=== PATIENT | male | born 1965 | race Caucasian/White ===

== ENCOUNTER 2016-11-20 19:23 | Inpatient (IN) | payer BC ==
[~2016-11-20] VITALS: Ht 180.3 cm; Wt 89.4 kg
[2016-11-20 19:26] VITALS: BP 135/56; PULSE 85; RESP 18; TEMP 98.5; O2SAT 100
[2016-11-20 20:54] VITALS: BP 126/60; PULSE 67; RESP 18; O2SAT 97
[2016-11-20] MEDS ORDERED: LISI-515 PO (21:05)
[2016-11-20] MEDS ORDERED: LANTUS2P ×2 (21:05)
[2016-11-20] MEDS ORDERED: ATOR40TA16 PO (21:05)
[2016-11-20] MEDS ORDERED: MULT-182 (21:05)
[2016-11-20] MEDS ORDERED: CALC0.25 PO (21:05)
[2016-11-20] MEDS ORDERED: BRIL90TA PO (21:05)
[2016-11-20] MEDS ORDERED: ALLO100T PO (21:05)
[2016-11-20] MEDS ORDERED: ISOS60TA PO (21:05)
[2016-11-20] MEDS ORDERED: HYDR-3533 PO (21:05)
[2016-11-20] MEDS ORDERED: FURO40TA PO (21:05)
[2016-11-20] MEDS ORDERED: ASPI81TA81 (21:05)
[2016-11-20] MEDS ORDERED: SODI650T PO (21:05)
[2016-11-20] MEDS ORDERED: COLC1CAP3 PO (21:05)
[2016-11-20] MEDS ORDERED: GLIP10TA6 PO (21:05)
[2016-11-20] MEDS ORDERED: CARV12.52 PO (21:05)
[2016-11-20] MEDS ORDERED: LYRI150C PO (21:05)
[2016-11-20] MEDS ORDERED: SODIUM CHLORIDE 0.9% FLUSH 10 ML FLUSH IVF PRN (21:15)
[2016-11-20] MEDS ORDERED: diphenhydrAMINE HCL 50 MG/ML VIAL IVP ONE (21:15)
[2016-11-20] MEDS ORDERED: DEXAMETHASONE SOD PHOS 20 MG/5 ML VIAL IV PUSH ONE (21:15)
[2016-11-20] MEDS ORDERED: METOCLOPRAMIDE HCL 10 MG/2 ML VIAL IVP ONE (21:15)
--- NOTE | 2016-11-20 21:51 | PD ---
HPI Chief Complaint: Headache Time Seen by Provider: 20:50 Travel History International Travel<30 days: No Contact w/Intl Traveler<30days: No Traveled to known affect area: No History of Present Illness HPI Patient is a 51 year old male who presents to ER with multiple complaints. Reports that he was admitted to [facility] hospital last week as he was severely dehydrated and hypotensive. Reports that he was admitted to the hospital for a few days and was discharged to home. Reports that during the course of his admission, he complained of a migraine headache. Reports that he has had a migraine for the 3 weeks and [facility] did not address his headache or perform any imaging of his head. Reports that he also had swelling to his legs and pains to his feet - reports that he was told that he had gout and was given a script for allopurinol and was discharged to home. Patient reports that he is not feeling any better and request that his headache and leg pain be evaluated. Reports that headache is posterior in nature, reports that he feels a pounding sensation to his head. Patient with no fever/chills. No vision changes, no nausea or vomiting. Reports that pain has been constant and unrelenting for the past 3 weeks. Reports that headache is worse today Also reports swelling and pain to his feet since last week's admission to [facility]. Denies chest pain/sob. Denies history of PE/DVT. PFSH Past Medical History Cardiac Catheterization: Yes (3X, TRIPLE BYPASS) High Cholesterol: Yes Chest Pain: Yes Diabetes: Yes Patient Takes Glucophage: No Diminished Hearing: No Headaches: Yes Hypertension: Yes Tetanus Vaccination: Unknown Influenza Vaccination: Yes Social History Alcohol Use: No Tobacco Use: No Substance Use: No Allergies-Medications (Allergen,Severity, Reaction): Coded Allergies: Percocet (Verified Allergy, Intermediate, 11/20/16) Reported Meds & Prescriptions Reported Meds & Active Scripts Active Reported Brilinta (Ticagrelor) 90 Mg Tab 90 Mg PO BID Sodium Bicarbonate 650 Mg Tab 1,300 Mg PO TIDPC Lyrica (Pregabalin) 150 Mg Cap 150 Mg PO TID Pete Multivitamin with Mineral (Multivitamin with Minerals) 1 Each Tablet Lisinopril 20 Mg Tab 20 Mg PO BID Lantus Inj (Insulin Glargine) 100 Unit/Ml Inj 25 HS Isosorbide Mononitrate ER (Isosorbide Mononitrate) 60 Mg Tab 60 Mg PO DAILY Glipizide 10 Mg Tab 10 Mg PO BIDAC Take 30 minutes before a meal Furosemide 40 Mg Tab 40 Mg PO DAILY Colchicine 0.6 Mg Cap 0.6 Mg PO BID Carvedilol 12.5 Mg Tab 12.5 Mg PO BID Calcitriol 0.25 Mcg Cap 0.25 Mcg PO EVERY OTHER DAY Atorvastatin (Atorvastatin Calcium) 40 Mg Tab 40 Mg PO HS Aspir-81 (Aspirin) 81 Mg Tabdr Allopurinol 100 Mg Tab 100 Mg PO DAILY Lortab (Hydrocodone-Acetaminophen) 5-325 Mg Tab 1 Tab PO Q6H PRN Review of Systems General / Constitutional: No: Fever Eyes: No: Visual changes HENT: No: Headaches Cardiovascular: No: Chest Pain or Discomfort Respiratory: No: Shortness of Breath Gastrointestinal: No: Abdominal Pain Genitourinary: No: Dysuria Musculoskeletal: Positive: Cramping, Edema, No: Pain Skin: No Rash Neurologic: Positive: Headache, No: Weakness Psychiatric: No: Depression Endocrine: No: Polydipsia Hematologic/Lymphatic: No: Easy Bruising Physical Exam Narrative GENERAL: mild distress SKIN: Focused skin assessment warm/dry. HEAD: Atraumatic. Normocephalic. EYES: Pupils equal and round. No scleral icterus. No injection or drainage. ENT: No nasal bleeding or discharge. Mucous membranes pink and moist. NECK: Trachea midline. No JVD. CARDIOVASCULAR: Regular rate and rhythm. No murmur appreciated. RESPIRATORY: No accessory muscle use. Clear to auscultation. Breath sounds equal bilaterally. GASTROINTESTINAL: Abdomen soft, non-tender, nondistended. Hepatic and splenic margins not palpable. MUSCULOSKELETAL: No obvious deformities. No clubbing. No cyanosis. +1 edema to b/l le's NEUROLOGICAL: Awake and alert. No obvious cranial nerve deficits. Motor grossly within normal limits. Normal speech. CN 2-12 grossly intact with no neurovascular defictits PSYCHIATRIC: Appropriate mood and affect; insight and judgment normal. Data Data Last Documented VS Vital Signs Date Time Temp Pulse Resp B/P Pulse Ox O2 Delivery O2 Flow Rate FiO2 11/20/16 20:54 67 18 126/60 97 Room Air 11/20/16 19:26 98.5 Orders Complete Blood Count With Diff (11/20/16 21:10) Basic Metabolic Panel (Bmp) (11/20/16 21:10) Prothrombin Time / Inr (Pt) (11/20/16 21:10) Act Partial Throm Time (Ptt) (11/20/16 21:10) Ct Brain W/O Iv Contrast(Rout) (11/20/16 21:10) Ecg Monitoring (11/20/16 21:10) Iv Access Insert/Monitor (11/20/16 21:10) Sodium Chloride 0.9% Flush (Ns Flush) (11/20/16 21:15) Diphenhydramine Inj (Benadryl Inj) (11/20/16 21:15) Metoclopramide Inj (Reglan Inj) (11/20/16 21:15) Dexamethasone Inj (Decadron Inj) (11/20/16 21:15) Us Leg Venous Doppler Bilat (11/20/16 ) Consult Neurosurgery (11/20/16 ) Admit Order (Ed Use Only) (11/20/16 23:17) Labs Laboratory Tests Test 11/20/16 21:25 White Blood Count 6.3 TH/MM3 Red Blood Count 4.44 MIL/MM3 Hemoglobin 12.0 GM/DL Hematocrit 37.2 % Mean Corpuscular Volume 83.7 FL Mean Corpuscular Hemoglobin 27.0 PG Mean Corpuscular Hemoglobin 32.3 % Concent Red Cell Distribution Width 14.4 % Platelet Count 81 TH/MM3 Mean Platelet Volume 13.0 FL Neutrophils (%) (Auto) 68.2 % Lymphocytes (%) (Auto) 12.9 % Monocytes (%) (Auto) 16.7 % Eosinophils (%) (Auto) 1.8 % Basophils (%) (Auto) 0.4 % Neutrophils # (Auto) 4.3 TH/MM3 Lymphocytes # (Auto) 0.8 TH/MM3 Monocytes # (Auto) 1.1 TH/MM3 Eosinophils # (Auto) 0.1 TH/MM3 Basophils # (Auto) 0.0 TH/MM3 CBC Comment AUTO DIFF Prothrombin Time 11.1 SEC Prothromb Time International 1.0 RATIO Ratio Activated Partial 26.9 SEC Thromboplast Time Sodium Level 134 MEQ/L Potassium Level 5.1 MEQ/L Chloride Level 101 MEQ/L Carbon Dioxide Level 22.8 MEQ/L Anion Gap 10 MEQ/L Blood Urea Nitrogen 72 MG/DL Creatinine 1.82 MG/DL Estimat Glomerular Filtration 40 ML/MIN Rate Random Glucose 271 MG/DL Calcium Level 9.6 MG/DL MDM Medical Decision Making Medical Screen Exam Complete: Yes Emergency Medical Condition: Yes Interpretation(s) Vital Signs Date Time Temp Pulse Resp B/P Pulse Ox O2 Delivery O2 Flow Rate FiO2 11/20/16 20:54 67 18 126/60 97 Room Air 11/20/16 19:26 98.5 85 18 135/56 100 Differential Diagnosis differential includes: ich, migraine, tension headache, electrolyte abnormality , dvt, chf Narrative Course 51-year-old male who presents to emergency room complaints of headache for the past 3 weeks. Patient reports that he was recently admitted to [facility] [address] head ordered, us of legs ordered to rule out dvt. Vital Signs Date Time Temp Pulse Resp B/P Pulse Ox O2 Delivery O2 Flow Rate FiO2 11/20/16 20:54 67 18 126/60 97 Room Air 11/20/16 19:26 98.5 85 18 135/56 100 CBC & BMP Diagram 11/20/16 21:[address] 11/20/16 2110 Signed Impressions: Service Date/Time: Sunday, November 20, 2016 21:41 - CONCLUSION: High density extra-axial collection along the left parietal lobe as described. This is most air to risk of a subdural hematoma versus possible epidural hematoma. David Gonzáles MD Lower Extremity Ultrasound 11/20/16 0000 Signed Impressions: Service Date/Time: Sunday, November 20, 2016 22:10 - CONCLUSION: Negative venous ultrasound with no evidence of deep venous thrombosis. David Gonzáles MD patient with ich - call made to dr. fair who will see patient in consult case reviewed with dr. michel who accepts pt service Diagnosis Primary Impression: Intracranial hemorrhage Additional Impression: Thrombocytopenia Admitting Information Admitting Physician Requests: Admit Clare Lerner DO Nov 20, 2016 21:51
--- NOTE | 2016-11-20 21:51 | RADRPT ---
EXAM DATE/TIME: 11/20/2016 21:41 [facility] COMPARISON: No previous studies available for comparison. INDICATIONS : Cephalgia x 1 month. RADIATION DOSE: 40.27 CTDIvol (mGy) MEDICAL HISTORY : Cardiovascular disease. Diabetes mellitus type 2. SURGICAL HISTORY : CABG ENCOUNTER: Initial ACUITY: 1 month PAIN SCALE: 10/10 LOCATION: cranial TECHNIQUE: Multiple contiguous axial images were obtained of the head. Using automated exposure control and adj ustment of the mA and/or kV according to patient size, radiation dose was kept as low as reasonably a chievable to obtain optimal diagnostic quality images. DICOM format image data is available electro nically for review and comparison. FINDINGS: CEREBRUM: The ventricles are normal for age. No evidence of midline shift, mass lesion, or acute infarction. T here is a high density collection along the left parietal lobe measuring up to approximately 4 x 1 cm in greatest AP and transverse diameter. There is mild mass effect on the adjacent brain with no julieta a. Adjacent skull is unremarkable POSTERIOR FOSSA: The cerebellum and brainstem are intact. The 4th ventricle is midline. The cerebellopontine angle i s unremarkable. EXTRACRANIAL: The visualized portion of the orbits is intact. SKULL: The calvaria is intact. No evidence of skull fracture. CONCLUSION: High density extra-axial collection along the left parietal lobe as described. This is most air to ri sk of a subdural hematoma versus possible epidural hematoma. David Gonzáles MD on November 20, 2016 at 21:43 Board Certified Radiologist. This report was verified electronically.
[2016-11-20 22:13] LABS: BICARBONATE 22.8 MEQ/L (21.0-32.0)
[2016-11-20 22:14] LABS: AUTOMATED NEUTROPHIL # 4.3 TH/MM3 (1.8-7.7); BASOPHIL % 0.4 % (0.0-2.0); EOSINOPHIL # 0.1 TH/MM3 (0-0.4); EOSINOPHIL % 1.8 % (0.0-4.0); HEMATOCRIT 37.2 % (39.0-51.0); LYMPH % 12.9 % (9.0-44.0); LYMPHOCYTE # 0.8 TH/MM3 (1.0-4.8); MEAN CELL VOLUME 83.7 FL (80.0-100.0); MEAN CORPUSCULAR HGB CONC 32.3 % (32.0-36.0); MONO % 16.7 % (0.0-8.0); NEUT % 68.2 % (16.0-70.0); PLATELET COUNT 81 TH/MM3 (150-450); POTASSIUM 5.1 MEQ/L (3.5-5.1); RED BLOOD COUNT 4.44 MIL/MM3 (4.50-5.90); RED CELL DISTRIBUTION WIDTH 14.4 % (11.6-17.2); WHITE BLOOD COUNT 6.3 TH/MM3 (4.0-11.0)
[2016-11-20 22:16] LABS: APTT (PATIENT) 26.9 SEC (24.3-30.1); PROTHROMBIN TIME - PATIENT 11.1 SEC (9.8-11.6)
[2016-11-20 22:19] LABS: HEMO FLAGS AUTO DIFF
--- NOTE | 2016-11-20 22:40 | RADRPT ---
EXAM DATE/TIME: 11/20/2016 22:10 [facility] COMPARISON: No previous studies available for comparison. INDICATIONS : Bilateral leg swelling. MEDICAL HISTORY : Hypercholesterolemia. Hypertension. Diabetes. SURGICAL HISTORY : CABG Cardiac catheterization. ENCOUNTER: Initial ACUITY: 3 days PAIN SCORE: 4/10 LOCATION: Bilateral legs. TECHNIQUE: Venous ultrasound of the left and right leg was performed from the inguinal ligament to the proximal calf. Real-time, color Doppler and spectral tracing, compression and augmentation techniques were us ed. FINDINGS: RIGHT LEG: There is normal compressibility of the deep venous system from the inguinal region to the proximal ca lf. No echogenic clot is seen in the lumen of the common femoral, femoral, popliteal, and posterior tibial veins. There is a normal response of the venous system to proximal and distal augmentation an d respiration. LEFT LEG: There is normal compressibility of the deep venous system from the inguinal region to the proximal ca lf. No echogenic clot is seen in the lumen of the common femoral, femoral, popliteal, and posterior tibial veins. There is a normal response of the venous system to proximal and distal augmentation an d respiration. CONCLUSION: Negative venous ultrasound with no evidence of deep venous thrombosis. David Gonzáles MD on November 20, 2016 at 22:37 Board Certified Radiologist. This report was verified electronically.
[2016-11-20 23:30] LABS: PLATELET ESTIMATE SMEAR LOW (NORMAL); PLATELET MORPHOLOGY NORMAL (NORMAL); SCAN/DIFF AUTO DIFF CONFIRMED
[2016-11-20 23:37] VITALS: BP 147/75; PULSE 73; RESP 18; O2SAT 98
[2016-11-20] MEDS ORDERED: MAGNESIUM HYDROXIDE SUSP 30 ML CUP PO PRN (23:45)
[2016-11-20] MEDS ORDERED: SODIUM CHLORIDE 0.9% FLUSH 10 ML FLUSH PRN (23:45)
[2016-11-20] MEDS ORDERED: SENNOSIDES 8.6 MG TAB PO PRN (23:45)
[2016-11-20] MEDS ORDERED: RESP: ALBUTEROL 2.5 MG/IPRATROPIUM 0.5 MG NEB (PRN) INH (23:45)
[2016-11-20] MEDS ORDERED: MISCELLANEOUS NURSING INFORMATION XX SCH (23:45)
[2016-11-20] MEDS ORDERED: LACTULOSE SYRUP 20 GM/30 ML CUP PO PRN (23:45)
[2016-11-20] MEDS ORDERED: BISACODYL 10 MG SUPP RECTAL PRN (23:45)
[2016-11-20] MEDS ORDERED: ONDANSETRON HCL 4 MG/2 ML VIAL IV PRN (23:45)
[2016-11-20] MEDS ORDERED: CHLORHEXIDINE GLUCONATE 2 % 1 PACK (2 CLOTHS) TOP PRN (23:45)
--- NOTE | 2016-11-20 23:51 | HHI.HP ---
HPI Service Critical Care Medicine Primary Care Physician Non-Staff Admission Diagnosis Intracranial hemorrhage Diagnosis: Travel History International Travel<30 Days: No Contact w/Intl Traveler <30 Da: No Traveled to Known Affected Are: No History of Present Illness 51 year old male with multiple medical problems including coronary artery disease status post CABG and recent 2 stents placed in August of this year was admitted to [facility] hospital last week as he was severely dehydrated and hypotensive. Reports that he was admitted to the hospital for a few days and was discharged to home. During that hospital course of his admission, he complained of a migraine headache. Reports that he has had a migraine for the 3 weeks and [facility] did not address his headache or perform any imaging of his head. Reports that he also had swelling to his legs and pains to his feet - reports that he was told that he had gout and was given a script for allopurinol and was discharged to home. The CT of the head performed in the emergency department today showed small subdural bleed and the patient is admitted to ICU. Review of Systems Constitutional: DENIES: Diaphoretic episodes, Fatigue, Fever, Weight gain, Weight loss, Chills, Dizziness, Change in appetite, Night Sweats Endocrine: DENIES: Heat/cold intolerance, Polydipsia, Polyuria, Polyphagia Eyes: DENIES: Blurred vision, Diplopia, Eye inflammation, Eye pain, Vision loss , Photosensitivity, Double Vision Ears, nose, mouth, throat: DENIES: Tinnitus, Hearing loss, Vertigo, Nasal discharge, Oral lesions, Throat pain, Hoarseness, Ear Pain, Running Nose, Epistaxis, Sinus Pain, Toothache, Odynophagia Respiratory: DENIES: Apneas, Cough, Snoring, Wheezing, Hemoptysis, Sputum production, Shortness of breath Cardiovascular: DENIES: Chest pain, Palpitations, Syncope, Dyspnea on Exertion , PND, Lower Extremity Edema, Orthopnea, Claudication Gastrointestinal: DENIES: Abdominal pain, Black stools, Bloody stools, Constipation, Diarrhea, Nausea, Vomiting, Difficulty Swallowing, Anorexia Genitourinary: DENIES: Sexual dysfunction, Urinary frequency, Urinary incontinence, Urgency, Hematuria, Dysuria, Nocturia, Penile Discharge, Testicular Pain, Testicular Swelling Musculoskeletal: DENIES: Joint pain, Muscle aches, Stiffness, Joint Swelling, Back pain, Neck pain Integumentary: DENIES: Abnormal pigmentation, Nail changes, Pruritus, Rash Hematologic/lymphatic: DENIES: Bruising, Lymphadenopathy Immunologic/allergic: DENIES: Eczema, Urticaria Neurologic: COMPLAINS OF: Headache, DENIES: Abnormal gait, Localized weakness , Paresthesias, Seizures, Speech Problems, Tremor, Poor Balance Psychiatric: DENIES: Anxiety, Confusion, Mood changes, Depression, Hallucinations, Agitation, Suicidal Ideation, Homicidal Ideation, Delusions Past Family Social History Allergies: Coded Allergies: Percocet (Verified Allergy, Intermediate, 11/20/16) Past Medical History Cardiac Catheterization: Yes (3X, TRIPLE BYPASS) High Cholesterol: Yes Chest Pain: Yes Diabetes: Yes Patient Takes Glucophage: No Diminished Hearing: No Headaches: Yes Hypertension: Yes Tetanus Vaccination: Unknown Influenza Vaccination: Yes Past Surgical History CABG Reported Medications Reported Meds & Active Scripts Active Reported Brilinta (Ticagrelor) 90 Mg Tab 90 Mg PO BID Sodium Bicarbonate 650 Mg Tab 1,300 Mg PO TIDPC Lyrica (Pregabalin) 150 Mg Cap 150 Mg PO TID Epte Multivitamin with Mineral (Multivitamin with Minerals) 1 Each Tablet Lisinopril 20 Mg Tab 20 Mg PO BID Lantus Inj (Insulin Glargine) 100 Unit/Ml Inj 25 HS Isosorbide Mononitrate ER (Isosorbide Mononitrate) 60 Mg Tab 60 Mg PO DAILY Glipizide 10 Mg Tab 10 Mg PO BIDAC Take 30 minutes before a meal Furosemide 40 Mg Tab 40 Mg PO DAILY Colchicine 0.6 Mg Cap 0.6 Mg PO BID Carvedilol 12.5 Mg Tab 12.5 Mg PO BID Calcitriol 0.25 Mcg Cap 0.25 Mcg PO EVERY OTHER DAY Atorvastatin (Atorvastatin Calcium) 40 Mg Tab 40 Mg PO HS Aspir-81 (Aspirin) 81 Mg Tabdr Allopurinol 100 Mg Tab 100 Mg PO DAILY Lortab (Hydrocodone-Acetaminophen) 5-325 Mg Tab 1 Tab PO Q6H PRN Active Ordered Medications Current Medications Medications (Trade) Dose Ordered Sig/Alona Route PRN Reason Start Time Stop Time Status Last Admin Dose Admin Sodium Chloride (NS Flush) 2 ml UNSCH PRN IVF FLUSH AFTER USING IV ACCESS 11/20/16 21:15 Atorvastatin Calcium (Lipitor) 40 mg HS PO 11/21/16 21:00 Carvedilol (Coreg) 12.5 mg BID PO 11/21/16 09:00 Pregabalin (Lyrica) 150 mg TID PO 11/21/16 09:00 Sodium Bicarbonate 1300 mg 1,300 mg TIDPC PO 11/21/16 09:30 Sodium Chloride (NS 1000 ml Inj) 1,000 ml @ 84 mls/hr [id number] IV 11/20/16 23:42 11/20/16 23:58 Sodium Chloride (NS Flush) 2 ml UNSCH PRN .XX FLUSH AFTER USING IV ACCESS 11/20/16 23:45 Sodium Chloride (NS Flush) 2 ml BID .XX 11/21/16 09:00 Acetaminophen (Tylenol) 650 mg Q6H PRN PO PAIN 1-10 AND/OR FEVER >101F 11/20/16 23:45 Oxycodone/ Acetaminophen (Percocet 5-325 Mg) 1 tab Q4H PRN PO PAIN SCALE 1 TO 5 11/20/16 23:45 Morphine Sulfate (Morphine Inj) 2 mg Q2H PRN IV PAIN SCALE 6 TO 10 11/20/16 23:45 11/21/16 00:37 Famotidine (Pepcid Inj) 20 mg Q12HR IV PUSH 11/21/16 09:00 Lorazepam (Ativan Inj) 2 mg Q4H PRN IV Agitation/Sedation 11/20/16 23:45 Ondansetron HCl (Zofran Inj) 4 mg Q6H PRN IV NAUSEA OR VOMITING 11/20/16 23:45 11/21/16 00:37 Miscellaneous Information 1 [id number] XX 11/20/16 23:45 Chlorhexidine Gluconate (Chlorhexidine 2% Cloth) 3 pack Taper DAILY@04 TOP 11/21/16 04:00 11/17/17 03:59 Chlorhexidine Gluconate (Chlorhexidine 2% Cloth) 3 pack UNSCH PRN TOP HYGIENIC CARE 11/20/16 23:45 Senna/Docusate Sodium (Mary Ellen-Colace) 1 tab BID PO 11/21/16 09:00 Magnesium Hydroxide (Milk Of Magnesia Liq) 30 ml Q12H PRN PO MILD - MODERATE CONSTIPATION 11/20/16 23:45 Sennosides (Senokot) 17.2 mg Q12H PRN PO MODERATE - SEVERE CONSTIPATION 11/20/16 23:45 Bisacodyl (Dulcolax Supp) 10 mg DAILY PRN RECTAL SEVERE CONSITIPATION 11/20/16 23:45 Lactulose (Lactulose Liq) 30 ml DAILY PRN PO SEVERE CONSITIPATION 11/20/16 23:45 Dextrose (D50w (Vial) Inj) 50 ml UNSCH PRN IV HYPOGLYCEMIA-SEE COMMENTS 11/21/16 00:00 Glucagon (Glucagon Inj) 1 mg UNSCH PRN OTHER HYPOGLYCEMIA-SEE COMMENTS 11/21/16 00:00 Isosorbide Mononitrate (Imdur) 60 mg DAILY@07 PO 11/21/16 07:00 Family History No history of cancer or premature coronary disease Social History Negative for smoking alcohol or illicit drug abuse Physical Exam Vital Signs Vital Signs Date Time Temp Pulse Resp B/P Pulse Ox O2 Delivery O2 Flow Rate FiO2 11/20/16 23:37 73 18 147/75 98 Room Air 11/20/16 20:54 67 18 126/60 97 Room Air 11/20/16 19:26 98.5 85 18 135/56 100 Physical Exam GENERAL: Well-nourished, well-developed patient. SKIN: Warm and dry. HEAD: Normocephalic. EYES: No scleral icterus. No injection or drainage. NECK: Supple, trachea midline. No JVD or lymphadenopathy. CARDIOVASCULAR: Regular rate and rhythm without murmurs, gallops, or rubs. RESPIRATORY: Breath sounds equal bilaterally. No accessory muscle use. GASTROINTESTINAL: Abdomen soft, non-tender, nondistended. MUSCULOSKELETAL: No cyanosis, or edema. BACK: Nontender without obvious deformity. No CVA tenderness. EXTREMITIES: No clubbing cyanosis or edema Laboratory Laboratory Tests Test 11/20/16 21:25 White Blood Count 6.3 Red Blood Count 4.44 Hemoglobin 12.0 Hematocrit 37.2 Mean Corpuscular Volume 83.7 Mean Corpuscular Hemoglobin 27.0 Mean Corpuscular Hemoglobin 32.3 Concent Red Cell Distribution Width 14.4 Platelet Count 81 Mean Platelet Volume 13.0 Neutrophils (%) (Auto) 68.2 Lymphocytes (%) (Auto) 12.9 Monocytes (%) (Auto) 16.7 Eosinophils (%) (Auto) 1.8 Basophils (%) (Auto) 0.4 Neutrophils # (Auto) 4.3 Lymphocytes # (Auto) 0.8 Monocytes # (Auto) 1.1 Eosinophils # (Auto) 0.1 Basophils # (Auto) 0.0 CBC Comment AUTO DIFF Differential Comment AUTO DIFF CONFIRMED Platelet Estimate LOW Platelet Morphology Comment NORMAL Prothrombin Time 11.1 Prothromb Time International 1.0 Ratio Activated Partial 26.9 Thromboplast Time Sodium Level 134 Potassium Level 5.1 Chloride Level 101 Carbon Dioxide Level 22.8 Anion Gap 10 Blood Urea Nitrogen 72 Creatinine 1.82 Estimat Glomerular Filtration 40 Rate Random Glucose 271 Calcium Level 9.6 Result Diagram: 11/20/16212411/20/162124 Imaging Last [address] 11/20/162109 Signed Impressions: Service Date/Time: Sunday, November 20, 2016 21:41 - CONCLUSION: High density extra-axial collection along the left parietal lobe as described. This is most air to risk of a subdural hematoma versus possible epidural hematoma. David Gonzáles MD Assessment and Plan Assessment and Plan Subdural hematoma - Patient on Brilinta - Transfuse platelets - Also to keep platelet count close to 100 - Repeat CT head tomorrow 24 hours apart - Further management per neurosurgeon Hypertension - Hold lisinopril due to elevated creatinine and potassium - Continue Coreg - Isosorbide Mononitrate - Hold Lasix due to elevated creatinine Acute kidney injury - Most likely due to dehydration - Gentle IV fluid resuscitation - Monitor I's and O's and creatinine levels - Avoid nephrotoxins Neuropathy - Lyrica Diabetes mellitus - Hold Lantus while patient nothing by mouth - Insulin sliding scale DVT GI prophylaxis - Teds SCDs - No pharmacological DVT prophylaxis due to acute ICH - Pepcid Critical Care: The total critical care time was 35 minutes. Time to perform other separately billable procedures was not included in the critical care time. Malik Rosales MD Nov 20, 2016 23:50
[2016-11-20] MEDS: SODIUM CHLOR 0.9% 1000 ML INJ 1,000 ML IV SCH (23:58)
[2016-11-21] VITALS (12 sets, daily range): BP systolic 117–187; BP diastolic 58–87; PULSE 70–100; RESP 13–22; TEMP 97.8–99.1; O2SAT 94–98
[2016-11-21] MEDS ORDERED: DEXTROSE 50% IN WATER 50 ML VIAL(D50) IV PRN
[2016-11-21] MEDS ORDERED: GLUCAGON 1 MG/ML VIAL OTHER PRN
[2016-11-21] MEDS: MORPHINE SULFATE 4 MG/ML INJ IV PRN ×4 (00:37→21:04)
[2016-11-21] MEDS: LORazepam 2 MG/ML VIAL IV PRN (01:05)
[2016-11-21] MEDS: LABETALOL HCL 100 MG/20 ML VIAL IV PUSH PRN (01:11)
[2016-11-21] MEDS: hydrALAZINE HCL 20 MG/ML VIAL IV PRN ×4 (02:01→23:45)
[2016-11-21] MEDS ORDERED: LORazepam 2 MG/ML VIAL IV PUSH ONE (02:45)
[2016-11-21] MEDS ORDERED: LABETALOL HCL 100 MG/20 ML VIAL IV PUSH ONE (02:45)
[2016-11-21] MEDS ORDERED: NITROGLYCERIN 0.2 MG/HR PATCH T-DERMAL ONE (02:45)
[2016-11-21] MEDS: LABETALOL INJ 500 MG in SODIUM CHLORIDE 0.9% INJ 150 ML IV SCH ×4 (02:54→09:36)
[2016-11-21] MEDS ORDERED: HYDROmorphone HCL PF 1 MG/ML VIAL IV PUSH ONE (03:00)
[2016-11-21] MEDS: CHLORHEXIDINE GLUCONATE 2 % 1 PACK (2 CLOTHS) TOP SCH (04:00)
[2016-11-21 04:16] LABS: AUTOMATED NEUTROPHIL # 5.4 TH/MM3 (1.8-7.7); BASOPHIL % 0.5 % (0.0-2.0); EOSINOPHIL % 0.1 % (0.0-4.0); HEMATOCRIT 34.4 % (39.0-51.0); HEMO FLAGS DIFF FINAL; LYMPH % 8.1 % (9.0-44.0); LYMPHOCYTE # 0.5 TH/MM3 (1.0-4.8); MEAN CELL VOLUME 83.2 FL (80.0-100.0); MEAN CORPUSCULAR HGB CONC 32.5 % (32.0-36.0); NEUT % 88.3 % (16.0-70.0); PLATELET COUNT 115 TH/MM3 (150-450); RED BLOOD COUNT 4.13 MIL/MM3 (4.50-5.90); RED CELL DISTRIBUTION WIDTH 14.4 % (11.6-17.2); WHITE BLOOD COUNT 6.1 TH/MM3 (4.0-11.0)
[2016-11-21 04:37] LABS: ANION GAP 12 MEQ/L (5-15); AST (GOT) 29 U/L (15-37); BLOOD UREA NITROGEN 66 MG/DL (7-18); CHLORIDE 106 MEQ/L (98-107); GLOMERULAR FILTRATION RATE 46 ML/MIN (>89); MAGNESIUM 2.5 MG/DL (1.5-2.5); POTASSIUM 4.8 MEQ/L (3.5-5.1); SODIUM (NA) 139 MEQ/L (136-145)
[2016-11-21 04:42] LABS: ALKALINE PHOSPHATASE 128 U/L (45-117); ALT (GPT) 61 U/L (12-78); TOTAL BILIRUBIN ADULT 1.1 MG/DL (0.2-1.0)
[2016-11-21] MEDS: ISOSORBIDE MONONITRATE 60 MG TAB PO SCH (05:59)
[2016-11-21] MEDS: INSULIN ASPART SUPPLEMENTAL SCALE SQ SCH ×4 (06:10→20:44)
[2016-11-21 06:36] LABS: AMPHETAMINE, URINE NEG (NEG); BARBITURATES, URINE NEG (NEG); COCAINE, URINE NEG (NEG)
[2016-11-21] MEDS ORDERED: LABETALOL INJ 1,000 MG in SODIUM CHLORID 0.9% 500 ML INJ 300 ML IV SCH ×3 (08:00)
[2016-11-21] MEDS: DOCUSATE SODIUM 50 MG/SENNA 8.6 MG TAB PO SCH ×2 (08:07→20:43)
[2016-11-21] MEDS: CARVEDILOL 12.5 MG TAB PO SCH ×2 (08:07→20:43)
[2016-11-21] MEDS: FAMOTIDINE 20 MG/2 ML VIAL IV PUSH SCH ×2 (08:07→20:43)
[2016-11-21] MEDS: SODIUM CHLORIDE 0.9% FLUSH 10 ML FLUSH SCH ×2 (08:08→20:44)
[2016-11-21] MEDS ORDERED: ISOSORBIDE MONONITRATE 60 MG TAB PO SCH (09:00)
[2016-11-21] MEDS: SODIUM BICARBONATE 650 MG TAB PO SCH ×3 (09:36→18:43)
[2016-11-21] MEDS: PREGABALIN 75 MG CAP PO SCH ×3 (09:37→18:43)
--- NOTE | 2016-11-21 09:45 | HHI.CCPN ---
Subjective Remarks/Hospital Course 11/20: 51 year old male with multiple medical problems including coronary artery disease status post CABG and recent 2 stents placed in August of this year was admitted to [facility] hospital last week as he was severely dehydrated and hypotensive. Reports that he was admitted to the hospital for a few days and was discharged to home. During that hospital course of his admission, he complained of a migraine headache. Reports that he has had a migraine for the 3 weeks and [facility] did not address his headache or perform any imaging of his head. Reports that he also had swelling to his legs and pains to his feet - reports that he was told that he had gout and was given a script for allopurinol and was discharged to home. The CT of the head performed in the emergency department today showed small subdural bleed and the patient is admitted to ICU. 11/21: Patient had retrosternal chest pain last night which resolved with nitroglycerin. Initial troponin negative. This morning he is resting in bed, denies any chest pain or shortness of breath. He is off Brilinta due to his ICH. Awaiting cardiology and neurosurgery eval. Objective Vital Signs Date Time Temp Pulse Resp B/P Pulse Ox O2 Delivery O2 Flow Rate FiO2 11/21/16 08:00 98 Nasal Cannula 2.00 11/21/16 08:00 97.8 78 16 117/59 Result Diagram: 11/21/16 0300 11/21/16 0300 Imaging Last [address] 11/20/162109 Signed Impressions: Service Date/Time: Sunday, November 20, 2016 21:41 - CONCLUSION: High density extra-axial collection along the left parietal lobe as described. This is most air to risk of a subdural hematoma versus possible epidural hematoma. David Gonzáles MD Objective Remarks GENERAL: Well-nourished, well-developed patient. SKIN: Warm and dry. HEAD: Normocephalic. EYES: No scleral icterus. No injection or drainage. NECK: Supple, trachea midline. No JVD or lymphadenopathy. CARDIOVASCULAR: Regular rate and rhythm without murmurs, gallops, or rubs. RESPIRATORY: Breath sounds equal bilaterally. No accessory muscle use. GASTROINTESTINAL: Abdomen soft, non-tender, nondistended. MUSCULOSKELETAL: No cyanosis, or edema. BACK: Nontender without obvious deformity. No CVA tenderness. EXTREMITIES: No clubbing cyanosis or edema Neuro: Awake and alert, following commands. Pupils 3 mm bilaterally reactive. Moving all 4 extremities. Grossly nonfocal A/P Assessment and Plan Subdural hematoma - Patient on Brilinta - Transfused platelets - Also to keep platelet count close to 100 - Repeat CT head in 24 hours - Further management per neurosurgeon Chest pain History of CAD status post recent stenting - Hold Brilinta. Patient reportedly had a 2-D echo at [facility] within the last week or so which revealed an EF of 50% according to his . Awaiting 2-D echo and cardiology evaluation for chest pain with EKG changes overnight. 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
--- NOTE | 2016-11-21 11:08 | HHI.PR ---
Addendum to Inpatient Note Addendum Reason: Additional Documentation Additional Information Discussed with Dr. Arevalo from cardiology-recommends starting Aspirin 81mg daily if ok with Neurosurgery. Discussed with Dr. Palacios from neurosurgery. Dr. Palacios is okay with starting aspirin 81 mg daily which I have ordered. Daniel Hutchison MD Nov 21, 2016 11:08
--- NOTE | 2016-11-21 11:28 | ECHRPT ---
Indication: Chest pain, unspecified CONCLUSIONS Normal left ventricular size. There was limited left ventricular wall motion assessment due to poor endocardial visualization. The left ventricular systolic function is normal with an estimated ejection fraction in the range of 55-60%. Mild concentric left ventricular hypertrophy. The right ventricle was not well visualized. The right atrium is not well visualized. Trace mitral valve regurgitation. The aortic valve is not well visualized. No aortic valve stenosis. No aortic valve regurgitation. There is trace tricuspid valve regurgitation. The pulmonary valve is not well visualized. The inferior vena cava (IVC) is normal in size. BP: / HR: Rhythm: MEASUREMENTS (Male / Female) Normal Values Technical Quality:Fair, Technically difficult stud y 2D ECHO LV Diastolic Diameter PLAX 4.8 cm 4.2 - 5.9 / 3.9 - 5.3 cm LV Systolic Diameter PLAX 3.7 cm IVS Diastolic Thickness 1.7 cm 0.6 - 1.0 / 0.6 - 0.9 cm LVPW Diastolic Thickness 1.3 cm 0.6 - 1.0 / 0.6 - 0.9 cm LV Relative Wall Thickness 0.6 RV Internal Dim ED PLAX 2.9 cm M-MODE Aortic Root Diameter MM 3.6 cm LA Systolic Diameter MM 4.3 cm LA Ao Ratio MM 1.2 AV Cusp Separation MM 2.3 cm DOPPLER Mitral E Point Velocity 94.8 cm/s Mitral A Point Velocity 59.7 cm/s Mitral E to A Ratio 1.6 LV E' Lateral Velocity 6.9 cm/s Mitral E to LV E' Lateral Ratio 13.7 LV E' Septal Velocity 6.2 cm/s Mitral E to LV E' Septal Ratio 15.2 FINDINGS LEFT VENTRICLE Normal left ventricular size. There was limited left ventricular wall motion assessment due to poor endocardial visualization. The left ventricular systolic function is normal with an estimated ejection fraction in the range of 55-60%. Mild concentric left ventricular hypertrophy. RIGHT VENTRICLE The right ventricle was not well visualized. Normal right ventricular size and systolic function. LEFT ATRIUM The left atrial size is normal. RIGHT ATRIUM The right atrium is not well visualized. The right atrial size is normal. ATRIAL SEPTUM Normal atrial septal thickness without atrial level shunting by limited color doppler interrogation. AORTA The aortic root and proximal ascending aorta are normal in size on limited imaging. MITRAL VALVE Structurally normal mitral valve. Trace mitral valve regurgitation. AORTIC VALVE The aortic valve is not well visualized. No aortic valve stenosis. No aortic valve regurgitation. TRICUSPID VALVE Structurally normal tricuspid valve. There is trace tricuspid valve regurgitation. PULMONARY VALVE The pulmonary valve is not well visualized. VESSELS The inferior vena cava (IVC) is normal in size. PERICARDIUM No pericardial effusion. Colin Arevalo MD (Electronically Signed) Final Date:21 November 2016 11:27
--- NOTE | 2016-11-21 11:29 | PD.CONS ---
HPI Service Neurosurgery Consult Requested By Dr Lerner Reason for Consult head injury Primary Care Physician Non-Staff History of Present Illness this is a 51 year old male with multiple medical problems including coronary artery disease, status post CABG and recent 2 stents placed in [facility] was admitted to [facility] hospital last week as he was severely dehydrated and hypotension. He was to the hospital for a few days and was then discharged to home. During that hospital course, he reported migraine headaches. Reports that he has had a migraine for the 3 weeks. He reportedly fell down. no LOC. No seizure activity. No tongue bitting. No incontinence of stool or urine. CT of the head performed in the emergency department today showed small subdural bleed. neurosurgical consultation was requested. Upon admission he developed hypertensive urgency with crushing chest pain. The EKG showed ST changes in the inferolateral ST elevation in aVR. Per patient his basin operator approved to hold anticoagulation for next 6 weeks. He received Nitropatch and initiated labetalol drip for blood pressure control. His chest pain has improved. Troponins and cardiology evaluation in progress Review of Systems Constitutional: DENIES: Diaphoretic episodes, Fatigue, Fever, Weight gain, Weight loss, Chills, Dizziness, Change in appetite, Night Sweats Endocrine: DENIES: Heat/cold intolerance, Polydipsia, Polyuria, Polyphagia Eyes: DENIES: Blurred vision, Diplopia, Eye inflammation, Eye pain, Vision loss , Photosensitivity, Double Vision Ears, nose, mouth, throat: DENIES: Tinnitus, Hearing loss, Vertigo, Nasal discharge, Oral lesions, Throat pain, Hoarseness, Ear Pain, Running Nose, Epistaxis, Sinus Pain, Toothache, Odynophagia Respiratory: DENIES: Apneas, Cough, Snoring, Wheezing, Hemoptysis, Sputum production, Shortness of breath Cardiovascular: DENIES: Chest pain, Palpitations, Syncope, Dyspnea on Exertion , PND, Lower Extremity Edema, Orthopnea, Claudication Gastrointestinal: DENIES: Abdominal pain, Black stools, Bloody stools, Constipation, Diarrhea, Nausea, Vomiting, Difficulty Swallowing, Anorexia Genitourinary: DENIES: Sexual dysfunction, Urinary frequency, Urinary incontinence, Urgency, Hematuria, Dysuria, Nocturia, Penile Discharge, Testicular Pain, Testicular Swelling Musculoskeletal: DENIES: Joint pain, Muscle aches, Stiffness, Joint Swelling, Back pain, Neck pain Integumentary: DENIES: Abnormal pigmentation, Nail changes, Pruritus, Rash Hematologic/lymphatic: DENIES: Bruising, Lymphadenopathy Immunologic/allergic: DENIES: Eczema, Urticaria Neurologic: COMPLAINS OF: Headache, DENIES: Abnormal gait, Localized weakness , Paresthesias, Seizures, Speech Problems, Tremor, Poor Balance Psychiatric: DENIES: Anxiety, Confusion, Mood changes, Depression, Hallucinations, Agitation, Suicidal Ideation, Homicidal Ideation, Delusions Past Family Social History Allergies: Coded Allergies: Percocet (Verified Allergy, Intermediate, 11/20/16) Past Medical History Cardiac Catheterization: Yes (3X, TRIPLE BYPASS) High Cholesterol: Yes Chest Pain: Yes Diabetes: Yes Headaches: Yes Hypertension: Yes Influenza Vaccination: Yes Past Surgical History CABG Reported Medications Brilinta (Ticagrelor) 90 Mg Tab 90 Mg PO BID Sodium Bicarbonate 650 Mg Tab 1,300 Mg PO TIDPC Lyrica (Pregabalin) 150 Mg Cap 150 Mg PO TID Pete Multivitamin with Mineral (Multivitamin with Minerals) 1 Each Tablet Lisinopril 20 Mg Tab 20 Mg PO BID Lantus Inj (Insulin Glargine) 100 Unit/Ml Inj 25 HS Isosorbide Mononitrate ER (Isosorbide Mononitrate) 60 Mg Tab 60 Mg PO DAILY Glipizide 10 Mg Tab 10 Mg PO BIDAC Take 30 minutes before a meal Furosemide 40 Mg Tab 40 Mg PO DAILY Colchicine 0.6 Mg Cap 0.6 Mg PO BID Carvedilol 12.5 Mg Tab 12.5 Mg PO BID Calcitriol 0.25 Mcg Cap 0.25 Mcg PO EVERY OTHER DAY Atorvastatin (Atorvastatin Calcium) 40 Mg Tab 40 Mg PO HS Aspir-81 (Aspirin) 81 Mg Tabdr Allopurinol 100 Mg Tab 100 Mg PO DAILY Lortab (Hydrocodone-Acetaminophen) 5-325 Mg Tab 1 Tab PO Q6H PRN Active Ordered Medications Current Medications Sodium Chloride (NS Flush) 2 ml UNSCH PRN IVF FLUSH AFTER USING IV ACCESS; Start 11/20/16 at 21:15; Stop 11/21/16 at 00:58; Status DC Diphenhydramine HCl (Benadryl Inj) 25 mg ONCE ONCE IVP Last administered on 21:28; Start 11/20/16 at 21:15; Stop 11/20/16 at 21:16; Status DC Metoclopramide HCl (Reglan Inj) 10 mg ONCE ONCE IVP Last administered on 21:28; Start 11/20/16 at 21:15; Stop 11/20/16 at 21:16; Status DC Dexamethasone Sodium Phosphate (Decadron Inj) 10 mg ONCE ONCE IV PUSH Last administered on 11/20/16 21:27; Start 11/20/16 at 21:15; Stop 11/20/16 at 21:16 ; Status DC Atorvastatin Calcium (Lipitor) 40 mg HS PO ; Start 11/21/16 at 21:00 Carvedilol (Coreg) 12.5 mg BID PO Last administered on 11/21/16 08:07; Start at 09:00 Isosorbide Mononitrate (Imdur) 60 mg DAILY PO ; Start 11/21/16 at 09:00; Stop 11/21/16 at 09:00; Status DC Pregabalin (Lyrica) 150 mg TID PO Last administered on 11/21/16 09:37; Start at 09:00 Sodium Bicarbonate 1300 mg 1,300 mg TIDPC PO Last administered on 11/21/16 09: 36; Start 11/21/16 at 09:30 Sodium Chloride (NS 1000 ml Inj) 1,000 ml @ 84 mls/hr [id number] IV Last administered on 11/20/16 23:58; Start 11/20/16 at 23:42 Sodium Chloride (NS Flush) 2 ml UNSCH PRN .XX FLUSH AFTER USING IV ACCESS; Start 11/20/16 at 23:45 Sodium Chloride (NS Flush) 2 ml BID .XX ; Start 11/21/16 at 09:00 Acetaminophen (Tylenol) 650 mg Q6H PRN PO PAIN 1-10 AND/OR FEVER >101F; Start 11/20/16 at 23:45 Oxycodone/ Acetaminophen (Percocet 5-325 Mg) 1 tab Q4H PRN PO PAIN SCALE 1 TO 5; Start 11/20/16 at 23:45 Morphine Sulfate (Morphine Inj) 2 mg Q2H PRN IV PAIN SCALE 6 TO 10 Last administered on 11/21/16 10:55; Start 11/20/16 at 23:45 Famotidine (Pepcid Inj) 20 mg Q12HR IV PUSH Last administered on 11/21/16 08:07 ; Start 11/21/16 at 09:00 Lorazepam (Ativan Inj) 2 mg Q4H PRN IV Agitation/Sedation Last administered on 11/21/16 01:05; Start 11/20/16 at 23:45 Ondansetron HCl (Zofran Inj) 4 mg Q6H PRN IV NAUSEA OR VOMITING Last administered on 11/21/16 00:37; Start 11/20/16 at 23:45 Albuterol/ Ipratropium (Duoneb Neb) 1 ampule Q2HR NEB PRN INH WHEEZING; Start 11/20/16 at 23:45 Miscellaneous Information 1 Q361D XX ; Start 11/20/16 at 23:45 Chlorhexidine Gluconate (Chlorhexidine 2% Cloth) 3 pack Taper DAILY@04 TOP Last administered on 11/21/16 04:00; Start 11/21/16 at 04:00; Stop 11/17/17 at 03 :59 Chlorhexidine Gluconate (Chlorhexidine 2% Cloth) 3 pack UNSCH PRN TOP HYGIENIC CARE; Start 11/20/16 at 23:45 Senna/Docusate Sodium (Mary Ellen-Colace) 1 tab BID PO Last administered on 11/21/16 08:07; Start 11/21/16 at 09:00 Magnesium Hydroxide (Milk Of Magnesia Liq) 30 ml Q12H PRN PO MILD - MODERATE CONSTIPATION; Start 11/20/16 at 23:45 Sennosides (Senokot) 17.2 mg Q12H PRN PO MODERATE - SEVERE CONSTIPATION; Start 11/20/16 at 23:45 Bisacodyl (Dulcolax Supp) 10 mg DAILY PRN RECTAL SEVERE CONSITIPATION; Start at 23:45 Lactulose (Lactulose Liq) 30 ml DAILY PRN PO SEVERE CONSITIPATION; Start at 23:45 Dextrose (D50w (Vial) Inj) 50 ml UNSCH PRN IV HYPOGLYCEMIA-SEE COMMENTS; Start 11/21/16 at 00:00 Glucagon (Glucagon Inj) 1 mg UNSCH PRN OTHER HYPOGLYCEMIA-SEE COMMENTS; Start 11/21/16 at 00:00 Insulin Aspart (NovoLOG SUPPLEMENTAL SCALE) 1 ACHS SLIDING SCALE SQ Last administered on 11/21/16 06:10; Start 11/21/16 at 07:00 Isosorbide Mononitrate (Imdur) 60 mg DAILY@07 PO Last administered on 11/21/16 05:59; Start 11/21/16 at 07:00 Labetalol HCl (Trandate Inj) 10 mg Q4H PRN IV PUSH SBP>160, DBP>90 Last administered on 11/21/16 01:11; Start 11/21/16 at 01:00 Hydralazine HCl (Apresoline Inj) 10 mg Q3H PRN IV SYS BP GREATER THAN 160 MMHG Last administered on 11/21/16 04:37; Start 11/21/16 at 02:00 Labetalol HCl 10 mg 10 mg BOLUS ONCE IV PUSH Last administered on 11/21/16 02: 45; Start 11/21/16 at 02:45; Stop 11/21/16 at 02:46; Status DC Labetalol HCl/ Sodium Chloride (Trandate Inj/NS Inj) 250 ml @ 0 mls/hr TITRATE IV Last administered on 11/21/16 09:36; Start 11/21/16 at 02:45; Stop 11/21/16 at 07:51; Status DC Nitroglycerin (Nitro-Dur 0.2 Mg Patch.24 Hr) 1 patch ONCE ONCE T-DERMAL Last administered on 11/21/16 02:54; Start 11/21/16 at 02:45; Stop 11/21/16 at 02:46; Status DC Lorazepam (Ativan Inj) 1 mg ONCE ONCE IV PUSH Last administered on 11/21/16 02 :48; Start 11/21/16 at 02:45; Stop 11/21/16 at 02:46; Status DC Hydromorphone HCl 0.5 mg 0.5 mg ONCE ONCE IV PUSH Last administered on 03:04; Start 11/21/16 at 03:00; Stop 11/21/16 at 03:01; Status DC Labetalol HCl/ Sodium Chloride (Trandate Inj/NS 500 ml Inj) 500 ml @ 0 mls/hr TITRATE IV ; Start 11/21/16 at 08:00 Aspirin (Ecotrin Ec) 81 mg DAILY PO ; Start 11/21/16 at 11:15 Family History No history of cancer or premature coronary disease Social History Negative for smoking alcohol or illicit drug abuse Physical Exam Vital Signs Vital Signs Date Time Temp Pulse Resp B/P Pulse Ox O2 Delivery O2 Flow Rate FiO2 11/21/16 10:37 15 11/21/16 08:00 98 Nasal Cannula 2.00 11/21/16 08:00 97.8 78 16 117/59 98 11/21/16 08:00 78 11/21/16 07:42 98 Nasal Cannula 2.00 11/21/16 06:00 84 11/21/16 04:00 100 11/21/16 04:00 98.7 90 22 165/82 98 11/21/16 02:00 100 11/21/16 01:30 98.7 83 21 167/72 94 11/21/16 00:00 99.1 70 19 187/87 96 11/20/16 23:37 73 18 147/75 98 Room Air 11/20/16 20:54 67 18 126/60 97 Room Air 11/20/16 19:26 98.5 85 18 135/56 100 Physical Exam The patient is alert, awake and oriented to time, place and person. Speech is fluent.GCS 15 Cranial nerve examination demonstrates the pupils to be equal, round, and reactive to light. Extra-ocular movements are intact. Facial motor and sensory function are normal and symmetrical. Gross hearing is intact, bilaterally. The uvula is midline and elevates symmetrically with the soft palate. Sternocleidomastoid and trapezius muscles have normal and symmetrical strength. Other cranial nerves are intact. Neck is soft and supple. Cervical spine has a full range of motion in anterior flexion, extension, lateral bending, and rotation without pain. There is no tenderness to palpation to the spinous processes or paraspinal muscles. Muscle testing reveals normal bulk and tone overall without rigidity, spasticity , fasciculations, or atrophy. Muscle strength is 5/5 in all muscle groups of both upper extremities including deltoid, biceps, triceps, brachioradialis, wrist extension and mileage clerk. In the lower extremities, strength is 5/5 in both iliopsoas, quadriceps, hamstrings, plantar flexion, dorsiflexion, and extensor hallicus longus. Sensory examination is intact to light touch and sharp/dull discrimination in both the upper and lower extremities, symmetrically. Deep tendon reflexes are 2+ and symmetrical in the biceps, triceps, and brachioradialis, bilaterally, in the upper extremities. In the lower extremities , the patellar and Achilles are 2+, bilaterally. There is a bilateral plantar flexion response. Hoffmanns sign is negative. There is no clonus or other abnormal reflexes noted. Cerebellar examination is intact to [id number] test, rapid rhythmic alternating motion. There is no dysmetria, dysdiadochokinesia, truncal ataxia, or tremor. Laboratory Laboratory Tests Test 11/20/16 11/20/16 11/21/16 11/21/16 21:25 23:34 00:13 00:20 White Blood Count 6.3 Red Blood Count 4.44 Hemoglobin 12.0 Hematocrit 37.2 Mean Corpuscular Volume 83.7 Mean Corpuscular Hemoglobin 27.0 Mean Corpuscular Hemoglobin 32.3 Concent Red Cell Distribution Width 14.4 Platelet Count 81 Mean Platelet Volume 13.0 Neutrophils (%) (Auto) 68.2 Lymphocytes (%) (Auto) 12.9 Monocytes (%) (Auto) 16.7 Eosinophils (%) (Auto) 1.8 Basophils (%) (Auto) 0.4 Neutrophils # (Auto) 4.3 Lymphocytes # (Auto) 0.8 Monocytes # (Auto) 1.1 Eosinophils # (Auto) 0.1 Basophils # (Auto) 0.0 CBC Comment AUTO DIFF Differential Comment AUTO DIFF CONFIRMED Platelet Estimate LOW Platelet Morphology Comment NORMAL Prothrombin Time 11.1 Prothromb Time International 1.0 Ratio Activated Partial 26.9 Thromboplast Time Sodium Level 134 Potassium Level 5.1 Chloride Level 101 Carbon Dioxide Level 22.8 Anion Gap 10 Blood Urea Nitrogen 72 Creatinine 1.82 Estimat Glomerular Filtration 40 Rate Random Glucose 271 Calcium Level 9.6 Blood Type O POSITIVE O POSITIVE Blood Bank Comment Nasal Screen MRSA (PCR) MRSA NOT DETECTED Test 11/21/16 11/21/16 03:00 06:00 White Blood Count 6.1 Red Blood Count 4.13 Hemoglobin 11.2 Hematocrit 34.4 Mean Corpuscular Volume 83.2 Mean Corpuscular Hemoglobin 27.0 Mean Corpuscular Hemoglobin 32.5 Concent Red Cell Distribution Width 14.4 Platelet Count 115 Mean Platelet Volume 11.7 Neutrophils (%) (Auto) 88.3 Lymphocytes (%) (Auto) 8.1 Monocytes (%) (Auto) 3.0 Eosinophils (%) (Auto) 0.1 Basophils (%) (Auto) 0.5 Neutrophils # (Auto) 5.4 Lymphocytes # (Auto) 0.5 Monocytes # (Auto) 0.2 Eosinophils # (Auto) 0.0 Basophils # (Auto) 0.0 CBC Comment DIFF FINAL Differential Comment Sodium Level 139 Potassium Level 4.8 Chloride Level 106 Carbon Dioxide Level 21.0 Anion Gap 12 Blood Urea Nitrogen 66 Creatinine 1.60 Estimat Glomerular Filtration 46 Rate Random Glucose 297 Calcium Level 9.6 Phosphorus Level 4.8 Magnesium Level 2.5 Total Bilirubin 1.1 Aspartate Amino Transf 29 (AST/SGOT) Alanine Aminotransferase 61 (ALT/SGPT) Alkaline Phosphatase 128 Troponin I 0.05 Total Protein 8.1 Albumin 3.1 Urine Opiates Screen POS Urine Barbiturates Screen NEG Urine Amphetamines Screen NEG Urine Benzodiazepines Screen NEG Urine Cocaine Screen NEG Urine Cannabinoids Screen NEG Result Diagram: 11/21/16 0300 11/21/16 0300 Imaging Last Impressions Head CT 11/20/162109 Signed Impressions: Service Date/Time: Sunday, November 20, 2016 21:41 - CONCLUSION: High density extra-axial collection along the left parietal lobe as described. This is most air to risk of a subdural hematoma versus possible epidural hematoma. David Gonzáles MD Lower Extremity Ultrasound 11/20/16 0000 Signed Impressions: Service Date/Time: Sunday, November 20, 2016 22:10 - CONCLUSION: Negative venous ultrasound with no evidence of deep venous thrombosis. David Gonzáles MD Attending Statement Subdural bleed, neuro checks in a serial fashion. A follow-up CT of the head will be obtained in 24 hours. Patient on Brilinta. Transfuse platelets. Keep platelet count close to 100 HTN. Treat with antihypertensives as needed. Continue Coreg Pulmonary. aggressive pulmonary toilette, nasotracheal suction, and breathing treatments with nebulizers. PT and OT evaluation Nutrition. Oral diet Chest pain. EKG. Troponin. Consult cardiology Renal. Acute kidney injury Most likely due to dehydration. Gentle IV fluid resuscitation Avoid nephrotoxins, monitor closely urine output, BUN and creatinine Diabetes mellitus. Monitor serial Acu checks and SSI as needed in detail ID monitor for signs of infection Hyperlipidemia Continue Atorvastatin Hypothyroidism Check TSH level Protonix for stress ulcer prophylaxis Poli child and SCD's for DVT prophylaxis Karson Palacios MD Nov 21, 2016 11:29
[2016-11-21] MEDS: ASPIRIN EC 81 MG TABEC PO SCH (11:43)
--- NOTE | 2016-11-21 11:48 | MB ---
cc: RASHAUN MARTIN MD, ALAN S. M.D. DATE OF CONSULTATION: 11/21/2016. REASON FOR CONSULTATION: Coronary disease. HISTORY OF PRESENT ILLNESS: I have reviewed the records and have spoken with the patient and his family. The patient is a 51-year-old gentleman I am seeing for coronary disease. [place] [facility] but does follow with a business continuity strategy director in [place]. 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 Apparently the patient has had triple-vessel bypass in 2013, and then in August of this year had three stents down in [place]. He was in [facility] approximately a week ago for with what appeared to be dehydration and low blood pressure. He was complaining of a headache then, which continued but according to his never had any scanning done. He sought attention because of worsening headache. He had no cardiopulmonary symptoms except for vague substernal pressure last night lasting twenty minutes. He is pain-free now. EKGs here have shown sinus rhythm with nonspecific ST-T wave changes but we have no baseline. CBC normal with mild anemia and mild thrombocytopenia. PT/PTT normal. Potassium 4.8, creatinine 1.60. Liver functions normal. Troponin 0.05. Tox screen positive for opiates. Head CT shows a high density collection in the parietal lobe most likely representing a subdural hematoma versus epidural hematoma. Lower extremity ultrasound negative for DVT. PAST MEDICAL HISTORY: 1. Hypertension. 2. Diabetes. 3. Hyperlipidemia. 4. Acute on chronic kidney disease. 5. Cardiac as above. ALLERGIES: PERCOCET. SOCIAL HISTORY: He is and does not smoke or drink. FAMILY HISTORY: Noncontributory. MEDICATIONS: List reviewed. He has been on Aspirin and Brilinta up till now. REVIEW OF SYSTEMS: Review of systems only remarkable for occasional leg pain. PHYSICAL EXAMINATION: GENERAL: On exam, he is alert and oriented times three. VITAL SIGNS: He was hypertensive but vital signs are stable now. SKIN: There are no xanthelasma and oropharyngeal mucosa normal. CHEST: Clear. CARDIOVASCULAR: JVD normal. S1, S2. No murmurs or gallops. ABDOMEN: Benign. EXTREMITIES: No cyanosis, clubbing or edema. PULSES: 2/2 throughout without bruits with 1+ pedal pulses. NEUROLOGIC: He was not ambulated. PROBLEMS: 1. Intracranial hemorrhage. 2. Coronary artery disease with recent coronary stents. 3. Hypertension. 4. Hyperlipidemia. RECOMMENDATIONS: 1. DVT prophylaxis. 2. I have asked the nurse to page the paralegal specialist or neurosurgeon. Unfortunately, we cannot continue the Brilinta which certainly increases his risk of stent thrombosis but at a minimum we would like to keep him on a baby aspirin per day. 3. Continue statins and isosorbide. 4. Will follow. 5. Unfortunately, even if there is a cardiac event, we cannot take the patient to the catheterization lab because of inability to give more potent antiplatelet agents or full anticoagulation. He and his understand this. MD SHAKIRA Carlton/TASNEEM /10:51 AM /11:42 AM
[2016-11-21] MEDS: SODIUM CHLOR 0.9% 1000 ML INJ 1,000 ML IV SCH ×2 (13:47→23:45)
[2016-11-21] MEDS: ATORVASTATIN 40 MG TAB PO SCH (20:43)
--- NOTE | 2016-11-21 22:23 | RADRPT ---
EXAM DATE/TIME: 11/21/2016 21:59 [facility] COMPARISON: CT BRAIN W/O CONTRAST, November 20, 2016, 21:41. INDICATIONS : Follow up subdural hematoma. RADIATION DOSE: 56.77 CTDIvol (mGy) MEDICAL HISTORY : Congestive hearrt failure. Hypertension. Gastroesophageal reflux disease.Diabetes. SURGICAL HISTORY : CABG ENCOUNTER: Subsequent ACUITY: 1 day PAIN SCALE: 0/10 LOCATION: cranial TECHNIQUE: Multiple contiguous axial images were obtained of the head. Using automated exposure control and adj ustment of the mA and/or kV according to patient size, radiation dose was kept as low as reasonably a chievable to obtain optimal diagnostic quality images. DICOM format image data is available electro nically for review and comparison. FINDINGS: CEREBRUM: There is a persistent extra-axial hemorrhage seen at the left temporoparietal region. This extends ov er at least a 4.7 cm length and measures up to 1 cm in thickness. This is unchanged from the prior ex am. There is 2 mm of left to right midline shift. The ventricles are normal for age. No evidence of mass lesion or acute infarction. POSTERIOR FOSSA: The cerebellum and brainstem are intact. The 4th ventricle is midline. The cerebellopontine angle i s unremarkable. EXTRACRANIAL: The visualized portion of the orbits is intact. SKULL: The calvaria is intact. No evidence of skull fracture. CONCLUSION: Persistent extra-axial hemorrhage seen at the left temporoparietal region representing either a focal subdural or epidural hemorrhage. This is unchanged from the prior exam. There is minimal 2 mm of lef t-to-right midline shift. Fahad Salvador MD on November 21, 2016 at 22:17 Board Certified Radiologist. This report was verified electronically.
[2016-11-22] VITALS (13 sets, daily range): BP systolic 133–156; BP diastolic 60–74; PULSE 73–92; RESP 16–20; TEMP 97.9–98.9; O2SAT 94–99
[2016-11-22] MEDS: MORPHINE SULFATE 4 MG/ML INJ IV PRN ×2 (00:12→23:31)
[2016-11-22] MEDS: LORazepam 2 MG/ML VIAL IV PRN (01:02)
[2016-11-22] MEDS: CHLORHEXIDINE GLUCONATE 2 % 1 PACK (2 CLOTHS) TOP SCH (04:00)
[2016-11-22] MEDS: ISOSORBIDE MONONITRATE 60 MG TAB PO SCH (06:46)
[2016-11-22] MEDS: INSULIN ASPART SUPPLEMENTAL SCALE SQ SCH ×4 (06:46→21:24)
[2016-11-22] MEDS: DOCUSATE SODIUM 50 MG/SENNA 8.6 MG TAB PO SCH ×2 (09:00→20:44)
[2016-11-22] MEDS: SODIUM CHLORIDE 0.9% FLUSH 10 ML FLUSH SCH ×2 (09:00→21:00)
[2016-11-22] MEDS: ASPIRIN EC 81 MG TABEC PO SCH (09:35)
[2016-11-22] MEDS: FAMOTIDINE 20 MG/2 ML VIAL IV PUSH SCH ×2 (09:35→21:07)
[2016-11-22] MEDS: SODIUM CHLOR 0.9% 1000 ML INJ 1,000 ML IV SCH ×2 (09:35→22:45)
[2016-11-22] MEDS: SODIUM BICARBONATE 650 MG TAB PO SCH ×3 (09:35→17:45)
[2016-11-22] MEDS: CARVEDILOL 12.5 MG TAB PO SCH ×2 (09:35→21:07)
[2016-11-22] MEDS: PREGABALIN 75 MG CAP PO SCH ×3 (09:35→17:45)
--- NOTE | 2016-11-22 10:54 | HHI.CCPN ---
Subjective Remarks/Hospital Course 11/20: 51 year old male with multiple medical problems including coronary artery disease status post CABG and recent 2 stents placed in August of this year was admitted to [facility] hospital last week as he was severely dehydrated and hypotensive. Reports that he was admitted to the hospital for a few days and was discharged to home. During that hospital course of his admission, he complained of a migraine headache. Reports that he has had a migraine for the 3 weeks and [facility] did not address his headache or perform any imaging of his head. Reports that he also had swelling to his legs and pains to his feet - reports that he was told that he had gout and was given a script for allopurinol and was discharged to home. The CT of the head performed in the emergency department today showed small subdural bleed and the patient is admitted to ICU. 11/21: Patient had retrosternal chest pain last night which resolved with nitroglycerin. Initial troponin negative. This morning he is resting in bed, denies any chest pain or shortness of breath. He is off Brilinta due to his ICH. Awaiting cardiology and neurosurgery eval. 11/22: Slept well overnight. Complains of headache off and on. Denies any chest pain or shortness of breath. Started on aspirin yesterday after clearing with neurosurgery. Objective Vital Signs Date Time Temp Pulse Resp B/P Pulse Ox O2 Delivery O2 Flow Rate FiO2 11/22/16 10:00 78 11/22/16 08:00 98.6 20 135/62 99 11/22/16 07:30 21 11/22/16 07:00 Room Air 11/21/16 08:00 2.00 Intake and Output 11/21/16 11/21/16 11/22/16 08:00 16:00 00:00 Intake Total 1540 ml 1621 ml 1143 ml Output Total 50 ml 1600 ml 275 ml Balance 1490 ml 21 ml 868 ml Result Diagram: 11/21/16 0300 11/21/16 0300 Imaging Last [address] 11/20/162109 Signed Impressions: Service Date/Time: Sunday, November 20, 2016 21:41 - CONCLUSION: High density extra-axial collection along the left parietal lobe as described. This is most air to risk of a subdural hematoma versus possible epidural hematoma. David Gonzáles MD Objective Remarks GENERAL: Well-nourished, well-developed patient. SKIN: Warm and dry. HEAD: Normocephalic. EYES: No scleral icterus. No injection or drainage. NECK: Supple, trachea midline. No JVD or lymphadenopathy. CARDIOVASCULAR: Regular rate and rhythm without murmurs, gallops, or rubs. RESPIRATORY: Breath sounds equal bilaterally. No accessory muscle use. GASTROINTESTINAL: Abdomen soft, non-tender, nondistended. MUSCULOSKELETAL: No cyanosis, or edema. BACK: Nontender without obvious deformity. No CVA tenderness. EXTREMITIES: No clubbing cyanosis or edema Neuro: Awake and alert, following commands. Pupils 3 mm bilaterally reactive. Moving all 4 extremities. Grossly nonfocal A/P Assessment and Plan Subdural hematoma - Patient on Brilinta (held on admission) - Transfused platelets - Also to keep platelet count close to 100 - Repeat CT head done on 11/21 - unchanged. - Further management per neurosurgeon Chest pain History of CAD status post recent stenting - Hold Brilinta. Patient reportedly had a 2-D echo at [facility] within the last week or so which revealed an EF of 50% according to his . Awaiting 2-D echo and cardiology evaluation for chest pain with EKG changes overnight. Will obtain medical records from his operating room nurse in [place] regarding previous intervention Hypertension - Hold lisinopril due to elevated creatinine and potassium - Continue Coreg - Isosorbide Mononitrate - Hold Lasix due to elevated creatinine Acute kidney injury - Most likely due to dehydration - Gentle IV fluid resuscitation - Monitor I's and O's and creatinine levels - Avoid nephrotoxins Neuropathy - Lyrica Diabetes mellitus - Resumed lantus 25 units daily - Insulin sliding scale DVT GI prophylaxis - Teds SCDs - No pharmacological DVT prophylaxis due to acute ICH - Pepcid Further recommendations per neurosurgery and cardiology. Patient will be transferred to hospitalist service for further medical management. Critical care will be signing off at this time. Patient to be transferred out of ICU if okay with neurosurgery. Daniel Hutchison MD Nov 22, 2016 10:54
--- NOTE | 2016-11-22 11:13 | PD.CARD.PN ---
Subjective Subjective Remarks The patient denies chest pain, shortness of breath, palpitations, GI symptoms or bleeding. He has a mild headache which was improved. Cardiac catheterization report from [place] 09/07 was reviewed. The left anterior descending was occluded, circumflex was narrowed 80% in the midportion and 90% in the marginal branch and the right coronary artery was occluded. Both bypasses to the diagonal and RCA were occluded. The NEUMANN to the LAD was patent. The patient had complex coronary intervention with a 2.2526 mm drug- eluting stent to the mid to distal circumflex along with a 2.532 mm drug- eluting stent proximally. Objective Medications Reviewed Vital Signs / I&O Vital Signs Date Time Temp Pulse Resp B/P Pulse Ox O2 Delivery O2 Flow Rate FiO2 11/22/16 10:00 78 11/22/16 08:00 98.6 80 20 135/62 99 11/22/16 08:00 80 11/22/16 07:30 94 21 11/22/16 07:00 98 Room Air 21 11/22/16 06:00 75 11/22/16 04:00 73 11/22/16 04:00 98.9 77 16 133/60 94 11/22/16 02:00 84 11/22/16 00:00 92 11/22/16 00:00 98.7 87 18 141/63 94 11/21/16 22:00 80 11/21/16 20:00 76 11/21/16 20:00 97.9 76 17 132/63 97 11/21/16 19:05 95 21 11/21/16 19:00 98 Room Air 11/21/16 16:00 75 11/21/16 16:00 97.8 75 13 124/58 95 11/21/16 14:46 15 11/21/16 12:00 98.4 79 15 125/59 98 11/21/16 12:00 79 I/O 11/21/16 11/21/16 11/21/16 11/22/16 11/22/16 11/22/16 07:00 15:00 23:00 07:00 15:00 23:00 Intake Total 1540 ml 1621 ml 1143 ml 826 ml Output Total 50 ml 1600 ml 275 ml 0 ml Balance 1490 ml 21 ml 868 ml 826 ml Intake Oral 480 ml 480 ml 120 ml IV Total 963 ml 1141 ml 663 ml 706 ml Platelets 577 ml Output Urine Total 50 ml 1600 ml 275 ml 0 ml # Voids 3 # Bowel Movements 0 Physical Exam GENERAL: Well-nourished, well-developed patient in no apparent distress. SKIN: Warm and dry. NECK: JVD normal - less than or equal to 5 cm H20. CARDIOVASCULAR: Regular rate and rhythm without murmurs, gallops, or rubs. RESPIRATORY: Normal breath sounds - equal bilaterally. No accessory muscle use. No wheezes, rales or rubs. PERIPHERY: No cyanosis, or edema. Laboratory Reviewed Imaging Last [address] 11/21/162101 Signed Impressions: Service Date/Time: Monday, November 21, 2016 21:59 - CONCLUSION: Persistent extra-axial hemorrhage seen at the left temporoparietal region representing either a focal subdural or epidural hemorrhage. This is unchanged from the prior exam. There is minimal 2 mm of [id number] midline shift. Fahad Salvador MD Head CT 11/20/162109 Signed Impressions: Service Date/Time: Sunday, November 20, 2016 21:41 - CONCLUSION: High density extra-axial collection along the left parietal lobe as described. This is most air to risk of a subdural hematoma versus possible epidural hematoma. David Gonzáles MD Assessment and Plan Assessment and Plan Problems: Non-ST elevation CO with recent complex stenting. Intracranial hemorrhage Hypertension Diabetes Hyperlipidemia Recommendations: Continue aspirin without interruption. He ideally should be back on Brilinta as soon as possible. Risk factor modification and continuation of nitrates. He will need to follow-up with his cellophaner in [place]. I will sign off and be available if needed. All questions were answered. Colin Arevalo MD Nov 22, 2016 11:13
[2016-11-22] MEDS: hydrALAZINE HCL 20 MG/ML VIAL IV PRN (13:19)
[2016-11-22] MEDS: ACETAMINOPHEN 325 MG TAB PO PRN (16:27)
[2016-11-22] MEDS: ATORVASTATIN 40 MG TAB PO SCH (21:07)
[2016-11-22] MEDS: INSULIN DETEMIR 100 UNITS/ML VIAL SQ SCH (21:18)
[2016-11-22] MEDS: oxyCODONE/ACETAMINOPHEN 5 MG/325 MG TAB PO PRN (22:47)
[2016-11-23] VITALS (13 sets, daily range): BP systolic 135–160; BP diastolic 65–76; PULSE 66–82; RESP 18–23; TEMP 98.3–98.7; O2SAT 93–98
[2016-11-23] MEDS: CHLORHEXIDINE GLUCONATE 2 % 1 PACK (2 CLOTHS) TOP SCH (04:00)
[2016-11-23] MEDS: MORPHINE SULFATE 4 MG/ML INJ IV PRN ×4 (04:39→20:50)
[2016-11-23 04:54] LABS: AUTOMATED NEUTROPHIL # 3.3 TH/MM3 (1.8-7.7); BASOPHIL % 0.6 % (0.0-2.0); EOSINOPHIL # 0.1 TH/MM3 (0-0.4); EOSINOPHIL % 2.5 % (0.0-4.0); LYMPH % 22.8 % (9.0-44.0); LYMPHOCYTE # 1.3 TH/MM3 (1.0-4.8); MEAN CELL VOLUME 83.6 FL (80.0-100.0); MEAN CORPUSCULAR HGB CONC 32.4 % (32.0-36.0); MONO % 17.2 % (0.0-8.0); NEUT % 56.9 % (16.0-70.0); PLATELET COUNT 94 TH/MM3 (150-450); RED BLOOD COUNT 3.59 MIL/MM3 (4.50-5.90); RED CELL DISTRIBUTION WIDTH 14.2 % (11.6-17.2); WHITE BLOOD COUNT 5.8 TH/MM3 (4.0-11.0)
[2016-11-23 04:59] LABS: HEMO FLAGS AUTO DIFF
[2016-11-23 06:49] LABS: PLATELET ESTIMATE SMEAR LOW (NORMAL); PLATELET MORPHOLOGY ENLARGED (NORMAL); SCAN/DIFF AUTO DIFF CONFIRMED
[2016-11-23] MEDS: ISOSORBIDE MONONITRATE 60 MG TAB PO SCH (07:00)
[2016-11-23] MEDS: INSULIN ASPART SUPPLEMENTAL SCALE SQ SCH ×4 (07:00→20:55)
--- NOTE | 2016-11-23 07:18 | MG ---
cc: BARRON CRAWFORD M.D. Lab No: Date: 11/22/2016 Age: 51 Sex: M Race: REQUESTING PHYSICIAN BEE Anderson INDICATIONS FOR PROCEDURE An EEG was obtained on this 51-year-old patient with history of headaches. FINDINGS The patient is awake and asleep. The EEG shows asleep features initially. There are theta along with some alpha rhythms. There is widespread beta activity. The background is reactive. There is sleep Stage II later on. The patient awakens for a brief period of time and there is a lot of artifact along with alpha rhythms. Photic stimulation disclosed no change. Hyperventilation was not performed. INTERPRETATION Normal awake and asleep EEG. Barron Crawford MD OFC/SSB /7:58 PM /7:20 AM
[2016-11-23 07:19] LABS: ALKALINE PHOSPHATASE 105 U/L (45-117); ALT (GPT) 67 U/L (12-78); ANION GAP 5 MEQ/L (5-15); AST (GOT) 43 U/L (15-37); BICARBONATE 26.3 MEQ/L (21.0-32.0); BLOOD UREA NITROGEN 41 MG/DL (7-18); CHLORIDE 112 MEQ/L (98-107); GLOMERULAR FILTRATION RATE 69 ML/MIN (>89); POTASSIUM 5.1 MEQ/L (3.5-5.1); SODIUM (NA) 143 MEQ/L (136-145); TOTAL BILIRUBIN ADULT 0.5 MG/DL (0.2-1.0)
[2016-11-23] MEDS: CARVEDILOL 12.5 MG TAB PO SCH ×2 (08:27→20:20)
[2016-11-23] MEDS: ACETAMINOPHEN 325 MG TAB PO PRN ×2 (08:27→15:58)
[2016-11-23] MEDS: ASPIRIN EC 81 MG TABEC PO SCH (08:27)
[2016-11-23] MEDS: LORazepam 2 MG/ML VIAL IV PRN ×3 (08:28→20:50)
[2016-11-23] MEDS: FAMOTIDINE 20 MG/2 ML VIAL IV PUSH SCH ×2 (08:28→20:20)
[2016-11-23] MEDS: INSULIN DETEMIR 100 UNITS/ML VIAL SQ SCH (08:36)
[2016-11-23] MEDS: PREGABALIN 75 MG CAP PO SCH ×3 (08:37→17:59)
[2016-11-23] MEDS: DOCUSATE SODIUM 50 MG/SENNA 8.6 MG TAB PO SCH ×2 (08:37→20:02)
[2016-11-23] MEDS: SODIUM CHLORIDE 0.9% FLUSH 10 ML FLUSH SCH ×2 (09:43→20:20)
[2016-11-23] MEDS: SODIUM BICARBONATE 650 MG TAB PO SCH ×3 (09:47→18:00)
--- NOTE | 2016-11-23 11:54 | HHI.PR ---
Subjective Remarks resting comfortably with no distress. has some headache. no chest pain. d/w the RN. Objective Vitals Vital Signs Date Time Temp Pulse Resp B/P Pulse Ox O2 Delivery O2 Flow Rate FiO2 11/23/16 10:00 71 11/23/16 08:00 98.7 70 18 158/76 97 11/23/16 08:00 71 11/23/16 07:00 98 Room Air 11/23/16 06:00 70 11/23/16 04:44 18 11/23/16 04:00 66 11/23/16 04:00 98.3 66 19 144/68 97 11/23/16 02:00 82 11/23/16 00:00 82 11/23/16 00:00 98.7 82 23 160/76 98 11/22/16 23:45 26 11/22/16 22:00 81 11/22/16 20:00 82 11/22/16 20:00 98.6 82 18 138/65 98 11/22/16 19:00 98 Room Air 11/22/16 18:00 83 11/22/16 17:27 17 11/22/16 16:00 98.6 86 18 156/74 99 11/22/16 16:00 86 11/22/16 14:00 89 11/22/16 12:00 97.9 75 20 146/67 97 11/22/16 12:00 75 I/O 11/22/16 11/22/16 11/22/16 11/23/16 11/23/16 11/23/16 07:00 15:00 23:00 07:00 15:00 23:00 Intake Total 826 ml 748 ml 754 ml 699 ml Output Total 0 ml 900 ml 1000 ml Balance 826 ml 748 ml -146 ml -301 ml Intake Oral 120 ml 300 ml 240 ml 600 ml IV Total 706 ml 448 ml 514 ml 99 ml Output Urine Total 0 ml 900 ml 1000 ml # Voids 2 # Bowel Movements 1 2 0 Result Diagram: 11/23/16 0409 11/23/16 0409 Imaging Last Impressions Head CT 11/21/162101 Signed Impressions: Service Date/Time: Monday, November 21, 2016 21:59 - CONCLUSION: Persistent extra-axial hemorrhage seen at the left temporoparietal region representing either a focal subdural or epidural hemorrhage. This is unchanged from the prior exam. There is minimal 2 mm of [id number] midline shift. Fahad Salvador MD Lower Extremity Ultrasound 11/20/16 0000 Signed Impressions: Service Date/Time: Sunday, November 20, 2016 22:10 - CONCLUSION: Negative venous ultrasound with no evidence of deep venous thrombosis. David Gonzáles MD Objective Remarks GENERAL: This is a well-nourished, well-developed patient, in no apparent distress. CARDIOVASCULAR: Regular rate and regular rhythm without murmurs, gallops, or rubs. RESPIRATORY: Clear to auscultation. Breath sounds equal bilaterally. No wheezes , rales, or rhonchi. GASTROINTESTINAL: Abdomen soft, non-tender, nondistended. Normal, active bowel sounds MUSCULOSKELETAL: Extremities without clubbing, cyanosis, or edema. NEURO: Alert & Oriented x4 to person, place, time, situation. Moves all ext x4 Procedures none Medications and IVs Current Medications Sodium Chloride (NS Flush) 2 ml UNSCH PRN IVF FLUSH AFTER USING IV ACCESS; Start 11/20/16 at 21:15; Stop 11/21/16 at 00:58; Status DC Diphenhydramine HCl (Benadryl Inj) 25 mg ONCE ONCE IVP Last administered on 21:28; Start 11/20/16 at 21:15; Stop 11/20/16 at 21:16; Status DC Metoclopramide HCl (Reglan Inj) 10 mg ONCE ONCE IVP Last administered on 21:28; Start 11/20/16 at 21:15; Stop 11/20/16 at 21:16; Status DC Dexamethasone Sodium Phosphate (Decadron Inj) 10 mg ONCE ONCE IV PUSH Last administered on 11/20/16 21:27; Start 11/20/16 at 21:15; Stop 11/20/16 at 21:16 ; Status DC Atorvastatin Calcium (Lipitor) 40 mg HS PO Last administered on 11/22/16 21:07 ; Start 11/21/16 at 21:00 Carvedilol (Coreg) 12.5 mg BID PO Last administered on 11/23/16 08:27; Start at 09:00 Isosorbide Mononitrate (Imdur) 60 mg DAILY PO ; Start 11/21/16 at 09:00; Stop 11/21/16 at 09:00; Status DC Pregabalin (Lyrica) 150 mg TID PO Last administered on 11/23/16 08:37; Start at 09:00 Sodium Bicarbonate 1300 mg 1,300 mg TIDPC PO Last administered on 11/23/16 09: 47; Start 11/21/16 at 09:30 Sodium Chloride (NS 1000 ml Inj) 1,000 ml @ 84 mls/hr [id number] IV Last administered on 11/22/16 22:45; Start 11/20/16 at 23:42 Sodium Chloride (NS Flush) 2 ml UNSCH PRN .XX FLUSH AFTER USING IV ACCESS; Start 11/20/16 at 23:45 Sodium Chloride (NS Flush) 2 ml BID .XX Last administered on 11/23/16 09:43; Start 11/21/16 at 09:00 Acetaminophen (Tylenol) 650 mg Q6H PRN PO FEVER >101F Last administered on 08:27; Start 11/20/16 at 23:45 Oxycodone/ Acetaminophen (Percocet 5-325 Mg) 1 tab Q4H PRN PO PAIN SCALE 1 TO 5 Last administered on 11/22/16 22:47; Start 11/20/16 at 23:45 Morphine Sulfate (Morphine Inj) 2 mg Q2H PRN IV PAIN SCALE 6 TO 10 Last administered on 11/23/16 07:06; Start 11/20/16 at 23:45 Famotidine (Pepcid Inj) 20 mg Q12HR IV PUSH Last administered on 11/23/16 08:28 ; Start 11/21/16 at 09:00 Lorazepam (Ativan Inj) 2 mg Q4H PRN IV Agitation/Sedation Last administered on 11/23/16 08:28; Start 11/20/16 at 23:45 Ondansetron HCl (Zofran Inj) 4 mg Q6H PRN IV NAUSEA OR VOMITING Last administered on 11/21/16 00:37; Start 11/20/16 at 23:45 Albuterol/ Ipratropium (Duoneb Neb) 1 ampule Q2HR NEB PRN INH WHEEZING; Start 11/20/16 at 23:45 Miscellaneous Information 1 Q361D XX ; Start 11/20/16 at 23:45 Chlorhexidine Gluconate (Chlorhexidine 2% Cloth) 3 pack Taper DAILY@04 TOP Last administered on 11/23/16 04:00; Start 11/21/16 at 04:00; Stop 11/17/17 at 03 :59 Chlorhexidine Gluconate (Chlorhexidine 2% Cloth) 3 pack UNSCH PRN TOP HYGIENIC CARE; Start 11/20/16 at 23:45 Senna/Docusate Sodium (Mary Ellen-Colace) 1 tab BID PO Last administered on 11/23/16 08:37; Start 11/21/16 at 09:00 Magnesium Hydroxide (Milk Of Magnesia Liq) 30 ml Q12H PRN PO MILD - MODERATE CONSTIPATION; Start 11/20/16 at 23:45 Sennosides (Senokot) 17.2 mg Q12H PRN PO MODERATE - SEVERE CONSTIPATION; Start 11/20/16 at 23:45 Bisacodyl (Dulcolax Supp) 10 mg DAILY PRN RECTAL SEVERE CONSITIPATION; Start at 23:45 Lactulose (Lactulose Liq) 30 ml DAILY PRN PO SEVERE CONSITIPATION; Start at 23:45 Dextrose (D50w (Vial) Inj) 50 ml UNSCH PRN IV HYPOGLYCEMIA-SEE COMMENTS; Start 11/21/16 at 00:00 Glucagon (Glucagon Inj) 1 mg UNSCH PRN OTHER HYPOGLYCEMIA-SEE COMMENTS; Start 11/21/16 at 00:00 Insulin Aspart (NovoLOG SUPPLEMENTAL SCALE) 1 ACHS SLIDING SCALE SQ Last administered on 11/22/16 21:24; Start 11/21/16 at 07:00 Isosorbide Mononitrate (Imdur) 60 mg DAILY@07 PO Last administered on 11/23/16 07:00; Start 11/21/16 at 07:00 Labetalol HCl (Trandate Inj) 10 mg Q4H PRN IV PUSH SBP>160, DBP>90 Last administered on 11/21/16 01:11; Start 11/21/16 at 01:00 Hydralazine HCl (Apresoline Inj) 10 mg Q3H PRN IV SYS BP GREATER THAN 160 MMHG Last administered on 11/22/16 13:19; Start 11/21/16 at 02:00 Labetalol HCl 10 mg 10 mg BOLUS ONCE IV PUSH Last administered on 11/21/16 02: 45; Start 11/21/16 at 02:45; Stop 11/21/16 at 02:46; Status DC Labetalol HCl/ Sodium Chloride (Trandate Inj/NS Inj) 250 ml @ 0 mls/hr TITRATE IV Last administered on 11/21/16 09:36; Start 11/21/16 at 02:45; Stop 11/21/16 at 07:51; Status DC Nitroglycerin (Nitro-Dur 0.2 Mg Patch.24 Hr) 1 patch ONCE ONCE T-DERMAL Last administered on 11/21/16 02:54; Start 11/21/16 at 02:45; Stop 11/21/16 at 02:46; Status DC Lorazepam (Ativan Inj) 1 mg ONCE ONCE IV PUSH Last administered on 11/21/16 02 :48; Start 11/21/16 at 02:45; Stop 11/21/16 at 02:46; Status DC Hydromorphone HCl 0.5 mg 0.5 mg ONCE ONCE IV PUSH Last administered on 03:04; Start 11/21/16 at 03:00; Stop 11/21/16 at 03:01; Status DC Labetalol HCl/ Sodium Chloride (Trandate Inj/NS 500 ml Inj) 500 ml @ 0 mls/hr TITRATE IV ; Start 11/21/16 at 08:00 Aspirin (Ecotrin Ec) 81 mg DAILY PO Last administered on 11/23/16 08:27; Start 11/21/16 at 11:15 Insulin Detemir (Levemir Inj) 25 units DAILY SQ Last administered on 11/23/16 08:36; Start 11/22/16 at 20:00 A/P Assessment and Plan A/P Subdural hematoma - Patient on Brilinta (held on admission) - Transfused platelets - Also to keep platelet count close to 100 - Repeat CT head done on 11/21 - unchanged. - Further management per neurosurgery Chest pain with elevated troponin History of CAD status post recent stenting - Hold Brilinta. -echo with EF55% -cardiology follow-up appreciated;recommended that aspirin to be continued without interruption and ideally should be back on Brilinta as soon as possible. 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 Hypertension - Hold lisinopril due to elevated creatinine and potassium - Continue Coreg - Isosorbide Mononitrate - Hold Lasix due to elevated creatinine Acute kidney injury-resolved. - Most likely due to dehydration - Monitor I's and O's and creatinine levels - Avoid nephrotoxins Neuropathy - Lyrica Diabetes mellitus - Resumed lantus 25 units daily - Insulin sliding scale DVT GI prophylaxis - Teds SCDs - No pharmacological DVT prophylaxis due to acute ICH - Pepcid transfer to telemetry when ok with neurosurgery. Kamlesh Floyd MD Nov 23, 2016 11:54
--- NOTE | 2016-11-23 14:19 | HHI.NSPN ---
(Daniel Terry) History Chief Complaint: Headache (Daniel Terry) Interval History 11/21: his is a 51 year old male with multiple medical problems including coronary artery disease, status post CABG and recent 2 stents placed in August whsandoval was admitted to [facility] hospital last week as he was severely dehydrated and hypotension. He was to the hospital for a few days and was then discharged to home. During that hospital course, he reported migraine headaches. Reports that he has had a migraine for the 3 weeks. He reportedly fell down. no LOC. No seizure activity. No tongue bitting. No incontinence of stool or urine. CT of the head performed in the emergency department today showed small subdural bleed. neurosurgical consultation was requested. Upon admission he developed hypertensive urgency with crushing chest pain. The EKG showed ST changes in the inferolateral ST elevation in aVR. 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 He received Nitropatch and initiated labetalol drip for blood pressure control. His chest pain has improved. Troponins and cardiology evaluation in progress 11/23: Patient complains of headache to the top of the head and pressure to the back of the head and neck. (Daniel Terry) System Review Comments Constitutional: Denies any fever or chills. HEENT: Denies any visual or hearing problems. Respiratory: Denies any shortness of breath or productive cough. Cardiovascular: Denies any chest pain, palpitations or irregular heartbeat. Gastrointestinal: Denies any abdominal pain, nausea, vomiting or incontinence of stool. Genitourinary: Denies any incontinence of urine. Musculoskeletal: Pain to the neck at the base of the skull. Denies any back or extremity pain. Neurologic: Headache to the top of the head. Denies any dizziness, numbness or tingling. (Daniel Terry) Exam Results Vital Signs Date Time Temp Pulse Resp B/P Pulse Ox O2 Delivery O2 Flow Rate FiO2 11/23/16 12:00 77 11/23/16 12:00 98.3 20 135/65 98 11/23/16 07:00 Room Air 11/22/16 07:30 21 11/21/16 08:00 2.00 Intake and Output 11/22/16 11/22/16 11/23/16 08:00 16:00 00:00 Intake Total 826 ml 748 ml 754 ml Output Total 0 ml 900 ml Balance 826 ml 748 ml -146 ml (Daniel Terry) Physical Examination General: Awake & alert, NAD, normal affect. HEENT: Normocephalic, atraumatic. Neck: Midline cervical spine NTTP, some pain with active ROM to paraspinals, no JVD, trachea midline. Respiratory: CTAB w/o W/R/R, equal excursion, non-laboured, on RA. Cardiovascular: S1S2 w/RRR w/o M/G/R. Monitor is sinus rhythm w/o any ectopy noted. Gastrointestinal: Abdomen soft, nontender, positive bowel sounds. Musculoskeletal: PATHAK w/o difficulty, no evident deformity, discolouration or clubbing. Neurological: AAOx3 Speech clear & appropriate CN II-XII grossly intact Sensation intact to light touch to all extremities Motor strength 5/5 to all major flexion & extension muscle groups (Daniel Terry) Lab, Micro, Other Results Allergies Coded Allergies Type Severity Reaction Last Updated Verified Percocet Adverse Reaction Mild Hallucinations 11/22/16 Yes Recent Impressions Head CT 11/21/162101 Signed Impressions: Service Date/Time: Monday, November 21, 2016 21:59 - CONCLUSION: Persistent extra-axial hemorrhage seen at the left temporoparietal region representing either a focal subdural or epidural hemorrhage. This is unchanged from the prior exam. There is minimal 2 mm of [id number] midline shift. Fahad Salvador MD Head CT 11/20/162109 Signed Impressions: Service Date/Time: Sunday, November 20, 2016 21:41 - CONCLUSION: High density extra-axial collection along the left parietal lobe as described. This is most air to risk of a subdural hematoma versus possible epidural hematoma. David Gonzáles MD //// 06:00 18:00 06:00 18:00 06:00 18:00 Intake Total 1540 ml 1621 ml 1969 ml 748 ml 1453 ml Output Total 50 ml 1600 ml 275 ml 1900 ml Balance 1490 ml 21 ml 1694 ml 748 ml -447 ml Intake Oral 480 ml 600 ml 300 ml 840 ml IV Total 963 ml 1141 ml 1369 ml 448 ml 613 ml Platelets 577 ml Output Urine Total 50 ml 1600 ml 275 ml 1900 ml # Voids 3 2 # Bowel Movements 0 1 2 Laboratory Tests Test 11/20/16 11/20/16 11/21/16 11/21/16 21:25 23:34 00:13 00:20 White Blood Count 6.3 TH/MM3 Red Blood Count 4.44 MIL/MM3 Hemoglobin 12.0 GM/DL Hematocrit 37.2 % Mean Corpuscular Volume 83.7 FL Mean Corpuscular Hemoglobin 27.0 PG Mean Corpuscular Hemoglobin 32.3 % Concent Red Cell Distribution Width 14.4 % Platelet Count 81 TH/MM3 Mean Platelet Volume 13.0 FL Neutrophils (%) (Auto) 68.2 % Lymphocytes (%) (Auto) 12.9 % Monocytes (%) (Auto) 16.7 % Eosinophils (%) (Auto) 1.8 % Basophils (%) (Auto) 0.4 % Neutrophils # (Auto) 4.3 TH/MM3 Lymphocytes # (Auto) 0.8 TH/MM3 Monocytes # (Auto) 1.1 TH/MM3 Eosinophils # (Auto) 0.1 TH/MM3 Basophils # (Auto) 0.0 TH/MM3 CBC Comment AUTO DIFF Differential Comment AUTO DIFF CONFIRMED Platelet Estimate LOW Platelet Morphology Comment NORMAL Prothrombin Time 11.1 SEC Prothromb Time International 1.0 RATIO Ratio Activated Partial 26.9 SEC Thromboplast Time Sodium Level 134 MEQ/L Potassium Level 5.1 MEQ/L Chloride Level 101 MEQ/L Carbon Dioxide Level 22.8 MEQ/L Anion Gap 10 MEQ/L Blood Urea Nitrogen 72 MG/DL Creatinine 1.82 MG/DL Estimat Glomerular Filtration 40 ML/MIN Rate Random Glucose 271 MG/DL Calcium Level 9.6 MG/DL Blood Type O POSITIVE O POSITIVE Blood Bank Comment Nasal Screen MRSA (PCR) MRSA NOT DETECTED Test 11/21/16 11/21/16 11/21/16 11/23/16 03:00 06:00 10:37 04:09 White Blood Count 6.1 TH/MM3 5.8 TH/MM3 Red Blood Count 4.13 MIL/MM3 3.59 MIL/MM3 Hemoglobin 11.2 GM/DL 9.7 GM/DL Hematocrit 34.4 % 30.0 % Mean Corpuscular Volume 83.2 FL 83.6 FL Mean Corpuscular Hemoglobin 27.0 PG 27.0 PG Mean Corpuscular Hemoglobin 32.5 % 32.4 % Concent Red Cell Distribution Width 14.4 % 14.2 % Platelet Count 115 TH/MM3 94 TH/MM3 Mean Platelet Volume 11.7 FL 12.4 FL Neutrophils (%) (Auto) 88.3 % 56.9 % Lymphocytes (%) (Auto) 8.1 % 22.8 % Monocytes (%) (Auto) 3.0 % 17.2 % Eosinophils (%) (Auto) 0.1 % 2.5 % Basophils (%) (Auto) 0.5 % 0.6 % Neutrophils # (Auto) 5.4 TH/MM3 3.3 TH/MM3 Lymphocytes # (Auto) 0.5 TH/MM3 1.3 TH/MM3 Monocytes # (Auto) 0.2 TH/MM3 1.0 TH/MM3 Eosinophils # (Auto) 0.0 TH/MM3 0.1 TH/MM3 Basophils # (Auto) 0.0 TH/MM3 0.0 TH/MM3 CBC Comment DIFF FINAL AUTO DIFF Differential Comment AUTO DIFF CONFIRMED Sodium Level 139 MEQ/L 143 MEQ/L Potassium Level 4.8 MEQ/L 5.1 MEQ/L Chloride Level 106 MEQ/L 112 MEQ/L Carbon Dioxide Level 21.0 MEQ/L 26.3 MEQ/L Anion Gap 12 MEQ/L 5 MEQ/L Blood Urea Nitrogen 66 MG/DL 41 MG/DL Creatinine 1.60 MG/DL 1.13 MG/DL Estimat Glomerular Filtration 46 ML/MIN 69 ML/MIN Rate Random Glucose 297 MG/DL 117 MG/DL Calcium Level 9.6 MG/DL 9.2 MG/DL Phosphorus Level 4.8 MG/DL Magnesium Level 2.5 MG/DL Total Bilirubin 1.1 MG/DL 0.5 MG/DL Aspartate Amino Transf 29 U/L 43 U/L (AST/SGOT) Alanine Aminotransferase 61 U/L 67 U/L (ALT/SGPT) Alkaline Phosphatase 128 U/L 105 U/L Troponin I 0.05 NG/ML 6.35 NG/ML 4.27 NG/ML Total Protein 8.1 GM/DL 6.6 GM/DL Albumin 3.1 GM/DL 2.6 GM/DL Urine Opiates Screen POS Urine Barbiturates Screen NEG Urine Amphetamines Screen NEG Urine Benzodiazepines Screen NEG Urine Cocaine Screen NEG Urine Cannabinoids Screen NEG Platelet Estimate LOW Platelet Morphology Comment ENLARGED Vital Signs Date Time Temp Pulse Resp B/P Pulse Ox O2 Delivery O2 Flow Rate FiO2 11/23/16 12:00 77 11/23/16 12:00 98.3 77 20 135/65 98 11/23/16 10:00 71 11/23/16 08:00 98.7 70 18 158/76 97 11/23/16 08:00 71 11/23/16 07:00 98 Room Air 11/23/16 06:00 70 11/23/16 04:44 18 11/23/16 04:00 66 11/23/16 04:00 98.3 66 19 144/68 97 11/23/16 02:00 82 11/23/16 00:00 82 11/23/16 00:00 98.7 82 23 160/76 98 11/22/16 23:45 26 11/22/16 22:00 81 11/22/16 20:00 82 11/22/16 20:00 98.6 82 18 138/65 98 11/22/16 19:00 98 Room Air 11/22/16 18:00 83 11/22/16 17:27 17 11/22/16 16:00 98.6 86 18 156/74 99 11/22/16 16:00 86 11/22/16 14:00 89 11/22/16 12:00 97.9 75 20 146/67 97 11/22/16 12:00 75 11/22/16 10:00 78 11/22/16 08:00 98.6 80 20 135/62 99 11/22/16 08:00 80 11/22/16 07:30 94 21 11/22/16 07:00 98 Room Air 21 11/22/16 06:00 75 11/22/16 04:00 73 11/22/16 04:00 98.9 77 16 133/60 94 11/22/16 02:00 84 11/22/16 00:00 92 11/22/16 00:00 98.7 87 18 141/63 94 11/21/16 22:00 80 11/21/16 20:00 76 11/21/16 20:00 97.9 76 17 132/63 97 11/21/16 19:05 95 21 11/21/16 19:00 98 Room Air 11/21/16 16:00 75 11/21/16 16:00 97.8 75 13 124/58 95 11/21/16 14:46 15 11/21/16 12:00 98.4 79 15 125/59 98 11/21/16 12:00 79 11/21/16 08:00 98 Nasal Cannula 2.00 11/21/16 08:00 97.8 78 16 117/59 98 11/21/16 08:00 78 11/21/16 07:42 98 Nasal Cannula 2.00 11/21/16 06:00 84 11/21/16 04:00 100 11/21/16 04:00 98.7 90 22 165/82 98 11/21/16 02:00 100 11/21/16 01:30 98.7 83 21 167/72 94 11/21/16 00:00 99.1 70 19 187/87 96 11/20/16 23:37 73 18 147/75 98 Room Air 11/20/16 20:54 67 18 126/60 97 Room Air 11/20/16 19:26 98.5 85 18 135/56 100 (Daniel Terry) Medical Decision Making Impression and Plan Impression: Subdural bleed Chest pain Acute kidney injury, most likely due to dehydration Diabetes Repeat CT brain stable left temporoparietal region extra-axial haemorrhage, minimal 2 mm [id number] midline shift Stable neurologically Plan: Serial neuro checks Keep platelet count close to 100 Treat HTN with antihypertensives as needed, continue Coreg Aggressive pulmonary toilette, nasotracheal suction, and breathing treatments with nebulizers PT & OT eval & tx Cardiology consult Gentle IV fluid resuscitation Avoid nephrotoxins, monitor urine output, BUN and creatinine Protonix for stress ulcer prophylaxis Poli hose and SCD's for DVT prophylaxis (Daniel Terry) Attending Statement I have personally seen and examined the patient on the date of this note. Pertinent documentation and study results have been reviewed by the undersigned. I have personally developed the treatment plan and performed medical decision making. Agree with findings, exam, and treatment plan as noted above. Patient is awake and alert today, oriented conversant and appropriate without focal cranial nerve or extremity deficit. He complains of persistent moderate headache, not well controlled with pain medications. Advised him that the headaches and the situation are difficult to control with medications. He will increase activity as tolerated. Continuing monitoring of hypertension, continue to keep systolic blood pressure less than 160 (Zoran García MD) Daniel Terry Nov 23, 2016 14:18 Zoran García MD Nov 23, 2016 21:23
[2016-11-23] MEDS: ATORVASTATIN 40 MG TAB PO SCH (20:20)
[2016-11-24] VITALS (14 sets, daily range): BP systolic 125–170; BP diastolic 60–81; PULSE 64–87; RESP 15–22; TEMP 97.9–99.5; O2SAT 96–99
[2016-11-24] MEDS: ACETAMINOPHEN 325 MG TAB PO PRN (00:21)
[2016-11-24] MEDS: hydrALAZINE HCL 20 MG/ML VIAL IV PRN ×3 (01:25→22:06)
[2016-11-24] MEDS: CHLORHEXIDINE GLUCONATE 2 % 1 PACK (2 CLOTHS) TOP SCH (04:00)
[2016-11-24] MEDS: ISOSORBIDE MONONITRATE 60 MG TAB PO SCH (07:00)
[2016-11-24] MEDS: MORPHINE SULFATE 4 MG/ML INJ IV PRN ×2 (08:18→18:51)
--- NOTE | 2016-11-24 08:52 | HHI.NSPN ---
(Bruno Jasso) History Chief Complaint: Headache (Bruno Jasso) Interval History 11/21: his is a 51 year old male with multiple medical problems including coronary artery disease, status post CABG and recent 2 stents placed in August yaneth was admitted to [facility] hospital last week as he was severely dehydrated and hypotension. He was to the hospital for a few days and was then discharged to home. During that hospital course, he reported migraine headaches. Reports that he has had a migraine for the 3 weeks. He reportedly fell down. no LOC. No seizure activity. No tongue bitting. No incontinence of stool or urine. CT of the head performed in the emergency department today showed small subdural bleed. neurosurgical consultation was requested. Upon admission he developed hypertensive urgency with crushing chest pain. The EKG showed ST changes in the inferolateral ST elevation in aVR. 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 He received Nitropatch and initiated labetalol drip for blood pressure control. His chest pain has improved. Troponins and cardiology evaluation in progress 11/23: Patient complains of headache to the top of the head and pressure to the back of the head and neck. 11/24: Pt awake. complains of headache. States he was doing well but yesterday had bad headache. Today not as bad as yesterday. No n/v. No numbness or tingling. No neuro deficits. (Bruno Jasso) Review of Systems General: Negative for: fever, chills, insomnia Respiratory: Negative for: shortness of breath, cough, sputum Cardiovascular: Negative for: chest pain Gastrointestinal: Negative for: nausea, vomitting, diarrhea, constipation ( Bruno Jasso) System Review Comments Complains of headache all over. (Bruno Jasso) Exam Results Vital Signs Date Time Temp Pulse Resp B/P Pulse Ox O2 Delivery O2 Flow Rate FiO2 11/24/16 06:00 79 11/24/16 04:00 99.5 22 125/60 96 11/23/16 19:00 Room Air 11/22/16 07:30 21 11/21/16 08:00 2.00 Intake and Output 11/23/16 11/23/16 11/24/16 08:00 16:00 00:00 Intake Total 699 ml 750 ml 220 ml Output Total 1000 ml 800 ml 0 ml Balance -301 ml -50 ml 220 ml (Bruno Jasso) Physical Examination Resp: CTA bilaterally Heart: NSR no murmurs Abd: Soft positive bs Skin: No cyanosis or erythema Muscle: Moves all 4 extremities Neuro: Pt awake and alert. Follows commands well. Speech clear and appropriate. Face symmetric. Pupils 3mm bilaterally reactive bilaterally. ( Bruno Jasso) Lab, Micro, Other Results Last Impressions Head CT 11/21/162101 Signed Impressions: Service Date/Time: Monday, November 21, 2016 21:59 - CONCLUSION: Persistent extra-axial hemorrhage seen at the left temporoparietal region representing either a focal subdural or epidural hemorrhage. This is unchanged from the prior exam. There is minimal 2 mm of [id number] midline shift. Fahad Salvador MD Lower Extremity Ultrasound 11/20/16 0000 Signed Impressions: Service Date/Time: Sunday, November 20, 2016 22:10 - CONCLUSION: Negative venous ultrasound with no evidence of deep venous thrombosis. David Gonzáles MD 11/23/16 11/23/16 11/24/16 15:00 23:00 07:00 Intake Total 750 ml 220 ml 0 ml Output Total 800 ml 0 ml 850 ml Balance -50 ml 220 ml -850 ml Intake Oral 650 ml 220 ml 0 ml IV Total 100 ml 0 ml Output Urine Total 800 ml 0 ml 850 ml # Bowel Movements 0 0 (Bruno Jasso) Medical Decision Making Impression and Plan A: 51 y/o M with left SDH P: Follow up CT head tomorrow am Encouraged pt to ambulate with assistance. Discussed with family at bedside that agree with plan. (Bruno Jasso) Attending Statement The exam, history, and the medical decision-making described in the above note were completed with the assistance of the mid-level provider. I reviewed and agree with the findings presented. I attest that I had a uhiy-xo-jpol encounter with the patient on the same day, and personally performed and documented my assessment and findings in the medical record. Complains of a headache but appears to be comfortable sitting up in a chair and eating lunch with family at bedside. No focal neurologic deficit noted. Continue observation and supportive care. Transfuse platelets if counts less than 80, 000. Discussed with family at bedside. (Ovidio Sparrow MD) Bruno Jasso Nov 24, 2016 08:52 Ovidio Sparrow MD Nov 24, 2016 13:08
[2016-11-24] MEDS: CARVEDILOL 12.5 MG TAB PO SCH ×2 (09:00→20:41)
[2016-11-24] MEDS: INSULIN DETEMIR 100 UNITS/ML VIAL SQ SCH (09:00)
[2016-11-24] MEDS: SODIUM CHLORIDE 0.9% FLUSH 10 ML FLUSH SCH ×2 (09:00→20:41)
[2016-11-24] MEDS: ASPIRIN EC 81 MG TABEC PO SCH (09:00)
[2016-11-24] MEDS: FAMOTIDINE 20 MG/2 ML VIAL IV PUSH SCH ×2 (09:00→20:41)
[2016-11-24] MEDS: DOCUSATE SODIUM 50 MG/SENNA 8.6 MG TAB PO SCH ×2 (09:00→21:00)
[2016-11-24] MEDS: PREGABALIN 75 MG CAP PO SCH ×3 (09:00→17:15)
[2016-11-24] MEDS: SODIUM BICARBONATE 650 MG TAB PO SCH ×3 (09:30→17:15)
[2016-11-24 10:54] LABS: AUTOMATED NEUTROPHIL # 3.8 TH/MM3 (1.8-7.7); BASOPHIL % 0.9 % (0.0-2.0); EOSINOPHIL # 0.2 TH/MM3 (0-0.4); HEMO FLAGS DIFF FINAL; LYMPH % 17.9 % (9.0-44.0); MEAN CELL VOLUME 82.3 FL (80.0-100.0); MEAN CORPUSCULAR HEMOGLOBIN 28.1 PG (27.0-34.0); MEAN CORPUSCULAR HGB CONC 34.1 % (32.0-36.0); MONO % 12.5 % (0.0-8.0); NEUT % 64.7 % (16.0-70.0); PLATELET COUNT 123 TH/MM3 (150-450); RED BLOOD COUNT 3.65 MIL/MM3 (4.50-5.90); RED CELL DISTRIBUTION WIDTH 14.1 % (11.6-17.2); WHITE BLOOD COUNT 5.8 TH/MM3 (4.0-11.0)
[2016-11-24] MEDS: INSULIN ASPART SUPPLEMENTAL SCALE SQ SCH ×3 (11:00→21:03)
[2016-11-24] MEDS: oxyCODONE/ACETAMINOPHEN 5 MG/325 MG TAB PO PRN (11:18)
[2016-11-24 11:20] LABS: ALKALINE PHOSPHATASE 111 U/L (45-117); ALT (GPT) 65 U/L (12-78); ANION GAP 5 MEQ/L (5-15); AST (GOT) 29 U/L (15-37); BICARBONATE 26.8 MEQ/L (21.0-32.0); BLOOD UREA NITROGEN 33 MG/DL (7-18); CHLORIDE 109 MEQ/L (98-107); GLOMERULAR FILTRATION RATE 67 ML/MIN (>89); MAGNESIUM 1.6 MG/DL (1.5-2.5); SODIUM (NA) 141 MEQ/L (136-145); TOTAL BILIRUBIN ADULT 0.7 MG/DL (0.2-1.0)
--- NOTE | 2016-11-24 12:07 | HHI.PR ---
Subjective Remarks Patient c/o headachwe which does not come down completely with percocet and Morphine denies fevers/chills denies nausea or vomiting Objective Vitals Vital Signs Date Time Temp Pulse Resp B/P Pulse Ox O2 Delivery O2 Flow Rate FiO2 11/24/16 10:00 73 11/24/16 08:00 98.5 78 15 161/72 99 11/24/16 08:00 78 11/24/16 07:00 97 Nasal Cannula 2.00 11/24/16 06:00 79 11/24/16 04:00 99.5 83 22 125/60 96 11/24/16 04:00 83 11/24/16 02:00 87 11/24/16 01:26 22 11/24/16 00:00 69 11/24/16 00:00 98.8 69 17 151/74 98 11/23/16 22:00 68 11/23/16 20:00 70 11/23/16 20:00 98.5 70 18 150/67 93 11/23/16 19:00 95 Room Air 11/23/16 19:00 74 11/23/16 18:00 80 11/23/16 16:00 76 11/23/16 16:00 98.6 78 20 157/72 11/23/16 14:00 73 11/23/16 12:00 77 11/23/16 12:00 98.3 77 20 135/65 98 I/O 11/23/16 11/23/16 11/23/16 11/24/16 11/24/16 11/24/16 07:00 15:00 23:00 07:00 15:00 23:00 Intake Total 699 ml 750 ml 220 ml 0 ml Output Total 1000 ml 800 ml 0 ml 850 ml Balance -301 ml -50 ml 220 ml -850 ml Intake Oral 600 ml 650 ml 220 ml 0 ml IV Total 99 ml 100 ml 0 ml Output Urine Total 1000 ml 800 ml 0 ml 850 ml # Bowel Movements 0 0 0 Result Diagram: 11/24/16 1045 11/24/16 1045 Imaging Last Impressions Head CT 11/21/162101 Signed Impressions: Service Date/Time: Monday, November 21, 2016 21:59 - CONCLUSION: Persistent extra-axial hemorrhage seen at the left temporoparietal region representing either a focal subdural or epidural hemorrhage. This is unchanged from the prior exam. There is minimal 2 mm of rkwd-wu-jimzw midline shift. Fahad Salvador MD Lower Extremity Ultrasound 11/20/16 0000 Signed Impressions: Service Date/Time: Sunday, November 20, 2016 22:10 - CONCLUSION: Negative venous ultrasound with no evidence of deep venous thrombosis. David Gonzáles MD Objective Remarks GENERAL: Well nourished, alert in moderate pain distress SKIN: Warm and dry. HEAD: Normocephalic. EYES: No scleral icterus. No injection or drainage. NECK: Supple, trachea midline. No JVD or lymphadenopathy. CARDIOVASCULAR: Regular rate and rhythm without murmurs, gallops, or rubs. RESPIRATORY: Breath sounds equal bilaterally. No accessory muscle use. GASTROINTESTINAL: Abdomen soft, non-tender, nondistended. MUSCULOSKELETAL: No cyanosis, or edema. BACK: Nontender without obvious deformity. No CVA tenderness. Procedures none Medications and IVs Current Medications Medications (Trade) Dose Ordered Sig/Alona Route Start Time Stop Time Status Last Admin (Lipitor) 40 mg HS PO 11/21/16 21:00 11/23/16 20:20 (Coreg) 12.5 mg BID PO 11/21/16 09:00 11/24/16 09:00 (Lyrica) 150 mg TID PO 11/21/16 09:00 11/24/16 09:00 Sodium Bicarbonate 1300 mg 1,300 mg TIDPC PO 11/21/16 09:30 11/24/16 09:30 (NS 1000 ml Inj) 1,000 ml @ 84 mls/hr [id number] IV 11/20/16 23:42 Hold 11/22/16 22:45 (NS Flush) 2 ml UNSCH PRN .XX 11/20/16 23:45 (NS Flush) 2 ml BID .XX 11/21/16 09:00 11/24/16 09:00 (Tylenol) 650 mg Q6H PRN PO 11/20/16 23:45 11/24/16 00:21 (Percocet 5-325 Mg) 1 tab Q4H PRN PO 11/20/16 23:45 11/24/16 11:18 (Morphine Inj) 2 mg Q2H PRN IV 11/20/16 23:45 11/24/16 08:18 (Pepcid Inj) 20 mg Q12HR IV PUSH 11/21/16 09:00 11/24/16 09:00 (Ativan Inj) 2 mg Q4H PRN IV 11/20/16 23:45 11/23/16 20:50 (Zofran Inj) 4 mg Q6H PRN IV 11/20/16 23:45 11/21/16 00:37 Miscellaneous Information 1 Q361D XX 11/20/16 23:45 (Chlorhexidine 2% Cloth) 3 pack Taper DAILY@04 TOP 11/21/16 04:00 11/17/17 03:59 11/24/16 04:00 (Chlorhexidine 2% Cloth) 3 pack UNSCH PRN TOP 11/20/16 23:45 (Mary Ellen-Colace) 1 tab BID PO 11/21/16 09:00 11/24/16 09:00 (Milk Of Magnesia Liq) 30 ml Q12H PRN PO 11/20/16 23:45 (Senokot) 17.2 mg Q12H PRN PO 11/20/16 23:45 (Dulcolax Supp) 10 mg DAILY PRN RECTAL 11/20/16 23:45 (Lactulose Liq) 30 ml DAILY PRN PO 11/20/16 23:45 (D50w (Vial) Inj) 50 ml UNSCH PRN IV 11/21/16 00:00 (Glucagon Inj) 1 mg UNSCH PRN OTHER 11/21/16 00:00 (Imdur) 60 mg DAILY@07 PO 11/21/16 07:00 11/24/16 07:00 (Trandate Inj) 10 mg Q4H PRN IV PUSH 11/21/16 01:00 11/21/16 01:11 Hydralazine HCl 10 mg 10 mg Q3H PRN IV 11/21/16 02:00 11/24/16 01:25 (Trandate Inj/NS 500 ml Inj) 500 ml @ 0 mls/hr TITRATE IV 11/21/16 08:00 (Ecotrin Ec) 81 mg DAILY PO 11/21/16 11:15 11/24/16 09:00 (Levemir Inj) 25 units DAILY SQ 11/22/16 20:00 11/24/16 09:00 Urinary Catheter: No Vascular Central Line Catheter: No A/P Problem List: (1) Subdural hematoma ICD Code: I62.00 Status: Acute Plan: CT of the head showed extra-axial collection along the left parietal lobe as described. ICU Care Patient previously on Brilinta - held on admission repeat CT head done on 11/21 - unchanged further management as per neurosurgery Patient with headache - Continue Percocet, IV Morphine, Will add IV Dilaudid for breakthrough pain. (2) Chest pain ICD Code: R07.9 Status: Acute Plan: H/o CAD sp recent status sp recent stenting - Brilinta held. - ECHO with EF of 55% - Cardiology consulted - recommended aspirin to be continued without interruption and ideally should be back on Brilinta as soon as possible. - Cardiology has signed off. - Brilinta to be resumed when patient cleared to have it by neurosurgery. (3) Elevated troponin ICD Code: R74.8 Status: Acute Plan: As Above. Trending down - No chest pain (4) HTN (hypertension) ICD Code: I10 Status: Acute Plan: Episodes of elevated BP. Suspect due to uncontrolled pain. Continue pain control and continue to monitor blood pressure Lisinopril held due to elevated creatinine and elevated potassium - will resume Lisinopril since creatinine now down to normal levels Continue Coreg Continue Isosorbide mononitrate Continue hydralazine and labetalol as needed for uncontrolled hypertension. Resume Furosemide (5) JAGDISH (acute kidney injury) ICD Code: N17.9 Status: Acute Plan: Most likely due to prerenal azotemia secondary to dehydration. Patient with creatinine of 1.82 on admission, trending down and 1.13 on 11/23 Creatinine trending down, continue to monitor BMP, monitor strict I's and O's Avoid nephrotoxins (6) Neuropathy ICD Code: G62.9 Status: Acute Plan: Is to be stable. Continue Lyrica (7) Diabetes mellitus with hyperglycemia ICD Code: E11.65 Status: Acute Plan: 2 with labile blood sugars. Continue Lantus 25 units daily. Continue SSI with insulin sliding scale. (8) Thrombocytopenia ICD Code: D69.6 Status: Acute Plan: Patient admitted with Thrombocytopenia with a potassium of 81K. Platelets now trending up to 123 K continue to monitor platelets. The patient status post 1 unit of platelets on 11/21. Will consult hematology for advice on when he would be optimal to resume anti- coagulation with Brilinta. Assessment and Plan GI Prophylaxis: Continue PPI DVT Prophylaxis: SCD's, no chemoprophylaxis with heparin or Lovenox SQ Discharge Planning Continue to monitor in the ICU. Hematology, consulted. Patient still has labile BP. Problem Qualifiers (1) Chest pain: Qualified Code: I20.8 - Stable angina pectoris (2) HTN (hypertension): Qualified Code: I10 - Essential hypertension (3) Diabetes mellitus with hyperglycemia: Margarito Dash MD Nov 24, 2016 12:07
[2016-11-24] MEDS: HYDROmorphone HCL PF 1 MG/ML VIAL IV PUSH PRN ×2 (12:59→20:42)
[2016-11-24] MEDS: FUROSEMIDE 40 MG TAB PO SCH (19:35)
[2016-11-24] MEDS: ATORVASTATIN 40 MG TAB PO SCH (20:41)
[2016-11-24] MEDS: LISINOPRIL 20 MG TAB PO SCH (20:41)
[2016-11-24] MEDS: LABETALOL HCL 100 MG/20 ML VIAL IV PUSH PRN (23:11)
[2016-11-25] VITALS (13 sets, daily range): BP systolic 135–169; BP diastolic 63–78; PULSE 76–92; RESP 16–20; TEMP 98.3–98.8; O2SAT 94–98
[2016-11-25] MEDS: HYDROmorphone HCL PF 1 MG/ML VIAL IV PUSH PRN ×3 (03:09→17:27)
[2016-11-25] MEDS: LORazepam 2 MG/ML VIAL IV PRN (03:43)
[2016-11-25] MEDS: CHLORHEXIDINE GLUCONATE 2 % 1 PACK (2 CLOTHS) TOP SCH (04:21)
[2016-11-25 05:04] LABS: AUTOMATED NEUTROPHIL # 4.8 TH/MM3 (1.8-7.7); BASOPHIL % 0.5 % (0.0-2.0); EOSINOPHIL # 0.2 TH/MM3 (0-0.4); EOSINOPHIL % 3.2 % (0.0-4.0); HEMATOCRIT 30.8 % (39.0-51.0); HEMO FLAGS DIFF FINAL; LYMPH % 14.2 % (9.0-44.0); MEAN CELL VOLUME 82.4 FL (80.0-100.0); MEAN CORPUSCULAR HEMOGLOBIN 26.8 PG (27.0-34.0); MEAN CORPUSCULAR HGB CONC 32.5 % (32.0-36.0); NEUT % 67.1 % (16.0-70.0); PLATELET COUNT 109 TH/MM3 (150-450); RED BLOOD COUNT 3.74 MIL/MM3 (4.50-5.90); RED CELL DISTRIBUTION WIDTH 13.8 % (11.6-17.2); WHITE BLOOD COUNT 7.2 TH/MM3 (4.0-11.0)
[2016-11-25 05:24] LABS: ALT (GPT) 56 U/L (12-78); ANION GAP 6 MEQ/L (5-15); AST (GOT) 22 U/L (15-37); BICARBONATE 28.3 MEQ/L (21.0-32.0); BLOOD UREA NITROGEN 30 MG/DL (7-18); CHLORIDE 105 MEQ/L (98-107); GLOMERULAR FILTRATION RATE 79 ML/MIN (>89); POTASSIUM 4.8 MEQ/L (3.5-5.1); SODIUM (NA) 139 MEQ/L (136-145)
[2016-11-25 05:26] LABS: ALKALINE PHOSPHATASE 112 U/L (45-117); TOTAL BILIRUBIN ADULT 0.8 MG/DL (0.2-1.0)
--- NOTE | 2016-11-25 06:06 | RADRPT ---
EXAM DATE/TIME: 11/25/2016 05:16 [place] COMPARISON: CT BRAIN W/O CONTRAST, November 21, 2016, 21:59. INDICATIONS : Follow up subdural hematoma. RADIATION DOSE: 66.02 CTDIvol (mGy) MEDICAL HISTORY : Cardiovascular disease. Hypertension. Gastroesophageal reflux disease.Diabetes SURGICAL HISTORY : CABG ENCOUNTER: Subsequent ACUITY: 3 days PAIN SCALE: 0/10 LOCATION: cranial TECHNIQUE: Multiple contiguous axial images were obtained of the head. Using automated exposure control and adj ustment of the mA and/or kV according to patient size, radiation dose was kept as low as reasonably a chievable to obtain optimal diagnostic quality images. DICOM format image data is available electro nically for review and comparison. FINDINGS: CEREBRUM: Extra-axial hemorrhage in the left parietal lobe essentially unchanged. Minimal left to right midline shift. The ventricles are normal for age. No evidence of mass lesion, or acute infarction. POSTERIOR FOSSA: The cerebellum and brainstem are intact. The 4th ventricle is midline. The cerebellopontine angle i s unremarkable. EXTRACRANIAL: The visualized portion of the orbits is intact. SKULL: The calvaria is intact. No evidence of skull fracture. CONCLUSION: 1. Persistent small left-sided extra-axial hemorrhage, unchanged. 2. Minimal left to right midline shift, no change. Bruno Cabrera MD on November 25, 2016 at 6:02 Board Certified Radiologist. This report was verified electronically.
[2016-11-25] MEDS: LABETALOL HCL 100 MG/20 ML VIAL IV PUSH PRN (06:11)
[2016-11-25] MEDS: MORPHINE SULFATE 4 MG/ML INJ IV PRN ×2 (06:24→13:03)
[2016-11-25] MEDS: INSULIN ASPART SUPPLEMENTAL SCALE SQ SCH ×4 (06:25→20:12)
[2016-11-25] MEDS: ISOSORBIDE MONONITRATE 60 MG TAB PO SCH (06:25)
[2016-11-25] MEDS: PREGABALIN 75 MG CAP PO SCH ×3 (07:59→17:27)
[2016-11-25] MEDS: SODIUM BICARBONATE 650 MG TAB PO SCH ×3 (08:00→17:27)
[2016-11-25] MEDS: FAMOTIDINE 20 MG/2 ML VIAL IV PUSH SCH ×2 (08:00→20:06)
[2016-11-25] MEDS: ASPIRIN EC 81 MG TABEC PO SCH (08:00)
[2016-11-25] MEDS: CARVEDILOL 12.5 MG TAB PO SCH ×2 (08:00→19:52)
[2016-11-25] MEDS: LISINOPRIL 20 MG TAB PO SCH ×2 (08:00→19:52)
[2016-11-25] MEDS: FUROSEMIDE 40 MG TAB PO SCH (08:00)
[2016-11-25] MEDS: INSULIN DETEMIR 100 UNITS/ML VIAL SQ SCH (08:01)
[2016-11-25] MEDS: SODIUM CHLORIDE 0.9% FLUSH 10 ML FLUSH SCH ×2 (08:01→19:53)
[2016-11-25] MEDS: DOCUSATE SODIUM 50 MG/SENNA 8.6 MG TAB PO SCH ×2 (09:45→19:52)
[2016-11-25] MEDS: GABAPENTIN 300 MG CAP PO SCH ×2 (13:03→17:27)
--- NOTE | 2016-11-25 15:20 | HHI.PR ---
Subjective Remarks This is a pleasant 51 y/o Male seen in his bedroom in the presence of his , complaint of feet pain. was seen in the presence of nurse as per Neurosurgery recommended to transfer to general floor and continue management, he complaint of headache, no nausea, vomit or diarrhea. Objective Vital Signs Date Time Temp Pulse Resp B/P Pulse Ox O2 Delivery O2 Flow Rate FiO2 11/25/16 14:00 76 11/25/16 12:00 80 11/25/16 12:00 98.3 80 19 135/63 95 11/25/16 10:00 79 11/25/16 08:00 98.8 82 20 166/70 96 11/25/16 08:00 80 11/25/16 07:47 95 Nasal Cannula 2.00 11/25/16 07:00 96 Nasal Cannula 2.00 11/25/16 06:29 19 11/25/16 06:00 76 11/25/16 04:00 80 11/25/16 04:00 98.3 80 20 152/72 95 11/25/16 03:39 15 11/25/16 02:00 76 11/25/16 00:00 98.5 76 16 169/77 95 11/25/16 00:00 76 11/24/16 22:00 77 11/24/16 20:23 99 Nasal Cannula 2.00 11/24/16 20:00 78 11/24/16 20:00 97.9 78 17 170/81 99 11/24/16 19:00 100 Nasal Cannula 2.00 11/24/16 18:00 84 11/24/16 18:00 98.0 70 22 166/71 97 11/24/16 16:00 70 I/O 11/24/16 11/24/16 11/24/16 11/25/16 11/25/16 11/25/16 07:00 15:00 23:00 07:00 15:00 23:00 Intake Total 0 ml 525 ml 360 ml 120 ml 600 ml Output Total 850 ml Balance -850 ml 525 ml 360 ml 120 ml 600 ml Intake Oral 0 ml 525 ml 360 ml 120 ml 600 ml Output Urine Total 850 ml # Voids 2 2 2 2 # Bowel Movements 0 0 0 0 Result Diagram: 11/25/16 0436 11/25/16435 Imaging Last Impressions Head CT 11/25/16 0600 Signed Impressions: Service Date/Time: Friday, November 25, 2016 05:16 - CONCLUSION: 1. Persistent small left-sided extra-axial hemorrhage, unchanged. 2. Minimal left to right midline shift, no change. Bruno Cabrera MD Lower Extremity Ultrasound 11/20/16 0000 Signed Impressions: Service Date/Time: Sunday, November 20, 2016 22:10 - CONCLUSION: Negative venous ultrasound with no evidence of deep venous thrombosis. David Gonzáles MD Procedures None Other Results Laboratory Tests Test 11/20/16 11/21/16 11/21/16 11/21/16 23:34 00:13 00:20 06:00 Blood Bank Comment Blood Type O POSITIVE Nasal Screen MRSA (PCR) MRSA NOT DETECTED Urine Opiates Screen POS Urine Barbiturates Screen NEG Urine Amphetamines Screen NEG Urine Benzodiazepines Screen NEG Urine Cocaine Screen NEG Urine Cannabinoids Screen NEG Test 11/23/16 11/24/16 11/25/16 04:09 10:45 04:36 Platelet Estimate LOW Platelet Morphology Comment ENLARGED Phosphorus Level 4.2 MG/DL Magnesium Level 1.6 MG/DL Troponin I 1.67 NG/ML White Blood Count 7.2 TH/MM3 Red Blood Count 3.74 MIL/MM3 Hemoglobin 10.0 GM/DL Hematocrit 30.8 % Mean Corpuscular Volume 82.4 FL Mean Corpuscular Hemoglobin 26.8 PG Mean Corpuscular Hemoglobin 32.5 % Concent Red Cell Distribution Width 13.8 % Platelet Count 109 TH/MM3 Mean Platelet Volume 11.7 FL Neutrophils (%) (Auto) 67.1 % Lymphocytes (%) (Auto) 14.2 % Monocytes (%) (Auto) 15.0 % Eosinophils (%) (Auto) 3.2 % Basophils (%) (Auto) 0.5 % Neutrophils # (Auto) 4.8 TH/MM3 Lymphocytes # (Auto) 1.0 TH/MM3 Monocytes # (Auto) 1.1 TH/MM3 Eosinophils # (Auto) 0.2 TH/MM3 Basophils # (Auto) 0.0 TH/MM3 CBC Comment DIFF FINAL Differential Comment Sodium Level 139 MEQ/L Potassium Level 4.8 MEQ/L Chloride Level 105 MEQ/L Carbon Dioxide Level 28.3 MEQ/L Anion Gap 6 MEQ/L Blood Urea Nitrogen 30 MG/DL Creatinine 1.00 MG/DL Estimat Glomerular Filtration 79 ML/MIN Rate Random Glucose 142 MG/DL Calcium Level 9.2 MG/DL Total Bilirubin 0.8 MG/DL Aspartate Amino Transf 22 U/L (AST/SGOT) Alanine Aminotransferase 56 U/L (ALT/SGPT) Alkaline Phosphatase 112 U/L Total Protein 6.9 GM/DL Albumin 2.7 GM/DL Objective Remarks GENERAL: Well nourished, alert in moderate pain distress SKIN: Warm and dry. HEAD: Normocephalic. EYES: No scleral icterus. No injection or drainage. NECK: Supple, trachea midline. No JVD or lymphadenopathy. CARDIOVASCULAR: Regular rate and rhythm without murmurs, gallops, or rubs. RESPIRATORY: Breath sounds equal bilaterally. No accessory muscle use. GASTROINTESTINAL: Abdomen soft, non-tender, nondistended. MUSCULOSKELETAL: No cyanosis, or edema. plantar fasciitis. BACK: Nontender without obvious deformity. No CVA tenderness. Medications and IVs Current Medications Medications (Trade) Dose Ordered Sig/Alona Route Start Time Stop Time Status Last Admin (Lipitor) 40 mg HS PO 11/21/16 21:00 11/24/16 20:41 (Coreg) 12.5 mg BID PO 11/21/16 09:00 11/25/16 08:00 (Lyrica) 150 mg TID PO 11/21/16 09:00 11/25/16 13:03 Sodium Bicarbonate 1300 mg 1,300 mg TIDPC PO 11/21/16 09:30 11/25/16 13:03 (NS 1000 ml Inj) 1,000 ml @ 84 mls/hr [id number] IV 11/20/16 23:42 Hold 11/22/16 22:45 (NS Flush) 2 ml UNSCH PRN .XX 11/20/16 23:45 (NS Flush) 2 ml BID .XX 11/21/16 09:00 11/25/16 08:01 (Tylenol) 650 mg Q6H PRN PO 11/20/16 23:45 11/24/16 00:21 (Percocet 5-325 Mg) 1 tab Q4H PRN PO 11/20/16 23:45 11/24/16 11:18 (Morphine Inj) 2 mg Q2H PRN IV 11/20/16 23:45 11/25/16 13:03 (Pepcid Inj) 20 mg Q12HR IV PUSH 11/21/16 09:00 11/25/16 08:00 (Ativan Inj) 2 mg Q4H PRN IV 11/20/16 23:45 11/25/16 03:43 (Zofran Inj) 4 mg Q6H PRN IV 11/20/16 23:45 11/21/16 00:37 Miscellaneous Information 1 Q361D XX 11/20/16 23:45 (Chlorhexidine 2% Cloth) 3 pack Taper DAILY@04 TOP 11/21/16 04:00 11/17/17 03:59 11/25/16 04:21 (Chlorhexidine 2% Cloth) 3 pack UNSCH PRN TOP 11/20/16 23:45 (Mary Ellen-Colace) 1 tab BID PO 11/21/16 09:00 11/25/16 09:45 (Milk Of Magnesia Liq) 30 ml Q12H PRN PO 11/20/16 23:45 (Senokot) 17.2 mg Q12H PRN PO 11/20/16 23:45 (Dulcolax Supp) 10 mg DAILY PRN RECTAL 11/20/16 23:45 (Lactulose Liq) 30 ml DAILY PRN PO 11/20/16 23:45 (D50w (Vial) Inj) 50 ml UNSCH PRN IV 11/21/16 00:00 (Glucagon Inj) 1 mg UNSCH PRN OTHER 11/21/16 00:00 (Imdur) 60 mg DAILY@07 PO 11/21/16 07:00 11/25/16 06:25 (Trandate Inj) 10 mg Q4H PRN IV PUSH 11/21/16 01:00 11/25/16 06:11 Hydralazine HCl 10 mg 10 mg Q3H PRN IV 11/21/16 02:00 11/24/16 22:06 (Trandate Inj/NS 500 ml Inj) 500 ml @ 0 mls/hr TITRATE IV 11/21/16 08:00 (Ecotrin Ec) 81 mg DAILY PO 11/21/16 11:15 11/25/16 08:00 (Levemir Inj) 25 units DAILY SQ 11/22/16 20:00 11/25/16 08:01 (Prinivil) 20 mg BID PO 11/24/16 21:00 11/25/16 08:00 (Lasix) 40 mg DAILY PO 11/24/16 12:00 11/25/16 08:00 (Dilaudid Pf Inj) 0.5 mg Q4H PRN IV PUSH 11/24/16 12:00 11/25/16 08:01 (Neurontin) 300 mg TID PO 11/25/16 13:00 11/25/16 13:03 A/P Assessment and Plan 1. Subdural Hematoma, CT of the Head showed extra axial collection along the left parietal lobe as described Brilinta Held on admission, Repeat CT brain today and recommended by Neurosurgery to continue observation continue pain medicine. 2. Atypical Chest pain, he has history of CAD, Echocardiogram EF 55%. public transit specialist recommended Aspirin ideally should be back on Brilinta. Cardiology signed off the case. 3. Hypertension Uncontrolled added Amlodipine low dose and following, continue Coreg, Isosorbide mononitrate, Hydralazine and Labetalol for uncontrolled HTN. 4. JAGDISH Improved. 5. Neuropathy to continue Lyrica 6. DM II continue Insulin sliding scale and Long lasting insulin 7. Thrombocytopenia no clear reason. GI Prophylaxis: Continue PPI DVT Prophylaxis: SCD's, no chemoprophylaxis with heparin or Lovenox SQ Discharge Planning Transfer to General Floor. Patient still has labile BP. Yogi Salinas MD Nov 25, 2016 15:20 coagulation with Brilinta. Assessment and Plan GI Prophylaxis: Continue PPI DVT Prophylaxis: SCD's, no chemoprophylaxis with heparin or Lovenox SQ Discharge Planning Continue to monitor in the ICU. Hematology, consulted. Patient still has labile BP. Yogi Salinas MD Nov 25, 2016 15:20 Lisinopril held due to elevated creatinine and elevated potassium - will resume Lisinopril since creatinine now down to normal levels Continue Coreg Continue Isosorbide mononitrate Continue hydralazine and labetalol as needed for uncontrolled hypertension. Resume Furosemide (5) JAGDISH (acute kidney injury) ICD Code: N17.9 Status: Acute Plan: Most likely due to prerenal azotemia secondary to dehydration. Patient with creatinine of 1.82 on admission, trending down and 1.13 on 11/23 Creatinine trending down, continue to monitor BMP, monitor strict I's and O's Avoid nephrotoxins (6) Neuropathy ICD Code: G62.9 Status: Acute Plan: Is to be stable. Continue Lyrica (7) Diabetes mellitus with hyperglycemia ICD Code: E11.65 Status: Acute Plan: 2 with labile blood sugars. Continue Lantus 25 units daily. Continue SSI with insulin sliding scale. (8) Thrombocytopenia ICD Code: D69.6 Status: Acute Plan: Patient admitted with Thrombocytopenia with a potassium of 81K. Platelets now trending up to 123 K continue to monitor platelets. The patient status post 1 unit of platelets on 11/21. Will consult hematology for advice on when he would be optimal to resume anti- coagulation with Brilinta. Assessment and Plan GI Prophylaxis: Continue PPI DVT Prophylaxis: SCD's, no chemoprophylaxis with heparin or Lovenox SQ Discharge Planning Continue to monitor in the ICU. Hematology, consulted. Patient still has labile BP. Yogi Salinas MD Nov 25, 2016 15:20
--- NOTE | 2016-11-25 16:47 | HHI.NSPN ---
Note Status Status: Progress Note Interval History Interval History 11/21: his is a 51 year old male with multiple medical problems including coronary artery disease, status post CABG and recent 2 stents placed in August yaneth was admitted to [facility] hospital last week as he was severely dehydrated and hypotension. He was to the hospital for a few days and was then discharged to home. During that hospital course, he reported migraine headaches. Reports that he has had a migraine for the 3 weeks. He reportedly fell down. no LOC. No seizure activity. No tongue bitting. No incontinence of stool or urine. CT of the head performed in the emergency department today showed small subdural bleed. neurosurgical consultation was requested. Upon admission he developed hypertensive urgency with crushing chest pain. The EKG showed ST changes in the inferolateral ST elevation in aVR. Per patient his measurement psychologist approved to hold anticoagulation for next 6 weeks. He received Nitropatch and initiated labetalol drip for blood pressure control. His chest pain has improved. Troponins and cardiology evaluation in progress 11/23: Patient complains of headache to the top of the head and pressure to the back of the head and neck. 11/24: Pt awake. complains of headache. States he was doing well but yesterday had bad headache. Today not as bad as yesterday. No n/v. No numbness or tingling. No neuro deficits. 11/25: stable persistent MOJICA's, f/u CT Head this morning with stable left extra- axial hemorrhage without mass effect or midline shift. Labs, Micro, & Vital Signs Results Date Time Temp Pulse Resp B/P Pulse Ox O2 Delivery O2 Flow Rate FiO2 11/25/16 14:00 76 11/25/16 12:00 80 11/25/16 12:00 98.3 80 19 135/63 95 11/25/16 10:00 79 11/25/16 08:00 98.8 82 20 166/70 96 11/25/16 08:00 80 11/25/16 07:47 95 Nasal Cannula 2.00 11/25/16 07:00 96 Nasal Cannula 2.00 7/5/17 06:29 19 11/25/16 06:00 76 11/25/16 04:00 80 11/25/16 04:00 98.3 80 20 152/72 95 11/25/16 03:39 15 11/25/16 02:00 76 11/25/16 00:00 98.5 76 16 169/77 95 11/25/16 00:00 76 11/24/16 22:00 77 11/24/16 20:23 99 Nasal Cannula 2.00 11/24/16 20:00 78 11/24/16 20:00 97.9 78 17 170/81 99 11/24/16 19:00 100 Nasal Cannula 2.00 11/24/16 18:00 84 11/24/16 18:00 98.0 70 22 166/71 97 11/25/16 07:00 Intake Total 1005 ml Balance 1005 ml Constitutional Vital Signs Date Time Temp Pulse Resp B/P Pulse Ox O2 Delivery O2 Flow Rate FiO2 11/25/16 14:00 76 11/25/16 12:00 80 11/25/16 12:00 98.3 80 19 135/63 95 11/25/16 10:00 79 11/25/16 08:00 98.8 82 20 166/70 96 11/25/16 08:00 80 11/25/16 07:47 95 Nasal Cannula 2.00 11/25/16 07:00 96 Nasal Cannula 2.00 11/25/16 06:29 19 11/25/16 06:00 76 11/25/16 04:00 80 11/25/16 04:00 98.3 80 20 152/72 95 11/25/16 03:39 15 11/25/16 02:00 76 11/25/16 00:00 98.5 76 16 169/77 95 11/25/16 00:00 76 11/24/16 22:00 77 11/24/16 20:23 99 Nasal Cannula 2.00 11/24/16 20:00 78 11/24/16 20:00 97.9 78 17 170/81 99 11/24/16 19:00 100 Nasal Cannula 2.00 11/24/16 18:00 84 11/24/16 18:00 98.0 70 22 166/71 97 11/25/16 07:00 Intake Total 1005 ml Balance 1005 ml Review of Systems/Exam Exam Awake, alert, oriented x 3. Speech is fluent. Follows commands well. CN: Pupils equal, facial motor symmetric. EOMs intact. Motor: moves all four extremities well 5. Neck: soft, supple Plantars downgoing b/l. Medications Current Medications Current Medications Medications (Trade) Dose Ordered Sig/Alona Route PRN Reason Start Time Stop Time Status Last Admin Dose Admin Atorvastatin Calcium (Lipitor) 40 mg HS PO 11/21/16 21:00 11/24/16 20:41 Carvedilol (Coreg) 12.5 mg BID PO 11/21/16 09:00 11/25/16 08:00 Pregabalin (Lyrica) 150 mg TID PO 11/21/16 09:00 11/25/16 13:03 Sodium Bicarbonate 1300 mg 1,300 mg TIDPC PO 11/21/16 09:30 11/25/16 13:03 Sodium Chloride (NS 1000 ml Inj) 1,000 ml @ 84 mls/hr [id number] IV 11/20/16 23:42 Hold 11/22/16 22:45 Sodium Chloride (NS Flush) 2 ml UNSCH PRN .XX FLUSH AFTER USING IV ACCESS 11/20/16 23:45 Sodium Chloride (NS Flush) 2 ml BID .XX 11/21/16 09:00 11/25/16 08:01 Acetaminophen (Tylenol) 650 mg Q6H PRN PO FEVER >101F 11/20/16 23:45 11/24/16 00:21 Oxycodone/ Acetaminophen (Percocet 5-325 Mg) 1 tab Q4H PRN PO PAIN SCALE 1 TO 5 11/20/16 23:45 11/24/16 11:18 Morphine Sulfate (Morphine Inj) 2 mg Q2H PRN IV PAIN SCALE 6 TO 10 11/20/16 23:45 11/25/16 13:03 Famotidine (Pepcid Inj) 20 mg Q12HR IV PUSH 11/21/16 09:00 11/25/16 08:00 Lorazepam (Ativan Inj) 2 mg Q4H PRN IV Agitation/Sedation 11/20/16 23:45 11/25/16 03:43 Ondansetron HCl (Zofran Inj) 4 mg Q6H PRN IV NAUSEA OR VOMITING 11/20/16 23:45 11/21/16 00:37 Miscellaneous Information 1 Q361D XX 11/20/16 23:45 Chlorhexidine Gluconate (Chlorhexidine 2% Cloth) 3 pack Taper DAILY@04 TOP 11/21/16 04:00 11/17/17 03:59 11/25/16 04:21 Chlorhexidine Gluconate (Chlorhexidine 2% Cloth) 3 pack UNSCH PRN TOP HYGIENIC CARE 11/20/16 23:45 Senna/Docusate Sodium (Mary Ellen-Colace) 1 tab BID PO 11/21/16 09:00 11/25/16 09:45 Magnesium Hydroxide (Milk Of Magnesia Liq) 30 ml Q12H PRN PO MILD - MODERATE CONSTIPATION 11/20/16 23:45 Sennosides (Senokot) 17.2 mg Q12H PRN PO MODERATE - SEVERE CONSTIPATION 11/20/16 23:45 Bisacodyl (Dulcolax Supp) 10 mg DAILY PRN RECTAL SEVERE CONSITIPATION 11/20/16 23:45 Lactulose (Lactulose Liq) 30 ml DAILY PRN PO SEVERE CONSITIPATION 11/20/16 23:45 Dextrose (D50w (Vial) Inj) 50 ml UNSCH PRN IV HYPOGLYCEMIA-SEE COMMENTS 11/21/16 00:00 Glucagon (Glucagon Inj) 1 mg UNSCH PRN OTHER HYPOGLYCEMIA-SEE COMMENTS 11/21/16 00:00 Isosorbide Mononitrate (Imdur) 60 mg DAILY@07 PO 11/21/16 07:00 11/25/16 06:25 Labetalol HCl (Trandate Inj) 10 mg Q4H PRN IV PUSH SBP>160, DBP>90 11/21/16 01:00 11/25/16 06:11 Hydralazine HCl 10 mg 10 mg Q3H PRN IV SYS BP GREATER THAN 160 MMHG 11/21/16 02:00 11/24/16 22:06 Labetalol HCl/ Sodium Chloride (Trandate Inj/NS 500 ml Inj) 500 ml @ 0 mls/hr TITRATE IV 11/21/16 08:00 Aspirin (Ecotrin Ec) 81 mg DAILY PO 11/21/16 11:15 11/25/16 08:00 Insulin Detemir (Levemir Inj) 25 units DAILY SQ 11/22/16 20:00 11/25/16 08:01 Lisinopril (Prinivil) 20 mg BID PO 11/24/16 21:00 11/25/16 08:00 Furosemide (Lasix) 40 mg DAILY PO 11/24/16 12:00 11/25/16 08:00 Hydromorphone HCl (Dilaudid Pf Inj) 0.5 mg Q4H PRN IV PUSH BREAKTHROUGH PAIN 11/24/16 12:00 11/25/16 08:01 Gabapentin (Neurontin) 300 mg TID PO 11/25/16 13:00 11/25/16 13:03 Medical Decision Making MDM Remarks 51 y/o male with small left extra-axial hemorrhage, stable f/u CT Head Headaches, stable f/u CT Head 11/25/16 Plan Plan Remarks cont supportive care, cont nonsurgical mgt start trial of Neurontin 300 mg tid for MOJICA's, ok to transfer out of [facility] from [facility] standpoint, Katie Anderson Nov 25, 2016 16:47
[2016-11-25] MEDS ORDERED: PILL SPLITTER OTHER PRN (17:45)
[2016-11-25] MEDS: amLODIPine BESYLATE 5 MG TAB PO SCH (18:27)
[2016-11-25] MEDS: oxyCODONE/ACETAMINOPHEN 5 MG/325 MG TAB PO PRN (19:52)
[2016-11-25] MEDS: ATORVASTATIN 40 MG TAB PO SCH (19:52)
[2016-11-26] VITALS (7 sets, daily range): BP systolic 122–147; BP diastolic 61–72; PULSE 76–85; RESP 16–20; TEMP 98.5–99.2; O2SAT 92–96
[2016-11-26] MEDS: oxyCODONE/ACETAMINOPHEN 5 MG/325 MG TAB PO PRN ×4 (01:29→22:57)
[2016-11-26] MEDS: CHLORHEXIDINE GLUCONATE 2 % 1 PACK (2 CLOTHS) TOP SCH (03:36)
[2016-11-26] MEDS: ISOSORBIDE MONONITRATE 60 MG TAB PO SCH (06:26)
[2016-11-26] MEDS: INSULIN ASPART SUPPLEMENTAL SCALE SQ SCH ×4 (06:35→20:16)
[2016-11-26 08:33] LABS: ANION GAP 7 MEQ/L (5-15); AST (GOT) 27 U/L (15-37); BICARBONATE 26.8 MEQ/L (21.0-32.0); BLOOD UREA NITROGEN 32 MG/DL (7-18); CHLORIDE 103 MEQ/L (98-107); GLOMERULAR FILTRATION RATE 68 ML/MIN (>89); POTASSIUM 4.6 MEQ/L (3.5-5.1); SODIUM (NA) 137 MEQ/L (136-145)
[2016-11-26 08:34] LABS: ALT (GPT) 55 U/L (12-78)
[2016-11-26 08:36] LABS: ALKALINE PHOSPHATASE 123 U/L (45-117); TOTAL BILIRUBIN ADULT 0.9 MG/DL (0.2-1.0)
[2016-11-26] MEDS: FAMOTIDINE 20 MG/2 ML VIAL IV PUSH SCH ×2 (09:00→20:15)
[2016-11-26] MEDS: ASPIRIN EC 81 MG TABEC PO SCH (09:43)
[2016-11-26] MEDS: FUROSEMIDE 40 MG TAB PO SCH (09:44)
[2016-11-26] MEDS: SODIUM BICARBONATE 650 MG TAB PO SCH ×3 (09:44→17:19)
[2016-11-26] MEDS: DOCUSATE SODIUM 50 MG/SENNA 8.6 MG TAB PO SCH ×2 (09:44→20:14)
[2016-11-26] MEDS: amLODIPine BESYLATE 5 MG TAB PO SCH (09:45)
[2016-11-26] MEDS: GABAPENTIN 300 MG CAP PO SCH ×3 (09:45→17:19)
[2016-11-26] MEDS: CARVEDILOL 12.5 MG TAB PO SCH ×2 (09:45→20:14)
[2016-11-26] MEDS: PREGABALIN 75 MG CAP PO SCH ×3 (09:46→17:19)
[2016-11-26] MEDS: SODIUM CHLORIDE 0.9% FLUSH 10 ML FLUSH SCH ×2 (09:47→20:15)
[2016-11-26] MEDS: INSULIN DETEMIR 100 UNITS/ML VIAL SQ SCH (09:49)
--- NOTE | 2016-11-26 09:55 | HHI.PR ---
Subjective Remarks This is a pleasant 51 y/o Male seen in his bedroom in the presence of his , complaint of feet pain. was seen in the presence of nurse as per Neurosurgery recommended to transfer to general floor and continue management, he complaint of headache, 11/26: Seen in his bedroom, in the presence of his Daughter, Improving headache and Plantar Fasciitis, no new issues,no nausea, vomit or diarrhea, has Constipation started on Lactulose. Objective Vital Signs Date Time Temp Pulse Resp B/P Pulse Ox O2 Delivery O2 Flow Rate FiO2 11/26/16 08:00 99.0 80 17 122/63 96 11/26/16 04:00 99.0 81 20 147/72 94 11/26/16 00:00 98.6 85 20 138/61 92 11/26/16 00:00 94 Room Air 11/25/16 20:34 87 11/25/16 20:00 98.3 84 20 139/78 94 11/25/16 18:00 92 11/25/16 16:00 81 11/25/16 16:00 98.6 81 16 161/71 98 11/25/16 14:00 76 11/25/16 12:00 80 11/25/16 12:00 98.3 80 19 135/63 95 11/25/16 10:00 79 I/O 11/25/16 11/25/16 11/25/16 11/26/16 11/26/16 11/26/16 07:00 15:00 23:00 07:00 15:00 23:00 Intake Total 120 ml 600 ml Output Total 0 ml Balance 120 ml 600 ml 0 ml Intake Oral 120 ml 600 ml Output Urine Total 0 ml # Voids 2 2 2 2 # Bowel Movements 0 0 1 Result Diagram: 11/25/16 0436 11/26/16 0658 Imaging Last Impressions Head CT 11/25/16 0600 Signed Impressions: Service Date/Time: Friday, November 25, 2016 05:16 - CONCLUSION: 1. Persistent small left-sided extra-axial hemorrhage, unchanged. 2. Minimal left to right midline shift, no change. Bruno Cabrera MD Lower Extremity Ultrasound 11/20/16 0000 Signed Impressions: Service Date/Time: Sunday, November 20, 2016 22:10 - CONCLUSION: Negative venous ultrasound with no evidence of deep venous thrombosis. David Gonzáles MD Procedures None Other Results Laboratory Tests Test 11/20/16 11/23/16 11/24/16 11/25/16 23:34 04:09 10:45 04:36 Blood Type O POSITIVE Blood Bank Comment Platelet Estimate LOW Platelet Morphology Comment ENLARGED Phosphorus Level 4.2 MG/DL Magnesium Level 1.6 MG/DL Troponin I 1.67 NG/ML White Blood Count 7.2 TH/MM3 Red Blood Count 3.74 MIL/MM3 Hemoglobin 10.0 GM/DL Hematocrit 30.8 % Mean Corpuscular Volume 82.4 FL Mean Corpuscular Hemoglobin 26.8 PG Mean Corpuscular Hemoglobin 32.5 % Concent Red Cell Distribution Width 13.8 % Platelet Count 109 TH/MM3 Mean Platelet Volume 11.7 FL Neutrophils (%) (Auto) 67.1 % Lymphocytes (%) (Auto) 14.2 % Monocytes (%) (Auto) 15.0 % Eosinophils (%) (Auto) 3.2 % Basophils (%) (Auto) 0.5 % Neutrophils # (Auto) 4.8 TH/MM3 Lymphocytes # (Auto) 1.0 TH/MM3 Monocytes # (Auto) 1.1 TH/MM3 Eosinophils # (Auto) 0.2 TH/MM3 Basophils # (Auto) 0.0 TH/MM3 CBC Comment DIFF FINAL Differential Comment Test 11/26/16 06:58 Sodium Level 137 MEQ/L Potassium Level 4.6 MEQ/L Chloride Level 103 MEQ/L Carbon Dioxide Level 26.8 MEQ/L Anion Gap 7 MEQ/L Blood Urea Nitrogen 32 MG/DL Creatinine 1.14 MG/DL Estimat Glomerular Filtration 68 ML/MIN Rate Random Glucose 163 MG/DL Calcium Level 9.5 MG/DL Total Bilirubin 0.9 MG/DL Aspartate Amino Transf 27 U/L (AST/SGOT) Alanine Aminotransferase 55 U/L (ALT/SGPT) Alkaline Phosphatase 123 U/L Total Protein 6.5 GM/DL Albumin 2.6 GM/DL Objective Remarks GENERAL: Well nourished, alert in moderate pain distress SKIN: Warm and dry. HEAD: Normocephalic. EYES: No scleral icterus. No injection or drainage. NECK: Supple, trachea midline. No JVD or lymphadenopathy. CARDIOVASCULAR: Regular rate and rhythm without murmurs, gallops, or rubs. RESPIRATORY: Breath sounds equal bilaterally. No accessory muscle use. GASTROINTESTINAL: Abdomen soft, non-tender, nondistended. MUSCULOSKELETAL: No cyanosis, or edema. plantar fasciitis. BACK: Nontender without obvious deformity. No CVA tenderness. Medications and IVs Current Medications Medications (Trade) Dose Ordered Sig/Alona Route Start Time Stop Time Status Last Admin (Lipitor) 40 mg HS PO 11/21/16 21:00 11/25/16 19:52 (Coreg) 12.5 mg BID PO 11/21/16 09:00 11/26/16 09:45 (Lyrica) 150 mg TID PO 11/21/16 09:00 11/26/16 09:46 Sodium Bicarbonate 1300 mg 1,300 mg TIDPC PO 11/21/16 09:30 11/26/16 09:44 (NS 1000 ml Inj) 1,000 ml @ 84 mls/hr [id number] IV 11/20/16 23:42 Hold 11/22/16 22:45 (NS Flush) 2 ml UNSCH PRN .XX 11/20/16 23:45 (NS Flush) 2 ml BID .XX 11/21/16 09:00 11/26/16 09:47 (Tylenol) 650 mg Q6H PRN PO 11/20/16 23:45 11/24/16 00:21 (Percocet 5-325 Mg) 1 tab Q4H PRN PO 11/20/16 23:45 11/26/16 06:30 (Morphine Inj) 2 mg Q2H PRN IV 11/20/16 23:45 11/25/16 13:03 (Pepcid Inj) 20 mg Q12HR IV PUSH 11/21/16 09:00 11/25/16 20:06 (Ativan Inj) 2 mg Q4H PRN IV 11/20/16 23:45 11/25/16 03:43 (Zofran Inj) 4 mg Q6H PRN IV 11/20/16 23:45 11/21/16 00:37 Miscellaneous Information 1 Q361D XX 11/20/16 23:45 (Chlorhexidine 2% Cloth) Taper DAILY@04 TOP 11/21/16 04:00 11/17/17 03:59 11/25/16 04:21 (Chlorhexidine 2% Cloth) 3 pack UNSCH PRN TOP 11/20/16 23:45 (Mary Ellen-Colace) 1 tab BID PO 11/21/16 09:00 11/26/16 09:44 (Milk Of Magnesia Liq) 30 ml Q12H PRN PO 11/20/16 23:45 (Senokot) 17.2 mg Q12H PRN PO 11/20/16 23:45 (Dulcolax Supp) 10 mg DAILY PRN RECTAL 11/20/16 23:45 (Lactulose Liq) 30 ml DAILY PRN PO 11/20/16 23:45 (D50w (Vial) Inj) 50 ml UNSCH PRN IV 11/21/16 00:00 (Glucagon Inj) 1 mg UNSCH PRN OTHER 11/21/16 00:00 (Imdur) 60 mg DAILY@07 PO 11/21/16 07:00 11/26/16 06:26 (Trandate Inj) 10 mg Q4H PRN IV PUSH 11/21/16 01:00 11/25/16 06:11 Hydralazine HCl 10 mg 10 mg Q3H PRN IV 11/21/16 02:00 11/24/16 22:06 (Trandate Inj/NS 500 ml Inj) 500 ml @ 0 mls/hr TITRATE IV 11/21/16 08:00 (Ecotrin Ec) 81 mg DAILY PO 11/21/16 11:15 11/26/16 09:43 (Levemir Inj) 25 units DAILY SQ 11/22/16 20:00 11/26/16 09:49 (Prinivil) 20 mg BID PO 11/24/16 21:00 11/25/16 19:52 (Lasix) 40 mg DAILY PO 11/24/16 12:00 11/26/16 09:44 (Dilaudid Pf Inj) 0.5 mg Q4H PRN IV PUSH 11/24/16 12:00 11/25/16 17:27 (Neurontin) 300 mg TID PO 11/25/16 13:00 11/26/16 09:45 (Norvasc) 2.5 mg DAILY PO 11/25/16 18:00 11/26/16 09:45 (Pill Splitter) 1 ea UNSCH PRN OTHER 11/25/16 17:45 A/P Assessment and Plan 1. Subdural Hematoma, CT of the Head showed extra axial collection along the left parietal lobe as described Brilinta Held on admission, Repeat CT brain today and recommended by Neurosurgery to continue observation continue pain medicine. not yet released by Neurosurgery. 2. Atypical Chest pain, he has history of CAD, Echocardiogram EF 55%. learning support specialist recommended Aspirin ideally should be back on Brilinta. Cardiology signed off the case. 3. Hypertension Uncontrolled added Amlodipine low dose and following, continue Coreg, Isosorbide mononitrate, Hydralazine and Labetalol for uncontrolled HTN. 4. JAGDISH Improved. 5. Neuropathy to continue Lyrica 6. DM II continue Insulin sliding scale and Long lasting insulin 7. Thrombocytopenia no clear reason. 8. Plantar fasciitis Improving with exercise. GI Prophylaxis: Continue PPI DVT Prophylaxis: SCD's, no chemoprophylaxis with heparin or Lovenox SQ Discharge Planning Transfer to General Floor. Patient still has labile BP. Yogi Salinas MD Nov 26, 2016 09:55
[2016-11-26] MEDS ORDERED: GLYCERIN ADULT 2 GM SUPP RECTAL ONE (11:00)
[2016-11-26] MEDS ORDERED: LACTULOSE SYRUP 20 GM/30 ML CUP PO ONE (11:00)
[2016-11-26] MEDS: MORPHINE SULFATE 4 MG/ML INJ IV PRN (11:56)
[2016-11-26] MEDS: LISINOPRIL 20 MG TAB PO SCH ×2 (11:58→20:14)
[2016-11-26] MEDS: HYDROmorphone HCL PF 1 MG/ML VIAL IV PUSH PRN ×2 (12:42→18:19)
--- NOTE | 2016-11-26 17:50 | HHI.NSPN ---
Labs, Micro, & Vital Signs Results Date Time Temp Pulse Resp B/P Pulse Ox O2 Delivery O2 Flow Rate FiO2 11/26/16 16:00 98.5 79 16 131/69 96 11/26/16 15:40 18 11/26/16 13:28 16 11/26/16 13:28 16 11/26/16 12:06 18 11/26/16 12:00 98.5 79 16 128/62 92 11/26/16 08:10 82 11/26/16 08:00 99.0 80 17 122/63 96 11/26/16 04:00 99.0 81 20 147/72 94 11/26/16 00:00 98.6 85 20 138/61 92 11/26/16 00:00 94 Room Air 11/25/16 20:34 87 11/25/16 20:00 98.3 84 20 139/78 94 11/25/16 18:00 92 11/26/16 07:00 Intake Total 600 ml Output Total 0 ml Balance 600 ml Constitutional Vital Signs Date Time Temp Pulse Resp B/P Pulse Ox O2 Delivery O2 Flow Rate FiO2 11/26/16 16:00 98.5 79 16 131/69 96 11/26/16 15:40 18 11/26/16 13:28 16 11/26/16 13:28 16 11/26/16 12:06 18 11/26/16 12:00 98.5 79 16 128/62 92 11/26/16 08:10 82 11/26/16 08:00 99.0 80 17 122/63 96 11/26/16 04:00 99.0 81 20 147/72 94 11/26/16 00:00 98.6 85 20 138/61 92 11/26/16 00:00 94 Room Air 11/25/16 20:34 87 11/25/16 20:00 98.3 84 20 139/78 94 11/25/16 18:00 92 11/26/16 07:00 Intake Total 600 ml Output Total 0 ml Balance 600 ml Review of Systems/Exam Exam Awake, alert, oriented x 3. Speech is fluent. Follows commands well. CN: Pupils equal, facial motor symmetric. EOMs intact. Motor: moves all four extremities well 5/5. Neck: soft, supple Plantars downgoing b/l. Karson Palacios MD Nov 26, 2016 17:50
[2016-11-26] MEDS: ATORVASTATIN 40 MG TAB PO SCH (20:14)
[2016-11-27] VITALS: BP 134/63; PULSE 84; RESP 20; TEMP 98.7; O2SAT 95
[2016-11-27] MEDS: HYDROmorphone HCL PF 1 MG/ML VIAL IV PUSH PRN ×2 (03:27→08:08)
[2016-11-27 04:00] VITALS: BP 120/48; PULSE 82; RESP 20; TEMP 98.3; O2SAT 97
[2016-11-27] MEDS: CHLORHEXIDINE GLUCONATE 2 % 1 PACK (2 CLOTHS) TOP SCH (04:00)
[2016-11-27] MEDS: ISOSORBIDE MONONITRATE 60 MG TAB PO SCH (05:47)
[2016-11-27] MEDS: INSULIN ASPART SUPPLEMENTAL SCALE SQ SCH ×2 (05:47→11:00)
[2016-11-27] MEDS: oxyCODONE/ACETAMINOPHEN 5 MG/325 MG TAB PO PRN (05:47)
[2016-11-27 08:00] VITALS: BP 116/55; PULSE 77; RESP 16; TEMP 97.9; O2SAT 95
[2016-11-27] MEDS: ASPIRIN EC 81 MG TABEC PO SCH (08:11)
[2016-11-27] MEDS: FUROSEMIDE 40 MG TAB PO SCH (08:14)
[2016-11-27] MEDS: PREGABALIN 75 MG CAP PO SCH (08:14)
[2016-11-27] MEDS: GABAPENTIN 300 MG CAP PO SCH (08:14)
[2016-11-27] MEDS: SODIUM CHLORIDE 0.9% FLUSH 10 ML FLUSH SCH (08:14)
[2016-11-27] MEDS: DOCUSATE SODIUM 50 MG/SENNA 8.6 MG TAB PO SCH (08:15)
[2016-11-27] MEDS: INSULIN DETEMIR 100 UNITS/ML VIAL SQ SCH (08:23)
[2016-11-27] MEDS: FAMOTIDINE 20 MG/2 ML VIAL IV PUSH SCH (08:26)
[2016-11-27] MEDS: amLODIPine BESYLATE 5 MG TAB PO SCH (09:00)
[2016-11-27] MEDS: LISINOPRIL 20 MG TAB PO SCH (09:00)
--- NOTE | 2016-11-27 09:33 | HHI.NSPN ---
Note Status Status: Progress Note Interval History Interval History 11/21: his is a 51 year old male with multiple medical problems including coronary artery disease, status post CABG and recent 2 stents placed in August yaneth was admitted to [facility] hospital last week as he was severely dehydrated and hypotension. He was to the hospital for a few days and was then discharged to home. During that hospital course, he reported migraine headaches. Reports that he has had a migraine for the 3 weeks. He reportedly fell down. no LOC. No seizure activity. No tongue bitting. No incontinence of stool or urine. CT of the head performed in the emergency department today showed small subdural bleed. neurosurgical consultation was requested. Upon admission he developed hypertensive urgency with crushing chest pain. The EKG showed ST changes in the inferolateral ST elevation in aVR. Per patient his case liner approved to hold anticoagulation for next 6 weeks. He received Nitropatch and initiated labetalol drip for blood pressure control. His chest pain has improved. Troponins and cardiology evaluation in progress 11/23: Patient complains of headache to the top of the head and pressure to the back of the head and neck. 11/24: Pt awake. complains of headache. States he was doing well but yesterday had bad headache. Today not as bad as yesterday. No n/v. No numbness or tingling. No neuro deficits. 11/25: stable persistent MOJICA's, f/u CT Head this morning with stable left extra- axial hemorrhage without mass effect or midline shift. 11/27: headaches better, eager to go home, no new neuro complaints Labs, Micro, & Vital Signs Results Date Time Temp Pulse Resp B/P Pulse Ox O2 Delivery O2 Flow Rate FiO2 11/27/16 04:00 98.3 82 20 120/48 97 11/27/16 00:00 98.7 84 20 134/63 95 11/26/16 20:00 99.2 76 20 134/64 95 11/26/16 18:53 18 11/26/16 18:26 16 11/26/16 16:00 98.5 79 16 131/69 96 11/26/16 15:40 18 11/26/16 12:06 18 11/26/16 12:00 98.5 79 16 128/62 92 11/27/16 07:00 Intake Total 1200 ml Output Total 550 ml Balance 650 ml Constitutional Vital Signs Date Time Temp Pulse Resp B/P Pulse Ox O2 Delivery O2 Flow Rate FiO2 11/27/16 04:00 98.3 82 20 120/48 97 11/27/16 00:00 98.7 84 20 134/63 95 11/26/16 20:00 99.2 76 20 134/64 95 11/26/16 18:53 18 11/26/16 18:26 16 11/26/16 16:00 98.5 79 16 131/69 96 11/26/16 15:40 18 11/26/16 12:06 18 11/26/16 12:00 98.5 79 16 128/62 92 11/27/16 07:00 Intake Total 1200 ml Output Total 550 ml Balance 650 ml Review of Systems/Exam Exam Awake, alert, oriented x 3. Speech is fluent. Follows commands well. Pleasant. Sitting up in chair. CN: Pupils equal, facial motor symmetric. EOMs intact. Motor: moves all four extremities well 5/5. Sensory: intact light touch x 4 Neck: soft, supple Plantars downgoing b/l. Medications Current Medications Current Medications Medications (Trade) Dose Ordered Sig/Alona Route PRN Reason Start Time Stop Time Status Last Admin Dose Admin Atorvastatin Calcium (Lipitor) 40 mg HS PO 11/21/16 21:00 11/26/16 20:14 Carvedilol (Coreg) 12.5 mg BID PO 11/21/16 09:00 11/26/16 20:14 Pregabalin (Lyrica) 150 mg TID PO 11/21/16 09:00 11/27/16 08:14 Sodium Bicarbonate 1300 mg 1,300 mg TIDPC PO 11/21/16 09:30 11/26/16 17:19 Sodium Chloride (NS 1000 ml Inj) 1,000 ml @ 84 mls/hr [id number] IV 11/20/16 23:42 Hold 11/22/16 22:45 Sodium Chloride (NS Flush) 2 ml UNSCH PRN .XX FLUSH AFTER USING IV ACCESS 11/20/16 23:45 Sodium Chloride (NS Flush) 2 ml BID .XX 11/21/16 09:00 11/26/16 20:15 Acetaminophen (Tylenol) 650 mg Q6H PRN PO FEVER >101F 11/20/16 23:45 11/24/16 00:21 Oxycodone/ Acetaminophen (Percocet 5-325 Mg) 1 tab Q4H PRN PO PAIN SCALE 1 TO 5 11/20/16 23:45 11/27/16 05:47 Morphine Sulfate (Morphine Inj) 2 mg Q2H PRN IV PAIN SCALE 6 TO 10 11/20/16 23:45 11/26/16 11:56 Famotidine (Pepcid Inj) 20 mg Q12HR IV PUSH 11/21/16 09:00 11/27/16 08:26 Lorazepam (Ativan Inj) 2 mg Q4H PRN IV Agitation/Sedation 11/20/16 23:45 11/25/16 03:43 Ondansetron HCl (Zofran Inj) 4 mg Q6H PRN IV NAUSEA OR VOMITING 11/20/16 23:45 11/21/16 00:37 Miscellaneous Information 1 Q361D XX 11/20/16 23:45 Chlorhexidine Gluconate (Chlorhexidine 2% Cloth) Taper DAILY@04 TOP 11/21/16 04:00 11/17/17 03:59 11/25/16 04:21 Chlorhexidine Gluconate (Chlorhexidine 2% Cloth) 3 pack UNSCH PRN TOP HYGIENIC CARE 11/20/16 23:45 Senna/Docusate Sodium (Mary Ellen-Colace) 1 tab BID PO 11/21/16 09:00 11/27/16 08:15 Magnesium Hydroxide (Milk Of Magnesia Liq) 30 ml Q12H PRN PO MILD - MODERATE CONSTIPATION 11/20/16 23:45 Sennosides (Senokot) 17.2 mg Q12H PRN PO MODERATE - SEVERE CONSTIPATION 11/20/16 23:45 Bisacodyl (Dulcolax Supp) 10 mg DAILY PRN RECTAL SEVERE CONSITIPATION 11/20/16 23:45 Lactulose (Lactulose Liq) 30 ml DAILY PRN PO SEVERE CONSITIPATION 11/20/16 23:45 Dextrose (D50w (Vial) Inj) 50 ml UNSCH PRN IV HYPOGLYCEMIA-SEE COMMENTS 11/21/16 00:00 Glucagon (Glucagon Inj) 1 mg UNSCH PRN OTHER HYPOGLYCEMIA-SEE COMMENTS 11/21/16 00:00 Isosorbide Mononitrate (Imdur) 60 mg DAILY@07 PO 11/21/16 07:00 11/27/16 05:47 Labetalol HCl (Trandate Inj) 10 mg Q4H PRN IV PUSH SBP>160, DBP>90 11/21/16 01:00 11/25/16 06:11 Hydralazine HCl 10 mg 10 mg Q3H PRN IV SYS BP GREATER THAN 160 MMHG 11/21/16 02:00 11/24/16 22:06 Labetalol HCl/ Sodium Chloride (Trandate Inj/NS 500 ml Inj) 500 ml @ 0 mls/hr TITRATE IV 11/21/16 08:00 Aspirin (Ecotrin Ec) 81 mg DAILY PO 11/21/16 11:15 11/27/16 08:11 Insulin Detemir (Levemir Inj) 25 units DAILY SQ 11/22/16 20:00 11/27/16 08:23 Lisinopril (Prinivil) 20 mg BID PO 11/24/16 21:00 11/26/16 20:14 Furosemide (Lasix) 40 mg DAILY PO 11/24/16 12:00 11/27/16 08:14 Hydromorphone HCl (Dilaudid Pf Inj) 0.5 mg Q4H PRN IV PUSH BREAKTHROUGH PAIN 11/24/16 12:00 11/27/16 08:08 Gabapentin (Neurontin) 300 mg TID PO 11/25/16 13:00 11/27/16 08:14 Amlodipine Besylate (Norvasc) 2.5 mg DAILY PO 11/25/16 18:00 11/26/16 09:45 Miscellaneous (Pill Splitter) 1 ea UNSCH PRN OTHER SEE LABEL COMMENTS 11/25/16 17:45 Medical Decision Making MDM Remarks 51 y/o male with small left extra-axial hemorrhage, stable f/u CT Head Headaches, stable f/u CT Head 11/25/16 Plan Plan Remarks clinically improved, cont nonsurgical mgt cont Neurontin 300 mg tid for MOJICA's, clear to dc home from N[facility] standpoint Katie Anderson Nov 27, 2016 09:33
[2016-11-27] MEDS ORDERED: Pill Splitter OTHER (09:58)
[2016-11-27] MEDS ORDERED: OXYC1TAB63 PO ×2 (09:59→10:13)
[2016-11-27] MEDS ORDERED: ASPI-99 PO ×2 (10:03→10:13)
--- NOTE | 2016-11-27 10:07 | HHI.PR ---
Subjective Remarks This is a pleasant 51 y/o Male seen in his bedroom in the presence of his , complaint of feet pain. was seen in the presence of nurse as per Neurosurgery recommended to transfer to general floor and continue management, he complaint of headache, 11/26: Seen in his bedroom, in the presence of his Daughter, Improving headache and Plantar Fasciitis, no new issues,no nausea, vomit or diarrhea, has Constipation started on Lactulose. 11/27: Stable in his bedroom, seen in the presence of his , okay to discharge as per Neurosurgery, he is been followed about his intracranial hemorrhage, at this time asymptomatic, he will be followed by PCP and Neurosurgery also added to follow with his mri specialist to re start Brilinta if indicated. no nausea, vomit or diarrhea. Objective Vital Signs Date Time Temp Pulse Resp B/P Pulse Ox O2 Delivery O2 Flow Rate FiO2 11/27/16 08:00 97.9 77 16 116/55 95 11/27/16 04:00 98.3 82 20 120/48 97 11/27/16 00:00 98.7 84 20 134/63 95 11/26/16 20:00 99.2 76 20 134/64 95 11/26/16 18:53 18 11/26/16 18:26 16 11/26/16 16:00 98.5 79 16 131/69 96 11/26/16 15:40 18 11/26/16 12:06 18 11/26/16 12:00 98.5 79 16 128/62 92 I/O 11/26/16 11/26/16 11/26/16 11/27/16 11/27/16 11/27/16 07:00 15:00 23:00 07:00 15:00 23:00 Intake Total 720 ml 240 ml 240 ml Output Total 0 ml 550 ml Balance 0 ml 170 ml 240 ml 240 ml Intake Oral 720 ml 240 ml 240 ml Output Urine Total 0 ml 550 ml # Voids 2 3 2 1 # Bowel Movements 1 1 Result Diagram: 11/25/16 0436 11/26/16 0658 Imaging Last Impressions Head CT 11/25/16 0600 Signed Impressions: Service Date/Time: Friday, November 25, 2016 05:16 - CONCLUSION: 1. Persistent small left-sided extra-axial hemorrhage, unchanged. 2. Minimal left to right midline shift, no change. Bruno F. Tocci, MD Lower Extremity Ultrasound 11/20/16 0000 Signed Impressions: Service Date/Time: Sunday, November 20, 2016 22:10 - CONCLUSION: Negative venous ultrasound with no evidence of deep venous thrombosis. David Gonzáles MD Procedures None Other Results Laboratory Tests Test 11/23/16 11/24/16 11/25/16 11/26/16 04:09 10:45 04:36 06:58 Platelet Estimate LOW Platelet Morphology Comment ENLARGED Phosphorus Level 4.2 MG/DL Magnesium Level 1.6 MG/DL Troponin I 1.67 NG/ML White Blood Count 7.2 TH/MM3 Red Blood Count 3.74 MIL/MM3 Hemoglobin 10.0 GM/DL Hematocrit 30.8 % Mean Corpuscular Volume 82.4 FL Mean Corpuscular Hemoglobin 26.8 PG Mean Corpuscular Hemoglobin 32.5 % Concent Red Cell Distribution Width 13.8 % Platelet Count 109 TH/MM3 Mean Platelet Volume 11.7 FL Neutrophils (%) (Auto) 67.1 % Lymphocytes (%) (Auto) 14.2 % Monocytes (%) (Auto) 15.0 % Eosinophils (%) (Auto) 3.2 % Basophils (%) (Auto) 0.5 % Neutrophils # (Auto) 4.8 TH/MM3 Lymphocytes # (Auto) 1.0 TH/MM3 Monocytes # (Auto) 1.1 TH/MM3 Eosinophils # (Auto) 0.2 TH/MM3 Basophils # (Auto) 0.0 TH/MM3 CBC Comment DIFF FINAL Differential Comment Sodium Level 137 MEQ/L Potassium Level 4.6 MEQ/L Chloride Level 103 MEQ/L Carbon Dioxide Level 26.8 MEQ/L Anion Gap 7 MEQ/L Blood Urea Nitrogen 32 MG/DL Creatinine 1.14 MG/DL Estimat Glomerular Filtration 68 ML/MIN Rate Random Glucose 163 MG/DL Calcium Level 9.5 MG/DL Total Bilirubin 0.9 MG/DL Aspartate Amino Transf 27 U/L (AST/SGOT) Alanine Aminotransferase 55 U/L (ALT/SGPT) Alkaline Phosphatase 123 U/L Total Protein 6.5 GM/DL Albumin 2.6 GM/DL Objective Remarks GENERAL: Well nourished, alert in moderate pain distress SKIN: Warm and dry. HEAD: Normocephalic. EYES: No scleral icterus. No injection or drainage. NECK: Supple, trachea midline. No JVD or lymphadenopathy. CARDIOVASCULAR: Regular rate and rhythm without murmurs, gallops, or rubs. RESPIRATORY: Breath sounds equal bilaterally. No accessory muscle use. GASTROINTESTINAL: Abdomen soft, non-tender, nondistended. MUSCULOSKELETAL: No cyanosis, Improved feet pain. BACK: Nontender without obvious deformity. No CVA tenderness. Medications and IVs Current Medications Medications (Trade) Dose Ordered Sig/Alona Route Start Time Stop Time Status Last Admin (Lipitor) 40 mg HS PO 11/21/16 21:00 11/26/16 20:14 (Coreg) 12.5 mg BID PO 11/21/16 09:00 11/26/16 20:14 (Lyrica) 150 mg TID PO 11/21/16 09:00 11/27/16 08:14 Sodium Bicarbonate 1300 mg 1,300 mg TIDPC PO 11/21/16 09:30 11/26/16 17:19 (NS 1000 ml Inj) 1,000 ml @ 84 mls/hr [id number] IV 11/20/16 23:42 Hold 11/22/16 22:45 (NS Flush) 2 ml UNSCH PRN .XX 11/20/16 23:45 (NS Flush) 2 ml BID .XX 11/21/16 09:00 11/27/16 08:14 (Tylenol) 650 mg Q6H PRN PO 11/20/16 23:45 11/24/16 00:21 (Percocet 5-325 Mg) 1 tab Q4H PRN PO 11/20/16 23:45 11/27/16 05:47 (Morphine Inj) 2 mg Q2H PRN IV 11/20/16 23:45 11/26/16 11:56 (Pepcid Inj) 20 mg Q12HR IV PUSH 11/21/16 09:00 11/27/16 08:26 (Ativan Inj) 2 mg Q4H PRN IV 11/20/16 23:45 11/25/16 03:43 (Zofran Inj) 4 mg Q6H PRN IV 11/20/16 23:45 11/21/16 00:37 Miscellaneous Information 1 Q361D XX 11/20/16 23:45 (Chlorhexidine 2% Cloth) Taper DAILY@04 TOP 11/21/16 04:00 11/17/17 03:59 11/25/16 04:21 (Chlorhexidine 2% Cloth) 3 pack UNSCH PRN TOP 11/20/16 23:45 (Mary Ellen-Colace) 1 tab BID PO 11/21/16 09:00 11/27/16 08:15 (Milk Of Magnesia Liq) 30 ml Q12H PRN PO 11/20/16 23:45 (Senokot) 17.2 mg Q12H PRN PO 11/20/16 23:45 (Dulcolax Supp) 10 mg DAILY PRN RECTAL 11/20/16 23:45 (Lactulose Liq) 30 ml DAILY PRN PO 11/20/16 23:45 (D50w (Vial) Inj) 50 ml UNSCH PRN IV 11/21/16 00:00 (Glucagon Inj) 1 mg UNSCH PRN OTHER 11/21/16 00:00 (Imdur) 60 mg DAILY@07 PO 11/21/16 07:00 11/27/16 05:47 (Trandate Inj) 10 mg Q4H PRN IV PUSH 11/21/16 01:00 11/25/16 06:11 Hydralazine HCl 10 mg 10 mg Q3H PRN IV 11/21/16 02:00 11/24/16 22:06 (Trandate Inj/NS 500 ml Inj) 500 ml @ 0 mls/hr TITRATE IV 11/21/16 08:00 (Ecotrin Ec) 81 mg DAILY PO 11/21/16 11:15 11/27/16 08:11 (Levemir Inj) 25 units DAILY SQ 11/22/16 20:00 11/27/16 08:23 (Prinivil) 20 mg BID PO 11/24/16 21:00 11/26/16 20:14 (Lasix) 40 mg DAILY PO 11/24/16 12:00 11/27/16 08:14 (Dilaudid Pf Inj) 0.5 mg Q4H PRN IV PUSH 11/24/16 12:00 11/27/16 08:08 (Neurontin) 300 mg TID PO 11/25/16 13:00 11/27/16 08:14 (Norvasc) 2.5 mg DAILY PO 11/25/16 18:00 11/26/16 09:45 (Pill Splitter) 1 ea UNSCH PRN OTHER 11/25/16 17:45 A/P Assessment and Plan 1. Subdural Hematoma, CT of the Head showed extra axial collection along the left parietal lobe as described Brilinta Held on admission, Repeat CT brain today and recommended by Neurosurgery for discharge at this time will follow as outpatient. 2. Atypical Chest pain, he has history of CAD, Echocardiogram EF 55%. mri specialist recommended Aspirin ideally should be back on Brilinta. Cardiology signed off the case. will follow in five days to re start Brilinta. 3. Hypertension better control will continue Home Medicines. 4. JAGDISH Improved. 5. Neuropathy to continue Lyrica 6. DM II stable will continue Home medicines at discharge. 7. Thrombocytopenia no clear reason. 8. Plantar fasciitis Improving with exercise. GI Prophylaxis: Continue PPI DVT Prophylaxis: SCD's, no chemoprophylaxis with heparin or Lovenox SQ Discussed with Patient, Nurse Miss Granados and with his in the room, all questions answered to the best of my abilities. Discharge Planning Discharge Home Yoig Salinas MD Nov 27, 2016 10:07
--- NOTE | 2016-11-27 10:10 | HHI.DS ---
Discharge Summary Admission Date Nov 20, 2016 at 23:19 Discharge Date: Nov 27, 2016 Admitting Diagnosis Intracranial hemorrhage (1) Subdural hematoma ICD Code: I62.00 Diagnosis: Principal (2) Chest pain ICD Code: R07.9 Diagnosis: Principal (3) Elevated troponin ICD Code: R74.8 Diagnosis: Principal (4) HTN (hypertension) ICD Code: I10 Diagnosis: Secondary (5) JAGDISH (acute kidney injury) ICD Code: N17.9 Diagnosis: Principal (6) Neuropathy ICD Code: G62.9 Diagnosis: Secondary (7) Diabetes mellitus with hyperglycemia ICD Code: E11.65 Diagnosis: Secondary Procedures none Brief History - From Admission 51 year old male with multiple medical problems including coronary artery disease status post CABG and recent 2 stents placed in August of this year was admitted to [facility] hospital last week as he was severely dehydrated and hypotensive. Reports that he was admitted to the hospital for a few days and was discharged to home. During that hospital course of his admission, he complained of a migraine headache. Reports that he has had a migraine for the 3 weeks and [facility] did not address his headache or perform any imaging of his head. Reports that he also had swelling to his legs and pains to his feet - reports that he was told that he had gout and was given a script for allopurinol and was discharged to home. The CT of the head performed in the emergency department today showed small subdural bleed and the patient is admitted to ICU. CBC/BMP: 11/25/16 0436 11/26/16 0658 Significant Findings Laboratory Tests Test 11/24/16 11/25/16 11/26/16 10:45 04:36 06:58 Red Blood Count 3.65 MIL/MM3 3.74 MIL/MM3 (4.50-5.90) (4.50-5.90) Hemoglobin 10.2 GM/DL 10.0 GM/DL (13.0-17.0) (13.0-17.0) Hematocrit 30.0 % 30.8 % (39.0-51.0) (39.0-51.0) Platelet Count 123 TH/MM3 109 TH/MM3 (150-450) (150-450) Mean Platelet Volume 12.2 FL 11.7 FL (7.0-11.0) (7.0-11.0) Monocytes (%) (Auto) 12.5 % 15.0 % (0.0-8.0) (0.0-8.0) Chloride Level 109 MEQ/L (98-107) Blood Urea Nitrogen 33 MG/DL (7-18) 30 MG/DL (7-18) 32 MG/DL (7-18) Estimat Glomerular Filtration 67 ML/MIN (>89) 79 ML/MIN (>89) 68 ML/MIN (>89) Rate Random Glucose 206 MG/DL 142 MG/DL 163 MG/DL (74-106) (74-106) (74-106) Troponin I 1.67 NG/ML (0.02-0.05) Albumin 2.7 GM/DL 2.7 GM/DL 2.6 GM/DL (3.4-5.0) (3.4-5.0) (3.4-5.0) Mean Corpuscular Hemoglobin 26.8 PG (27.0-34.0) Monocytes # (Auto) 1.1 TH/MM3 (0-0.9) Alkaline Phosphatase 123 U/L (45-117) Imaging Last Impressions Head CT 11/25/16 0600 Signed Impressions: Service Date/Time: Friday, November 25, 2016 05:16 - CONCLUSION: 1. Persistent small left-sided extra-axial hemorrhage, unchanged. 2. Minimal left to right midline shift, no change. Bruno Cabrera MD Lower Extremity Ultrasound 11/20/16 0000 Signed Impressions: Service Date/Time: Sunday, November 20, 2016 22:10 - CONCLUSION: Negative venous ultrasound with no evidence of deep venous thrombosis. David Gonzáles MD PE at Discharge GENERAL: Well nourished, alert in moderate pain distress SKIN: Warm and dry. HEAD: Normocephalic. EYES: No scleral icterus. No injection or drainage. NECK: Supple, trachea midline. No JVD or lymphadenopathy. CARDIOVASCULAR: Regular rate and rhythm without murmurs, gallops, or rubs. RESPIRATORY: Breath sounds equal bilaterally. No accessory muscle use. GASTROINTESTINAL: Abdomen soft, non-tender, nondistended. MUSCULOSKELETAL: No cyanosis, Improved feet pain. BACK: Nontender without obvious deformity. No CVA tenderness. Hospital Course This is a pleasant 51 y/o Male seen in his bedroom in the presence of his , complaint of feet pain. was seen in the presence of nurse as per Neurosurgery recommended to transfer to general floor and continue management, he complaint of headache, 11/26: Seen in his bedroom, in the presence of his Daughter, Improving headache and Plantar Fasciitis, no new issues,no nausea, vomit or diarrhea, has Constipation started on Lactulose. 11/27: Stable in his bedroom, seen in the presence of his , okay to discharge as per Neurosurgery, he is been followed about his intracranial hemorrhage, at this time asymptomatic, he will be followed by PCP and Neurosurgery also added to follow with his ocean lifeguard specialist to re start Brilinta if indicated. no nausea, vomit or diarrhea. Assessment and Plan 1. Subdural Hematoma, CT of the Head showed extra axial collection along the left parietal lobe as described Brilinta Held on admission, Repeat CT brain today and recommended by Neurosurgery for discharge at this time will follow as outpatient. 2. Atypical Chest pain, he has history of CAD, Echocardiogram EF 55%. ocean lifeguard specialist recommended Aspirin ideally should be back on Brilinta. Cardiology signed off the case. will follow in five days to re start Brilinta. 3. Hypertension better control will continue Home Medicines. 4. JAGDISH Improved. 5. Neuropathy to continue Lyrica 6. DM II stable will continue Home medicines at discharge. 7. Thrombocytopenia no clear reason. 8. Plantar fasciitis Improving with exercise. GI Prophylaxis: Continue PPI DVT Prophylaxis: SCD's, no chemoprophylaxis with heparin or Lovenox SQ Discussed with Patient, Nurse Miss Granados and with his in the room, all questions answered to the best of my abilities. Discharge Planning Discharge Home Pt Condition on Discharge: Good Discharge Disposition: Discharge Home Discharge Time: > 30 minutes Yogi Salinas MD Nov 27, 2016 10:10
[2016-11-27] MEDS: CARVEDILOL 12.5 MG TAB PO SCH (10:15)
[2016-11-27] MEDS: SODIUM BICARBONATE 650 MG TAB PO SCH (10:15)
[2016-11-27] MEDS: MORPHINE SULFATE 4 MG/ML INJ IV PRN (11:05)
[2016-11-27 11:37] VITALS: PULSE 80
== END 2016-11-27 12:55 | disposition home or self-care (01) | DRG 65 ==
LOC: NEPE 19:23 → NEDA 23:19 → N03A 11-21 00:20 → N05B 11-25 18:40
PROVIDERS: ADMIT Internal Medicine; ATTEND Internal Medicine
PROC: 30233R1 Transfusion of Nonautologous Platelets into Peripheral Vein, Percutaneous Approach (ICD-10-PCS; principal; 2016-11-21)
DX: I62.00 Nontraumatic subdural hemorrhage, unspecified (principal); N17.9 Acute kidney failure, unspecified; E11.40 Type 2 diabetes mellitus with diabetic neuropathy, unspecified; D69.6 Thrombocytopenia, unspecified; E11.65 Type 2 diabetes mellitus with hyperglycemia; I10 Essential (primary) hypertension; I25.10 Atherosclerotic heart disease of native coronary artery without angina pectoris; E86.0 Dehydration; I16.0 Hypertensive urgency; M72.2 Plantar fascial fibromatosis; R07.89 Other chest pain; E78.5 Hyperlipidemia, unspecified; D64.9 Anemia, unspecified; Z95.1 Presence of aortocoronary bypass graft; Z95.5 Presence of coronary angioplasty implant and graft; Z79.82 Long term (current) use of aspirin; Z79.4 Long term (current) use of insulin; I25.2 Old myocardial infarction
CPT/HCPCS: 36430; 70450; 76937; 80048; 80053; 80307; 82948; 83735; 84100; 84484; 85025; 85610; 85730; 86900; 86901; 86965; 87641; 93306; 93970; 95819; 96374; 96375; J0360; J1100; J1170; J1200; J1815; J2060; J2270; J2405; J2765; J7030; P9035

== ENCOUNTER 2016-11-28 23:55 | Inpatient (IN) | payer BC ==
[~2016-11-28] VITALS: Ht 160 cm; Wt 89.9 kg
[~2016-11-28 23:55] MED LIST: ALLO100T PO; ASPI-99 PO; ATOR40TA16 PO; CALC0.25 PO; CARV12.52 PO; COLC1CAP3 PO; FURO40TA PO; GLIP10TA6 PO; ISOS60TA PO; LANTUS2P; LISI-515 PO; LYRI150C PO; MULT-182; OXYC1TAB63 PO; SODI650T PO
[2016-11-29] VITALS (27 sets, daily range): BP systolic 125–156; BP diastolic 59–94; PULSE 64–90; RESP 12–20; TEMP 98.2–99.8; O2SAT 95–100
[2016-11-29] MEDS ORDERED: SODIUM CHLORID 0.9% 500 ML INJ 500 ML IV ONE
[2016-11-29] MEDS ORDERED: ASPIRIN 81 MG CHEW TAB PO ONE
[2016-11-29] MEDS ORDERED: MORPHINE SULFATE 4 MG/ML INJ IV PUSH ONE
[2016-11-29] MEDS: NITROGLYCERIN 0.4 MG SL 25 TABS/BTL SL SCH ×3 (00:11→00:22)
--- NOTE | 2016-11-29 00:13 | PD ---
HPI Chief Complaint: Chest Pain Time Seen by Provider: 23:57 Travel History International Travel<30 days: No Contact w/Intl Traveler<30days: No Traveled to known affect area: No History of Present Illness HPI C/O CP, SUBSTERNAL, PRESSURE, NONRAD, 01/31, ONSET 20MIN AGO, NO RELIEVING FACTORS, PT STATES HIS PCP IN [place] AND NO LOCAL RN PALLIATIVE CARE. BRITILLA SUPPOSED TO BE RESTARTED IN 4 DAYS [place] [facility] [place] CLEARED BY NEUROSURG AND RN PALLIATIVE CARE. PT ALSO C/O [facility] PFSH Past Medical History Depression: Yes (MEDICALLY RELATED) Heart Rhythm Problems: No Cancer: No Cardiac Catheterization: Yes (3X, TRIPLE BYPASS) Cardiovascular Problems: Yes (CABG, [place]) High Cholesterol: Yes Chest Pain: Yes Congestive Heart Failure: Yes Cerebrovascular Accident: Yes (SUBDURAL) Diabetes: Yes Diminished Hearing: No GERD: Yes Headaches: Yes Hypertension: Yes Immune Disorder: No Musculoskeletal: No Neurologic: Yes Reproductive: No Respiratory: Yes (SLEEP APNEA) Migraines: No Seizures: No Sleep Apnea: Yes Past Surgical History Abdominal Surgery: No Cardiac Surgery: Yes (CABG X3 03/06 STENTS 09/07) Ear Surgery: No Endocrine Surgery: No Eye Surgery: No Genitourinary Surgery: No Gynecologic Surgery: No Oral Surgery: No Thoracic Surgery: No Social History Alcohol Use: No Tobacco Use: No Substance Use: No Allergies-Medications (Allergen,Severity, Reaction): Coded Allergies: No Known Allergies (Unverified , 11/28/16) Reported Meds & Prescriptions Reported Meds & Active Scripts Active Adult Aspirin EC Low Strength (Aspirin) 81 Mg Tabec 81 Mg PO DAILY FOLLOW WITH CARDIOLOGY IN FIVE DAYS TO RE START BRILINTA Oxycodone-Acetaminophen 5-325 mg Tab 1 Tab PO Q4H PRN do not use this medicine if you will drive a car or use a machine, only use it when resting at home Reported Sodium Bicarbonate 650 Mg Tab 1,300 Mg PO TIDPC Lyrica (Pregabalin) 150 Mg Cap 150 Mg PO TID Pete Multivitamin with Mineral (Multivitamin with Minerals) 1 Each Tablet Lisinopril 20 Mg Tab 20 Mg PO BID Lantus Inj (Insulin Glargine) 100 Unit/Ml Inj 25 HS Isosorbide Mononitrate ER (Isosorbide Mononitrate) 60 Mg Tab 60 Mg PO DAILY Glipizide 10 Mg Tab 10 Mg PO BIDAC Take 30 minutes before a meal Furosemide 40 Mg Tab 40 Mg PO DAILY Colchicine 0.6 Mg Cap 0.6 Mg PO BID Carvedilol 12.5 Mg Tab 12.5 Mg PO BID Calcitriol 0.25 Mcg Cap 0.25 Mcg PO EVERY OTHER DAY Atorvastatin (Atorvastatin Calcium) 40 Mg Tab 40 Mg PO HS Allopurinol 100 Mg Tab 100 Mg PO DAILY Review of Systems Except as stated in HPI: all other systems reviewed are Neg Cardiovascular: Positive: Chest Pain or Discomfort, Diaphoresis Physical Exam Narrative GENERAL: SKIN: Warm and dry. HEAD: Atraumatic. Normocephalic. EYES: Pupils equal and round. No scleral icterus. No injection or drainage. ENT: No nasal bleeding or discharge. Mucous membranes pink and moist. NECK: Trachea midline. No JVD. CARDIOVASCULAR: Regular rate and rhythm. RESPIRATORY: No accessory muscle use. Clear to auscultation. Breath sounds equal bilaterally. GASTROINTESTINAL: Abdomen soft, non-tender, nondistended. Hepatic and splenic margins not palpable. MUSCULOSKELETAL: Extremities without clubbing, cyanosis, or edema. No obvious deformities. NEUROLOGICAL: Awake and alert. No obvious cranial nerve deficits. Motor grossly within normal limits. Five out of 5 muscle strength in the arms and legs. Normal speech. PSYCHIATRIC: Appropriate mood and affect; insight and judgment normal. Data Data Last Documented VS Vital Signs Date Time Temp Pulse Resp B/P Pulse Ox O2 Delivery O2 Flow Rate FiO2 11/29/16 00:42 88 16 137/62 100 Nasal Cannula 2 11/29/16 00:00 98.6 Orders Electrocardiogram (11/29/16 00:00) Ckmb (Isoenzyme) Profile (11/29/16 00:00) Complete Blood Count With Diff (11/29/16 00:00) Comprehensive Metabolic Panel (11/29/16 00:00) Prothrombin Time / Inr (Pt) (11/29/16 00:00) Act Partial Throm Time (Ptt) (11/29/16 00:00) Troponin I (11/29/16 00:00) Chest, Single Ap (11/29/16 00:00) Ecg Monitoring (11/29/16 00:00) Bilateral Bp Monitoring (11/29/16 00:00) Iv Access Insert/Monitor (11/29/16 00:00) Oximetry (11/29/16 00:00) Oxygen Administration (11/29/16 00:00) Aspirin Chew (Aspirin Chew) (11/29/16 00:00) Morphine Inj (Morphine Inj) (11/29/16 00:00) Sodium Chloride 0.9% Flush (Ns Flush) (11/29/16 00:00) Nitroglycerin Sl (Nitrostat Sl) (11/29/16 00:00) Sodium Chlorid 0.9% 500 Ml Inj (Ns 500 M (11/29/16 00:00) Hydromorphone Pf Inj (Dilaudid Pf Inj) (11/29/16 00:15) Ct Brain W/O Iv Contrast(Rout) (11/29/16 ) Labs Laboratory Tests Test 11/29/16 00:05 White Blood Count 5.8 TH/MM3 Red Blood Count 3.99 MIL/MM3 Hemoglobin 10.7 GM/DL Hematocrit 33.5 % Mean Corpuscular Volume 84.0 FL Mean Corpuscular Hemoglobin 26.9 PG Mean Corpuscular Hemoglobin 32.0 % Concent Red Cell Distribution Width 13.9 % Platelet Count 139 TH/MM3 Mean Platelet Volume 12.4 FL Neutrophils (%) (Auto) 54.5 % Lymphocytes (%) (Auto) 24.1 % Monocytes (%) (Auto) 18.3 % Eosinophils (%) (Auto) 2.1 % Basophils (%) (Auto) 1.0 % Neutrophils # (Auto) 3.2 TH/MM3 Lymphocytes # (Auto) 1.4 TH/MM3 Monocytes # (Auto) 1.1 TH/MM3 Eosinophils # (Auto) 0.1 TH/MM3 Basophils # (Auto) 0.1 TH/MM3 CBC Comment DIFF FINAL Differential Comment Prothrombin Time 11.6 SEC Prothromb Time International 1.0 RATIO Ratio Activated Partial 28.6 SEC Thromboplast Time Sodium Level 134 MEQ/L Potassium Level 5.3 MEQ/L Chloride Level 97 MEQ/L Carbon Dioxide Level 31.0 MEQ/L Anion Gap 6 MEQ/L Blood Urea Nitrogen 41 MG/DL Creatinine 1.54 MG/DL Estimat Glomerular Filtration 48 ML/MIN Rate Random Glucose 365 MG/DL Calcium Level 9.4 MG/DL Total Bilirubin 0.9 MG/DL Aspartate Amino Transf 37 U/L (AST/SGOT) Alanine Aminotransferase 84 U/L (ALT/SGPT) Alkaline Phosphatase 160 U/L Total Creatine Kinase 48 U/L Troponin I 0.15 NG/ML Total Protein 7.8 GM/DL Albumin 3.0 GM/DL MDM Medical Decision Making Medical Screen Exam Complete: Yes Emergency Medical Condition: Yes Medical Record Reviewed: Yes Interpretation(s) NSR 90, ST DEPRESSION AND INVERTED T WAVE ON I/AVL/V4-V6 Differential Diagnosis ACS V NONSTEMI V IA V PNA V WORSENING OF HIS SDH Narrative Course PATIENT SEEN AND EVALUATED, CP RESOLVED WITH ASA/NTG/OPIATE PAIN MEDS.... Diagnosis Primary Impression: CP R/O IA Admitting Information Admitting Physician Requests: Observation Yovani Guaman MD Nov 29, 2016 00:13
[2016-11-29] MEDS ORDERED: HYDROmorphone HCL PF 1 MG/ML VIAL IV PUSH ONE (00:15)
--- NOTE | 2016-11-29 00:22 | RADRPT ---
EXAM DATE/TIME: 11/28/2016 23:58 [facility] COMPARISON: No previous studies available for comparison. INDICATIONS : Chest pain with shortness of breath x 30 min MEDICAL HISTORY : Diabetes mellitus type II. Myocardial infarction. TIA SURGICAL HISTORY : CABG. ENCOUNTER: Initial ACUITY: 1 day PAIN SCORE: 8/10 LOCATION: Bilateral chest FINDINGS: A single view of the chest demonstrates the lungs to be symmetrically aerated without evidence of mas s, infiltrate or effusion. Previous median sternotomy. The cardiomediastinal contours are unremarkabl e. Osseous structures are intact. CONCLUSION: No acute disease. Bruno Cabrera MD on November 29, 2016 at 0:20 Board Certified Radiologist. This report was verified electronically.
[2016-11-29 00:29] LABS: AUTOMATED NEUTROPHIL # 3.2 TH/MM3 (1.8-7.7); BASOPHIL # 0.1 TH/MM3 (0-0.2); EOSINOPHIL # 0.1 TH/MM3 (0-0.4); EOSINOPHIL % 2.1 % (0.0-4.0); HEMATOCRIT 33.5 % (39.0-51.0); HEMO FLAGS DIFF FINAL; LYMPH % 24.1 % (9.0-44.0); LYMPHOCYTE # 1.4 TH/MM3 (1.0-4.8); MEAN CORPUSCULAR HEMOGLOBIN 26.9 PG (27.0-34.0); MONO % 18.3 % (0.0-8.0); NEUT % 54.5 % (16.0-70.0); PLATELET COUNT 139 TH/MM3 (150-450); RED BLOOD COUNT 3.99 MIL/MM3 (4.50-5.90); RED CELL DISTRIBUTION WIDTH 13.9 % (11.6-17.2); WHITE BLOOD COUNT 5.8 TH/MM3 (4.0-11.0)
[2016-11-29 00:40] LABS: APTT (PATIENT) 28.6 SEC (24.3-30.1); PROTHROMBIN TIME - PATIENT 11.6 SEC (9.8-11.6)
[2016-11-29 00:57] LABS: ALKALINE PHOSPHATASE 160 U/L (45-117); ALT (GPT) 84 U/L (12-78); ANION GAP 6 MEQ/L (5-15); AST (GOT) 37 U/L (15-37); BLOOD UREA NITROGEN 41 MG/DL (7-18); CHLORIDE 97 MEQ/L (98-107); CREATINE KINASE 48 U/L (39-308); GLOMERULAR FILTRATION RATE 48 ML/MIN (>89); POTASSIUM 5.3 MEQ/L (3.5-5.1); SODIUM (NA) 134 MEQ/L (136-145); TOTAL BILIRUBIN ADULT 0.9 MG/DL (0.2-1.0)
--- NOTE | 2016-11-29 02:40 | RADRPT ---
EXAM DATE/TIME: 11/29/2016 00:56 [facility] COMPARISON: CT BRAIN W/O CONTRAST, November 25, 2016, 5:16. INDICATIONS : Known subdural hematoma, complains of cephalgia today. RADIATION DOSE: 39.04 CTDIvol (mGy) MEDICAL HISTORY : Myocardial infarction. Gastroesophageal reflux disease. Diabetes mellitus type 2.Subdural hematoma. SURGICAL HISTORY : CABG ENCOUNTER: Initial ACUITY: 1 day PAIN SCALE: 9/10 LOCATION: cranial TECHNIQUE: Multiple contiguous axial images were obtained of the head. Using automated exposure control and adj ustment of the mA and/or kV according to patient size, radiation dose was kept as low as reasonably a chievable to obtain optimal diagnostic quality images. DICOM format image data is available electro nically for review and comparison. FINDINGS: CEREBRUM: Area of hyperdensity in the left parietal lobe is stable. The ventricles are normal for age. No evid ence of midline shift, mass lesion, hemorrhage or acute infarction. No extra-axial fluid collections are seen. POSTERIOR FOSSA: The cerebellum and brainstem are intact. The 4th ventricle is midline. The cerebellopontine angle i s unremarkable. EXTRACRANIAL: The visualized portion of the orbits is intact. SKULL: The calvaria is intact. No evidence of skull fracture. CONCLUSION: 1. Area of hyperdensity in the left parietal lobe peripherally is unchanged. 2. Otherwise unremarkable CT brain. Bruno Cabrera MD on November 29, 2016 at 1:29 Board Certified Radiologist. This report was verified electronically.
[2016-11-29] MEDS ORDERED: DEXTROSE 50% IN WATER 50 ML VIAL(D50) IV PUSH PRN ×2 (03:15→04:15)
[2016-11-29] MEDS ORDERED: GLUCAGON 1 MG/ML VIAL OTHER PRN ×2 (03:15→04:15)
--- NOTE | 2016-11-29 04:24 | HHI.HP ---
[facility] Primary Care Physician Non-Staff Admission Diagnosis Diagnoses: Chief Complaint: Chest pain Travel History International Travel<30 Days: No Contact w/Intl Traveler <30 Da: No Traveled to Known Affected Are: No History of Present Illness Written by MAI Rocha acting as scribe for Dr. Ware] on 11/29/16 at 01:30. 51-year-old male with a history of diabetes, hypertension, angina, CAD, gout presents to the ED with chest pain. Patient states the pain is sharp and stabbing in his left chest that comes and goes every few minutes, no associated symptoms, no sob, fever or chills. Patient states nothing is given is really alleviate the pain. He does appear to be in pain upon examination. Patient was just recently admitted on November 20 and discharged on November 27 for a subdural hematoma at this time patient was on Brilinta, and was taken off of it due to the hematoma. At that time he was also found to have cardiac enzymes that elevated to 6.35, patient was unable to undergo a cardiac catheter due to the subdural hematoma. It was recommended that he follow-up outpatient with cardiology for possible restart of Brilinta. Patient did have recent cardiac catheterization in [place] on 09/07 it was reviewed by cardiology last admission and showed The left anterior descending was occluded, circumflex was narrowed 80% in the midportion and 90% in the marginal branch and the right coronary artery was occluded. Both bypasses to the diagonal and RCA were occluded. The NEUMANN to the LAD was patent. The patient had complex coronary intervention with a 2.2526 mm drug-eluting stent to the mid to distal circumflex along with a 2.532 mm drug-eluting stent proximally. Review of Systems Constitutional: DENIES: Fever, Chills Respiratory: DENIES: Cough, Shortness of breath Cardiovascular: COMPLAINS OF: Chest pain, DENIES: Lower Extremity Edema Gastrointestinal: DENIES: Nausea, Vomiting Genitourinary: DENIES: Hematuria, Dysuria Musculoskeletal: DENIES: Back pain, Neck pain Integumentary: DENIES: Rash Hematologic/lymphatic: DENIES: Lymphadenopathy Immunologic/allergic: DENIES: Urticaria Neurologic: COMPLAINS OF: Headache Past Family Social History Past Medical History Diabetes Hypertension Angina Dyslipidemia Gout CAD Past Surgical History CABG 2013 3 stents placed in August 2016 Reported Medications Reported Meds & Active Scripts Active Adult Aspirin EC Low Strength (Aspirin) 81 Mg Tabec 81 Mg PO DAILY FOLLOW WITH CARDIOLOGY IN FIVE DAYS TO RE START BRILINTA Oxycodone-Acetaminophen 5-325 mg Tab 1 Tab PO Q4H PRN do not use this medicine if you will drive a car or use a machine, only use it when resting at home Reported Sodium Bicarbonate 650 Mg Tab 1,300 Mg PO TIDPC Lyrica (Pregabalin) 150 Mg Cap 150 Mg PO TID Pete Multivitamin with Mineral (Multivitamin with Minerals) 1 Each Tablet Lisinopril 20 Mg Tab 20 Mg PO BID Lantus Inj (Insulin Glargine) 100 Unit/Ml Inj 25 HS Isosorbide Mononitrate ER (Isosorbide Mononitrate) 60 Mg Tab 60 Mg PO DAILY Glipizide 10 Mg Tab 10 Mg PO BIDAC Take 30 minutes before a meal Furosemide 40 Mg Tab 40 Mg PO DAILY Colchicine 0.6 Mg Cap 0.6 Mg PO BID Carvedilol 12.5 Mg Tab 12.5 Mg PO BID Calcitriol 0.25 Mcg Cap 0.25 Mcg PO EVERY OTHER DAY Atorvastatin (Atorvastatin Calcium) 40 Mg Tab 40 Mg PO HS Allopurinol 100 Mg Tab 100 Mg PO DAILY Allergies: Coded Allergies: No Known Allergies (Unverified , 11/28/16) Active Ordered Medications Current Medications Medications (Trade) Dose Ordered Sig/Alona Route Start Time Stop Time Status Last Admin (NS Flush) 2 ml UNSCH PRN IVF 11/29/16 00:00 (D50w (Vial) Inj) 25 ml UNSCH PRN IV PUSH 11/29/16 03:15 (Glucagon Inj) 1 mg UNSCH PRN OTHER 11/29/16 03:15 Family History Dad: Diabetes and heart disease Social History Tobacco use: Denies Alcohol use: Denies Illicit drug use: Denies Physical Exam Vital Signs Vital Signs Date Time Temp Pulse Resp B/P Pulse Ox O2 Delivery O2 Flow Rate FiO2 11/29/16 02:30 98.8 81 12 126/69 100 11/29/16 00:42 88 16 137/62 100 Nasal Cannula 2 11/29/16 00:25 88 14 149/68 100 Nasal Cannula 2 11/29/16 00:14 87 20 146/66 100 Nasal Cannula 2 11/29/16 00:07 17 100 Nasal Cannula 2 11/29/16 00:05 90 16 2 Nasal Cannula 2 11/29/16 00:04 100 Nasal Cannula 2 11/29/16 00:00 98.6 90 16 156/94 100 Physical Exam GENERAL: This is a well-nourished, well-developed patient, in apparent pain SKIN: No rashes, ecchymoses or lesions. Cool and dry. HEAD: Atraumatic. Normocephalic EYES: Pupils equal round and reactive. Extraocular motions intact. No scleral icterus. No injection or drainage. ENT: Nose without bleeding, purulent drainage or septal hematoma. Throat without erythema, tonsillar hypertrophy or exudate. Airway patent. NECK: Trachea midline. No JVD or lymphadenopathy. Supple, nontender, no meningeal signs. CARDIOVASCULAR: Regular rate and rhythm without murmurs, gallops, or rubs. RESPIRATORY: Clear to auscultation. Breath sounds equal bilaterally. No wheezes , rales, or rhonchi. GASTROINTESTINAL: Abdomen soft, non-tender, nondistended. No hepato-splenomegaly , or palpable masses. No guarding. MUSCULOSKELETAL: Extremities without clubbing, cyanosis, or edema. No joint tenderness, effusion, or edema noted. No calf tenderness. NEUROLOGICAL: Awake and alert. Motor and sensory grossly within normal limits. Normal speech. Laboratory Laboratory Tests Test 11/29/16 00:05 White Blood Count 5.8 Red Blood Count 3.99 Hemoglobin 10.7 Hematocrit 33.5 Mean Corpuscular Volume 84.0 Mean Corpuscular Hemoglobin 26.9 Mean Corpuscular Hemoglobin 32.0 Concent Red Cell Distribution Width 13.9 Platelet Count 139 Mean Platelet Volume 12.4 Neutrophils (%) (Auto) 54.5 Lymphocytes (%) (Auto) 24.1 Monocytes (%) (Auto) 18.3 Eosinophils (%) (Auto) 2.1 Basophils (%) (Auto) 1.0 Neutrophils # (Auto) 3.2 Lymphocytes # (Auto) 1.4 Monocytes # (Auto) 1.1 Eosinophils # (Auto) 0.1 Basophils # (Auto) 0.1 CBC Comment DIFF FINAL Differential Comment Prothrombin Time 11.6 Prothromb Time International 1.0 Ratio Activated Partial 28.6 Thromboplast Time Sodium Level 134 Potassium Level 5.3 Chloride Level 97 Carbon Dioxide Level 31.0 Anion Gap 6 Blood Urea Nitrogen 41 Creatinine 1.54 Estimat Glomerular Filtration 48 Rate Random Glucose 365 Calcium Level 9.4 Total Bilirubin 0.9 Aspartate Amino Transf 37 (AST/SGOT) Alanine Aminotransferase 84 (ALT/SGPT) Alkaline Phosphatase 160 Total Creatine Kinase 48 Troponin I 0.15 Total Protein 7.8 Albumin 3.0 Result Diagram: 11/29/16 0005 11/29/16 0005 Assessment and Plan Problem List: (1) Chest pain ICD Code: R07.9 Status: Acute (2) Elevated troponin ICD Code: R74.8 Status: Acute (3) JAGDISH (acute kidney injury) ICD Code: N17.9 Status: Acute (4) HTN (hypertension) ICD Code: I10 Status: Acute (5) Diabetes mellitus with hyperglycemia ICD Code: E11.65 Status: Acute Assessment and Plan 51-year-old male with a history of diabetes, hypertension, angina, CAD, gout presents to the ED with chest pain. Chest pain with elevated troponin rule out [place] EKG shows ST depression -Serial EKG and troponin were ordered -Consult cardiology for recommendation -Pain management with IV Dilaudid -Nitroglycerin ointment -Cont home ASA JAGDISH, creatinine 1.4, baseline 1.1 -IVF for hydration -BMP in a.m. Hyperkalemia, potassium 5.5, likely due to JAGDISH -BMP in a.m, cont to monitor Diabetes, chronic -Accu-Cheks with sliding scale insulin -Continue home Levemir at at bedtime Hypertension, chronic, currently stable -Hold lisinopril due to kidney function -We will order when PRNs as needed -Continue home medications Coreg, and Lasix DVT prophylaxis: SCDs This note was transcribed by zakia Mackey. I, Dr. Pierre Rao personally performed the history, physical exam, and medical decision making; and confirmed the accuracy of the information in the transcribed note. Authenticated by Dr. Pierre Rao on 11/29/16 at 05:20. Discussed Condition With Patient Physician Certification 2 Midnight Certification Type: Admission for Inpatient Services Order for Inpatient Services The services are ordered in accordance with Medicare regulations or non- Medicare payer requirements, as applicable. In the case of services not specified as inpatient-only, they are appropriately provided as inpatient services in accordance with the 2-midnight benchmark. Estimated LOS (days): 2 2 days is the estimated time the patient will need to remain in the hospital, assuming treatment plan goals are met and no additional complications. Post-Hospital Plan: Home Problem Qualifiers (1) Diabetes mellitus with hyperglycemia: Bernarda Mackey Nov 29, 2016 04:24 Pierre Rao MD Nov 29, 2016 05:20
[2016-11-29] MEDS ORDERED: INSULIN DETEMIR 100 UNITS/ML VIAL SQ ONE (04:30)
[2016-11-29] MEDS: SODIUM CHLOR 0.9% 1000 ML INJ 1,000 ML IV SCH ×2 (06:30→17:42)
[2016-11-29] MEDS: NITROGLYCERIN 2% OINT 1 GM PACKET TOPICAL SCH ×3 (06:30→23:43)
[2016-11-29] MEDS: LOW DOSE INSULIN NOVOLOG SUPPLEMENTAL SCALE SQ SCH ×4 (06:32→21:00)
[2016-11-29] MEDS ORDERED: LOW DOSE INSULIN NOVOLOG SUPPLEMENTAL SCALE SQ SCH (07:00)
[2016-11-29] MEDS ORDERED: HEPARIN-D5W INJ 250 ML IV SCH (09:00)
[2016-11-29] MEDS ORDERED: HEPARIN SODIUM - IV 10,000 UNITS/10 ML VIAL IV ONE (09:00)
[2016-11-29 09:37] LABS: HEMATOCRIT 27.9 % (39.0-51.0); MEAN CELL VOLUME 82.9 FL (80.0-100.0); MEAN CORPUSCULAR HEMOGLOBIN 27.1 PG (27.0-34.0); MEAN CORPUSCULAR HGB CONC 32.7 % (32.0-36.0); PLATELET COUNT 94 TH/MM3 (150-450); RED BLOOD COUNT 3.37 MIL/MM3 (4.50-5.90); RED CELL DISTRIBUTION WIDTH 13.5 % (11.6-17.2); WHITE BLOOD COUNT 4.9 TH/MM3 (4.0-11.0)
[2016-11-29 09:38] LABS: REVIEW FLAG FINAL
[2016-11-29 09:46] LABS: APTT (PATIENT) 29.3 SEC (24.3-30.1); INTERNATIONAL NORMALIZED RATIO 1.1 RATIO
[2016-11-29] MEDS: ALLOPURINOL 100 MG TAB PO SCH (09:51)
[2016-11-29] MEDS: PREGABALIN 75 MG CAP PO SCH ×3 (09:51→17:39)
[2016-11-29] MEDS: COLCHICINE 0.6 MG TAB PO SCH ×2 (09:51→20:53)
[2016-11-29] MEDS: SODIUM BICARBONATE 650 MG TAB PO SCH ×3 (09:52→17:39)
[2016-11-29] MEDS: CALCITRIOL 0.25 MCG CAP PO SCH (09:52)
[2016-11-29] MEDS: ASPIRIN EC 81 MG TABEC PO SCH (09:52)
[2016-11-29] MEDS: FUROSEMIDE 40 MG TAB PO SCH (09:52)
[2016-11-29] MEDS: CARVEDILOL 12.5 MG TAB PO SCH ×2 (09:52→20:53)
[2016-11-29] MEDS: MORPHINE SULFATE 8 MG/ML INJ IV PUSH PRN ×3 (11:53→23:44)
--- NOTE | 2016-11-29 13:36 | EKG ---
Date Performed: 11/28/2016 Time Performed: 23:54:04 PTAGE: 51 years EKG: Sinus rhythm INDETERMINATE AXIS PATTERN CONSISTENT WITH PULMONARY DISEASE ST DEVIATION AND MODERATE T-WAVE ABNORM ALITY, CONSIDER LATERAL ISCHEMIA ABNORMAL ECG NO PREVIOUS TRACING DOCTOR: Simón Butt Interpretating Date/Time 11/29/2016 13:34:50
--- NOTE | 2016-11-29 14:01 | HHI.PR ---
Subjective Remarks Readmission of the patient who was just discharged from this facility with Subdural Hematoma. recommended to continue Aspirin but not Brilinta, he was supposed to follow with Neurosurgery and Cardiology to re start this medicine if indicated, he was admitted today with Chest pain and probable NSTEMI, but not able to anticoagulate due to his recent history, was already seen by disease education specialist but not able to perform any procedure with no possibility to give anticoagulation or anti platelet therapy, see with his , ordered Neurology specialist, consult his Troponin are elevated to 2.32, continue present care Prognosis Guarded may need Critical Care at some point, remains Full Code at this time, Discussed with nurse Tg Objective Vital Signs Date Time Temp Pulse Resp B/P Pulse Ox O2 Delivery O2 Flow Rate FiO2 11/29/16 12:31 18 11/29/16 12:00 98.2 73 20 125/68 99 11/29/16 10:51 18 11/29/16 08:00 99.0 71 18 132/64 99 11/29/16 06:00 68 11/29/16 05:00 74 11/29/16 04:00 76 11/29/16 03:00 79 11/29/16 02:30 98.8 81 12 126/69 100 11/29/16 00:42 88 16 137/62 100 Nasal Cannula 2 11/29/16 00:25 88 14 149/68 100 Nasal Cannula 2 11/29/16 00:14 87 20 146/66 100 Nasal Cannula 2 11/29/16 00:07 17 100 Nasal Cannula 2 11/29/16 00:05 90 16 2 Nasal Cannula 2 11/29/16 00:04 100 Nasal Cannula 2 11/29/16 00:00 98.6 90 16 156/94 100 I/O 11/28/16 11/28/16 11/28/16 11/29/16 11/29/16 11/29/16 07:00 15:00 23:00 07:00 15:00 23:00 Intake Total 240 ml Balance 240 ml Intake Oral 240 ml # Voids 1 # Bowel Movements 1 Result Diagram: 11/29/16 0909 11/29/16 0548 Yogi Salinas MD Nov 29, 2016 14:01
[2016-11-29] MEDS ORDERED: HEPARIN SODIUM - IV 10,000 UNITS/10 ML VIAL IV PRN ×2 (15:00)
--- NOTE | 2016-11-29 15:57 | MB ---
cc: SIMÓN MARTIN DO DATE OF CONSULTATION 11/29/2016 REASON FOR CONSULTATION REASON FOR CONSULTATION Non-ST elevation myocardial infarction. HISTORY OF PRESENT ILLNESS Mr. Galaviz is a pleasant 51-year-old male who presents to the [facility] Emergency Room due to chest pain. He was recently here from November 20 through November 27 for a spontaneous subdural hematoma. He was discharged on November 27 with the recommendation to continue on aspirin but to hold Brilinta. Of concern is that he recently had an a cardiac catheterization by his training development director in [place] (August 2016) and had two drug-eluting stents placed. While here for the subdural hematoma it was felt that he could not undergo cardiac catheterization due to the subdural hematoma. Since being discharged on November 27, 2016 his states that neurologically he has changed somewhat with forgetfulness including who she was occasionally and there were periods of time where he cannot speak Citizen Of [place] but only speak in English. While trying to fall asleep last night he started having chest pain. He was brought to the emergency room and found to have an elevation of his troponins. I have been asked to see him in consultation due to the elevated troponins. In seeing him at this time he denies chest pain, shortness of breath or palpitations. Also while seeing him he asked where his was as she was sitting at the edge of the bed and then realized who she was. PAST MEDICAL HISTORY 1. Diabetes. 2. Hypertension. 3. Coronary artery disease. 4. Dyslipidemia. 5. Gout. PAST SURGICAL HISTORY 1. Coronary artery bypass grafting x3 (2014 at a hospital in [place], [place]). 2. Cardiac catheterization (done in [place] August 2016) per the report LAD was occluded, circumflex narrowed 80% in the mid portion and 90% in a marginal branch. RCA was occluded. Both bypasses to the diagonal and RCA were occluded. NEUMANN to LAD was patent. PCI of circumflex / obtuse marginal with a 2.25 x 26 mm drug-eluting stent to the mid and distal as well as a 2.5 x 32 drug-eluting stent to the proximal circumflex. ALLERGIES NO KNOWN DRUG ALLERGIES. MEDICATIONS 1. Lisinopril 20 mg b.i.d. 2. Lyrica 150 mg t.i.d. 3. Allopurinol 100 mg daily. 4. Colchicine 0.6 mg b.i.d. 5. Coreg 12.5 mg b.i.d. 6. Lipitor 40 mg every night. 7. Lantus 25 units every night. 8. Lasix 40 mg daily. 9. Imdur 60 mg daily. 10. Aspirin 81 mg daily. 11. Percocet 5/325 mg every 4 hours as needed for pain. 12. Glipizide 10 mg b.i.d. 13. Calcitriol 0.25 mcg every other day. FAMILY HISTORY Denies sudden cardiac within the family. SOCIAL HISTORY Denies tobacco, alcohol or illicit drug abuse. REVIEW OF SYSTEMS 14-systems were reviewed including osteopathic, pertinent positives and negatives above otherwise negative. PHYSICAL EXAMINATION VITAL SIGNS: Temperature 98.2, heart rate 73, blood pressure 125/68. Respirations 20, pulse ox 99% on 2 liters. GENERAL: In general the patient appears well in no acute distress, alert awake and oriented x3. HEENT: Extraocular muscles intact. Mucous membranes moist. NECK: Supple. No JVD at 45 degrees. No carotid bruits heard bilaterally. Carotid upstroke is brisk in nature. CARDIOVASCULAR: Heart is regular rate and rhythm. Positive first and second heart sounds with no noted murmurs, gallops or rubs. PMI is nondisplaced. LUNGS: Clear to auscultation bilaterally. No wheezes, rales or rhonchi. ABDOMEN: Soft, nontender, nondistended. No organomegaly noted. EXTREMITIES: Show no clubbing, cyanosis or edema. Femoral and distal pulses intact bilaterally. NEUROLOGIC: No focal deficits. SKIN: Warm, dry and intact. OSTEOPATHIC: No kyphoscoliosis, lordosis or paraspinal tender points. LABORATORY FINDINGS Hemoglobin 9.1, hematocrit 27.9, platelets 94. Potassium 5.0, BUN 43, creatinine 1.28. Troponin 0.15 increasing to 2.32. Electrocardiogram (November 28, 2016 of 23:54) sinus rhythm, ST-T wave changes laterally possibly due to ischemia. IMPRESSION 1. Non-ST elevation myocardial infarction. 2. Chest pain concerning for coronary insufficiency. 3. Acute kidney injury. 4. Recent subdural hemorrhage. 5. Hypertension. 6. Diabetes mellitus. 7. Significant coronary artery disease as above. RECOMMENDATIONS 1. Mr. Galaviz presents with chest pain which is concerning as well as the elevation of his troponins. A major concern is he has recently been taken off Brilinta due to a subdural hemorrhage within the past week. The subdural hemorrhage seemed to be spontaneous in nature and not due to trauma and this puts him at a high risk for rebleeding. 2. I would not anticoagulate him at this time. 3. Also he has further new neurological complaints per the and I agree with having neurology see him for this but also for consideration if dual antiplatelet therapy could be started at some point or if ever again. 4. For now we will continue to treat him medically as I do not feel at this time that he could be on dual antiplatelet for long-term but also with this if he could be on further anticoagulation during intervention. 5. Will obtain a 2-D echo as this is a new cardiovascular event. 6. We will await neurology recommendations. Thank you for allowing me to see Blake Guillaume. If there are any questions please do not hesitate to call. Simón Martin DO VGP/KK /2:14 PM /3:38 PM
--- NOTE | 2016-11-29 19:18 | MB ---
cc: OPHELIA DENNIS M.D. DATE OF CONSULTATION 11/29/2016 REASON FOR CONSULTATION Advice regarding possible anticoagulation. HISTORY OF PRESENT ILLNESS This is a very pleasant 51-year-old man who a week ago sustained a left parietal subdural hematoma. At that time he was on Brilinta. He may have sustained a fall. He did not require any surgical intervention. He went home yesterday developed chest pain was diagnosed as having an ID. However, the patient relates that there was no trauma. It was a spontaneous bleed. He has been having some neurologic symptoms as well according to his , being more forgetful, occasionally forgetting who his is. There are times when he cannot speak [place] but only speak Romanian. Of note he was Brilinta at the time of subdural hematoma. Since then he has been off of Brilinta and continuing on aspirin alone. NEUROLOGICAL EXAMINATION He is alert, oriented. Speech is fluent at the present time. Cranial nerves intact. Motor exam is normal with no focal weakness and there is no drift. IMAGING CT of the brain shows an area of hyperdensity in the left parietal lobe peripherally consistent with subdural hematoma unchanged from the previous study. LABORATORY DATA White count 4900, hemoglobin 9.1, hematocrit 28%, platelet count is 94,000. PT 12, INR 1.1, APTT 29.3. Sodium is 136, potassium is 5, chloride is 100, CO2 is 28. IMPRESSION 1. Recent left subdural hematoma which by history appears to be spontaneous with no definite trauma. 2. Recurrent myocardial infarction. RECOMMENDATIONS If possible would recommend avoiding anticoagulation because of persistent subdural hematoma. At the present time would continue aspirin because I am concerned about resuming Brilinta however in that the subdural hematoma was probably spontaneous and with persistent subdural hemorrhage this could become worse. Regarding his mental status changes, I would like to get a MRI of the brain to be sure there has been no area of ischemia under the subdural. Also EEG to rule out focal seizures. MD JAMAR Varela/LIYA /6:48 PM /7:06 PM
[2016-11-29] MEDS: INSULIN DETEMIR 100 UNITS/ML VIAL SQ SCH (20:47)
[2016-11-29] MEDS: ATORVASTATIN 40 MG TAB PO SCH (20:53)
[2016-11-30] VITALS (23 sets, daily range): BP systolic 120–155; BP diastolic 54–73; PULSE 68–85; RESP 12–18; TEMP 97.1–98.9; O2SAT 93–100
[2016-11-30] MEDS ORDERED: HYDROmorphone HCL PF 1 MG/ML VIAL IV PUSH ONE (01:00)
[2016-11-30] MEDS: SODIUM CHLOR 0.9% 1000 ML INJ 1,000 ML IV SCH (04:20)
[2016-11-30] MEDS: NITROGLYCERIN 2% OINT 1 GM PACKET TOPICAL SCH ×2 (05:52→13:40)
[2016-11-30] MEDS: ISOSORBIDE MONONITRATE 60 MG TAB PO SCH (05:54)
[2016-11-30] MEDS: MORPHINE SULFATE 8 MG/ML INJ IV PUSH PRN ×4 (05:54→18:19)
[2016-11-30] MEDS: LOW DOSE INSULIN NOVOLOG SUPPLEMENTAL SCALE SQ SCH ×4 (07:00→23:05)
[2016-11-30] MEDS: traMADol HCL 50 MG TAB PO PRN ×3 (08:38→21:56)
[2016-11-30] MEDS: CARVEDILOL 12.5 MG TAB PO SCH ×2 (08:39→21:56)
[2016-11-30] MEDS: PREGABALIN 75 MG CAP PO SCH ×3 (08:39→18:15)
[2016-11-30] MEDS: FUROSEMIDE 40 MG TAB PO SCH (08:39)
[2016-11-30] MEDS: COLCHICINE 0.6 MG TAB PO SCH ×2 (08:39→21:56)
[2016-11-30] MEDS: SODIUM BICARBONATE 650 MG TAB PO SCH ×3 (08:39→18:16)
[2016-11-30] MEDS: ASPIRIN EC 81 MG TABEC PO SCH (08:40)
[2016-11-30] MEDS: ALLOPURINOL 100 MG TAB PO SCH (08:40)
[2016-11-30] MEDS ORDERED: EPINEPHrine HCL (1:10,000) 1 MG/10 ML SYRINGE ONE (12:33)
[2016-11-30] MEDS ORDERED: ATROPINE SULFATE 1 MG/10 ML SYRINGE ONE (12:33)
[2016-11-30] MEDS ORDERED: GADODIAMIDE PF 287 MG/ML 20 ML VIAL (for RAD MRI) IV ONE (13:40)
--- NOTE | 2016-11-30 13:50 | PD.CARD.PN ---
Subjective Subjective Remarks Still with a headache No chest pain since being admitted Objective Medications Current Medications Medications (Trade) Dose Ordered Sig/Alona Route Start Time Stop Time Status Last Admin (NS Flush) 2 ml UNSCH PRN IVF 11/29/16 00:00 (D50w (Vial) Inj) 25 ml UNSCH PRN IV PUSH 11/29/16 03:15 (Glucagon Inj) 1 mg UNSCH PRN OTHER 11/29/16 03:15 (Nitroglycerin 2% Oint) 1 inch Q8H TOPICAL 11/29/16 06:00 11/30/16 13:40 (Zyloprim) 100 mg DAILY PO 11/29/16 09:00 11/30/16 08:40 (Ecotrin Ec) 81 mg DAILY PO 11/29/16 09:00 11/30/16 08:40 (Lipitor) 40 mg HS PO 11/29/16 21:00 11/29/16 20:53 (Coreg) 12.5 mg BID PO 11/29/16 09:00 11/30/16 08:39 (Colchicine) 0.6 mg BID PO 11/29/16 09:00 11/30/16 08:39 (Lasix) 40 mg DAILY PO 11/29/16 09:00 11/30/16 08:39 (Lyrica) 150 mg TID PO 11/29/16 09:00 11/30/16 13:39 Sodium Bicarbonate 1300 mg 1,300 mg TIDPC PO 11/29/16 09:30 11/30/16 13:40 (NS 1000 ml Inj) 1,000 ml @ 84 mls/hr [id number] IV 11/29/16 04:30 11/30/16 04:20 (Levemir Inj) 25 units HS SQ 11/29/16 21:00 11/29/16 20:47 (Morphine Inj) 1 mg Q4H PRN IV PUSH 11/29/16 08:15 11/30/16 10:25 (Heparin Inj) 5,000 units UNSCH PRN IV 11/29/16 15:00 (Heparin Inj) 2,500 units UNSCH PRN IV 11/29/16 15:00 (Imdur) 60 mg DAILY@07 PO 11/30/16 07:00 11/30/16 05:54 (Ultram) 50 mg Q6H PRN PO 11/30/16 08:15 11/30/16 08:38 Vital Signs / I&O Vital Signs Date Time Temp Pulse Resp B/P Pulse Ox O2 Delivery O2 Flow Rate FiO2 11/30/16 12:00 98.8 77 18 142/57 93 11/30/16 10:30 18 11/30/16 09:53 18 11/30/16 09:53 18 11/30/16 08:00 98.8 77 18 120/54 99 11/30/16 07:00 79 11/30/16 06:00 72 11/30/16 05:00 70 11/30/16 04:00 68 11/30/16 03:00 98.9 72 12 133/60 100 11/30/16 03:00 70 11/30/16 02:00 74 11/30/16 01:00 74 11/30/16 00:00 72 11/29/16 23:00 99.8 76 12 149/59 95 11/29/16 23:00 73 11/29/16 22:00 80 11/29/16 21:00 72 11/29/16 20:00 74 11/29/16 19:00 74 11/29/16 19:00 99.0 74 12 140/68 100 11/29/16 18:00 72 11/29/16 17:00 68 11/29/16 16:46 67 11/29/16 16:26 98.8 67 18 145/72 100 11/29/16 16:00 68 11/29/16 15:00 68 11/29/16 14:00 64 I/O 11/29/16 11/29/16 11/29/16 11/30/16 11/30/16 11/30/16 07:00 15:00 23:00 07:00 15:00 23:00 Intake Total 240 ml 1080 ml Balance 240 ml 1080 ml Intake Oral 240 ml 240 ml IV Total 840 ml # Voids 1 2 # Bowel Movements 1 Physical Exam GENERAL: NAD, AAOx3 SKIN: Warm and dry. HEAD: Atraumatic. Normocephalic. EYES: Pupils equal and round. No scleral icterus. No injection or drainage. ENT: No nasal bleeding or discharge. Mucous membranes pink and moist. NECK: Trachea midline. No JVD. CARDIOVASCULAR: Regular rate and rhythm. RESPIRATORY: No accessory muscle use. Clear to auscultation. Breath sounds equal bilaterally. GASTROINTESTINAL: Abdomen soft, non-tender, nondistended. Hepatic and splenic margins not palpable. MUSCULOSKELETAL: Extremities without clubbing, cyanosis, or edema. No obvious deformities. NEUROLOGICAL: Awake and alert. No obvious cranial nerve deficits. Motor grossly within normal limits. Five out of 5 muscle strength in the arms and legs. Normal speech. PSYCHIATRIC: Appropriate mood and affect; insight and judgment normal. Laboratory Laboratory Tests Test 11/29/16 11/29/16 11/29/16 11/29/16 00:05 05:48 09:09 12:41 White Blood Count 5.8 TH/MM3 4.9 TH/MM3 (4.0-11.0) (4.0-11.0) Red Blood Count 3.99 MIL/MM3 3.37 MIL/MM3 (4.50-5.90) (4.50-5.90) Hemoglobin 10.7 GM/DL 9.1 GM/DL (13.0-17.0) (13.0-17.0) Hematocrit 33.5 % 27.9 % (39.0-51.0) (39.0-51.0) Mean Corpuscular Volume 84.0 FL 82.9 FL (80.0-100.0) (80.0-100.0) Mean Corpuscular Hemoglobin 26.9 PG 27.1 PG (27.0-34.0) (27.0-34.0) Mean Corpuscular Hemoglobin 32.0 % 32.7 % Concent (32.0-36.0) (32.0-36.0) Red Cell Distribution Width 13.9 % 13.5 % (11.6-17.2) (11.6-17.2) Platelet Count 139 TH/MM3 94 TH/MM3 (150-450) (150-450) Mean Platelet Volume 12.4 FL 11.8 FL (7.0-11.0) (7.0-11.0) Neutrophils (%) (Auto) 54.5 % (16.0-70.0) Lymphocytes (%) (Auto) 24.1 % (9.0-44.0) Monocytes (%) (Auto) 18.3 % (0.0-8.0) Eosinophils (%) (Auto) 2.1 % (0.0-4.0) Basophils (%) (Auto) 1.0 % (0.0-2.0) Neutrophils # (Auto) 3.2 TH/MM3 (1.8-7.7) Lymphocytes # (Auto) 1.4 TH/MM3 (1.0-4.8) Monocytes # (Auto) 1.1 TH/MM3 (0-0.9) Eosinophils # (Auto) 0.1 TH/MM3 (0-0.4) Basophils # (Auto) 0.1 TH/MM3 (0-0.2) CBC Comment DIFF FINAL Differential Comment Prothrombin Time 11.6 SEC 12.0 SEC (9.8-11.6) (9.8-11.6) Prothromb Time International 1.0 RATIO 1.1 RATIO Ratio Activated Partial 28.6 SEC 29.3 SEC Thromboplast Time (24.3-30.1) (24.3-30.1) Sodium Level 134 MEQ/L 136 MEQ/L (136-145) (136-145) Potassium Level 5.3 MEQ/L 5.0 MEQ/L (3.5-5.1) (3.5-5.1) Chloride Level 97 MEQ/L 100 MEQ/L (98-107) (98-107) Carbon Dioxide Level 31.0 MEQ/L 28.0 MEQ/L (21.0-32.0) (21.0-32.0) Anion Gap 6 MEQ/L (5-15) 8 MEQ/L (5-15) Blood Urea Nitrogen 41 MG/DL (7-18) 43 MG/DL (7-18) Creatinine 1.54 MG/DL 1.28 MG/DL (0.60-1.30) (0.60-1.30) Estimat Glomerular Filtration 48 ML/MIN (>89) 59 ML/MIN (>89) Rate Random Glucose 365 MG/DL 266 MG/DL (74-106) (74-106) Calcium Level 9.4 MG/DL 9.4 MG/DL (8.5-10.1) (8.5-10.1) Total Bilirubin 0.9 MG/DL (0.2-1.0) Aspartate Amino Transf 37 U/L (15-37) (AST/SGOT) Alanine Aminotransferase 84 U/L (12-78) (ALT/SGPT) Alkaline Phosphatase 160 U/L (45-117) Total Creatine Kinase 48 U/L (39-308) 68 U/L (39-308) 88 U/L (39-308) Troponin I 0.15 NG/ML 1.23 NG/ML 2.32 NG/ML (0.02-0.05) (0.02-0.05) (0.02-0.05) Total Protein 7.8 GM/DL (6.4-8.2) Albumin 3.0 GM/DL (3.4-5.0) Assessment and Plan Problem List: (1) NSTEMI (non-ST elevated myocardial infarction) (2) Subdural hematoma (3) Thrombocytopenia (4) HTN (hypertension) (5) Diabetes mellitus with hyperglycemia Assessment and Plan 1) Unable to place on dual anti-platelet therapy or anti-coagulation due to recent subdural hematoma Con't medical management 2) MRI pending due to concern for new neurologic changes since subdural hematoma 3) Will increase Coreg, attempt to remove nitropaste, and give nitro SL PRN Problem Qualifiers (1) Diabetes mellitus with hyperglycemia: Simón Butt DO Nov 30, 2016 13:50
--- NOTE | 2016-11-30 13:51 | RADRPT ---
EXAM DATE/TIME: 11/30/2016 12:54 [facility] COMPARISON: CT BRAIN W/O CONTRAST, November 29, 2016, 0:56. INDICATIONS : Evaluate for left subdural hematoma and CVA. CONTRAST: 17 cc Omniscan (gadodiamide) IV MEDICAL HISTORY : None. SURGICAL HISTORY : Coronary artery stent. Penile pump implant. ENCOUNTER: Initial ACUITY: 1 day PAIN SCORE: 2/10 LOCATION: Bilateral cranial TECHNIQUE: Multiplanar, multisequence MRI of the brain was performed both prior to and following the administrat ion of paramagnetic contrast. FINDINGS: Knee MRI imaging demonstrate a left hemispheric subdural. The subdural is actually much better identi fied on the MR than on the CT. It is fairly isointense on the CT. The full extent of the subdural is better appreciated by MR. The maximum thickness is 1.1 cm. There is some minimal mass effect associat ed with this. There is approximately 1 mm of [id number] falcine shift. No findings to indicate acu te cortical infarction are evident on the diffusion restricted images. Postcontrast T1-weighted imaging is provided. No enhancing mass lesion is identified. The ventricles are normal in size and configuration. The appearance of the posterior fossa is unremarkable. The visualized portion of sinus and orbit are intact. CONCLUSION: 1. There is subdural hematoma on the left. This encompasses nearly the entire left hemisphere this is much better appreciated on MRI than CT. There is approximately 1 mm of [id number] falcine shift a nd some slight mass effect on the lateral ventricular system on the left. No enhancing mass is identi fied. 2. There is no acute cortical infarct. Pelon Toney MD on November 30, 2016 at 13:45 Board Certified Radiologist. This report was verified electronically.
[2016-11-30] MEDS ORDERED: NITROGLYCERIN 0.4 MG SL 25 TABS/BTL SL PRN (14:00)
--- NOTE | 2016-11-30 14:14 | EKG ---
Date Performed: 11/30/2016 Time Performed: 00:28:32 PTAGE: 51 years EKG: Sinus rhythm Extensive ST-T changes may be due to myocardial ischemia Poor R-wave progression in the anterior pre cordium Possible old anteroseptal [place] Abnormal ECG Compared to PREVIOUS TRACING , ST-T changes persist, cannot rule out ischemia. PREVIOUS TRACIN12/2016 23.54 DOCTOR: Gallo Piper Interpretating Date/Time 11/30/2016 14:13:29
--- NOTE | 2016-11-30 15:59 | HHI.PR ---
Subjective Remarks Readmission of the patient who was just discharged from this facility with Subdural Hematoma. recommended to continue Aspirin but not Brilinta, he was supposed to follow with Neurosurgery and Cardiology to re start this medicine if indicated, he was admitted today with Chest pain and probable NSTEMI, but not able to anticoagulate due to his recent history, was already seen by technical support specialist but not able to perform any procedure with no possibility to give anticoagulation or anti platelet therapy, see with his , ordered Neurology specialist, consult his Troponin are elevated to 2.32, continue present care Prognosis Guarded may need Critical Care at some point, remains Full Code at this time, Discussed with nurse Miss Mas again today, he is having his EEG at this time in the room, discussed with him and in the room also discussed with technical support specialist doctor Daquan. Objective Vital Signs Date Time Temp Pulse Resp B/P Pulse Ox O2 Delivery O2 Flow Rate FiO2 11/30/16 15:22 18 11/30/16 14:31 18 11/30/16 14:00 71 11/30/16 12:00 98.8 77 18 142/57 93 11/30/16 12:00 82 11/30/16 11:00 82 11/30/16 10:00 82 11/30/16 09:53 18 11/30/16 09:00 74 11/30/16 08:00 98.8 77 18 120/54 99 11/30/16 08:00 74 11/30/16 08:00 74 11/30/16 07:00 74 11/30/16 07:00 79 11/30/16 06:00 72 11/30/16 05:00 70 11/30/16 04:00 68 11/30/16 03:00 98.9 72 12 133/60 100 11/30/16 03:00 70 11/30/16 02:00 74 11/30/16 01:00 74 11/30/16 00:00 72 11/29/16 23:00 99.8 76 12 149/59 95 11/29/16 23:00 73 11/29/16 22:00 80 11/29/16 21:00 72 11/29/16 20:00 74 11/29/16 19:00 74 11/29/16 19:00 99.0 74 12 140/68 100 11/29/16 18:00 72 11/29/16 17:00 68 11/29/16 16:46 67 11/29/16 16:26 98.8 67 18 145/72 100 11/29/16 16:00 68 I/O 11/29/16 11/29/16 11/29/16 11/30/16 11/30/16 11/30/16 07:00 15:00 23:00 07:00 15:00 23:00 Intake Total 240 ml 1080 ml Balance 240 ml 1080 ml Intake Oral 240 ml 240 ml IV Total 840 ml # Voids 1 2 # Bowel Movements 1 Result Diagram: 11/29/16 0909 11/29/16 0548 Imaging Last Impressions Brain MRI 11/30/16 0000 Signed Impressions: Service Date/Time: Wednesday, November 30, 2016 12:54 - CONCLUSION: 1. There is subdural hematoma on the left. This encompasses nearly the entire left hemisphere this is much better appreciated on MRI than CT. There is approximately 1 mm of [id number]-[id number] falcine shift and some slight mass effect on the lateral ventricular system on the left. No enhancing mass is identified. 2. There is no acute cortical infarct. Pelon Toney MD Head CT 11/29/16 0000 Signed Impressions: Service Date/Time: Tuesday, November 29, 2016 00:56 - CONCLUSION: 1. Area of hyperdensity in the left parietal lobe peripherally is unchanged. 2. Otherwise unremarkable CT brain. Bruno Cabrera MD Chest X-Ray 11/29/16 0000 Signed Impressions: Service Date/Time: Monday, November 28, 2016 23:58 - CONCLUSION: No acute disease. Bruno Cabrera MD Procedures None Other Results Laboratory Tests Test 11/29/16 11/29/16 11/29/16 11/29/16 00:05 05:48 09:09 12:41 Neutrophils (%) (Auto) 54.5 % Lymphocytes (%) (Auto) 24.1 % Monocytes (%) (Auto) 18.3 % Eosinophils (%) (Auto) 2.1 % Basophils (%) (Auto) 1.0 % Neutrophils # (Auto) 3.2 TH/MM3 Lymphocytes # (Auto) 1.4 TH/MM3 Monocytes # (Auto) 1.1 TH/MM3 Eosinophils # (Auto) 0.1 TH/MM3 Basophils # (Auto) 0.1 TH/MM3 CBC Comment DIFF FINAL Differential Comment Total Bilirubin 0.9 MG/DL Aspartate Amino Transf 37 U/L (AST/SGOT) Alanine Aminotransferase 84 U/L (ALT/SGPT) Alkaline Phosphatase 160 U/L Total Protein 7.8 GM/DL Albumin 3.0 GM/DL Sodium Level 136 MEQ/L Potassium Level 5.0 MEQ/L Chloride Level 100 MEQ/L Carbon Dioxide Level 28.0 MEQ/L Anion Gap 8 MEQ/L Blood Urea Nitrogen 43 MG/DL Creatinine 1.28 MG/DL Estimat Glomerular Filtration 59 ML/MIN Rate Random Glucose 266 MG/DL Calcium Level 9.4 MG/DL White Blood Count 4.9 TH/MM3 Red Blood Count 3.37 MIL/MM3 Hemoglobin 9.1 GM/DL Hematocrit 27.9 % Mean Corpuscular Volume 82.9 FL Mean Corpuscular Hemoglobin 27.1 PG Mean Corpuscular Hemoglobin 32.7 % Concent Red Cell Distribution Width 13.5 % Platelet Count 94 TH/MM3 Mean Platelet Volume 11.8 FL Prothrombin Time 12.0 SEC Prothromb Time International 1.1 RATIO Ratio Activated Partial 29.3 SEC Thromboplast Time Total Creatine Kinase 88 U/L Troponin I 2.32 NG/ML Objective Remarks GENERAL: Obese patient at this time somnolent, is getting his EEG, asking for pain medication. SKIN: Warm and dry. HEAD: Atraumatic. Normocephalic. EYES: Pupils equal and round. No scleral icterus. No injection or drainage. ENT: No nasal bleeding or discharge. Mucous membranes pink and moist. NECK: Trachea midline. No JVD. CARDIOVASCULAR: Regular rate and rhythm. RESPIRATORY: No accessory muscle use. Clear to auscultation. Breath sounds equal bilaterally. GASTROINTESTINAL: Abdomen soft, non-tender, nondistended. Hepatic and splenic margins not palpable. MUSCULOSKELETAL: Extremities without clubbing, cyanosis, or edema. No obvious deformities. NEUROLOGICAL: Awake and alert. No obvious cranial nerve deficits. Motor grossly within normal limits. Five out of 5 muscle strength in the arms and legs. Normal speech. PSYCHIATRIC: Appropriate mood and affect; insight and judgment normal. Medications and IVs Current Medications Medications (Trade) Dose Ordered Sig/Alona Route Start Time Stop Time Status Last Admin (NS Flush) 2 ml UNSCH PRN IVF 11/29/16 00:00 (D50w (Vial) Inj) 25 ml UNSCH PRN IV PUSH 11/29/16 03:15 (Glucagon Inj) 1 mg UNSCH PRN OTHER 11/29/16 03:15 (Zyloprim) 100 mg DAILY PO 11/29/16 09:00 11/30/16 08:40 (Ecotrin Ec) 81 mg DAILY PO 11/29/16 09:00 11/30/16 08:40 (Lipitor) 40 mg HS PO 11/29/16 21:00 11/29/16 20:53 (Colchicine) 0.6 mg BID PO 11/29/16 09:00 11/30/16 08:39 (Lasix) 40 mg DAILY PO 11/29/16 09:00 11/30/16 08:39 (Lyrica) 150 mg TID PO 11/29/16 09:00 11/30/16 13:39 Sodium Bicarbonate 1300 mg 1,300 mg TIDPC PO 11/29/16 09:30 11/30/16 13:40 (NS 1000 ml Inj) 1,000 ml @ 84 mls/hr [id number] IV 11/29/16 04:30 11/30/16 04:20 (Levemir Inj) 25 units HS SQ 11/29/16 21:00 11/29/16 20:47 (Morphine Inj) 1 mg Q4H PRN IV PUSH 11/29/16 08:15 11/30/16 14:26 (Heparin Inj) 5,000 units UNSCH PRN IV 11/29/16 15:00 (Heparin Inj) 2,500 units UNSCH PRN IV 11/29/16 15:00 (Imdur) 60 mg DAILY@07 PO 11/30/16 07:00 11/30/16 05:54 (Ultram) 50 mg Q6H PRN PO 11/30/16 08:15 11/30/16 08:38 (Coreg) 25 mg BID PO 11/30/16 21:00 (Nitrostat Sl) 0.4 mg Q5M PRN SL 11/30/16 14:00 A/P Assessment and Plan 51-year-old male with a history of diabetes, hypertension, angina, CAD, gout presents to the ED with chest pain. 1. NSTEMI technical support specialist following, doctor Simón Butt, unable to place on dual anti-platelet Anticoagulation due to recent subdural Hematoma, continue medical management. 2. Hypertension increased Coreg will try to remove Nitropaste the patient continue with Headache. 3. Sudural Hematoma, Neurology specialist following, had MRI of the brain today , showing subdural Hematoma on the left hemisphere, approximately 1 mm of the left to right falcine shift and some slight mass effect 4. Thrombocytopenia following. 5. DM II continue sliding scale 6. Acute Kidney Injury improving on IV fluids 7. Headache asking for pain medicine discussed with patient and will start him on Dilaudid by mouth following Neurology specialist recommendations. DVT prophylaxis: SCDs Discharge Planning once cleared by Specialists. Yogi Salinas MD Nov 30, 2016 15:59 Hypertension, chronic, currently stable -Hold lisinopril due to kidney function -We will order when PRNs as needed -Continue home medications Coreg, and Lasix DVT prophylaxis: SCDs This note was transcribed by zakia Mackey. I, Dr. Pierre Rao personally performed the history, physical exam, and medical decision making; and confirmed the accuracy of the information in the transcribed note. Yogi Salinas MD Nov 30, 2016 15:59
--- NOTE | 2016-11-30 17:26 | MG ---
cc: ANASTACIO TORRES Lab No: Date: 11/30/2016 Age: Sex: M Race: ELECTROENCEPHALOGRAM NUMBER [id number] INTRODUCTION A 51-year-old, subdural hematoma, forgetfulness. MEDICATIONS 1. Lipitor. 2. Heparin. 3. Sodium. 4. Lyrica. 5. Dilaudid. 6. Ultram. DESCRIPTION The recording shows diffuse 7 Hz slowing. The recording overall synchronous and symmetric. No hemisphere asymmetries are noted. The patient appears to fall asleep and reaches some stage II sleep. Hyperventilation is not performed. Photic stimulation was performed without significant posterior driving. IMPRESSION Diffuse theta slowing consistent with a mild diffuse encephalopathy but no focal abnormality was noted. No seizure activity was seen. MD CONOR Carpio/LIYA /4:54 PM /5:22 PM MTDJesse
--- NOTE | 2016-11-30 17:29 | PD.CONS ---
HPI Service ns Consult Requested By dr nair Reason for Consult subdural hematoma Primary Care Physician Non-Staff History of Present Illness This is a 51-year-old male who a week ago sustained a head injury with a small left parietal subdural hematoma after a fall. At that time he was on Brilinta. He did not require any surgical intervention. He went home yesterday developed chest pain and word finding difficulties. He has been having some neurologic symptoms, being more forgetful, occasionally forgetting who his is. There are times when he cannot speak Nepali but only speak Divehi. MRI today showed enlarging subdural hematoma. Neurosurgical consultation was requested Past Family Social History Allergies: Coded Allergies: No Known Allergies (Unverified , 11/28/16) Physical Exam Vital Signs Vital Signs Date Time Temp Pulse Resp B/P Pulse Ox O2 Delivery O2 Flow Rate FiO2 11/30/16 15:22 18 11/30/16 14:31 18 11/30/16 14:00 71 11/30/16 12:00 98.8 77 18 142/57 93 11/30/16 12:00 82 11/30/16 11:00 82 11/30/16 10:00 82 11/30/16 09:53 18 11/30/16 09:00 74 11/30/16 08:00 98.8 77 18 120/54 99 11/30/16 08:00 74 11/30/16 08:00 74 11/30/16 07:00 74 11/30/16 07:00 79 11/30/16 06:00 72 11/30/16 05:00 70 11/30/16 04:00 68 11/30/16 03:00 98.9 72 12 133/60 100 11/30/16 03:00 70 11/30/16 02:00 74 11/30/16 01:00 74 11/30/16 00:00 72 11/29/16 23:00 99.8 76 12 149/59 95 11/29/16 23:00 73 11/29/16 22:00 80 11/29/16 21:00 72 11/29/16 20:00 74 11/29/16 19:00 74 11/29/16 19:00 99.0 74 12 140/68 100 11/29/16 18:00 72 Physical Exam The patient is alert, awake and oriented to time, place and person. Speech shows word finding difficulties with mild aphasia Cranial nerve examination demonstrates the pupils to be equal, round, and reactive to light. Extra-ocular movements are intact. Facial motor and sensory function are normal and symmetrical. Gross hearing is intact, bilaterally. The uvula is midline and elevates symmetrically with the soft palate. Sternocleidomastoid and trapezius muscles have normal and symmetrical strength. Other cranial nerves are intact. Neck is soft and supple. Cervical spine has a full range of motion in anterior flexion, extension, lateral bending, and rotation without pain. There is no tenderness to palpation to the spinous processes or paraspinal muscles. Muscle testing reveals normal bulk and tone overall without rigidity, spasticity , fasciculations, or atrophy. Muscle strength is 5/5 in all muscle groups of both upper extremities including deltoid, biceps, triceps, brachioradialis, wrist extension and library page. In the lower extremities, strength is 5/5 in both iliopsoas, quadriceps, hamstrings, plantar flexion, dorsiflexion, and extensor hallicus longus. Sensory examination is intact to light touch and sharp/dull discrimination in both the upper and lower extremities, symmetrically. Deep tendon reflexes are 2+ and symmetrical in the biceps, triceps, and brachioradialis, bilaterally, in the upper extremities. In the lower extremities , the patellar and Achilles are 2+, bilaterally. There is a bilateral plantar flexion response. Hoffmanns sign is negative. There is no clonus or other abnormal reflexes noted. Cerebellar examination is intact to [id number] test, rapid rhythmic alternating motion. There is no dysmetria, dysdiadochokinesia, truncal ataxia, or tremor. Result Diagram: 11/29/16 0909 11/29/16 0548 Attending Statement neuro checks in a serial fashion. His subdural is enlarging with mass effect and midline shift. He is very symptomatic. Surgical decompression is indicated. We have discussed the details including the [id number] details of the surgical procedure, its indications, alternatives, risks, and potential complications. Risks and potential complications include, but are not limited to, infection, blood loss, CSF leak, partial or complete loss of sight in one or both eyes, paresis, paralysis, permanent pain or difficulty swallowing, loss of bowel or bladder function, complications from anesthesia, blood clot, stroke , myocardial infarction, or even . Pulmonary. aggressive pulmonary toilette, nasotracheal suction, and breathing treatments with nebulizers. PT and OT evaluation Nutrition. Oral diet Renal. Gentle IV fluid resuscitation Avoid nephrotoxins, monitor closely urine output, BUN and creatinine Endocrine. Monitor serial Acu checks and SSI as needed in detail ID monitor for signs of infection Protonix for stress ulcer prophylaxis Poli child and SCD's for DVT prophylaxis Karson Palacios MD Nov 30, 2016 17:29
[2016-11-30] MEDS: INSULIN DETEMIR 100 UNITS/ML VIAL SQ SCH (21:00)
[2016-11-30] MEDS: ATORVASTATIN 40 MG TAB PO SCH (21:55)
[2016-12-01] VITALS (15 sets, daily range): BP systolic 136–160; BP diastolic 52–78; PULSE 68–84; RESP 14–20; TEMP 98.6–99.7; O2SAT 92–100
[2016-12-01] MEDS: SODIUM CHLOR 0.9% 1000 ML INJ 1,000 ML IV SCH (04:10)
[2016-12-01] MEDS ORDERED: LACTATED RINGER'S 1000 ML IV PRN (04:45)
[2016-12-01] MEDS ORDERED: POVIDONE IODINE 5% (ANTISEPSIS KIT) 4 APPLICATIONS EACH NARE PRN (04:45)
[2016-12-01] MEDS ORDERED: CHLORHEXIDINE GLUCONATE 2 % 1 PACK (2 CLOTHS) TOPICAL PRN (04:45)
[2016-12-01] MEDS ORDERED: SODIUM CHLORID 0.9% 500 ML IV PRN (04:45)
[2016-12-01] MEDS: ISOSORBIDE MONONITRATE 60 MG TAB PO SCH (07:00)
[2016-12-01] MEDS: LOW DOSE INSULIN NOVOLOG SUPPLEMENTAL SCALE SQ SCH ×3 (07:00→20:31)
[2016-12-01] MEDS: traMADol HCL 50 MG TAB PO PRN (07:07)
[2016-12-01] MEDS: MORPHINE SULFATE 8 MG/ML INJ IV PUSH PRN (07:08)
[2016-12-01] MEDS: PREGABALIN 75 MG CAP PO SCH ×2 (08:45→20:07)
[2016-12-01] MEDS: ALLOPURINOL 100 MG TAB PO SCH (08:45)
[2016-12-01] MEDS: FUROSEMIDE 40 MG TAB PO SCH (08:45)
[2016-12-01] MEDS: ASPIRIN EC 81 MG TABEC PO SCH (08:45)
[2016-12-01] MEDS: CALCITRIOL 0.25 MCG CAP PO SCH (08:45)
[2016-12-01] MEDS: CARVEDILOL 12.5 MG TAB PO SCH ×2 (08:45→20:07)
[2016-12-01] MEDS: COLCHICINE 0.6 MG TAB PO SCH ×2 (08:46→20:33)
[2016-12-01] MEDS: SODIUM BICARBONATE 650 MG TAB PO SCH ×2 (09:30→20:08)
[2016-12-01] MEDS ORDERED: ARTIFICIAL TEARS OPTH OINT 3.5 APPLIC/3.5 GM TUBO ONE (11:27)
[2016-12-01] MEDS ORDERED: FAMOTIDINE 20 MG/2 ML VIAL ONE (11:27)
[2016-12-01] MEDS ORDERED: MIDAZOLAM HCL 5 MG/5 ML VIAL ONE (11:27)
[2016-12-01] MEDS ORDERED: ACETAMINOPHEN 1000 MG/100 ML VIAL IV ONE (11:27)
[2016-12-01] MEDS ORDERED: fentaNYL CITRATE 250 MCG/5 ML AMP ONE (11:27)
[2016-12-01] MEDS ORDERED: GELFOAM SIZE 100 ONE (11:31)
[2016-12-01] MEDS ORDERED: ceFAZolin 2 GM PREMIX 50 ML ONE (11:31)
[2016-12-01] MEDS ORDERED: THROMBIN (TOPICAL) 5,000 UNIT VIAL ONE (11:31)
[2016-12-01] MEDS ORDERED: LIDOCAINE 1%/EPINEPHrine 1:100,000 SOLN 20 ML VIAL ONE (11:32)
[2016-12-01] MEDS ORDERED: GENTAMICIN SULFATE 80 MG/2 ML VIAL ONE (11:32)
[2016-12-01] MEDS ORDERED: BACITRACIN TOP OINT 15 GM TUBE ONE (11:32)
[2016-12-01] MEDS ORDERED: PROPOFOL 200 MG/20 ML AMP IV ONE (12:00)
[2016-12-01] MEDS ORDERED: MANNITOL 12.5 GM/50 ML VIAL IV ONE (12:00)
[2016-12-01] MEDS ORDERED: ePHEDrine/NS 25 MG/5 ML SYR IV ONE (12:00)
[2016-12-01] MEDS ORDERED: FUROSEMIDE 20 MG/2 ML VIAL IV PUSH ONE (12:00)
[2016-12-01] MEDS ORDERED: ONDANSETRON HCL 4 MG/2 ML VIAL IV PUSH ONE (12:00)
[2016-12-01] MEDS ORDERED: PHENYLEPH/NS 1000 MCG/10 ML SYR IV ONE (12:00)
[2016-12-01] MEDS ORDERED: NEOSTIGMINE 3 MG/3 ML SYR IV ONE (12:00)
[2016-12-01] MEDS ORDERED: LACTATED RINGER'S 1000 ML INJ 1,000 ML IV ONE (12:00)
--- NOTE | 2016-12-01 12:05 | PD.CARD.PN ---
Subjective Subjective Remarks Patient seen before surgery this am No chest pain since admit Objective Medications Current Medications Medications (Trade) Dose Ordered Sig/Alona Route Start Time Stop Time Status Last Admin (NS Flush) 2 ml UNSCH PRN IVF 11/29/16 00:00 (D50w (Vial) Inj) 25 ml UNSCH PRN IV PUSH 11/29/16 03:15 (Glucagon Inj) 1 mg UNSCH PRN OTHER 11/29/16 03:15 (Zyloprim) 100 mg DAILY PO 11/29/16 09:00 12/01/16 08:45 (Ecotrin Ec) 81 mg DAILY PO 11/29/16 09:00 12/01/16 08:45 (Lipitor) 40 mg HS PO 11/29/16 21:00 11/30/16 21:55 (Colchicine) 0.6 mg BID PO 11/29/16 09:00 12/01/16 08:46 (Lasix) 40 mg DAILY PO 11/29/16 09:00 12/01/16 08:45 (Lyrica) 150 mg TID PO 11/29/16 09:00 12/01/16 08:45 Sodium Bicarbonate 1300 mg 1,300 mg TIDPC PO 11/29/16 09:30 11/30/16 18:16 (NS 1000 ml Inj) 1,000 ml @ 84 mls/hr [id number] IV 11/29/16 04:30 11/30/16 04:20 (Levemir Inj) 25 units HS SQ 11/29/16 21:00 11/30/16 21:00 (Heparin Inj) 5,000 units UNSCH PRN IV 11/29/16 15:00 (Heparin Inj) 2,500 units UNSCH PRN IV 11/29/16 15:00 (Imdur) 60 mg DAILY@07 PO 11/30/16 07:00 12/01/16 07:00 (Ultram) 50 mg Q6H PRN PO 11/30/16 08:15 12/01/16 07:07 (Coreg) 25 mg BID PO 11/30/16 21:00 12/01/16 08:45 Nitroglycerin 0.4 mg 0.4 mg Q5M PRN SL 11/30/16 14:00 Lactated Ringer's 1,000 ml @ 30 mls/hr Q24H PRN IV 12/01/16 04:45 12/04/16 04:44 (NS 500 ml Inj) 500 ml @ 30 mls/hr [id number] PRN IV 12/01/16 04:45 12/04/16 04:44 (Morphine Inj) 2 mg Q4H PRN IV PUSH 12/01/16 12:15 (Oramorph Sr) 15 mg Q8H PO 12/01/16 09:00 Vital Signs / I&O Vital Signs Date Time Temp Pulse Resp B/P Pulse Ox O2 Delivery O2 Flow Rate FiO2 12/01/16 09:00 76 12/01/16 08:00 99.7 73 18 160/78 96 12/01/16 08:00 76 12/01/16 07:00 79 12/01/16 06:00 78 12/01/16 05:00 84 12/01/16 04:00 78 12/01/16 04:00 99.2 82 20 139/70 95 12/01/16 03:00 81 12/01/16 02:00 80 12/01/16 01:00 80 12/01/16 00:00 80 12/01/16 00:00 99.4 83 14 137/67 92 11/30/16 23:00 83 11/30/16 22:00 80 11/30/16 21:00 80 11/30/16 20:00 97.1 85 14 153/71 96 11/30/16 19:00 83 11/30/16 18:00 78 11/30/16 17:00 76 11/30/16 16:00 72 11/30/16 16:00 98.6 75 18 155/73 97 11/30/16 15:22 18 11/30/16 15:00 68 11/30/16 14:31 18 11/30/16 14:00 71 I/O 11/30/16 11/30/16 11/30/16 12/01/16 12/01/16 12/01/16 07:00 15:00 23:00 07:00 15:00 23:00 Intake Total 1080 ml 240 ml Balance 1080 ml 240 ml Intake Oral 240 ml 240 ml IV Total 840 ml # Voids 2 1 Physical Exam GENERAL: NAD, AAOx3 SKIN: Warm and dry. HEAD: Atraumatic. Normocephalic. EYES: Pupils equal and round. No scleral icterus. No injection or drainage. ENT: No nasal bleeding or discharge. Mucous membranes pink and moist. NECK: Trachea midline. No JVD. CARDIOVASCULAR: Regular rate and rhythm. RESPIRATORY: No accessory muscle use. Clear to auscultation. Breath sounds equal bilaterally. GASTROINTESTINAL: Abdomen soft, non-tender, nondistended. Hepatic and splenic margins not palpable. MUSCULOSKELETAL: Extremities without clubbing, cyanosis, or edema. No obvious deformities. NEUROLOGICAL: Awake and alert. No obvious cranial nerve deficits. Motor grossly within normal limits. Five out of 5 muscle strength in the arms and legs. Normal speech. PSYCHIATRIC: Appropriate mood and affect; insight and judgment normal. Assessment and Plan Problem List: (1) NSTEMI (non-ST elevated myocardial infarction) (2) Subdural hematoma (3) Thrombocytopenia (4) HTN (hypertension) (5) Diabetes mellitus with hyperglycemia Assessment and Plan 1) Unable to place on dual anti-platelet therapy or anti-coagulation due to recent subdural hematoma Con't medical management Increasing with shift, for surgery this morning... elevated risk, but unable to decrease overall risk 2) Coreg, attempt to remove nitropaste, and give nitro SL PRN 3) Will see post-op to try to help optimize as best we can medically Problem Qualifiers (1) Diabetes mellitus with hyperglycemia: Simón Butt DO Dec 01, 2016 12:05
[2016-12-01] MEDS ORDERED: MORPHINE SULFATE 8 MG/ML INJ IV PUSH PRN (12:15)
[2016-12-01] MEDS ORDERED: MANNITOL INJ 50 ML ONE (12:23)
[2016-12-01] MEDS ORDERED: levETIRAcetam 500 MG/5 ML VIAL IV ONE (12:23)
[2016-12-01] MEDS ORDERED: MICROFIBRILLAR COLLAGEN HEMOSTAT 70 X 35 MM BANDAGE ONE (12:52)
[2016-12-01] MEDS ORDERED: DO NOT ADM ANY ANTICOAGULANT DRUGS PRN (13:54)
[2016-12-01] MEDS ORDERED: MAGNESIUM SULFATE INJ 4 GM in SODIUM CHLORIDE 0.9% INJ 100 ML IV PRN (14:00)
[2016-12-01] MEDS ORDERED: ONDANSETRON HCL 4 MG/2 ML VIAL IV PRN (14:00)
[2016-12-01] MEDS ORDERED: SODIUM CHLORIDE 0.9% FLUSH 5 ML FLUSH IVF PRN (14:00)
[2016-12-01] MEDS ORDERED: ACETAMINOPHEN/HYDROcodone 325 MG/10 MG TAB PO PRN ×2 (14:00)
[2016-12-01] MEDS ORDERED: POTASSIUM CHLOR 20 MEQ PREMIX 100 ML IV PRN (14:00)
[2016-12-01] MEDS ORDERED: CALCIUM GLUCONATE 10% 1 GM/10 ML VIAL IV PRN (14:00)
[2016-12-01] MEDS ORDERED: BISACODYL 10 MG SUPP RECTAL PRN (14:00)
--- NOTE | 2016-12-01 15:04 | PD.OP ---
Operative Report Date of Surgery: Dec 01, 2016 Preoperative Diagnosis: Left subdural hematoma Postoperative Diagnosis: Left subdural hematoma Procedure: Left parietal craniotomy, evacuation of acute subdural hematoma Anesthesia: general Surgeon: Karson Palacios Wick And Base Assembler(s): Cleo Cummins Operation and Findings: INDICATIONS FOR THE PROCEDURE The patient is an adult male who was suffered a fall and presented with a small subdural hematoma. He was fully anticoagulaed. he was managed in a non-surgical fashion. A week later he presented with expressive aphasia and follow up CT showed increased in nthe size of the subdural hematoma with mass effect and midline shift. A surgical decompression was indicated as recommended by the Trauma [employer] of [place] [employer] in an attempt to save the patient's life DETAILS OF THE SURGICAL PROCEDURE After induction ofgeneral anesthesia the patient was endotracheally intubated and mechanically ventilated. A Garner catheter, bilateral ANNABELLE hose and sequential compression devices were placed and kept throughout the procedure. The patient was positioned supine on a 3080 table over a soft mattress. The eyes were tapped shut after ointment was applied by the anesthesiologist to prevent corneal abrasion. A Thelma hugger was placed over the exposed lower body to maintain control of the core body temperature. The head was placed on a gel doughnut on a horseshoe head bookkeeper. All pressure points were carefully padded with egg crate mattress. The frontotemporal parietal area was shaved, prepped and draped in the usual sterile fashion. A standard U shape incision was outlined on the left parietal scalp and infiltrated with 1% lidocaine with epinephrine. The skin incision was made with a #10 blade down to the level of the periosteum in the posterior parietal region and to the temporalis fascia in the temporal region. Melissa clips were applied to the scalp. Using a Bovie, the temporalis fascia and muscle were incised and a subperiosteal dissection was performed reflecting the scalp flap anteriorly. The scalp was covered with a moist sponge and held in position using fish hooks. The TPS was brought to the field and a bur hole was made in the parietal region using the craniotome attachment. Then, using the footplate attachment, a craniotomy flap was elevated. The dura was bulging, very tense with severe pressure and an underlying dark coloration related to the acute subdural hematoma. The dura was opened with a 15 blade and metzembaun scissors and a large subdural hematoma was found, causing significant mass effect. The hematoma was evacuated by gentle irrigation and sent to the lab for histologic analysis. The bleeding was controlled using the bipolar civil engineering specialist. Then the incision was irrigated with saline solution. The dural edges were tacked to the bone. The craniotomy flap was then repositioned and secured in place using plates and screws. A 7 millimeter Yaw-Sam drain was then left in the subgaleal space and externalized through a separate stab incision. The incision was then closed in layers. 0 Vicryl in interrupted sutures were used to close the temporalis fascia. The galea was closed with interrupted 3- 0 Vicryl. [place] were applied to the skin. The drain was secured with a 3-0 nylon. At the end of the procedure, the sponge, needle and instrument counts were all correct. Estimated blood loss was less than 80 cc. No blood transfusion was given. No intraoperative complications occurred. The patient received prophylactic antibiotics. The patient was then transferred to the recovery room in stable condition. Karson Palacios MD Dec 01, 2016 15:04
--- NOTE | 2016-12-01 15:46 | RADRPT ---
EXAM DATE/TIME: 12/01/2016 15:16 [facility] COMPARISON: MRI BRAIN W & W/O CONTRAST, November 30, 2016, 12:54. CT BRAIN W/O CONTRAST, November 29, 2016, 0:56. INDICATIONS : Post op craniotomy RADIATION DOSE: 39.58 CTDIvol (mGy) MEDICAL HISTORY : Unobtainable SURGICAL HISTORY : Unobtainable ENCOUNTER: Initial ACUITY: 1 day PAIN SCALE: Non-responsive LOCATION: cranial TECHNIQUE: Multiple contiguous axial images were obtained of the head. Using automated exposure control and adj ustment of the mA and/or kV according to patient size, radiation dose was kept as low as reasonably a chievable to obtain optimal diagnostic quality images. DICOM format image data is available electro nically for review and comparison. FINDINGS: Subdural drain is present on the left side and previously seen subdural hematoma has been evacua lucio with gas bubbles at the site. There is no mass effect. Postcraniotomy changes are seen. The rest of the examination has not significantly changed. CONCLUSION: Evacuation of previously seen left subdural hematoma. Ronan Stephens MD on December 01, 2016 at 15:42 Board Certified Radiologist. This report was verified electronically.
--- NOTE | 2016-12-01 17:19 | HHI.PR ---
Subjective Remarks Readmission of the patient who was just discharged from this facility with Subdural Hematoma. recommended to continue Aspirin but not Brilinta, he was supposed to follow with Neurosurgery and Cardiology to re start this medicine if indicated, he was admitted today with Chest pain and probable NSTEMI, but not able to anticoagulate due to his recent history, was already seen by early breastfeeding care specialist but not able to perform any procedure with no possibility to give anticoagulation or anti platelet therapy, see with his , ordered Neurology specialist, consult his Troponin are elevated to 2.32, continue present care Prognosis Guarded may need Critical Care at some point, remains Full Code at this time, Discussed with nurse Miss Mas again today, he is having his EEG at this time in the room, discussed with him and in the room also discussed with early breastfeeding care specialist doctor Daquan. 12/01: Seen in Intensive Care Unit stable, with Diagnosis of Left Subdural hematoma status post Left parietal Craniotomy, evacuation of acute subdural hematoma, by doctor Karson Palacios, sleeping, drainages in place. Objective Vital Signs Date Time Temp Pulse Resp B/P Pulse Ox O2 Delivery O2 Flow Rate FiO2 12/01/16 15:30 67 17 151/77 98 Nasal Cannula 2 12/01/16 15:15 67 17 153/65 98 Nasal Cannula 2 12/01/16 15:00 66 19 139/71 98 Nasal Cannula 2 12/01/16 14:45 69 19 140/69 98 Nasal Cannula 2 12/01/16 14:30 70 17 148/72 97 Nasal Cannula 2 12/01/16 14:15 70 17 97 Nasal Cannula 2 12/01/16 14:00 99.0 72 17 156/72 97 Nasal Cannula 2 12/01/16 09:00 76 12/01/16 08:00 99.7 73 18 160/78 96 12/01/16 08:00 76 12/01/16 07:00 79 12/01/16 06:00 78 12/01/16 05:00 84 12/01/16 04:00 78 12/01/16 04:00 99.2 82 20 139/70 95 12/01/16 03:00 81 12/01/16 02:00 80 12/01/16 01:00 80 12/01/16 00:00 80 12/01/16 00:00 99.4 83 14 137/67 92 11/30/16 23:00 83 11/30/16 22:00 80 11/30/16 21:00 80 11/30/16 20:00 97.1 85 14 153/71 96 11/30/16 19:00 83 11/30/16 18:00 78 I/O 11/30/16 11/30/16 11/30/16 12/01/16 12/01/16 12/01/16 07:00 15:00 23:00 07:00 15:00 23:00 Intake Total 1080 ml 240 ml 1150 ml Output Total 1315 ml Balance 1080 ml 240 ml -165 ml Intake Oral 240 ml 240 ml IV Total 840 ml 50 ml Other 1100 ml Output Urine Total 1175 ml Drainage Total 40 ml Estimated Blood Loss 100 ml # Voids 2 1 Result Diagram: 11/29/16 0909 11/29/16 0548 Imaging Last Impressions Head CT 12/01/16 0000 Signed Impressions: Service Date/Time: Thursday, December 01, 2016 15:16 - CONCLUSION: Evacuation of previously seen left subdural hematoma. Ronan Stephens MD Brain MRI 11/30/16 0000 Signed Impressions: Service Date/Time: Wednesday, November 30, 2016 12:54 - CONCLUSION: 1. There is subdural hematoma on the left. This encompasses nearly the entire left hemisphere this is much better appreciated on MRI than CT. There is approximately 1 mm of [id number] falcine shift and some slight mass effect on the lateral ventricular system on the left. No enhancing mass is identified. 2. There is no acute cortical infarct. Pelon Toney MD Chest X-Ray 11/29/16 0000 Signed Impressions: Service Date/Time: Monday, November 28, 2016 23:58 - CONCLUSION: No acute disease. Bruno Cabrera MD Procedures None Other Results Laboratory Tests Test 11/29/16 11/29/16 11/29/16 11/29/16 00:05 05:48 09:09 12:41 Neutrophils (%) (Auto) 54.5 % Lymphocytes (%) (Auto) 24.1 % Monocytes (%) (Auto) 18.3 % Eosinophils (%) (Auto) 2.1 % Basophils (%) (Auto) 1.0 % Neutrophils # (Auto) 3.2 TH/MM3 Lymphocytes # (Auto) 1.4 TH/MM3 Monocytes # (Auto) 1.1 TH/MM3 Eosinophils # (Auto) 0.1 TH/MM3 Basophils # (Auto) 0.1 TH/MM3 CBC Comment DIFF FINAL Differential Comment Total Bilirubin 0.9 MG/DL Aspartate Amino Transf 37 U/L (AST/SGOT) Alanine Aminotransferase 84 U/L (ALT/SGPT) Alkaline Phosphatase 160 U/L Total Protein 7.8 GM/DL Albumin 3.0 GM/DL Sodium Level 136 MEQ/L Potassium Level 5.0 MEQ/L Chloride Level 100 MEQ/L Carbon Dioxide Level 28.0 MEQ/L Anion Gap 8 MEQ/L Blood Urea Nitrogen 43 MG/DL Creatinine 1.28 MG/DL Estimat Glomerular Filtration 59 ML/MIN Rate Random Glucose 266 MG/DL Calcium Level 9.4 MG/DL White Blood Count 4.9 TH/MM3 Red Blood Count 3.37 MIL/MM3 Hemoglobin 9.1 GM/DL Hematocrit 27.9 % Mean Corpuscular Volume 82.9 FL Mean Corpuscular Hemoglobin 27.1 PG Mean Corpuscular Hemoglobin 32.7 % Concent Red Cell Distribution Width 13.5 % Platelet Count 94 TH/MM3 Mean Platelet Volume 11.8 FL Prothrombin Time 12.0 SEC Prothromb Time International 1.1 RATIO Ratio Activated Partial 29.3 SEC Thromboplast Time Total Creatine Kinase 88 U/L Troponin I 2.32 NG/ML Objective Remarks GENERAL: Obese patient at this time somnolent, is getting his EEG, asking for pain medication. SKIN: Warm and dry. HEAD: Atraumatic. Normocephalic. EYES: Pupils equal and round. No scleral icterus. No injection or drainage. ENT: No nasal bleeding or discharge. Mucous membranes pink and moist. NECK: Trachea midline. No JVD. CARDIOVASCULAR: Regular rate and rhythm. RESPIRATORY: No accessory muscle use. Clear to auscultation. Breath sounds equal bilaterally. GASTROINTESTINAL: Abdomen soft, non-tender, nondistended. Hepatic and splenic margins not palpable. MUSCULOSKELETAL: Extremities without clubbing, cyanosis, or edema. No obvious deformities. NEUROLOGICAL: Awake and alert. No obvious cranial nerve deficits. Motor grossly within normal limits. Five out of 5 muscle strength in the arms and legs. Normal speech. PSYCHIATRIC: Appropriate mood and affect; insight and judgment normal. Medications and IVs Current Medications Medications (Trade) Dose Ordered Sig/Alona Route Start Time Stop Time Status Last Admin (NS Flush) 2 ml UNSCH PRN IVF 11/29/16 00:00 (D50w (Vial) Inj) 25 ml UNSCH PRN IV PUSH 11/29/16 03:15 (Glucagon Inj) 1 mg UNSCH PRN OTHER 11/29/16 03:15 (Zyloprim) 100 mg DAILY PO 11/29/16 09:00 12/01/16 08:45 (Ecotrin Ec) 81 mg DAILY PO 11/29/16 09:00 12/01/16 08:45 (Lipitor) 40 mg HS PO 11/29/16 21:00 11/30/16 21:55 (Colchicine) 0.6 mg BID PO 11/29/16 09:00 12/01/16 08:46 (Lasix) 40 mg DAILY PO 11/29/16 09:00 12/01/16 08:45 (Lyrica) 150 mg TID PO 11/29/16 09:00 12/01/16 08:45 (Sodium Bicarbonate) 1,300 mg TIDPC PO 11/29/16 09:30 11/30/16 18:16 (Levemir Inj) 25 units HS SQ 11/29/16 21:00 11/30/16 21:00 (Heparin Inj) 5,000 units UNSCH PRN IV 11/29/16 15:00 (Heparin Inj) 2,500 units UNSCH PRN IV 11/29/16 15:00 (Imdur) 60 mg DAILY@07 PO 11/30/16 07:00 12/01/16 07:00 (Ultram) 50 mg Q6H PRN PO 11/30/16 08:15 12/01/16 07:07 (Coreg) 25 mg BID PO 11/30/16 21:00 12/01/16 08:45 (Nitrostat Sl) 0.4 mg Q5M PRN SL 11/30/16 14:00 (Morphine Inj) 2 mg Q4H PRN IV PUSH 12/01/16 12:15 Morphine Sulfate 15 mg 15 mg Q8H PO 12/01/16 09:00 (NS + KCl 20 Meq Inj) 1,000 ml @ 100 mls/hr Q10H IV 12/01/16 13:58 (NS Flush) 2 ml UNSCH PRN IVF 12/01/16 14:00 IV Flush 2 ml 2 ml BID IVF 12/01/16 21:00 Cefazolin Sodium/ Dextrose 50 ml @ 100 mls/hr Q8H IV 12/01/16 18:00 12/02/16 10:29 (Keppra Inj/NS Inj) 105 ml @ 400 mls/hr Q12H IV 12/02/16 02:00 (Dulcolax Supp) 10 mg DAILY PRN RECTAL 12/01/16 14:00 (Colace) 100 mg BID PO 12/01/16 21:00 (Protonix) 40 mg DAILY PO 12/02/16 09:00 (Protonix Inj) 40 mg DAILY IVP 12/02/16 09:00 (Zofran Inj) 4 mg Q6H PRN IV 12/01/16 14:00 Calcium Gluconate 1 gm 1 gm UNSCH PRN IV 12/01/16 14:00 Potassium Chloride 100 ml @ 50 mls/hr UNSCH PRN IV 12/01/16 14:00 (Magnesium Sulfate Inj/NS Inj) 108 ml @ 108 mls/hr UNSCH PRN IV 12/01/16 14:00 ([place] 10-325 Mg) 1 tab Q4H PRN PO 12/01/16 14:00 ([place] 10-325 Mg) 2 tab Q4H PRN PO 12/01/16 14:00 (Morphine Inj) 2 mg Q2H PRN IV PUSH 12/01/16 14:00 (Morphine Inj) 4 mg Q2H PRN IV PUSH 12/01/16 14:00 (Tylenol) 650 mg Q4H PRN PO 12/01/16 14:00 Miscellaneous Information ALL NURSING DEPARTME... UNSCH PRN .XX 12/01/16 13:54 12/02/16 13:53 A/P Assessment and Plan 51-year-old male with a history of diabetes, hypertension, angina, CAD, gout presents to the ED with chest pain. 1. NSTEMI early breastfeeding care specialist following, doctor Simón Butt, unable to place on dual anti-platelet Anticoagulation due to recent subdural Hematoma, continue medical management. 2. Hypertension increased Coreg will try to remove Nitropaste the patient continue with Headache. 3. Subdural Hematoma, Neurology specialist following, had MRI of the brain today , showing subdural Hematoma on the left hemisphere, approximately 1 mm of the left to right falcine shift and some slight mass effect, status post neurosurgery specialist evaluation with Diagnosis of Left Subdural hematoma status post Left parietal Craniotomy, evacuation of acute subdural hematoma, by doctor Karson Palacios, sleeping, drainages in place. 4. Thrombocytopenia following. 5. DM II continue sliding scale 6. Acute Kidney Injury improved 7. Headache Medicines adjusted in am will follow specialist recommendations. DVT prophylaxis: SCDs Discharge Planning once cleared by Specialists. Yogi Salinas MD Dec 01, 2016 17:19
[2016-12-01] MEDS: MORPHINE SULFATE 4 MG/ML INJ IV PUSH PRN ×3 (18:32→22:56)
[2016-12-01] MEDS: ceFAZolin 2 GM PREMIX 50 ML IV SCH (18:35)
[2016-12-01] MEDS: ATORVASTATIN 40 MG TAB PO SCH (20:07)
[2016-12-01] MEDS: DOCUSATE SODIUM 100 MG CAP PO SCH (20:07)
[2016-12-01] MEDS: MORPHINE SULFATE 15 MG CONTROLLED RELEASE TAB PO SCH (20:10)
[2016-12-01] MEDS: SODIUM CHLORIDE 0.9% FLUSH 10 ML FLUSH IVF PRN (20:32)
[2016-12-01] MEDS: INSULIN DETEMIR 100 UNITS/ML VIAL SQ SCH (20:33)
[2016-12-01] MEDS: SODIUM CHLORIDE 0.9% FLUSH 5 ML FLUSH IVF SCH (20:33)
[2016-12-01] MEDS ORDERED: hydrALAZINE HCL 20 MG/ML VIAL IV PRN (22:15)
[2016-12-01] MEDS: NS + KCL 20 MEQ INJ 1,000 ML IV SCH (23:38)
[2016-12-02] VITALS (14 sets, daily range): BP systolic 115–136; BP diastolic 46–59; PULSE 73–90; RESP 11–17; TEMP 98.9–99.8; O2SAT 96–100
[2016-12-02] MEDS: MORPHINE SULFATE 15 MG CONTROLLED RELEASE TAB PO SCH ×3 (00:34→18:07)
[2016-12-02] MEDS: MORPHINE SULFATE 4 MG/ML INJ IV PUSH PRN ×5 (00:54→10:55)
[2016-12-02] MEDS: levETIRAcetam INJ 500 MG in SODIUM CHLORIDE 0.9% INJ 100 ML IV SCH ×2 (01:01→13:34)
[2016-12-02] MEDS: ceFAZolin 2 GM PREMIX 50 ML IV SCH ×2 (01:01→09:47)
[2016-12-02 06:32] LABS: AUTOMATED NEUTROPHIL # 5.9 TH/MM3 (1.8-7.7); BASOPHIL % 0.3 % (0.0-2.0); EOSINOPHIL # 0.1 TH/MM3 (0-0.4); EOSINOPHIL % 0.7 % (0.0-4.0); HEMATOCRIT 26.9 % (39.0-51.0); LYMPHOCYTE # 0.7 TH/MM3 (1.0-4.8); MEAN CELL VOLUME 83.1 FL (80.0-100.0); MEAN CORPUSCULAR HEMOGLOBIN 27.5 PG (27.0-34.0); MEAN CORPUSCULAR HGB CONC 33.1 % (32.0-36.0); PLATELET COUNT 83 TH/MM3 (150-450); RED BLOOD COUNT 3.23 MIL/MM3 (4.50-5.90); RED CELL DISTRIBUTION WIDTH 13.9 % (11.6-17.2); WHITE BLOOD COUNT 7.4 TH/MM3 (4.0-11.0)
[2016-12-02 06:38] LABS: HEMO FLAGS AUTO DIFF
[2016-12-02] MEDS: LOW DOSE INSULIN NOVOLOG SUPPLEMENTAL SCALE SQ SCH ×4 (07:00→20:14)
[2016-12-02] MEDS: ISOSORBIDE MONONITRATE 60 MG TAB PO SCH (07:00)
[2016-12-02 07:05] LABS: BICARBONATE 30.3 MEQ/L (21.0-32.0); MAGNESIUM 1.4 MG/DL (1.5-2.5)
[2016-12-02 07:50] LABS: SCAN/DIFF AUTO DIFF CONFIRMED
[2016-12-02 07:51] LABS: PLATELET ESTIMATE SMEAR LOW (NORMAL); PLATELET MORPHOLOGY ENLARGED (NORMAL)
[2016-12-02] MEDS: PANTOPRAZOLE SODIUM 40 MG VIAL IVP SCH (09:00)
[2016-12-02] MEDS: SODIUM CHLORIDE 0.9% FLUSH 5 ML FLUSH IVF SCH ×2 (09:00→20:13)
[2016-12-02] MEDS: DOCUSATE SODIUM 100 MG CAP PO SCH ×2 (09:44→20:10)
[2016-12-02] MEDS: ALLOPURINOL 100 MG TAB PO SCH (09:44)
[2016-12-02] MEDS: ASPIRIN EC 81 MG TABEC PO SCH (09:45)
[2016-12-02] MEDS: PANTOPRAZOLE SOD 40 MG DELAYED RELEASE TAB PO SCH (09:45)
[2016-12-02] MEDS: PREGABALIN 75 MG CAP PO SCH ×3 (09:46→18:07)
[2016-12-02] MEDS: CARVEDILOL 12.5 MG TAB PO SCH ×2 (09:46→20:10)
[2016-12-02] MEDS: FUROSEMIDE 40 MG TAB PO SCH (09:46)
[2016-12-02] MEDS: NS + KCL 20 MEQ INJ 1,000 ML IV SCH ×2 (09:58→20:16)
[2016-12-02] MEDS: SODIUM BICARBONATE 650 MG TAB PO SCH ×3 (10:07→18:07)
[2016-12-02] MEDS: COLCHICINE 0.6 MG TAB PO SCH ×2 (10:39→20:11)
[2016-12-02] MEDS ORDERED: ACETAMINOPHEN/HYDROcodone 325 MG/10 MG TAB PO PRN (11:00)
--- NOTE | 2016-12-02 11:00 | HHI.NSPN ---
(Katie Anderson) Note Status Status: Progress Note (Katie Anderson) Interval History Interval History Mr. London is a 51 year old male who was suffered a fall and presented with a small subdural hematoma. He was fully anticoagulated. He was managed in a non- surgical fashion. A week later he presented with expressive aphasia and follow up CT showed increased in nthe size of the subdural hematoma with mass effect and midline shift. He underwent a left parietal craniotomy, evacuation of acute subdural hematoma on 12/01/16. 12/02: POD 1, neuro stable, f/u CT Head this am completed, c/o headaches (Katie Anderson) Labs, Micro, & Vital Signs Results Date Time Temp Pulse Resp B/P Pulse Ox O2 Delivery O2 Flow Rate FiO2 12/02/16 06:00 82 12/02/16 04:00 82 12/02/16 04:00 99.4 84 14 130/56 100 12/02/16 02:00 76 12/02/16 00:00 99.8 76 17 136/56 100 12/02/16 00:00 73 12/01/16 22:00 74 12/01/16 21:28 100 Nasal Cannula 2.00 12/01/16 20:00 98.9 76 15 136/52 100 12/01/16 20:00 97 Nasal Cannula 2.00 12/01/16 20:00 76 12/01/16 18:00 68 12/01/16 15:45 68 12/01/16 15:45 98.6 68 14 146/60 100 12/01/16 15:30 67 17 151/77 98 Nasal Cannula 2 12/01/16 15:15 67 17 153/65 98 Nasal Cannula 2 12/01/16 15:00 66 19 139/71 98 Nasal Cannula 2 12/01/16 14:45 69 19 140/69 98 Nasal Cannula 2 12/01/16 14:30 70 17 148/72 97 Nasal Cannula 2 12/01/16 14:15 70 17 97 Nasal Cannula 2 12/01/16 14:00 99.0 72 17 156/72 97 Nasal Cannula 2 12/02/16 07:00 Intake Total 3123 ml Output Total 3400 ml Balance -277 ml Constitutional Vital Signs Date Time Temp Pulse Resp B/P Pulse Ox O2 Delivery O2 Flow Rate FiO2 12/02/16 06:00 82 12/02/16 04:00 82 12/02/16 04:00 99.4 84 14 130/56 100 12/02/16 02:00 76 12/02/16 00:00 99.8 76 17 136/56 100 12/02/16 00:00 73 12/01/16 22:00 74 12/01/16 21:28 100 Nasal Cannula 2.00 12/01/16 20:00 98.9 76 15 136/52 100 12/01/16 20:00 97 Nasal Cannula 2.00 12/01/16 20:00 76 12/01/16 18:00 68 12/01/16 15:45 68 12/01/16 15:45 98.6 68 14 146/60 100 12/01/16 15:30 67 17 151/77 98 Nasal Cannula 2 12/01/16 15:15 67 17 153/65 98 Nasal Cannula 2 12/01/16 15:00 66 19 139/71 98 Nasal Cannula 2 12/01/16 14:45 69 19 140/69 98 Nasal Cannula 2 12/01/16 14:30 70 17 148/72 97 Nasal Cannula 2 12/01/16 14:15 70 17 97 Nasal Cannula 2 12/01/16 14:00 99.0 72 17 156/72 97 Nasal Cannula 2 12/02/16 07:00 Intake Total 3123 ml Output Total 3400 ml Balance -277 ml (Katie Anderson) Review of Systems/Exam Exam Mr. London is awake and oriented place and person. Following commands. Conversing slightly. Wound with clean dressing. SALO drain with min to moderate output. Cranial nerve examination: pupils to be equal, round, and reactive to light. Extra-ocular movements are intact. Facial motor are normal and symmetrical. Neck is soft and supple. Motor: moving all four extremities symmetrically off the bed (Katie Anderson) Medications Current Medications Current Medications Medications (Trade) Dose Ordered Sig/Alona Route PRN Reason Start Time Stop Time Status Last Admin Dose Admin Sodium Chloride (NS Flush) 2 ml UNSCH PRN IVF FLUSH AFTER USING IV ACCESS 11/29/16 00:00 12/01/16 20:32 Dextrose (D50w (Vial) Inj) 25 ml UNSCH PRN IV PUSH HYPOGLYCEMIA - SEE COMMENTS 11/29/16 03:15 Glucagon (Glucagon Inj) 1 mg UNSCH PRN OTHER HYPOGLYCEMIA-SEE COMMENTS 11/29/16 03:15 Allopurinol (Zyloprim) 100 mg DAILY PO 11/29/16 09:00 12/02/16 09:44 Aspirin (Ecotrin Ec) 81 mg DAILY PO 11/29/16 09:00 12/02/16 09:45 Atorvastatin Calcium (Lipitor) 40 mg HS PO 11/29/16 21:00 12/01/16 20:07 Colchicine (Colchicine) 0.6 mg BID PO 11/29/16 09:00 12/01/16 20:33 Furosemide (Lasix) 40 mg DAILY PO 11/29/16 09:00 12/02/16 09:46 Pregabalin (Lyrica) 150 mg TID PO 11/29/16 09:00 12/02/16 09:46 Sodium Bicarbonate (Sodium Bicarbonate) 1,300 mg TIDPC PO 11/29/16 09:30 12/02/16 10:07 Insulin Detemir (Levemir Inj) 25 units HS SQ 11/29/16 21:00 11/30/16 21:00 Heparin Sodium (Porcine) (Heparin Inj) 5,000 units UNSCH PRN IV APTT LESS THAN 25 11/29/16 15:00 Heparin Sodium (Porcine) (Heparin Inj) 2,500 units UNSCH PRN IV APTT 25 TO 39 11/29/16 15:00 Isosorbide Mononitrate (Imdur) 60 mg DAILY@07 PO 11/30/16 07:00 12/02/16 07:00 Tramadol HCl (Ultram) 50 mg Q6H PRN PO HEADACHE 11/30/16 08:15 12/01/16 07:07 Carvedilol (Coreg) 25 mg BID PO 11/30/16 21:00 12/02/16 09:46 Nitroglycerin (Nitrostat Sl) 0.4 mg Q5M PRN SL CHEST PAIN 11/30/16 14:00 Morphine Sulfate (Morphine Inj) 2 mg Q4H PRN IV PUSH BREAKTHROUGH PAIN 12/01/16 12:15 Morphine Sulfate 15 mg 15 mg Q8H PO 12/01/16 09:00 12/02/16 09:46 Potassium Chloride/Sodium Chloride (NS + KCl 20 Meq Inj) 1,000 ml @ 100 mls/hr Q10H IV 12/01/16 13:58 12/02/16 09:58 IV Flush (NS Flush) 2 ml UNSCH PRN IVF FLUSH AFTER USING IV ACCESS 12/01/16 14:00 IV Flush 2 ml 2 ml BID IVF 12/01/16 21:00 12/02/16 09:00 Levetriacetam/ Sodium Chloride (Keppra Inj/NS Inj) 105 ml @ 400 mls/hr Q12H IV 12/02/16 02:00 12/02/16 01:01 Bisacodyl (Dulcolax Supp) 10 mg DAILY PRN RECTAL CONSTIPATION 12/01/16 14:00 Docusate Sodium (Colace) 100 mg BID PO 12/01/16 21:00 12/02/16 09:44 Pantoprazole Sodium (Protonix) 40 mg DAILY PO 12/02/16 09:00 12/02/16 09:45 Pantoprazole Sodium (Protonix Inj) 40 mg DAILY IVP 12/02/16 09:00 Ondansetron HCl (Zofran Inj) 4 mg Q6H PRN IV NAUSEA OR VOMITING 12/01/16 14:00 12/02/16 07:43 Calcium Gluconate 1 gm 1 gm UNSCH PRN IV SEE LABEL COMMENTS 12/01/16 14:00 Potassium Chloride 100 ml @ 50 mls/hr UNSCH PRN IV POTASSIUM LESS THAN 4 12/01/16 14:00 Magnesium Sulfate/ Sodium Chloride (Magnesium Sulfate Inj/NS Inj) 108 ml @ 108 mls/hr UNSCH PRN IV MAGNESIUM LESS THAN 2 12/01/16 14:00 12/02/16 10:43 Acetaminophen/ Hydrocodone Bitart ([place] 10-325 Mg) 1 tab Q4H PRN PO PAIN SCALE 1 TO 5 12/01/16 14:00 Acetaminophen/ Hydrocodone Bitart (Cope 10-325 Mg) 2 tab Q4H PRN PO PAIN SCALE 6 TO 10 12/01/16 14:00 Morphine Sulfate (Morphine Inj) 2 mg Q2H PRN IV PUSH PAIN SCALE 1 TO 6 12/01/16 14:00 12/02/16 00:54 Morphine Sulfate (Morphine Inj) 4 mg Q2H PRN IV PUSH PAIN SCALE 7 TO 10 12/01/16 14:00 12/02/16 07:43 Acetaminophen (Tylenol) 650 mg Q4H PRN PO TEMPERATURE > 101.5 F 12/01/16 14:00 Miscellaneous Information ALL NURSING DEPARTME... UNSCH PRN .XX SEE LABEL COMMENTS 12/01/16 13:54 12/02/16 13:53 Hydralazine HCl (Apresoline Inj) 10 mg Q6H PRN IV SEE LABEL COMMENTS 12/01/16 22:15 (Katie Anderson) Medical Decision Making MDM Remarks 51 y/o male s/p left craniotomy for evacuation of subdural hematoma 12/01/16, POD 1, neuro stable f/u CT Head 12/02 with evac of SDH (Katie Anderson) Plan Plan Remarks cont supportive care nonchemical dvt prophylaxis protonix for stress ulcer proph IS every hour, medical management start PT, mobilize OOB (Katie Anderson) Attending Statement The exam, history, and the medical decision-making described in the above note were completed with the assistance of the mid-level provider. I reviewed and agree with the findings presented. I attest that I had a [id number] encounter with the patient on the same day, and personally performed and documented my assessment and findings in the medical record. (Karson Palacios MD) Katie Anderson Dec 02, 2016 11:00 Karson Palacios MD Dec 07, 2016 12:16
[2016-12-02] MEDS ORDERED: MORPHINE SULFATE 8 MG/ML INJ IV PUSH PRN (12:00)
[2016-12-02] MEDS: ACETAMINOPHEN/HYDROcodone 325 MG/10 MG TAB PO PRN ×2 (13:55→20:11)
--- NOTE | 2016-12-02 18:19 | PD.CARD.PN ---
Subjective Subjective Remarks No events today No chest pain, no shortness of breath Objective Medications Current Medications Medications (Trade) Dose Ordered Sig/Alona Route Start Time Stop Time Status Last Admin (NS Flush) 2 ml UNSCH PRN IVF 11/29/16 00:00 12/01/16 20:32 (D50w (Vial) Inj) 25 ml UNSCH PRN IV PUSH 11/29/16 03:15 (Glucagon Inj) 1 mg UNSCH PRN OTHER 11/29/16 03:15 (Zyloprim) 100 mg DAILY PO 11/29/16 09:00 12/02/16 09:44 (Ecotrin Ec) 81 mg DAILY PO 11/29/16 09:00 12/02/16 09:45 (Lipitor) 40 mg HS PO 11/29/16 21:00 12/01/16 20:07 (Colchicine) 0.6 mg BID PO 11/29/16 09:00 12/02/16 10:39 (Lasix) 40 mg DAILY PO 11/29/16 09:00 12/02/16 09:46 (Lyrica) 150 mg TID PO 11/29/16 09:00 12/02/16 18:07 (Sodium Bicarbonate) 1,300 mg TIDPC PO 11/29/16 09:30 12/02/16 18:07 (Levemir Inj) 25 units HS SQ 11/29/16 21:00 11/30/16 21:00 (Heparin Inj) 5,000 units UNSCH PRN IV 11/29/16 15:00 (Heparin Inj) 2,500 units UNSCH PRN IV 11/29/16 15:00 (Imdur) 60 mg DAILY@07 PO 11/30/16 07:00 12/02/16 07:00 (Ultram) 50 mg Q6H PRN PO 11/30/16 08:15 12/01/16 07:07 (Coreg) 25 mg BID PO 11/30/16 21:00 12/02/16 09:46 (Nitrostat Sl) 0.4 mg Q5M PRN SL 11/30/16 14:00 Morphine Sulfate 15 mg 15 mg Q8H PO 12/01/16 09:00 12/02/16 18:07 (NS + KCl 20 Meq Inj) 1,000 ml @ 100 mls/hr Q10H IV 12/01/16 13:58 12/02/16 09:58 (NS Flush) 2 ml UNSCH PRN IVF 12/01/16 14:00 IV Flush 2 ml 2 ml BID IVF 12/01/16 21:00 12/02/16 09:00 (Keppra Inj/NS Inj) 105 ml @ 400 mls/hr Q12H IV 12/02/16 02:00 12/02/16 13:34 (Dulcolax Supp) 10 mg DAILY PRN RECTAL 12/01/16 14:00 (Colace) 100 mg BID PO 12/01/16 21:00 12/02/16 09:44 (Protonix) 40 mg DAILY PO 12/02/16 09:00 12/02/16 09:45 (Protonix Inj) 40 mg DAILY IVP 12/02/16 09:00 (Zofran Inj) 4 mg Q6H PRN IV 12/01/16 14:00 12/02/16 07:43 Calcium Gluconate 1 gm 1 gm UNSCH PRN IV 12/01/16 14:00 Potassium Chloride 100 ml @ 50 mls/hr UNSCH PRN IV 12/01/16 14:00 (Magnesium Sulfate Inj/NS Inj) 108 ml @ 108 mls/hr UNSCH PRN IV 12/01/16 14:00 12/02/16 10:43 (Tylenol) 650 mg Q4H PRN PO 12/01/16 14:00 (Apresoline Inj) 10 mg Q6H PRN IV 12/01/16 22:15 (Morphine Inj) 2 mg Q2H PRN IV PUSH 12/02/16 12:00 ([place] 10-325 Mg) 1 tab Q4H PRN PO 12/02/16 11:00 ([place] 10-325 Mg) 2 tab Q4H PRN PO 12/02/16 11:00 12/02/16 13:55 Vital Signs / I&O Vital Signs Date Time Temp Pulse Resp B/P Pulse Ox O2 Delivery O2 Flow Rate FiO2 12/02/16 14:00 78 12/02/16 12:00 84 12/02/16 10:53 19 12/02/16 10:53 19 12/02/16 10:00 85 12/02/16 08:56 99 Nasal Cannula 2.00 12/02/16 08:00 86 12/02/16 07:00 100 Nasal Cannula 2.00 12/02/16 06:00 82 12/02/16 04:00 82 12/02/16 04:00 99.4 84 14 130/56 100 12/02/16 02:00 76 12/02/16 00:00 99.8 76 17 136/56 100 12/02/16 00:00 73 12/01/16 22:00 74 12/01/16 21:28 100 Nasal Cannula 2.00 12/01/16 20:00 98.9 76 15 136/52 100 12/01/16 20:00 97 Nasal Cannula 2.00 12/01/16 20:00 76 I/O 12/01/16 12/01/16 12/01/16 12/02/16 12/02/16 12/02/16 07:00 15:00 23:00 07:00 15:00 23:00 Intake Total 240 ml 1150 ml 989 ml 984 ml 1521 ml Output Total 1315 ml 1315 ml 770 ml 1275 ml Balance 240 ml -165 ml -326 ml 214 ml 246 ml Intake Oral 240 ml 240 ml 240 ml 480 ml IV Total 50 ml 749 ml 744 ml 1041 ml Other 1100 ml Output Urine Total 1175 ml 1250 ml 725 ml 1175 ml Drainage Total 40 ml 65 ml 45 ml 100 ml Estimated Blood Loss 100 ml # Voids 1 Physical Exam GENERAL: NAD, AAOx3 SKIN: Warm and dry. HEAD: Craniotomy with drains EYES: Pupils equal and round. No scleral icterus. No injection or drainage. ENT: No nasal bleeding or discharge. Mucous membranes pink and moist. NECK: Trachea midline. No JVD. CARDIOVASCULAR: Regular rate and rhythm. RESPIRATORY: No accessory muscle use. Clear to auscultation. Breath sounds equal bilaterally. GASTROINTESTINAL: Abdomen soft, non-tender, nondistended. Hepatic and splenic margins not palpable. MUSCULOSKELETAL: Extremities without clubbing, cyanosis, or edema. No obvious deformities. NEUROLOGICAL: Awake and alert. No obvious cranial nerve deficits. Motor grossly within normal limits. PSYCHIATRIC: Appropriate mood and affect; insight and judgment normal. Laboratory Laboratory Tests Test 12/02/16 12/02/16 05:25 05:30 Blood Type O POSITIVE Antibody Screen NEGATIVE Crossmatch Leukocyte-Reduced Red Blood Cells Blood Bank Comment White Blood Count 7.4 TH/MM3 Red Blood Count 3.23 MIL/MM3 Hemoglobin 8.9 GM/DL Hematocrit 26.9 % Mean Corpuscular Volume 83.1 FL Mean Corpuscular Hemoglobin 27.5 PG Mean Corpuscular Hemoglobin 33.1 % Concent Red Cell Distribution Width 13.9 % Platelet Count 83 TH/MM3 Mean Platelet Volume 12.7 FL Neutrophils (%) (Auto) 79.0 % Lymphocytes (%) (Auto) 9.0 % Monocytes (%) (Auto) 11.0 % Eosinophils (%) (Auto) 0.7 % Basophils (%) (Auto) 0.3 % Neutrophils # (Auto) 5.9 TH/MM3 Lymphocytes # (Auto) 0.7 TH/MM3 Monocytes # (Auto) 0.8 TH/MM3 Eosinophils # (Auto) 0.1 TH/MM3 Basophils # (Auto) 0.0 TH/MM3 CBC Comment AUTO DIFF Differential Comment AUTO DIFF CONFIRMED Platelet Estimate LOW Platelet Morphology Comment ENLARGED Sodium Level 142 MEQ/L Potassium Level 5.0 MEQ/L Chloride Level 106 MEQ/L Carbon Dioxide Level 30.3 MEQ/L Anion Gap 6 MEQ/L Blood Urea Nitrogen 31 MG/DL Creatinine 1.23 MG/DL Estimat Glomerular Filtration 62 ML/MIN Rate Random Glucose 112 MG/DL Calcium Level 9.1 MG/DL Phosphorus Level 4.8 MG/DL Magnesium Level 1.4 MG/DL Assessment and Plan Problem List: (1) NSTEMI (non-ST elevated myocardial infarction) (2) Subdural hematoma (3) Thrombocytopenia (4) HTN (hypertension) (5) Diabetes mellitus with hyperglycemia Assessment and Plan 1) Unable to place on dual anti-platelet therapy or anti-coagulation due to recent subdural hematoma Con't medical management Increasing with shift s/p left craniotomy 2) Coreg, attempt to remove nitropaste, and give nitro SL PRN 3) No further chest pain, con't with current meds Problem Qualifiers (1) Diabetes mellitus with hyperglycemia: Simón Butt DO Dec 02, 2016 18:19
[2016-12-02] MEDS: ATORVASTATIN 40 MG TAB PO SCH (20:11)
[2016-12-02] MEDS: INSULIN DETEMIR 100 UNITS/ML VIAL SQ SCH (20:13)
[2016-12-02] MEDS: SODIUM CHLORIDE 0.9% FLUSH 10 ML FLUSH IVF PRN (20:13)
--- NOTE | 2016-12-02 21:50 | HHI.PR ---
Subjective Remarks No acute complaints. Resting when seen. Pain controlled. No neuro changes reported. Objective Vital Signs Date Time Temp Pulse Resp B/P Pulse Ox O2 Delivery O2 Flow Rate FiO2 12/02/16 20:20 99 Nasal Cannula 2.00 12/02/16 20:00 99.7 83 14 117/59 100 12/02/16 20:00 90 12/02/16 19:00 97 Nasal Cannula 3.00 12/02/16 18:00 78 12/02/16 16:00 98.9 78 15 115/57 96 12/02/16 16:00 78 12/02/16 14:00 78 12/02/16 12:00 99.0 84 11 124/46 97 12/02/16 12:00 84 12/02/16 10:53 19 12/02/16 10:53 19 12/02/16 10:00 85 12/02/16 08:56 99 Nasal Cannula 2.00 12/02/16 08:00 99.3 86 16 119/53 98 12/02/16 08:00 86 12/02/16 07:00 100 Nasal Cannula 2.00 12/02/16 06:00 82 12/02/16 04:00 82 12/02/16 04:00 99.4 84 14 130/56 100 12/02/16 02:00 76 12/02/16 00:00 99.8 76 17 136/56 100 12/02/16 00:00 73 12/01/16 22:00 74 I/O 12/01/16 12/01/16 12/01/16 12/02/16 12/02/16 12/02/16 06:59 14:59 22:59 06:59 14:59 22:59 Intake Total 240 ml 1100 ml 1039 ml 984 ml 1521 ml Output Total 1120 ml 1510 ml 770 ml 1275 ml Balance 240 ml -20 ml -471 ml 214 ml 246 ml Intake Oral 240 ml 240 ml 240 ml 480 ml IV Total 799 ml 744 ml 1041 ml Other 1100 ml Output Urine Total 1000 ml 1425 ml 725 ml 1175 ml Drainage Total 20 ml 85 ml 45 ml 100 ml Estimated Blood Loss 100 ml # Voids 1 Result Diagram: 12/02/1630 12/02/16 0530 Procedures None Objective Remarks GENERAL: NAD, A&Ox3 SKIN: Warm and dry. HEAD: Normocephalic. No oral thrush EYES: No scleral icterus. No injection or drainage. NECK: Supple, trachea midline. No JVD or lymphadenopathy. CARDIOVASCULAR: Regular rate and rhythm without murmurs, gallops, or rubs. RESPIRATORY: Breath sounds equal bilaterally. No accessory muscle use. GASTROINTESTINAL: Abdomen soft, non-tender, nondistended. MUSCULOSKELETAL: No cyanosis, or edema. BACK: Nontender without obvious deformity. No CVA tenderness. A/P Problem List: (1) NSTEMI (non-ST elevated myocardial infarction) ICD Code: I21.4 (2) Subdural hematoma ICD Code: I62.00 (3) Thrombocytopenia ICD Code: D69.6 (4) JAGDISH (acute kidney injury) ICD Code: N17.9 (5) Intracranial hemorrhage ICD Code: I62.9 Assessment and Plan Assessment and Plan 51-year-old male admitted with NSTEMI and Subdural Hematoma NSTEMI Medical management Dual anti-platelet therapy inhibited by brain bleed HTN Coreg Subdural Hematoma S/P Craniotomy status post left parietal craniotomy with evacuation Drains in place PRN pain treatments Neurosurgery Following Thrombocytopenia Follow CBC DM2 Insulin Sliding Scale Diabetic Diet Follow blood sugars DVT prophylaxis SCDs Discharge Planning Keep in ICU for now Pelon Gandhi MD Dec 02, 2016 21:50
[2016-12-03] VITALS (14 sets, daily range): BP systolic 114–123; BP diastolic 56–62; PULSE 66–101; RESP 10–17; TEMP 98.4–98.9; O2SAT 97–100
[2016-12-03] MEDS: MORPHINE SULFATE 15 MG CONTROLLED RELEASE TAB PO SCH ×3 (01:06→18:03)
[2016-12-03] MEDS: levETIRAcetam INJ 500 MG in SODIUM CHLORIDE 0.9% INJ 100 ML IV SCH ×2 (01:06→13:25)
[2016-12-03 05:25] LABS: HEMATOCRIT 25.2 % (39.0-51.0); MEAN CELL VOLUME 83.8 FL (80.0-100.0); MEAN CORPUSCULAR HEMOGLOBIN 27.7 PG (27.0-34.0); MEAN CORPUSCULAR HGB CONC 33.1 % (32.0-36.0); PLATELET COUNT 82 TH/MM3 (150-450); RED CELL DISTRIBUTION WIDTH 13.4 % (11.6-17.2); WHITE BLOOD COUNT 5.6 TH/MM3 (4.0-11.0)
[2016-12-03 05:32] LABS: REVIEW FLAG FINAL
[2016-12-03 05:51] LABS: POTASSIUM 4.9 MEQ/L (3.5-5.1)
[2016-12-03] MEDS: LOW DOSE INSULIN NOVOLOG SUPPLEMENTAL SCALE SQ SCH ×4 (07:00→20:59)
[2016-12-03] MEDS: ISOSORBIDE MONONITRATE 60 MG TAB PO SCH (07:07)
[2016-12-03] MEDS: ACETAMINOPHEN/HYDROcodone 325 MG/10 MG TAB PO PRN ×2 (07:08→13:26)
[2016-12-03] MEDS: DOCUSATE SODIUM 100 MG CAP PO SCH ×2 (08:32→20:57)
[2016-12-03] MEDS: ASPIRIN EC 81 MG TABEC PO SCH (08:33)
[2016-12-03] MEDS: CALCITRIOL 0.25 MCG CAP PO SCH (08:33)
[2016-12-03] MEDS: PREGABALIN 75 MG CAP PO SCH ×3 (08:34→18:03)
[2016-12-03] MEDS: ALLOPURINOL 100 MG TAB PO SCH (08:34)
[2016-12-03] MEDS: CARVEDILOL 12.5 MG TAB PO SCH ×2 (08:34→20:58)
[2016-12-03] MEDS: PANTOPRAZOLE SOD 40 MG DELAYED RELEASE TAB PO SCH (08:34)
[2016-12-03] MEDS: FUROSEMIDE 40 MG TAB PO SCH (08:35)
[2016-12-03] MEDS: SODIUM CHLORIDE 0.9% FLUSH 5 ML FLUSH IVF SCH ×2 (08:36→20:57)
[2016-12-03] MEDS: PANTOPRAZOLE SODIUM 40 MG VIAL IVP SCH (08:36)
[2016-12-03] MEDS: COLCHICINE 0.6 MG TAB PO SCH ×2 (09:08→20:58)
[2016-12-03] MEDS: SODIUM BICARBONATE 650 MG TAB PO SCH ×3 (09:08→18:03)
--- NOTE | 2016-12-03 09:26 | HHI.PR ---
Subjective Remarks Right arm swelling present this morning. No reports of IV filtration. Right arm swelling is disproportionate to the limbs. Objective Vital Signs Date Time Temp Pulse Resp B/P Pulse Ox O2 Delivery O2 Flow Rate FiO2 12/03/16 08:49 98 Nasal Cannula 2.00 12/03/16 06:00 77 12/03/16 04:00 98.9 74 17 123/59 100 12/03/16 04:00 76 12/03/16 02:00 76 12/03/16 00:00 74 12/03/16 00:00 98.8 74 13 114/58 98 Arterial Line 12/02/16 22:00 76 12/02/16 20:20 99 Nasal Cannula 2.00 12/02/16 20:00 99.7 83 14 117/59 100 12/02/16 20:00 90 12/02/16 19:00 97 Nasal Cannula 3.00 12/02/16 18:00 78 12/02/16 16:00 98.9 78 15 115/57 96 12/02/16 16:00 78 12/02/16 14:00 78 12/02/16 12:00 99.0 84 11 124/46 97 12/02/16 12:00 84 12/02/16 10:53 19 12/02/16 10:53 19 12/02/16 10:00 85 I/O 12/02/16 12/02/16 12/02/16 12/03/16 12/03/16 12/03/16 07:00 15:00 23:00 07:00 15:00 23:00 Intake Total 984 ml 1521 ml 516 ml 2085 ml Output Total 770 ml 1275 ml 265 ml 740 ml Balance 214 ml 246 ml 251 ml 1345 ml Intake Oral 240 ml 480 ml 480 ml 1250 ml IV Total 744 ml 1041 ml 36 ml 835 ml Output Urine Total 725 ml 1175 ml 200 ml 625 ml Drainage Total 45 ml 100 ml 65 ml 115 ml Result Diagram: 12/03/16 0417 12/03/16 0417 Procedures None Objective Remarks GENERAL: NAD, A&Ox3 SKIN: Warm and dry. HEAD: Normocephalic. No oral thrush. Cranial drains are present. EYES: No scleral icterus. No injection or drainage. NECK: Supple, trachea midline. No JVD or lymphadenopathy. CARDIOVASCULAR: Regular rate and rhythm without murmurs, gallops, or rubs. RESPIRATORY: Breath sounds equal bilaterally. No accessory muscle use. GASTROINTESTINAL: Abdomen soft, non-tender, nondistended. MUSCULOSKELETAL: No cyanosis. Edema and right arm. BACK: Nontender without obvious deformity. No CVA tenderness. A/P Problem List: (1) NSTEMI (non-ST elevated myocardial infarction) ICD Code: I21.4 (2) Subdural hematoma ICD Code: I62.00 (3) Thrombocytopenia ICD Code: D69.6 (4) JAGDISH (acute kidney injury) ICD Code: N17.9 (5) Intracranial hemorrhage ICD Code: I62.9 Assessment and Plan Assessment and Plan 51-year-old male admitted with NSTEMI and Subdural Hematoma. Doing well. No neurologic deficits in motor activity of bilateral limbs. Some speech deficit is present. Venous Doppler ultrasound ordered a right extremity secondary to swelling to rule out DVT. No arrhythmias. Monitor on telemetry in ICU. NSTEMI Medical management Dual anti-platelet therapy inhibited by brain bleed HTN Coreg Subdural Hematoma S/P Craniotomy status post left parietal craniotomy with evacuation Drains in place PRN pain treatments Neurosurgery Following Thrombocytopenia Follow CBC DM2 Insulin Sliding Scale Diabetic Diet Follow blood sugars DVT prophylaxis SCDs Discharge Planning Keep in ICU for now Pelon Gandhi MD Dec 03, 2016 09:26
--- NOTE | 2016-12-03 11:18 | RADRPT ---
EXAM DATE/TIME: 12/03/2016 10:36 [facility] COMPARISON: No previous studies available for comparison. INDICATIONS : Right arm swelling. MEDICAL HISTORY : Hypercholesterolemia. Hypertension. Diabetes. SURGICAL HISTORY : CABG. Cardiac catheterization. ENCOUNTER: Initial ACUITY: 1 day PAIN SCORE: 0/10 LOCATION: Right arm. FINDINGS: Echogenic noncompressible material is seen within the basilic vein within the proximal forearm. The u pper arm shows no thrombus within the basilic vein or other venous structures. Jugular vein and subcl zenobia vein are normal. CONCLUSION: Occlusive thrombus isolated within the basilic vein within the proximal forearm. Nasir Figueroa Jr., MD on December 03, 2016 at 11:11 Board Certified Radiologist. This report was verified electronically.
--- NOTE | 2016-12-03 16:55 | HHI.NSPN ---
(Katie Anderson) Note Status Status: Progress Note (Katie Anderson) Interval History Interval History Mr. London is a 51 year old male who was suffered a fall and presented with a small subdural hematoma. He was fully anticoagulated. He was managed in a non- surgical fashion. A week later he presented with expressive aphasia and follow up CT showed increased in nthe size of the subdural hematoma with mass effect and midline shift. He underwent a left parietal craniotomy, evacuation of acute subdural hematoma on 12/01/16. 12/02: POD 1, neuro stable, f/u CT Head this am completed, c/o headaches 12/03: POD 2, pt seen this am during rounds, reports speech is better, awaiting for U/S of right arm for swelling. (Katie Anderson) Labs, Micro, & Vital Signs Results Date Time Temp Pulse Resp B/P Pulse Ox O2 Delivery O2 Flow Rate FiO2 12/03/16 12:00 98.7 72 15 120/62 98 12/03/16 12:00 74 12/03/16 10:00 74 12/03/16 08:49 98 Nasal Cannula 2.00 12/03/16 08:00 74 12/03/16 08:00 98.7 74 13 120/58 100 12/03/16 07:00 97 Nasal Cannula 3.00 12/03/16 06:00 77 12/03/16 04:00 98.9 74 17 123/59 100 12/03/16 04:00 76 12/03/16 02:00 76 12/03/16 00:00 74 12/03/16 00:00 98.8 74 13 114/58 98 Arterial Line 12/02/16 22:00 76 12/02/16 20:20 99 Nasal Cannula 2.00 12/02/16 20:00 99.7 83 14 117/59 100 12/02/16 20:00 90 12/02/16 19:00 97 Nasal Cannula 3.00 12/02/16 18:00 78 12/03/16 07:00 Intake Total 4122 ml Output Total 2280 ml Balance 1842 ml Constitutional Vital Signs Date Time Temp Pulse Resp B/P Pulse Ox O2 Delivery O2 Flow Rate FiO2 12/03/16 12:00 98.7 72 15 120/62 98 12/03/16 12:00 74 12/03/16 10:00 74 12/03/16 08:49 98 Nasal Cannula 2.00 12/03/16 08:00 74 12/03/16 08:00 98.7 74 13 120/58 100 12/03/16 07:00 97 Nasal Cannula 3.00 12/03/16 06:00 77 12/03/16 04:00 98.9 74 17 123/59 100 12/03/16 04:00 76 12/03/16 02:00 76 12/03/16 00:00 74 12/03/16 00:00 98.8 74 13 114/58 98 Arterial Line 12/02/16 22:00 76 12/02/16 20:20 99 Nasal Cannula 2.00 12/02/16 20:00 99.7 83 14 117/59 100 12/02/16 20:00 90 12/02/16 19:00 97 Nasal Cannula 3.00 12/02/16 18:00 78 12/03/16 07:00 Intake Total 4122 ml Output Total 2280 ml Balance 1842 ml (Katie Anderson) Review of Systems/Exam Exam Mr. London is awake and oriented place and person. Following commands. Conversing better. Wound with clean dressing. SALO drain with min to moderate output. Cranial nerve examination: pupils equal, round, and reactive to light. Facial motor are normal and symmetrical. Neck is soft and supple. Motor: moving all four extremities symmetrically off the bed (Katie Anderson) Medications Current Medications Current Medications Medications (Trade) Dose Ordered Sig/Alona Route PRN Reason Start Time Stop Time Status Last Admin Dose Admin Sodium Chloride (NS Flush) 2 ml UNSCH PRN IVF FLUSH AFTER USING IV ACCESS 11/29/16 00:00 12/02/16 20:13 Dextrose (D50w (Vial) Inj) 25 ml UNSCH PRN IV PUSH HYPOGLYCEMIA - SEE COMMENTS 11/29/16 03:15 Glucagon (Glucagon Inj) 1 mg UNSCH PRN OTHER HYPOGLYCEMIA-SEE COMMENTS 11/29/16 03:15 Allopurinol (Zyloprim) 100 mg DAILY PO 11/29/16 09:00 12/03/16 08:34 Aspirin (Ecotrin Ec) 81 mg DAILY PO 11/29/16 09:00 12/03/16 08:33 Atorvastatin Calcium (Lipitor) 40 mg HS PO 11/29/16 21:00 12/02/16 20:11 Colchicine (Colchicine) 0.6 mg BID PO 11/29/16 09:00 12/03/16 09:08 Furosemide (Lasix) 40 mg DAILY PO 11/29/16 09:00 12/03/16 08:35 Pregabalin (Lyrica) 150 mg TID PO 11/29/16 09:00 12/03/16 13:25 Sodium Bicarbonate (Sodium Bicarbonate) 1,300 mg TIDPC PO 11/29/16 09:30 12/03/16 13:25 Insulin Detemir (Levemir Inj) 25 units HS SQ 11/29/16 21:00 12/02/16 20:13 Heparin Sodium (Porcine) (Heparin Inj) 5,000 units UNSCH PRN IV APTT LESS THAN 25 11/29/16 15:00 Heparin Sodium (Porcine) (Heparin Inj) 2,500 units UNSCH PRN IV APTT 25 TO 39 11/29/16 15:00 Isosorbide Mononitrate (Imdur) 60 mg DAILY@07 PO 11/30/16 07:00 12/03/16 07:07 Tramadol HCl (Ultram) 50 mg Q6H PRN PO HEADACHE 11/30/16 08:15 12/01/16 07:07 Carvedilol (Coreg) 25 mg BID PO 11/30/16 21:00 12/03/16 08:34 Nitroglycerin (Nitrostat Sl) 0.4 mg Q5M PRN SL CHEST PAIN 11/30/16 14:00 Morphine Sulfate (Oramorph Sr) 15 mg Q8H PO 12/01/16 09:00 12/03/16 08:35 IV Flush (NS Flush) 2 ml UNSCH PRN IVF FLUSH AFTER USING IV ACCESS 12/01/16 14:00 IV Flush 2 ml 2 ml BID IVF 12/01/16 21:00 12/03/16 08:36 Levetriacetam/ Sodium Chloride (Keppra Inj/NS Inj) 105 ml @ 400 mls/hr Q12H IV 12/02/16 02:00 12/03/16 13:25 Bisacodyl (Dulcolax Supp) 10 mg DAILY PRN RECTAL CONSTIPATION 12/01/16 14:00 Docusate Sodium (Colace) 100 mg BID PO 12/01/16 21:00 12/03/16 08:32 Pantoprazole Sodium (Protonix) 40 mg DAILY PO 12/02/16 09:00 12/03/16 08:34 Pantoprazole Sodium (Protonix Inj) 40 mg DAILY IVP 12/02/16 09:00 Ondansetron HCl (Zofran Inj) 4 mg Q6H PRN IV NAUSEA OR VOMITING 12/01/16 14:00 12/02/16 07:43 Calcium Gluconate 1 gm 1 gm UNSCH PRN IV SEE LABEL COMMENTS 12/01/16 14:00 Potassium Chloride 100 ml @ 50 mls/hr UNSCH PRN IV POTASSIUM LESS THAN 4 12/01/16 14:00 Magnesium Sulfate/ Sodium Chloride (Magnesium Sulfate Inj/NS Inj) 108 ml @ 108 mls/hr UNSCH PRN IV MAGNESIUM LESS THAN 2 12/01/16 14:00 12/02/16 10:43 Acetaminophen (Tylenol) 650 mg Q4H PRN PO TEMPERATURE > 101.5 F 12/01/16 14:00 Hydralazine HCl (Apresoline Inj) 10 mg Q6H PRN IV SEE LABEL COMMENTS 12/01/16 22:15 Morphine Sulfate (Morphine Inj) 2 mg Q2H PRN IV PUSH BREAKTHROUGH PAIN 12/02/16 12:00 Acetaminophen/ Hydrocodone Bitart ([place] 10-325 Mg) 1 tab Q4H PRN PO PAIN SCALE 1 TO 5 12/02/16 11:00 Acetaminophen/ Hydrocodone Bitart ([place] 10-325 Mg) 2 tab Q4H PRN PO PAIN SCALE 6 TO 10 12/02/16 11:00 12/03/16 13:26 (Katie Anderson) Medical Decision Making MDM Remarks 51 y/o male s/p left craniotomy for evacuation of subdural hematoma 12/01/16, POD 2, neuro stable, speech improved f/u CT Head 12/02 with evac of SDH (Katie Anderson) Plan Plan Remarks cont supportive care nonchemical dvt prophylaxis protonix for stress ulcer proph IS every hour, cont medical management cont therapy, if neuro stable tomorrow may be transferred out of unit cont SALO draining today, will dc tomorrow (Katie Anderson) Attending Statement The exam, history, and the medical decision-making described in the above note were completed with the assistance of the mid-level provider. I reviewed and agree with the findings presented. I attest that I had a [id number] encounter with the patient on the same day, and personally performed and documented my assessment and findings in the medical record. (Karson Palacios MD) Katie Anderson Dec 03, 2016 16:55 Karson Palacios MD Dec 07, 2016 12:31
--- NOTE | 2016-12-03 17:32 | PD.CARD.PN ---
Subjective Subjective Remarks No events overnight No chest pain Objective Medications Current Medications Medications (Trade) Dose Ordered Sig/Alona Route Start Time Stop Time Status Last Admin (NS Flush) 2 ml UNSCH PRN IVF 11/29/16 00:00 12/02/16 20:13 (D50w (Vial) Inj) 25 ml UNSCH PRN IV PUSH 11/29/16 03:15 (Glucagon Inj) 1 mg UNSCH PRN OTHER 11/29/16 03:15 (Zyloprim) 100 mg DAILY PO 11/29/16 09:00 12/03/16 08:34 (Ecotrin Ec) 81 mg DAILY PO 11/29/16 09:00 12/03/16 08:33 (Lipitor) 40 mg HS PO 11/29/16 21:00 12/02/16 20:11 (Colchicine) 0.6 mg BID PO 11/29/16 09:00 12/03/16 09:08 (Lasix) 40 mg DAILY PO 11/29/16 09:00 12/03/16 08:35 (Lyrica) 150 mg TID PO 11/29/16 09:00 12/03/16 13:25 (Sodium Bicarbonate) 1,300 mg TIDPC PO 11/29/16 09:30 12/03/16 13:25 (Levemir Inj) 25 units HS SQ 11/29/16 21:00 12/02/16 20:13 (Heparin Inj) 5,000 units UNSCH PRN IV 11/29/16 15:00 (Heparin Inj) 2,500 units UNSCH PRN IV 11/29/16 15:00 (Imdur) 60 mg DAILY@07 PO 11/30/16 07:00 12/03/16 07:07 (Ultram) 50 mg Q6H PRN PO 11/30/16 08:15 12/01/16 07:07 (Coreg) 25 mg BID PO 11/30/16 21:00 12/03/16 08:34 (Nitrostat Sl) 0.4 mg Q5M PRN SL 11/30/16 14:00 (Oramorph Sr) 15 mg Q8H PO 12/01/16 09:00 12/03/16 08:35 (NS Flush) 2 ml UNSCH PRN IVF 12/01/16 14:00 IV Flush 2 ml 2 ml BID IVF 12/01/16 21:00 12/03/16 08:36 (Keppra Inj/NS Inj) 105 ml @ 400 mls/hr Q12H IV 12/02/16 02:00 12/03/16 13:25 (Dulcolax Supp) 10 mg DAILY PRN RECTAL 12/01/16 14:00 (Colace) 100 mg BID PO 12/01/16 21:00 12/03/16 08:32 (Protonix) 40 mg DAILY PO 12/02/16 09:00 12/03/16 08:34 (Protonix Inj) 40 mg DAILY IVP 12/02/16 09:00 (Zofran Inj) 4 mg Q6H PRN IV 12/01/16 14:00 12/02/16 07:43 Calcium Gluconate 1 gm 1 gm UNSCH PRN IV 12/01/16 14:00 Potassium Chloride 100 ml @ 50 mls/hr UNSCH PRN IV 12/01/16 14:00 (Magnesium Sulfate Inj/NS Inj) 108 ml @ 108 mls/hr UNSCH PRN IV 12/01/16 14:00 12/02/16 10:43 (Tylenol) 650 mg Q4H PRN PO 12/01/16 14:00 (Apresoline Inj) 10 mg Q6H PRN IV 12/01/16 22:15 (Morphine Inj) 2 mg Q2H PRN IV PUSH 12/02/16 12:00 ([place] 10-325 Mg) 1 tab Q4H PRN PO 12/02/16 11:00 ([place] 10-325 Mg) 2 tab Q4H PRN PO 12/02/16 11:00 12/03/16 13:26 Vital Signs / I&O Vital Signs Date Time Temp Pulse Resp B/P Pulse Ox O2 Delivery O2 Flow Rate FiO2 12/03/16 16:00 98.4 68 10 118/61 97 12/03/16 16:00 101 12/03/16 14:00 68 12/03/16 12:00 98.7 72 15 120/62 98 12/03/16 12:00 74 12/03/16 10:00 74 12/03/16 08:49 98 Nasal Cannula 2.00 12/03/16 08:00 74 12/03/16 08:00 98.7 74 13 120/58 100 12/03/16 07:00 97 Nasal Cannula 3.00 12/03/16 06:00 77 12/03/16 04:00 98.9 74 17 123/59 100 12/03/16 04:00 76 12/03/16 02:00 76 12/03/16 00:00 74 12/03/16 00:00 98.8 74 13 114/58 98 Arterial Line 12/02/16 22:00 76 12/02/16 20:20 99 Nasal Cannula 2.00 12/02/16 20:00 99.7 83 14 117/59 100 12/02/16 20:00 90 12/02/16 19:00 97 Nasal Cannula 3.00 12/02/16 18:00 78 I/O 12/02/16 12/02/16 12/02/16 12/03/16 12/03/16 12/03/16 07:00 15:00 23:00 07:00 15:00 23:00 Intake Total 984 ml 1521 ml 516 ml 2085 ml 440 ml Output Total 770 ml 1275 ml 265 ml 740 ml 770 ml Balance 214 ml 246 ml 251 ml 1345 ml -330 ml Intake Oral 240 ml 480 ml 480 ml 1250 ml 360 ml IV Total 744 ml 1041 ml 36 ml 835 ml 80 ml Output Urine Total 725 ml 1175 ml 200 ml 625 ml 650 ml Drainage Total 45 ml 100 ml 65 ml 115 ml 120 ml Bladder Scan Volume Amount 575 ml Physical Exam GENERAL: NAD, AAOx3 SKIN: Warm and dry. HEAD: Craniotomy with drains EYES: Pupils equal and round. No scleral icterus. No injection or drainage. ENT: No nasal bleeding or discharge. Mucous membranes pink and moist. NECK: Trachea midline. No JVD. CARDIOVASCULAR: Regular rate and rhythm. RESPIRATORY: No accessory muscle use. Clear to auscultation. Breath sounds equal bilaterally. GASTROINTESTINAL: Abdomen soft, non-tender, nondistended. Hepatic and splenic margins not palpable. MUSCULOSKELETAL: Extremities without clubbing, cyanosis, or edema. No obvious deformities. NEUROLOGICAL: Awake and alert. No obvious cranial nerve deficits. Motor grossly within normal limits. PSYCHIATRIC: Appropriate mood and affect; insight and judgment normal. Laboratory Laboratory Tests Test 12/03/16 04:17 White Blood Count 5.6 TH/MM3 Red Blood Count 3.00 MIL/MM3 Hemoglobin 8.3 GM/DL Hematocrit 25.2 % Mean Corpuscular Volume 83.8 FL Mean Corpuscular Hemoglobin 27.7 PG Mean Corpuscular Hemoglobin 33.1 % Concent Red Cell Distribution Width 13.4 % Platelet Count 82 TH/MM3 Mean Platelet Volume 13.2 FL Sodium Level 138 MEQ/L Potassium Level 4.9 MEQ/L Chloride Level 104 MEQ/L Carbon Dioxide Level 29.0 MEQ/L Anion Gap 5 MEQ/L Blood Urea Nitrogen 41 MG/DL Creatinine 1.44 MG/DL Estimat Glomerular Filtration 52 ML/MIN Rate Random Glucose 140 MG/DL Calcium Level 9.3 MG/DL Assessment and Plan Problem List: (1) NSTEMI (non-ST elevated myocardial infarction) (2) Subdural hematoma (3) Thrombocytopenia (4) HTN (hypertension) (5) Diabetes mellitus with hyperglycemia Assessment and Plan 1) Unable to place on dual anti-platelet therapy or anti-coagulation due to recent subdural hematoma Con't medical management Increasing SDH with shift s/p left craniotomy POD#2 2) Coreg/Imdur, nitro SL PRN, no further chest pain Problem Qualifiers (1) Diabetes mellitus with hyperglycemia: Simón Butt DO Dec 03, 2016 17:32
[2016-12-03] MEDS: SODIUM CHLORIDE 0.9% FLUSH 10 ML FLUSH IVF PRN (20:57)
[2016-12-03] MEDS: ATORVASTATIN 40 MG TAB PO SCH (20:58)
[2016-12-03] MEDS: INSULIN DETEMIR 100 UNITS/ML VIAL SQ SCH (20:59)
[2016-12-04] VITALS (14 sets, daily range): BP systolic 111–132; BP diastolic 57–64; PULSE 74–79; RESP 12–25; TEMP 98.4–99.5; O2SAT 97–100
[2016-12-04] MEDS: MORPHINE SULFATE 15 MG CONTROLLED RELEASE TAB PO SCH ×3 (00:28→17:00)
[2016-12-04] MEDS: levETIRAcetam INJ 500 MG in SODIUM CHLORIDE 0.9% INJ 100 ML IV SCH ×2 (01:50→13:29)
[2016-12-04] MEDS: traMADol HCL 50 MG TAB PO PRN ×2 (05:54→17:01)
[2016-12-04] MEDS: ISOSORBIDE MONONITRATE 60 MG TAB PO SCH (06:25)
[2016-12-04] MEDS: LOW DOSE INSULIN NOVOLOG SUPPLEMENTAL SCALE SQ SCH ×3 (06:25→16:00)
[2016-12-04] MEDS: PANTOPRAZOLE SODIUM 40 MG VIAL IVP SCH (09:00)
[2016-12-04] MEDS: DOCUSATE SODIUM 100 MG CAP PO SCH ×2 (09:10→21:16)
[2016-12-04] MEDS: ALLOPURINOL 100 MG TAB PO SCH (09:10)
[2016-12-04] MEDS: CARVEDILOL 12.5 MG TAB PO SCH ×2 (09:10→21:16)
[2016-12-04] MEDS: ASPIRIN EC 81 MG TABEC PO SCH (09:10)
[2016-12-04] MEDS: SODIUM BICARBONATE 650 MG TAB PO SCH ×3 (09:11→17:01)
[2016-12-04] MEDS: FUROSEMIDE 40 MG TAB PO SCH (09:11)
[2016-12-04] MEDS: PREGABALIN 75 MG CAP PO SCH ×3 (09:11→17:01)
[2016-12-04] MEDS: SODIUM CHLORIDE 0.9% FLUSH 5 ML FLUSH IVF SCH ×2 (09:12→21:00)
[2016-12-04] MEDS: PANTOPRAZOLE SOD 40 MG DELAYED RELEASE TAB PO SCH (09:12)
[2016-12-04] MEDS: COLCHICINE 0.6 MG TAB PO SCH ×2 (09:12→21:00)
--- NOTE | 2016-12-04 09:36 | HHI.PR ---
Subjective Remarks Right arm swelling is related to a basilic thrombus. No change in treatment for this. Intracranial drains tentatively be removed soon. Objective Vital Signs Date Time Temp Pulse Resp B/P Pulse Ox O2 Delivery O2 Flow Rate FiO2 12/04/16 06:00 78 12/04/16 04:00 75 12/04/16 04:00 99.0 75 18 111/57 99 12/04/16 02:00 77 12/04/16 00:00 78 12/04/16 00:00 98.4 74 19 128/61 100 12/03/16 22:00 71 12/03/16 20:40 97 2.00 12/03/16 20:00 98.6 69 11 118/56 100 12/03/16 20:00 70 12/03/16 19:00 100 Nasal Cannula 4.00 12/03/16 18:00 66 12/03/16 16:00 98.4 68 10 118/61 97 12/03/16 16:00 101 12/03/16 14:00 68 12/03/16 12:00 98.7 72 15 120/62 98 12/03/16 12:00 74 12/03/16 10:00 74 I/O 12/03/16 12/03/16 12/03/16 12/04/16 12/04/16 12/04/16 07:00 15:00 23:00 07:00 15:00 23:00 Intake Total 2085 ml 440 ml 380 ml 600 ml Output Total 740 ml 770 ml 850 ml 845 ml Balance 1345 ml -330 ml -470 ml -245 ml Intake Oral 1250 ml 360 ml 300 ml 500 ml IV Total 835 ml 80 ml 80 ml 100 ml Output Urine Total 625 ml 650 ml 720 ml 800 ml Drainage Total 115 ml 120 ml 130 ml 45 ml Bladder Scan Volume Amount 575 ml Result Diagram: 12/03/16 0417 12/03/16 0417 Procedures None Objective Remarks GENERAL: NAD, A&Ox3 SKIN: Warm and dry. HEAD: Normocephalic. No oral thrush. Cranial drains are present. EYES: No scleral icterus. No injection or drainage. NECK: Supple, trachea midline. No JVD or lymphadenopathy. CARDIOVASCULAR: Regular rate and rhythm without murmurs, gallops, or rubs. RESPIRATORY: Breath sounds equal bilaterally. No accessory muscle use. GASTROINTESTINAL: Abdomen soft, non-tender, nondistended. MUSCULOSKELETAL: No cyanosis. Edema and right arm. BACK: Nontender without obvious deformity. No CVA tenderness. A/P Problem List: (1) NSTEMI (non-ST elevated myocardial infarction) ICD Code: I21.4 (2) Subdural hematoma ICD Code: I62.00 (3) Thrombocytopenia ICD Code: D69.6 (4) JAGDISH (acute kidney injury) ICD Code: N17.9 (5) Intracranial hemorrhage ICD Code: I62.9 Assessment and Plan Assessment and Plan 51-year-old male admitted with NSTEMI and Subdural Hematoma. Doing well. No neurologic deficits in motor activity of bilateral limbs. Some speech deficit is present. Venous Doppler ultrasound of right extremity shows a basilic thrombus. Patient is not a good candidate for any change in his current treatment. Anticoagulation with more risk than benefit in this setting. NSTEMI Medical management Dual anti-platelet therapy inhibited by brain bleed Right basilic thrombus Follow clinically no change in treatment HTN Coreg Subdural Hematoma S/P Craniotomy status post left parietal craniotomy with evacuation Drains in place PRN pain treatments Neurosurgery Following Thrombocytopenia Follow CBC DM2 Insulin Sliding Scale Diabetic Diet Follow blood sugars DVT prophylaxis SCDs Discharge Planning Keep in ICU for now Pelon Gandhi MD Dec 04, 2016 9:36 am
[2016-12-04] MEDS ORDERED: MAGNESIUM HYDROXIDE SUSP 30 ML CUP PO PRN (09:45)
--- NOTE | 2016-12-04 10:01 | RADRPT ---
EXAM DATE/TIME: 12/04/2016 09:50 [facility] COMPARISON: MRI BRAIN W & W/O CONTRAST, November 30, 2016, 12:54. CT BRAIN W/O CONTRAST, December 01, 2016, 15:16. INDICATIONS : Altered mental status. RADIATION DOSE: 64.86 CTDIvol (mGy) MEDICAL HISTORY : Cardiovascular disease. Hypertension. Diabetes mellitus type 2. SURGICAL HISTORY : Craniotomy. CABG ENCOUNTER: Initial ACUITY: 1 day PAIN SCALE: 4/10 LOCATION: cranial TECHNIQUE: Multiple contiguous axial images were obtained of the head. Using automated exposure control and adj ustment of the mA and/or kV according to patient size, radiation dose was kept as low as reasonably a chievable to obtain optimal diagnostic quality images. DICOM format image data is available electro nically for review and comparison. FINDINGS: There are post craniotomy changes with a surgical drain in place on the left. No significant intra-or extra-axial hemorrhage is seen. There is some minimal mass effect on the ventricular system on the l eft. This is unchanged when compared to previous examination. There are some mild edematous changes w ithin the sulci and gyri of the high left parietal cortex. Again, changes are similar to previous donald dy of 12/01/16. The ventricles are normal in size and configuration. The appearance of the posterior fossa is unremar kable. CONCLUSION: 1. Post craniotomy changes with a surgical drain in place and mild edematous changes in the high left parietal cortices. Stable compared to previous exam. Pelon Toney MD on December 04, 2016 at 9:58 Board Certified Radiologist. This report was verified electronically.
--- NOTE | 2016-12-04 12:39 | PD.CARD.PN ---
Subjective Subjective Remarks Doing well No chest pain since admission Objective Medications Current Medications Medications (Trade) Dose Ordered Sig/Alona Route Start Time Stop Time Status Last Admin (NS Flush) 2 ml UNSCH PRN IVF 11/29/16 00:00 12/03/16 20:57 (D50w (Vial) Inj) 25 ml UNSCH PRN IV PUSH 11/29/16 03:15 (Glucagon Inj) 1 mg UNSCH PRN OTHER 11/29/16 03:15 (Zyloprim) 100 mg DAILY PO 11/29/16 09:00 12/04/16 09:10 (Ecotrin Ec) 81 mg DAILY PO 11/29/16 09:00 12/04/16 09:10 (Lipitor) 40 mg HS PO 11/29/16 21:00 12/03/16 20:58 (Colchicine) 0.6 mg BID PO 11/29/16 09:00 12/04/16 09:12 (Lasix) 40 mg DAILY PO 11/29/16 09:00 12/04/16 09:11 (Lyrica) 150 mg TID PO 11/29/16 09:00 12/04/16 09:11 (Sodium Bicarbonate) 1,300 mg TIDPC PO 11/29/16 09:30 12/04/16 09:11 (Levemir Inj) 25 units HS SQ 11/29/16 21:00 12/03/16 20:59 (Heparin Inj) 5,000 units UNSCH PRN IV 11/29/16 15:00 (Heparin Inj) 2,500 units UNSCH PRN IV 11/29/16 15:00 (Imdur) 60 mg DAILY@07 PO 11/30/16 07:00 12/04/16 06:25 (Ultram) 50 mg Q6H PRN PO 11/30/16 08:15 12/04/16 05:54 (Coreg) 25 mg BID PO 11/30/16 21:00 12/04/16 09:10 (Nitrostat Sl) 0.4 mg Q5M PRN SL 11/30/16 14:00 (Oramorph Sr) 15 mg Q8H PO 12/01/16 09:00 12/03/16 18:03 (NS Flush) 2 ml UNSCH PRN IVF 12/01/16 14:00 IV Flush 2 ml 2 ml BID IVF 12/01/16 21:00 12/04/16 09:12 (Keppra Inj/NS Inj) 105 ml @ 400 mls/hr Q12H IV 12/02/16 02:00 12/04/16 01:50 (Dulcolax Supp) 10 mg DAILY PRN RECTAL 12/01/16 14:00 (Colace) 100 mg BID PO 12/01/16 21:00 12/04/16 09:10 (Protonix) 40 mg DAILY PO 12/02/16 09:00 12/04/16 09:12 (Protonix Inj) 40 mg DAILY IVP 12/02/16 09:00 (Zofran Inj) 4 mg Q6H PRN IV 12/01/16 14:00 12/02/16 07:43 Calcium Gluconate 1 gm 1 gm UNSCH PRN IV 12/01/16 14:00 Potassium Chloride 100 ml @ 50 mls/hr UNSCH PRN IV 12/01/16 14:00 (Magnesium Sulfate Inj/NS Inj) 108 ml @ 108 mls/hr UNSCH PRN IV 12/01/16 14:00 12/02/16 10:43 (Tylenol) 650 mg Q4H PRN PO 12/01/16 14:00 (Apresoline Inj) 10 mg Q6H PRN IV 12/01/16 22:15 (Morphine Inj) 2 mg Q2H PRN IV PUSH 12/02/16 12:00 ([place] 10-325 Mg) 1 tab Q4H PRN PO 12/02/16 11:00 ([place] 10-325 Mg) 2 tab Q4H PRN PO 12/02/16 11:00 12/03/16 13:26 (Milk Of Magnesia Liq) 30 ml DAILY PRN PO 12/04/16 09:45 Vital Signs / I&O Vital Signs Date Time Temp Pulse Resp B/P Pulse Ox O2 Delivery O2 Flow Rate FiO2 12/04/16 10:59 100 Nasal Cannula 1.50 12/04/16 06:00 78 12/04/16 04:00 75 12/04/16 04:00 99.0 75 18 111/57 99 12/04/16 02:00 77 12/04/16 00:00 78 12/04/16 00:00 98.4 74 19 128/61 100 12/03/16 22:00 71 12/03/16 20:40 97 2.00 12/03/16 20:00 98.6 69 11 118/56 100 12/03/16 20:00 70 12/03/16 19:00 100 Nasal Cannula 4.00 12/03/16 18:00 66 12/03/16 16:00 98.4 68 10 118/61 97 12/03/16 16:00 101 12/03/16 14:00 68 I/O 12/03/16 12/03/16 12/03/16 12/04/16 12/04/16 12/04/16 06:59 14:59 22:59 06:59 14:59 22:59 Intake Total 2085 ml 440 ml 380 ml 600 ml Output Total 740 ml 770 ml 850 ml 845 ml Balance 1345 ml -330 ml -470 ml -245 ml Intake Oral 1250 ml 360 ml 300 ml 500 ml IV Total 835 ml 80 ml 80 ml 100 ml Output Urine Total 625 ml 650 ml 720 ml 800 ml Drainage Total 115 ml 120 ml 130 ml 45 ml Bladder Scan Volume Amount 575 ml Physical Exam GENERAL: NAD, AAOx3 SKIN: Warm and dry. HEAD: Craniotomy with drains EYES: Pupils equal and round. No scleral icterus. No injection or drainage. ENT: No nasal bleeding or discharge. Mucous membranes pink and moist. NECK: Trachea midline. No JVD. CARDIOVASCULAR: Regular rate and rhythm. RESPIRATORY: No accessory muscle use. Clear to auscultation. Breath sounds equal bilaterally. GASTROINTESTINAL: Abdomen soft, non-tender, nondistended. Hepatic and splenic margins not palpable. MUSCULOSKELETAL: Extremities without clubbing, cyanosis, or edema. No obvious deformities. NEUROLOGICAL: Awake and alert. No obvious cranial nerve deficits. Motor grossly within normal limits. PSYCHIATRIC: Appropriate mood and affect; insight and judgment normal. Assessment and Plan Problem List: (1) NSTEMI (non-ST elevated myocardial infarction) (2) Subdural hematoma (3) Thrombocytopenia (4) HTN (hypertension) (5) Diabetes mellitus with hyperglycemia Assessment and Plan 1) Unable to place on dual anti-platelet therapy or anti-coagulation due to recent subdural hematoma Con't medical management Increasing SDH with shift s/p left craniotomy POD#3 2) Coreg/Imdur, nitro SL PRN, no further chest pain 3) Will see PRN, call with questions Problem Qualifiers (1) Diabetes mellitus with hyperglycemia: Simón Butt DO Dec 04, 2016 12:39
--- NOTE | 2016-12-04 14:29 | HHI.NSPN ---
(Katie Anderson) Note Status Status: Progress Note (Katie Anderson) Interval History Interval History Mr. London is a 51 year old male who was suffered a fall and presented with a small subdural hematoma. He was fully anticoagulated. He was managed in a non- surgical fashion. A week later he presented with expressive aphasia and follow up CT showed increased in nthe size of the subdural hematoma with mass effect and midline shift. He underwent a left parietal craniotomy, evacuation of acute subdural hematoma on 12/01/16. 12/02: POD 1, neuro stable, f/u CT Head this am completed, c/o headaches 12/03: POD 2, pt seen this am during rounds, reports speech is better, awaiting for U/S of right arm for swelling. 12/04: POD 3, reports last night having episodes of dysphasia, no seizure activities seen, also c/o slight increased MOJICA's, obtained stat CT Head this morning shows stable findings, stable mild left parietal swelling without significant mass effect or midline shift, no new ICH (Katie Anderson) Labs, Micro, & Vital Signs Results Date Time Temp Pulse Resp B/P Pulse Ox O2 Delivery O2 Flow Rate FiO2 12/04/16 12:00 77 12/04/16 10:59 100 Nasal Cannula 1.50 12/04/16 10:00 78 12/04/16 08:00 99.3 79 12 126/64 97 12/04/16 08:00 79 12/04/16 07:00 100 Nasal Cannula 2.00 12/04/16 06:00 78 12/04/16 04:00 75 12/04/16 04:00 99.0 75 18 111/57 99 12/04/16 02:00 77 12/04/16 00:00 78 12/04/16 00:00 98.4 74 19 128/61 100 12/03/16 22:00 71 12/03/16 20:40 97 2.00 12/03/16 20:00 98.6 69 11 118/56 100 12/03/16 20:00 70 12/03/16 19:00 100 Nasal Cannula 4.00 12/03/16 18:00 66 12/03/16 16:00 98.4 68 10 118/61 97 12/03/16 16:00 101 12/04/16 06:59 Intake Total 1420 ml Output Total 2465 ml Balance -1045 ml Constitutional Vital Signs Date Time Temp Pulse Resp B/P Pulse Ox O2 Delivery O2 Flow Rate FiO2 12/04/16 12:00 77 12/04/16 10:59 100 Nasal Cannula 1.50 12/04/16 10:00 78 12/04/16 08:00 99.3 79 12 126/64 97 12/04/16 08:00 79 12/04/16 07:00 100 Nasal Cannula 2.00 12/04/16 06:00 78 12/04/16 04:00 75 12/04/16 04:00 99.0 75 18 111/57 99 12/04/16 02:00 77 12/04/16 00:00 78 12/04/16 00:00 98.4 74 19 128/61 100 12/03/16 22:00 71 12/03/16 20:40 97 2.00 12/03/16 20:00 98.6 69 11 118/56 100 12/03/16 20:00 70 12/03/16 19:00 100 Nasal Cannula 4.00 12/03/16 18:00 66 12/03/16 16:00 98.4 68 10 118/61 97 12/03/16 16:00 101 12/04/16 06:59 Intake Total 1420 ml Output Total 2465 ml Balance -1045 ml (Katie Anderson) Review of Systems/Exam Exam Mr. London is sitting up in chair, awake and oriented place and person. Following commands. Mildly converses. Surgical wound healing well. SALO drain with min to moderate serosanguineous drainage. Cranial nerve examination: pupils equal, round, and reactive to light. Gross EOMs intact. Facial motor are normal and symmetrical. Neck is soft and supple. Motor: moving all four extremities grossly 4/5 (Katie Anderson) Medications Current Medications Current Medications Medications (Trade) Dose Ordered Sig/[place]ona Route PRN Reason Start Time Stop Time Status Last Admin Dose Admin Sodium Chloride (NS Flush) 2 ml UNSCH PRN IVF FLUSH AFTER USING IV ACCESS 11/29/16 00:00 12/03/16 20:57 Dextrose (D50w (Vial) Inj) 25 ml UNSCH PRN IV PUSH HYPOGLYCEMIA - SEE COMMENTS 11/29/16 03:15 Glucagon (Glucagon Inj) 1 mg UNSCH PRN OTHER HYPOGLYCEMIA-SEE COMMENTS 11/29/16 03:15 Allopurinol (Zyloprim) 100 mg DAILY PO 11/29/16 09:00 12/04/16 09:10 Aspirin (Ecotrin Ec) 81 mg DAILY PO 11/29/16 09:00 12/04/16 09:10 Atorvastatin Calcium (Lipitor) 40 mg HS PO 11/29/16 21:00 12/03/16 20:58 Colchicine (Colchicine) 0.6 mg BID PO 11/29/16 09:00 12/04/16 09:12 Furosemide (Lasix) 40 mg DAILY PO 11/29/16 09:00 12/04/16 09:11 Pregabalin (Lyrica) 150 mg TID PO 11/29/16 09:00 12/04/16 13:30 Sodium Bicarbonate (Sodium Bicarbonate) 1,300 mg TIDPC PO 11/29/16 09:30 12/04/16 13:30 Insulin Detemir (Levemir Inj) 25 units HS SQ 11/29/16 21:00 12/03/16 20:59 Heparin Sodium (Porcine) (Heparin Inj) 5,000 units UNSCH PRN IV APTT LESS THAN 25 11/29/16 15:00 Heparin Sodium (Porcine) (Heparin Inj) 2,500 units UNSCH PRN IV APTT 25 TO 39 11/29/16 15:00 Isosorbide Mononitrate (Imdur) 60 mg DAILY@07 PO 11/30/16 07:00 12/04/16 06:25 Tramadol HCl (Ultram) 50 mg Q6H PRN PO HEADACHE 11/30/16 08:15 12/04/16 05:54 Carvedilol (Coreg) 25 mg BID PO 11/30/16 21:00 12/04/16 09:10 Nitroglycerin (Nitrostat Sl) 0.4 mg Q5M PRN SL CHEST PAIN 11/30/16 14:00 Morphine Sulfate (Oramorph Sr) 15 mg Q8H PO 12/01/16 09:00 12/03/16 18:03 IV Flush (NS Flush) 2 ml UNSCH PRN IVF FLUSH AFTER USING IV ACCESS 12/01/16 14:00 IV Flush 2 ml 2 ml BID IVF 12/01/16 21:00 12/04/16 09:12 Levetriacetam/ Sodium Chloride (Keppra Inj/NS Inj) 105 ml @ 400 mls/hr Q12H IV 12/02/16 02:00 12/04/16 13:29 Bisacodyl (Dulcolax Supp) 10 mg DAILY PRN RECTAL CONSTIPATION 12/01/16 14:00 Docusate Sodium (Colace) 100 mg BID PO 12/01/16 21:00 12/04/16 09:10 Pantoprazole Sodium (Protonix) 40 mg DAILY PO 12/02/16 09:00 12/04/16 09:12 Pantoprazole Sodium (Protonix Inj) 40 mg DAILY IVP 12/02/16 09:00 Ondansetron HCl (Zofran Inj) 4 mg Q6H PRN IV NAUSEA OR VOMITING 12/01/16 14:00 12/02/16 07:43 Calcium Gluconate 1 gm 1 gm UNSCH PRN IV SEE LABEL COMMENTS 12/01/16 14:00 Potassium Chloride 100 ml @ 50 mls/hr UNSCH PRN IV POTASSIUM LESS THAN 4 12/01/16 14:00 Magnesium Sulfate/ Sodium Chloride (Magnesium Sulfate Inj/NS Inj) 108 ml @ 108 mls/hr UNSCH PRN IV MAGNESIUM LESS THAN 2 12/01/16 14:00 12/02/16 10:43 Acetaminophen (Tylenol) 650 mg Q4H PRN PO TEMPERATURE > 101.5 F 12/01/16 14:00 Hydralazine HCl (Apresoline Inj) 10 mg Q6H PRN IV SEE LABEL COMMENTS 12/01/16 22:15 Morphine Sulfate (Morphine Inj) 2 mg Q2H PRN IV PUSH BREAKTHROUGH PAIN 12/02/16 12:00 Acetaminophen/ Hydrocodone Bitart ([place] 10-325 Mg) 1 tab Q4H PRN PO PAIN SCALE 1 TO 5 12/02/16 11:00 Acetaminophen/ Hydrocodone Bitart ([place] 10-325 Mg) 2 tab Q4H PRN PO PAIN SCALE 6 TO 10 12/02/16 11:00 12/03/16 13:26 Magnesium Hydroxide (Milk Of Magnesia Liq) 30 ml DAILY PRN PO Constipation 12/04/16 09:45 12/04/16 13:58 (Katie Anderson) Medical Decision Making MDM Remarks 51 y/o male s/p left craniotomy for evacuation of subdural hematoma 12/01/16, POD 3 f/u CT Head 12/02 with evac of SDH episode of recurrent dysphasia overnight, f/u CT Head this morning 12/04/16 is stable (Katie Anderson) Plan Plan Remarks f/u CT Head this am reviewed, discontinue SALO drains x 2, cont current care serial neuro check cont therapy (Katie Anderson) Attending Statement The exam, history, and the medical decision-making described in the above note were completed with the assistance of the mid-level provider. I reviewed and agree with the findings presented. I attest that I had a [id number] encounter with the patient on the same day, and personally performed and documented my assessment and findings in the medical record. (Karson Palacios MD) Katie Anderson Dec 04, 2016 14:29 Karson Palacios MD Dec 07, 2016 12:39
[2016-12-04] MEDS ORDERED: DEXTROSE 50% IN WATER 50 ML VIAL(D50) IV PRN (17:30)
[2016-12-04] MEDS ORDERED: GLUCAGON 1 MG/ML VIAL OTHER PRN (17:30)
[2016-12-04] MEDS: ATORVASTATIN 40 MG TAB PO SCH (21:16)
[2016-12-04] MEDS: SODIUM CHLORIDE 0.9% FLUSH 10 ML FLUSH IVF PRN (21:17)
[2016-12-04] MEDS: INSULIN DETEMIR 100 UNITS/ML VIAL SQ SCH (21:22)
[2016-12-04] MEDS: INSULIN ASPART SUPPLEMENTAL SCALE SQ SCH (21:24)
[2016-12-05] VITALS (15 sets, daily range): BP systolic 131–150; BP diastolic 61–94; PULSE 76–86; RESP 10–20; TEMP 97.6–99.8; O2SAT 93–100
[2016-12-05] MEDS: MORPHINE SULFATE 15 MG CONTROLLED RELEASE TAB PO SCH ×3 (01:00→17:00)
[2016-12-05] MEDS: levETIRAcetam INJ 500 MG in SODIUM CHLORIDE 0.9% INJ 100 ML IV SCH ×2 (02:01→13:59)
[2016-12-05 05:33] LABS: HEMATOCRIT 24.5 % (39.0-51.0); MEAN CELL VOLUME 84.3 FL (80.0-100.0); MEAN CORPUSCULAR HEMOGLOBIN 28.1 PG (27.0-34.0); MEAN CORPUSCULAR HGB CONC 33.3 % (32.0-36.0); PLATELET COUNT 68 TH/MM3 (150-450); RED BLOOD COUNT 2.91 MIL/MM3 (4.50-5.90); RED CELL DISTRIBUTION WIDTH 13.4 % (11.6-17.2); WHITE BLOOD COUNT 4.9 TH/MM3 (4.0-11.0)
[2016-12-05 05:42] LABS: REVIEW FLAG FINAL
[2016-12-05] MEDS: ISOSORBIDE MONONITRATE 60 MG TAB PO SCH (07:00)
[2016-12-05] MEDS: INSULIN ASPART SUPPLEMENTAL SCALE SQ SCH ×4 (07:00→21:28)
--- NOTE | 2016-12-05 07:50 | HHI.NSPN ---
(Bruno Jasso) History Chief Complaint: SDH s/p left crani for SDH. (Bruno Jasso) Interval History Mr. London is a 51 year old male who was suffered a fall and presented with a small subdural hematoma. He was fully anticoagulated. He was managed in a non- surgical fashion. A week later he presented with expressive aphasia and follow up CT showed increased in nthe size of the subdural hematoma with mass effect and midline shift. He underwent a left parietal craniotomy, evacuation of acute subdural hematoma on 12/01/16. 12/02: POD 1, neuro stable, f/u CT Head this am completed, c/o headaches 12/03: POD 2, pt seen this am during rounds, reports speech is better, awaiting for U/S of right arm for swelling. 12/04: POD 3, reports last night having episodes of dysphasia, no seizure activities seen, also c/o slight increased MOJICA's, obtained stat CT Head this morning shows stable findings, stable mild left parietal swelling without significant mass effect or midline shift, no new ICH 12/05: POD 4, Pt awakens to voice. Mild incisional discomfort. no nausea or vomiting. Follows commands well. No paresthesias or weakness. (Bruno Jasso) Review of Systems General: Negative for: fever, chills, insomnia Respiratory: Negative for: shortness of breath, cough, sputum Cardiovascular: Negative for: chest pain Gastrointestinal: Negative for: nausea, vomitting, diarrhea, constipation ( Bruno Jasso) Exam Results Vital Signs Date Time Temp Pulse Resp B/P Pulse Ox O2 Delivery O2 Flow Rate FiO2 12/05/16 06:00 82 12/05/16 04:00 98.8 15 131/66 100 12/04/16 19:00 Nasal Cannula 2.00 Intake and Output 12/04/16 12/04/16 12/05/16 08:00 16:00 00:00 Intake Total 600 ml 570 ml 100 ml Output Total 845 ml 1275 ml 700 ml Balance -245 ml -705 ml -600 ml (Bruno Jasso) Physical Examination Resp: CTA bilaterally Heart: NSR no murmurs Abd: Soft positive bs Skin: Incision clean and dry. No signs of infection. Muscle: Moves all 4 extremities well. Neuro: Pt awake and alert. Follows commands well. Speech clear and appropriate. Pupils 3mm bilaterally. (Bruno Jasso) Lab, Micro, Other Results Last Impressions Head CT 12/04/16 0000 Signed Impressions: Service Date/Time: Sunday, December 04, 2016 09:50 - CONCLUSION: 1. Post craniotomy changes with a surgical drain in place and mild edematous changes in the high left parietal cortices. Stable compared to previous exam. Pelon Toney MD Upper Extremity Ultrasound 12/03/16 0000 Signed Impressions: Service Date/Time: November 10:36 - CONCLUSION: Occlusive thrombus isolated within the basilic vein within the proximal forearm. Nasir Figueroa Jr., MD Brain MRI 11/30/16 0000 Signed Impressions: Service Date/Time: Wednesday, November 30, 2016 12:54 - CONCLUSION: 1. There is subdural hematoma on the left. This encompasses nearly the entire left hemisphere this is much better appreciated on MRI than CT. There is approximately 1 mm of zefr-wh-yizsa falcine shift and some slight mass effect on the lateral ventricular system on the left. No enhancing mass is identified. 2. There is no acute cortical infarct. Pelon Toney MD Chest X-Ray 11/29/16 0000 Signed Impressions: Service Date/Time: Monday, November 28, 2016 23:58 - CONCLUSION: No acute disease. Bruno Cabrera MD Laboratory Tests Test 12/04/16 12/05/16 15:00 04:26 Nasal Screen MRSA (PCR) MRSA NOT DETECTED White Blood Count 4.9 TH/MM3 Red Blood Count 2.91 MIL/MM3 Hemoglobin 8.2 GM/DL Hematocrit 24.5 % Mean Corpuscular Volume 84.3 FL Mean Corpuscular Hemoglobin 28.1 PG Mean Corpuscular Hemoglobin 33.3 % Concent Red Cell Distribution Width 13.4 % Platelet Count 68 TH/MM3 Mean Platelet Volume 12.3 FL 12/04/16 12/04/16 12/05/16 15:00 23:00 07:00 Intake Total 570 ml 100 ml 100 ml Output Total 1275 ml 700 ml 750 ml Balance -705 ml -600 ml -650 ml Intake Oral 480 ml 100 ml 0 ml IV Total 90 ml 0 ml 100 ml Output Urine Total 1200 ml 700 ml 750 ml Drainage Total 75 ml # Bowel Movements 3 1 2 (Bruno Jasso) Medical Decision Making Impression and Plan A: 51 y/o male s/p left craniotomy for evacuation of subdural hematoma 12/01/16 , POD 4 f/u CT Head 12/02 with evac of SDH f/u CT Head this morning 12/04/16 is stable Plan Pts states the pain medication is causing fatigue in particular the [place] and request we discontinue this. He has Morphine Prn and ultram also. Continue with PT Continue with neuro checks. (Bruno Jasso) Attending Statement The exam, history, and the medical decision-making described in the above note were completed with the assistance of the mid-level provider. I reviewed and agree with the findings presented. I attest that I had a [id number]-kr-abdu encounter with the patient on the same day, and personally performed and documented my assessment and findings in the medical record. Stable examination. Awake Alert and interactive with the with at bedside. Platelet counts a slowly continue to decrease in the 60s now, We'll transfuse 1 unit of platelets given there is a risk of rebleed with recent hemorrhage. Continue with observation and supportive care. (Ovidio Sparrow MD) Bruno Jasso Dec 05, 2016 07:50 Ovidio Sparrow MD Dec 05, 2016 09:47
[2016-12-05] MEDS: PANTOPRAZOLE SOD 40 MG DELAYED RELEASE TAB PO SCH (09:00)
[2016-12-05] MEDS: PANTOPRAZOLE SODIUM 40 MG VIAL IVP SCH (09:00)
[2016-12-05] MEDS: COLCHICINE 0.6 MG TAB PO SCH ×2 (09:00→21:30)
[2016-12-05] MEDS: SODIUM CHLORIDE 0.9% FLUSH 5 ML FLUSH IVF SCH ×2 (09:00→21:00)
[2016-12-05] MEDS: CALCITRIOL 0.25 MCG CAP PO SCH (10:04)
[2016-12-05] MEDS: ASPIRIN EC 81 MG TABEC PO SCH (10:04)
[2016-12-05] MEDS: DOCUSATE SODIUM 100 MG CAP PO SCH ×2 (10:04→21:30)
[2016-12-05] MEDS: SODIUM BICARBONATE 650 MG TAB PO SCH ×3 (10:05→18:15)
[2016-12-05] MEDS: CARVEDILOL 12.5 MG TAB PO SCH ×2 (10:05→21:29)
[2016-12-05] MEDS: PREGABALIN 75 MG CAP PO SCH ×3 (10:05→18:15)
[2016-12-05] MEDS: ALLOPURINOL 100 MG TAB PO SCH (10:05)
[2016-12-05] MEDS: FUROSEMIDE 40 MG TAB PO SCH (10:05)
--- NOTE | 2016-12-05 10:41 | HHI.PR ---
Subjective Remarks Lethargy result today. Right arm swelling is decreasing today. Cranial drains have been removed yesterday. The location since removal of drains. No arrhythmias. No chest pain. Objective Vital Signs Date Time Temp Pulse Resp B/P Pulse Ox O2 Delivery O2 Flow Rate FiO2 12/05/16 06:00 82 12/05/16 04:00 98.8 76 15 131/66 100 12/05/16 04:00 76 12/05/16 02:00 76 12/05/16 00:00 99.4 76 10 133/63 100 12/05/16 00:00 76 12/04/16 22:00 78 12/04/16 21:28 100 12/04/16 20:00 76 12/04/16 20:00 98.6 76 17 132/63 100 12/04/16 19:00 98 Nasal Cannula 2.00 12/04/16 18:00 76 12/04/16 16:00 99.5 77 25 117/57 100 12/04/16 16:00 77 12/04/16 14:00 76 12/04/16 12:00 77 12/04/16 12:00 98.5 77 20 120/57 100 12/04/16 10:59 100 Nasal Cannula 1.50 I/O 12/04/16 12/04/16 12/04/16 12/05/16 12/05/16 12/05/16 06:59 14:59 22:59 06:59 14:59 22:59 Intake Total 600 ml 570 ml 100 ml 100 ml Output Total 845 ml 1275 ml 700 ml 750 ml Balance -245 ml -705 ml -600 ml -650 ml Intake Oral 500 ml 480 ml 100 ml 0 ml IV Total 100 ml 90 ml 0 ml 100 ml Output Urine Total 800 ml 1200 ml 700 ml 750 ml Drainage Total 45 ml 75 ml # Bowel Movements 3 1 2 Result Diagram: 12/05/16 0426 12/03/16 0417 Procedures None Objective Remarks GENERAL: NAD, A&Ox3 SKIN: Warm and dry. HEAD: Normocephalic. No oral thrush. Cranial drains are present. EYES: No scleral icterus. No injection or drainage. NECK: Supple, trachea midline. No JVD or lymphadenopathy. CARDIOVASCULAR: Regular rate and rhythm without murmurs, gallops, or rubs. RESPIRATORY: Breath sounds equal bilaterally. No accessory muscle use. GASTROINTESTINAL: Abdomen soft, non-tender, nondistended. MUSCULOSKELETAL: No cyanosis. Edema and right arm. BACK: Nontender without obvious deformity. No CVA tenderness. A/P Problem List: (1) NSTEMI (non-ST elevated myocardial infarction) ICD Code: I21.4 (2) Subdural hematoma ICD Code: I62.00 (3) Thrombocytopenia ICD Code: D69.6 (4) JAGDISH (acute kidney injury) ICD Code: N17.9 (5) Intracranial hemorrhage ICD Code: I62.9 Assessment and Plan Assessment and Plan 51-year-old male admitted with NSTEMI and Subdural Hematoma. Doing well. No neurologic deficits in motor activity of bilateral limbs. Speech deficit resolved. Lethargy resolved. We'll perform voiding trial today, catheter removed. Physical therapy to continue, patient should do better physical therapy now that his lethargy is resolved. Transfer out of ICU. NSTEMI Medical management Dual anti-platelet therapy inhibited by brain bleed Follow on telemetry Right basilic thrombus Improving Follow clinically HTN Coreg Subdural Hematoma S/P Craniotomy status post left parietal craniotomy with evacuation Drains removed 12/04/16 PRN pain treatments Neurosurgery Following Thrombocytopenia Follow CBC DM2 Insulin Sliding Scale Diabetic Diet Follow blood sugars DVT prophylaxis SCDs Discharge Planning Transfer out of ICU. We'll need to demonstrate improved ambulation and resolved urinary retention prior to discharge which could possibly occur by . Pelon Gandhi MD Dec 05, 2016 10:41
[2016-12-05] MEDS: ACETAMINOPHEN 325 MG TAB PO PRN (19:04)
--- NOTE | 2016-12-05 19:04 | RADRPT ---
EXAM DATE/TIME: 12/05/2016 18:51 [facility] COMPARISON: CT BRAIN W/O CONTRAST, December 04, 2016, 9:50. INDICATIONS : Patient is not waking up post craniotomy. RADIATION DOSE: 51.34 CTDIvol (mGy) MEDICAL HISTORY : Cardiovascular disease. Cerebrovascular disease. Congestive heart failure.Hypertension, diabetes SURGICAL HISTORY : CABG ENCOUNTER: Subsequent ACUITY: 4 - 6 days PAIN SCALE: Non-responsive LOCATION: cranial TECHNIQUE: Multiple contiguous axial images were obtained of the head. Using automated exposure control and adj ustment of the mA and/or kV according to patient size, radiation dose was kept as low as reasonably a chievable to obtain optimal diagnostic quality images. DICOM format image data is available electro nically for review and comparison. FINDINGS: Previously seen left subdural drain has been removed with a tiny approximate 4 mm subpleural hem atoma remaining. There is gas within the extra-axial space on the left postsurgical. There is no mass effect. CONCLUSION: Removal of left subdural drain with slight gas and hematoma remaining without any mass effect. Ronan Stephens MD on December 05, 2016 at 19:01 Board Certified Radiologist. This report was verified electronically.
[2016-12-05] MEDS ORDERED: levETIRAcetam 1000 MG INJ 100 ML IV ONE (19:15)
[2016-12-05] MEDS: INSULIN DETEMIR 100 UNITS/ML VIAL SQ SCH (21:28)
[2016-12-05] MEDS: ATORVASTATIN 40 MG TAB PO SCH (21:29)
[2016-12-05] MEDS: SODIUM CHLORIDE 0.9% FLUSH 10 ML FLUSH IVF PRN (21:30)
[2016-12-06] VITALS (14 sets, daily range): BP systolic 114–130; BP diastolic 56–74; PULSE 78–115; RESP 17–24; TEMP 99.4–99.9; O2SAT 96–100
[2016-12-06] MEDS: MORPHINE SULFATE 15 MG CONTROLLED RELEASE TAB PO SCH ×4 (01:00→17:00)
[2016-12-06] MEDS: levETIRAcetam INJ 500 MG in SODIUM CHLORIDE 0.9% INJ 100 ML IV SCH ×2 (02:06→14:25)
[2016-12-06] MEDS: ISOSORBIDE MONONITRATE 60 MG TAB PO SCH (06:09)
[2016-12-06] MEDS: INSULIN ASPART SUPPLEMENTAL SCALE SQ SCH ×4 (07:00→20:46)
--- NOTE | 2016-12-06 07:29 | HHI.NSPN ---
(Bruno Jasso) History Chief Complaint: SDH s/p left crani for SDH. (Bruno Jasso) Interval History Mr. London is a 51 year old male who was suffered a fall and presented with a small subdural hematoma. He was fully anticoagulated. He was managed in a non- surgical fashion. A week later he presented with expressive aphasia and follow up CT showed increased in nthe size of the subdural hematoma with mass effect and midline shift. He underwent a left parietal craniotomy, evacuation of acute subdural hematoma on 12/01/16. 12/02: POD 1, neuro stable, f/u CT Head this am completed, c/o headaches 12/03: POD 2, pt seen this am during rounds, reports speech is better, awaiting for U/S of right arm for swelling. 12/04: POD 3, reports last night having episodes of dysphasia, no seizure activities seen, also c/o slight increased MOJICA's, obtained stat CT Head this morning shows stable findings, stable mild left parietal swelling without significant mass effect or midline shift, no new ICH 12/05: POD 4, Pt awakens to voice. Mild incisional discomfort. no nausea or vomiting. Follows commands well. No paresthesias or weakness. 12/06: POD 5: Pt awakens to voice but goes to sleep easily. Denies headache or nausea. Answers questions when prompted. Follows simple commands. Family at bedside states he intermittently has periods of confusion, hallucination, and blank stares. Stat CT was obtained yesterday and was stable. (Bruno Jasso) Review of Systems General: Negative for: fever, chills, insomnia Respiratory: Negative for: shortness of breath, cough, sputum Cardiovascular: Negative for: chest pain Gastrointestinal: Negative for: nausea, vomitting, diarrhea, constipation ( Bruno Jasso) Exam Results Vital Signs Date Time Temp Pulse Resp B/P Pulse Ox O2 Delivery O2 Flow Rate FiO2 12/06/16 06:00 88 12/06/16 04:00 99.5 24 125/74 100 12/05/16 20:27 Nasal Cannula 2.00 Intake and Output 12/05/16 12/05/16 12/06/16 08:00 16:00 00:00 Intake Total 100 ml 737 ml 193 ml Output Total 750 ml 500 ml 900 ml Balance -650 ml 237 ml -707 ml (Bruno Jasso) Physical Examination Resp: CTA bilaterally Heart: NSR no murmurs Abd: Soft positive bs Skin: Incision clean and dry. No signs of infection. Muscle: Moves all 4 extremities well. Neuro: Pt awakens to voice but goes to sleep easily. Follows commands. Answers questions when prompted but not as verbal this morning. Pupils 3mm bilaterally. (Bruno Jasso) Lab, Micro, Other Results Last Impressions Head CT 12/05/16 0000 Signed Impressions: Service Date/Time: Monday, December 05, 2016 18:51 - CONCLUSION: Removal of left subdural drain with slight gas and hematoma remaining without any mass effect. Ronan Stephens MD Upper Extremity Ultrasound 12/03/16 0000 Signed Impressions: Service Date/Time: November 10:36 - CONCLUSION: Occlusive thrombus isolated within the basilic vein within the proximal forearm. Nasir Figueroa Jr., MD Brain MRI 11/30/16 0000 Signed Impressions: Service Date/Time: Wednesday, November 30, 2016 12:54 - CONCLUSION: 1. There is subdural hematoma on the left. This encompasses nearly the entire left hemisphere this is much better appreciated on MRI than CT. There is approximately 1 mm of sgym-bl-tzxxi falcine shift and some slight mass effect on the lateral ventricular system on the left. No enhancing mass is identified. 2. There is no acute cortical infarct. Pelon Toney MD Chest X-Ray 11/29/16 0000 Signed Impressions: Service Date/Time: Monday, November 28, 2016 23:58 - CONCLUSION: No acute disease. Bruno Cabrera MD Laboratory Tests Test 12/05/16 09:53 Blood Bank Comment 12/05/16 12/05/16 12/06/16 15:00 23:00 07:00 Intake Total 737 ml 193 ml 128 ml Output Total 500 ml 900 ml 850 ml Balance 237 ml -707 ml -722 ml Intake Oral 720 ml 30 ml 30 ml IV Total 17 ml 163 ml 98 ml Output Urine Total 500 ml 900 ml 850 ml # Bowel Movements 3 0 1 (Bruno Jasso) Medical Decision Making Impression and Plan A: 51 y/o male s/p left craniotomy for evacuation of subdural hematoma 12/01/16 , POD 4 f/u CT Head 12/02 with evac of SDH f/u CT Head 12/04/16 is stable f/u CT head 12/06 stable. Thrombocytopenia. Plan Continue with PT Continue with neuro checks. Seizure precautions. Pt received Platelets yesterday. Follow up lab this morning not able to obtain yet. (Bruno Jasso) Attending Statement The exam, history, and the medical decision-making described in the above note were completed with the assistance of the mid-level provider. I reviewed and agree with the findings presented. I attest that I had a pfhx-ra-imtr encounter with the patient on the same day, and personally performed and documented my assessment and findings in the medical record. Exam is stable with the fluctuating level of alertness. Currently he is awake and interactive and follows commands readily. Follow-up CT scan last evening is stable. Continue with seizure prophylaxis and supportive care. Platelet counts pending following transfusion of 1 unit yesterday for thrombocytopenia. Continue with observation in [facility]. Discussed with family at bedside. (Ovidio Sparrow MD) Bruno Jasso Dec 06, 2016 07:29 Ovidio Sparrow MD Dec 06, 2016 11:36
[2016-12-06] MEDS: PREGABALIN 75 MG CAP PO SCH ×3 (08:35→17:53)
[2016-12-06] MEDS: FUROSEMIDE 40 MG TAB PO SCH (08:35)
[2016-12-06] MEDS: CARVEDILOL 12.5 MG TAB PO SCH ×2 (08:35→20:48)
[2016-12-06] MEDS: SODIUM BICARBONATE 650 MG TAB PO SCH ×3 (08:35→17:53)
[2016-12-06] MEDS: COLCHICINE 0.6 MG TAB PO SCH ×2 (08:36→20:48)
[2016-12-06] MEDS: DOCUSATE SODIUM 100 MG CAP PO SCH ×2 (08:36→21:00)
[2016-12-06] MEDS: PANTOPRAZOLE SOD 40 MG DELAYED RELEASE TAB PO SCH (08:36)
[2016-12-06] MEDS: PANTOPRAZOLE SODIUM 40 MG VIAL IVP SCH (08:37)
[2016-12-06] MEDS: ALLOPURINOL 100 MG TAB PO SCH (08:37)
[2016-12-06] MEDS: SODIUM CHLORIDE 0.9% FLUSH 5 ML FLUSH IVF SCH ×2 (08:37→21:53)
[2016-12-06] MEDS: ASPIRIN EC 81 MG TABEC PO SCH (08:37)
--- NOTE | 2016-12-06 09:45 | HHI.PR ---
Subjective Remarks Patient failed voiding trial yesterday. Catheter has been replaced and avoid trial be tried again in 48 hours. No new complaints today. She did have some questionable seizure activity last night and he'll be monitored in the ICU secondary to this. Objective Vital Signs Date Time Temp Pulse Resp B/P Pulse Ox O2 Delivery O2 Flow Rate FiO2 12/06/16 08:12 99 Nasal Cannula 2.00 12/06/16 06:00 88 12/06/16 04:00 99.5 89 24 125/74 100 12/06/16 04:00 89 12/06/16 02:00 84 12/06/16 00:00 99.6 79 19 119/64 100 12/06/16 00:00 79 12/05/16 22:00 84 12/05/16 20:27 100 Nasal Cannula 2.00 12/05/16 20:00 86 12/05/16 20:00 99.8 86 20 147/65 100 12/05/16 19:00 99 Nasal Cannula 2.00 12/05/16 18:00 86 12/05/16 16:00 86 12/05/16 16:00 99.2 80 17 142/71 100 12/05/16 15:00 99.1 84 18 132/61 100 12/05/16 14:00 83 12/05/16 13:08 93 12/05/16 12:00 97.6 83 16 147/75 100 12/05/16 12:00 83 12/05/16 10:00 80 I/O 12/05/16 12/05/16 12/05/16 12/06/16 12/06/16 12/06/16 07:00 15:00 23:00 07:00 15:00 23:00 Intake Total 100 ml 737 ml 193 ml 128 ml Output Total 750 ml 500 ml 900 ml 850 ml Balance -650 ml 237 ml -707 ml -722 ml Intake Oral 0 ml 720 ml 30 ml 30 ml IV Total 100 ml 17 ml 163 ml 98 ml Output Urine Total 750 ml 500 ml 900 ml 850 ml # Bowel Movements 2 3 0 1 Result Diagram: 12/05/16 0426 12/03/16 0417 Procedures None Objective Remarks GENERAL: NAD, A&Ox3 SKIN: Warm and dry. HEAD: Normocephalic. No oral thrush. Cranial drains are present. EYES: No scleral icterus. No injection or drainage. NECK: Supple, trachea midline. No JVD or lymphadenopathy. CARDIOVASCULAR: Regular rate and rhythm without murmurs, gallops, or rubs. RESPIRATORY: Breath sounds equal bilaterally. No accessory muscle use. GASTROINTESTINAL: Abdomen soft, non-tender, nondistended. MUSCULOSKELETAL: No cyanosis. Edema and right arm. BACK: Nontender without obvious deformity. No CVA tenderness. A/P Problem List: (1) NSTEMI (non-ST elevated myocardial infarction) ICD Code: I21.4 (2) Subdural hematoma ICD Code: I62.00 (3) Thrombocytopenia ICD Code: D69.6 (4) JAGDISH (acute kidney injury) ICD Code: N17.9 (5) Intracranial hemorrhage ICD Code: I62.9 Assessment and Plan Assessment and Plan 51-year-old male admitted with NSTEMI and Subdural Hematoma. Recovering well thus far. Possible seizure activity last night. Continue to monitor in ICU. Patient failed voiding trial yesterday and catheters replaced. Repeat void trial in 48 hours. NSTEMI Medical management Dual anti-platelet therapy inhibited by brain bleed Follow on telemetry Right basilic thrombus Improving Follow clinically HTN Coreg Subdural Hematoma S/P Craniotomy status post left parietal craniotomy with evacuation Drains removed 12/04/16 PRN pain treatments Neurosurgery Following Thrombocytopenia Follow CBC DM2 Insulin Sliding Scale Diabetic Diet Follow blood sugars DVT prophylaxis SCDs Discharge Planning Transfer out of ICU. We'll need to demonstrate improved ambulation and resolved urinary retention prior to discharge which could possibly occur by . Pelon Gandhi MD Dec 06, 2016 09:45
[2016-12-06 11:35] LABS: AUTOMATED NEUTROPHIL # 4.2 TH/MM3 (1.8-7.7); BASOPHIL % 0.5 % (0.0-2.0); EOSINOPHIL % 0.7 % (0.0-4.0); HEMATOCRIT 23.3 % (39.0-51.0); LYMPH % 9.2 % (9.0-44.0); LYMPHOCYTE # 0.5 TH/MM3 (1.0-4.8); MEAN CELL VOLUME 83.8 FL (80.0-100.0); MEAN CORPUSCULAR HEMOGLOBIN 28.1 PG (27.0-34.0); MEAN CORPUSCULAR HGB CONC 33.6 % (32.0-36.0); MONO % 15.7 % (0.0-8.0); NEUT % 73.9 % (16.0-70.0); PLATELET COUNT 65 TH/MM3 (150-450); RED BLOOD COUNT 2.78 MIL/MM3 (4.50-5.90); RED CELL DISTRIBUTION WIDTH 13.4 % (11.6-17.2); WHITE BLOOD COUNT 5.7 TH/MM3 (4.0-11.0)
[2016-12-06] MEDS: ACETAMINOPHEN 325 MG TAB PO PRN ×3 (11:39→21:58)
[2016-12-06 11:40] LABS: HEMO FLAGS AUTO DIFF
[2016-12-06 12:10] LABS: ANION GAP 6 MEQ/L (5-15); AST (GOT) 32 U/L (15-37); BICARBONATE 32.1 MEQ/L (21.0-32.0); BLOOD UREA NITROGEN 35 MG/DL (7-18); CHLORIDE 102 MEQ/L (98-107); GLOMERULAR FILTRATION RATE 79 ML/MIN (>89); POTASSIUM 4.7 MEQ/L (3.5-5.1); SODIUM (NA) 140 MEQ/L (136-145)
[2016-12-06 12:11] LABS: ALT (GPT) 46 U/L (12-78)
[2016-12-06 12:15] LABS: ALKALINE PHOSPHATASE 179 U/L (45-117); TOTAL BILIRUBIN ADULT 1.1 MG/DL (0.2-1.0)
[2016-12-06 12:23] LABS: PLATELET ESTIMATE SMEAR LOW (NORMAL); PLATELET MORPHOLOGY ENLARGED (NORMAL); SCAN/DIFF AUTO DIFF CONFIRMED
[2016-12-06] MEDS: INSULIN DETEMIR 100 UNITS/ML VIAL SQ SCH (20:46)
[2016-12-06] MEDS: ATORVASTATIN 40 MG TAB PO SCH (20:47)
[2016-12-06] MEDS: traMADol HCL 50 MG TAB PO PRN (23:40)
[2016-12-07] VITALS (13 sets, daily range): BP systolic 117–129; BP diastolic 56–81; PULSE 76–91; RESP 16–26; TEMP 98.7–100.9; O2SAT 94–100
[2016-12-07] MEDS: MORPHINE SULFATE 15 MG CONTROLLED RELEASE TAB PO SCH ×3 (00:17→08:59)
[2016-12-07] MEDS: levETIRAcetam INJ 500 MG in SODIUM CHLORIDE 0.9% INJ 100 ML IV SCH ×2 (01:13→13:47)
[2016-12-07 05:04] LABS: HEMATOCRIT 24.2 % (39.0-51.0); MEAN CELL VOLUME 84.1 FL (80.0-100.0); MEAN CORPUSCULAR HEMOGLOBIN 27.5 PG (27.0-34.0); MEAN CORPUSCULAR HGB CONC 32.7 % (32.0-36.0); PLATELET COUNT 61 TH/MM3 (150-450); RED BLOOD COUNT 2.87 MIL/MM3 (4.50-5.90); RED CELL DISTRIBUTION WIDTH 13.3 % (11.6-17.2); WHITE BLOOD COUNT 4.6 TH/MM3 (4.0-11.0)
[2016-12-07 05:05] LABS: BICARBONATE 32.8 MEQ/L (21.0-32.0); POTASSIUM 4.5 MEQ/L (3.5-5.1)
[2016-12-07 05:06] LABS: REVIEW FLAG FINAL
[2016-12-07] MEDS: ISOSORBIDE MONONITRATE 60 MG TAB PO SCH (05:56)
[2016-12-07] MEDS: INSULIN ASPART SUPPLEMENTAL SCALE SQ SCH ×4 (07:00→20:32)
[2016-12-07] MEDS: SODIUM CHLORIDE 0.9% FLUSH 10 ML FLUSH IVF PRN (08:38)
[2016-12-07] MEDS: FUROSEMIDE 40 MG TAB PO SCH (08:39)
[2016-12-07] MEDS: CARVEDILOL 12.5 MG TAB PO SCH ×2 (08:40→21:22)
[2016-12-07] MEDS: CALCITRIOL 0.25 MCG CAP PO SCH (08:40)
[2016-12-07] MEDS: SODIUM BICARBONATE 650 MG TAB PO SCH ×3 (08:40→18:13)
[2016-12-07] MEDS: ACETAMINOPHEN 325 MG TAB PO PRN (08:41)
[2016-12-07] MEDS: PANTOPRAZOLE SODIUM 40 MG VIAL IVP SCH (08:41)
[2016-12-07] MEDS: PANTOPRAZOLE SOD 40 MG DELAYED RELEASE TAB PO SCH (08:41)
[2016-12-07] MEDS: DOCUSATE SODIUM 100 MG CAP PO SCH ×3 (08:41→20:18)
[2016-12-07] MEDS: SODIUM CHLORIDE 0.9% FLUSH 5 ML FLUSH IVF SCH ×2 (08:41→20:18)
[2016-12-07] MEDS: ASPIRIN EC 81 MG TABEC PO SCH (09:00)
[2016-12-07] MEDS: COLCHICINE 0.6 MG TAB PO SCH ×2 (09:00→20:19)
[2016-12-07] MEDS: PREGABALIN 75 MG CAP PO SCH ×3 (09:07→18:13)
[2016-12-07] MEDS: ALLOPURINOL 100 MG TAB PO SCH (09:07)
--- NOTE | 2016-12-07 11:06 | HHI.NSPN ---
(Katie Anderson) Note Status Status: Progress Note (Katie Anderson) Interval History Interval History Mr. London is a 51 year old male who was suffered a fall and presented with a small subdural hematoma. He was fully anticoagulated. He was managed in a non- surgical fashion. A week later he presented with expressive aphasia and follow up CT showed increased in nthe size of the subdural hematoma with mass effect and midline shift. He underwent a left parietal craniotomy, evacuation of acute subdural hematoma on 12/01/16. 12/02: POD 1, neuro stable, f/u CT Head this am completed, c/o headaches 12/03: POD 2, pt seen this am during rounds, reports speech is better, awaiting for U/S of right arm for swelling. 12/04: POD 3, reports last night having episodes of dysphasia, no seizure activities seen, also c/o slight increased MOJICA's, obtained stat CT Head this morning shows stable findings, stable mild left parietal swelling without significant mass effect or midline shift, no new ICH 12/07: POD 6, episode of AMS over the weekend, another repeat Head CT was stable. This morning sitting up in chair, reports feeling better. (Katie Anderson) Labs, Micro, & Vital Signs Results Date Time Temp Pulse Resp B/P Pulse Ox O2 Delivery O2 Flow Rate FiO2 12/07/16 07:45 100 Nasal Cannula 2.00 12/07/16 06:00 88 12/07/16 04:00 98.9 82 23 117/56 100 12/07/16 04:00 82 12/07/16 02:00 82 12/07/16 00:17 24 12/07/16 00:17 24 12/07/16 00:00 100.7 91 24 126/59 100 12/07/16 00:00 91 12/06/16 22:00 91 12/06/16 20:00 99.4 83 22 123/62 96 12/06/16 20:00 83 12/06/16 19:00 99 Nasal Cannula 2.00 12/06/16 18:00 83 7/16/17 16:00 99.6 81 17 128/63 100 12/06/16 16:00 78 12/06/16 15:25 25 12/06/16 14:00 115 12/06/16 12:00 85 12/06/16 12:00 99.9 85 22 114/56 98 12/07/16 07:00 Intake Total 1270 ml Output Total 2125 ml Balance -855 ml Constitutional Vital Signs Date Time Temp Pulse Resp B/P Pulse Ox O2 Delivery O2 Flow Rate FiO2 12/07/16 07:45 100 Nasal Cannula 2.00 12/07/16 06:00 88 12/07/16 04:00 98.9 82 23 117/56 100 12/07/16 04:00 82 12/07/16 02:00 82 12/07/16 00:17 24 12/07/16 00:17 24 12/07/16 00:00 100.7 91 24 126/59 100 12/07/16 00:00 91 12/06/16 22:00 91 12/06/16 20:00 99.4 83 22 123/62 96 12/06/16 20:00 83 12/06/16 19:00 99 Nasal Cannula 2.00 12/06/16 18:00 83 12/06/16 16:00 99.6 81 17 128/63 100 12/06/16 16:00 78 12/06/16 15:25 25 12/06/16 14:00 115 12/06/16 12:00 85 12/06/16 12:00 99.9 85 22 114/56 98 12/07/16 07:00 Intake Total 1270 ml Output Total 2125 ml Balance -855 ml (Katie Anderson) Review of Systems/Exam Exam Alert, sitting up in chair, oriented to year, name, and place. follow commands well. conversing appropriately. surgical wound healing well, no signs of infection. SALO drain site with steri- strips, no drainage seen. CN: pupils equal, facial motor symmetric Motor: moves all four extremities symmetrically Neck: soft, supple (Katie Anderson) Medications Current Medications Current Medications Medications (Trade) Dose Ordered Sig/Alona Route PRN Reason Start Time Stop Time Status Last Admin Dose Admin Sodium Chloride (NS Flush) 2 ml UNSCH PRN IVF FLUSH AFTER USING IV ACCESS 11/29/16 00:00 12/07/16 08:38 Allopurinol (Zyloprim) 100 mg DAILY PO 11/29/16 09:00 12/07/16 09:07 Aspirin (Ecotrin Ec) 81 mg DAILY PO 11/29/16 09:00 12/05/16 10:04 Atorvastatin Calcium (Lipitor) 40 mg HS PO 11/29/16 21:00 12/06/16 20:47 Colchicine (Colchicine) 0.6 mg BID PO 11/29/16 09:00 12/07/16 09:00 Furosemide (Lasix) 40 mg DAILY PO 11/29/16 09:00 12/07/16 08:39 Pregabalin (Lyrica) 150 mg TID PO 11/29/16 09:00 12/07/16 09:07 Sodium Bicarbonate (Sodium Bicarbonate) 1,300 mg TIDPC PO 11/29/16 09:30 12/07/16 08:40 Insulin Detemir (Levemir Inj) 25 units HS SQ 11/29/16 21:00 12/06/16 20:46 Heparin Sodium (Porcine) (Heparin Inj) 5,000 units UNSCH PRN IV APTT LESS THAN 25 11/29/16 15:00 Heparin Sodium (Porcine) (Heparin Inj) 2,500 units UNSCH PRN IV APTT 25 TO 39 11/29/16 15:00 Isosorbide Mononitrate (Imdur) 60 mg DAILY@07 PO 11/30/16 07:00 12/07/16 05:56 Tramadol HCl (Ultram) 50 mg Q6H PRN PO HEADACHE 11/30/16 08:15 12/06/16 23:40 Carvedilol (Coreg) 25 mg BID PO 11/30/16 21:00 12/07/16 08:40 Nitroglycerin (Nitrostat Sl) 0.4 mg Q5M PRN SL CHEST PAIN 11/30/16 14:00 Morphine Sulfate (Oramorph Sr) 15 mg Q8H PO 12/01/16 09:00 12/07/16 01:00 IV Flush (NS Flush) 2 ml UNSCH PRN IVF FLUSH AFTER USING IV ACCESS 12/01/16 14:00 IV Flush 2 ml 2 ml BID IVF 12/01/16 21:00 12/07/16 08:41 Levetriacetam/ Sodium Chloride (Keppra Inj/NS Inj) 105 ml @ 400 mls/hr Q12H IV 12/02/16 02:00 12/07/16 01:13 Bisacodyl (Dulcolax Supp) 10 mg DAILY PRN RECTAL CONSTIPATION 12/01/16 14:00 Docusate Sodium (Colace) 100 mg BID PO 12/01/16 21:00 12/07/16 09:08 Pantoprazole Sodium (Protonix) 40 mg DAILY PO 12/02/16 09:00 12/07/16 08:41 Pantoprazole Sodium (Protonix Inj) 40 mg DAILY IVP 12/02/16 09:00 12/07/16 08:41 Ondansetron HCl (Zofran Inj) 4 mg Q6H PRN IV NAUSEA OR VOMITING 12/01/16 14:00 12/02/16 07:43 Calcium Gluconate 1 gm 1 gm UNSCH PRN IV SEE LABEL COMMENTS 12/01/16 14:00 Potassium Chloride 100 ml @ 50 mls/hr UNSCH PRN IV POTASSIUM LESS THAN 4 12/01/16 14:00 Magnesium Sulfate/ Sodium Chloride (Magnesium Sulfate Inj/NS Inj) 108 ml @ 108 mls/hr UNSCH PRN IV MAGNESIUM LESS THAN 2 12/01/16 14:00 12/02/16 10:43 Acetaminophen (Tylenol) 650 mg Q4H PRN PO TEMPERATURE > 101.5 F 12/01/16 14:00 12/07/16 08:41 Hydralazine HCl (Apresoline Inj) 10 mg Q6H PRN IV SEE LABEL COMMENTS 12/01/16 22:15 12/05/16 18:15 Morphine Sulfate (Morphine Inj) 2 mg Q2H PRN IV PUSH BREAKTHROUGH PAIN 12/02/16 12:00 Acetaminophen/ Hydrocodone Bitart (Addison 10-325 Mg) 1 tab Q4H PRN PO PAIN SCALE 1 TO 5 12/02/16 11:00 Acetaminophen/ Hydrocodone Bitart (Addison 10-325 Mg) 2 tab Q4H PRN PO PAIN SCALE 6 TO 10 12/02/16 11:00 12/03/16 13:26 Magnesium Hydroxide (Milk Of Magnesia Liq) 30 ml DAILY PRN PO Constipation 12/04/16 09:45 12/04/16 13:58 Dextrose (D50w (Vial) Inj) 50 ml UNSCH PRN IV HYPOGLYCEMIA-SEE COMMENTS 12/04/16 17:30 Glucagon (Glucagon Inj) 1 mg UNSCH PRN OTHER HYPOGLYCEMIA-SEE COMMENTS 12/04/16 17:30 (Katie Anderson) Medical Decision Making MDM Remarks 51 y/o male s/p left craniotomy for evacuation of subdural hematoma 12/01/16, POD 6 f/u CT Head 12/02 with evac of SDH episode of recurrent dysphasia overnight, f/u CT Head this morning 12/04/16 is stable, and repeat Head CT 12/05 stable (Katie Anderson) Plan Plan Remarks mental status better now, cont neuro check cont supportive care, cont therapy Neurology following (Katie Anderson) Attending Statement The exam, history, and the medical decision-making described in the above note were completed with the assistance of the mid-level provider. I reviewed and agree with the findings presented. I attest that I had a [id number] encounter with the patient on the same day, and personally performed and documented my assessment and findings in the medical record. (Karson Palacios MD) Katie Anderson Dec 07, 2016 11:06 Karson Palacios MD Dec 07, 2016 12:36
--- NOTE | 2016-12-07 14:37 | HHI.PR ---
Subjective Remarks Fever overnight without signs of infection. Plan for voiding trial tomorrow. Protonix and Keppra changed to by mouth. Narcotic dosing decreased secondary to hallucinations. Objective Vital Signs Date Time Temp Pulse Resp B/P Pulse Ox O2 Delivery O2 Flow Rate FiO2 12/07/16 12:00 99.6 80 20 120/61 94 12/07/16 12:00 80 12/07/16 10:00 88 12/07/16 08:00 98.7 87 16 126/62 99 12/07/16 08:00 87 12/07/16 07:45 100 Nasal Cannula 2.00 12/07/16 07:00 99 Nasal Cannula 2.00 12/07/16 06:00 88 12/07/16 04:00 98.9 82 23 117/56 100 12/07/16 04:00 82 12/07/16 02:00 82 12/07/16 00:17 24 12/07/16 00:17 24 12/07/16 00:00 100.7 91 24 126/59 100 12/07/16 00:00 91 12/06/16 22:00 91 12/06/16 20:00 99.4 83 22 123/62 96 12/06/16 20:00 83 12/06/16 19:00 99 Nasal Cannula 2.00 12/06/16 18:00 83 12/06/16 16:00 99.6 81 17 128/63 100 12/06/16 16:00 78 12/06/16 15:25 25 I/O 12/06/16 12/06/16 12/06/16 12/07/16 12/07/16 12/07/16 06:59 14:59 22:59 06:59 14:59 22:59 Intake Total 128 ml 810 ml 220 ml 240 ml Output Total 850 ml 800 ml 550 ml 775 ml Balance -722 ml 10 ml -330 ml -535 ml Intake Oral 30 ml 800 ml 120 ml 240 ml IV Total 98 ml 10 ml 100 ml Output Urine Total 850 ml 800 ml 550 ml 775 ml Bladder Scan Volume Amount 575 ml # Bowel Movements 1 1 0 0 Result Diagram: 12/07/16 0357 12/07/16 0357 Procedures None Objective Remarks GENERAL: NAD, A&Ox3 SKIN: Warm and dry. HEAD: Normocephalic. No oral thrush. Cranial drains are present. EYES: No scleral icterus. No injection or drainage. NECK: Supple, trachea midline. No JVD or lymphadenopathy. CARDIOVASCULAR: Regular rate and rhythm without murmurs, gallops, or rubs. RESPIRATORY: Breath sounds equal bilaterally. No accessory muscle use. GASTROINTESTINAL: Abdomen soft, non-tender, nondistended. MUSCULOSKELETAL: No cyanosis. Edema and right arm. BACK: Nontender without obvious deformity. No CVA tenderness. A/P Problem List: (1) NSTEMI (non-ST elevated myocardial infarction) ICD Code: I21.4 (2) Subdural hematoma ICD Code: I62.00 (3) Thrombocytopenia ICD Code: D69.6 (4) JAGDISH (acute kidney injury) ICD Code: N17.9 (5) Intracranial hemorrhage ICD Code: I62.9 Assessment and Plan Assessment and Plan 51-year-old male admitted with NSTEMI and Subdural Hematoma. Recovering well thus far. Possible seizure activity last night. Transfer out of ICU today. Decrease by mouth morphine. Change Protonix and Keppra dosing to by mouth. NSTEMI Medical management Dual anti-platelet therapy inhibited by brain bleed Follow on telemetry Right basilic thrombus Improving Follow clinically HTN Coreg Subdural Hematoma S/P Craniotomy status post left parietal craniotomy with evacuation Drains removed 12/04/16 PRN pain treatments Neurosurgery Following Thrombocytopenia Follow CBC DM2 Insulin Sliding Scale Diabetic Diet Follow blood sugars DVT prophylaxis SCDs Discharge Planning Transfer out of ICU. We'll need to demonstrate improved ambulation and resolved urinary retention prior to discharge which could possibly occur by . Pelon Gandhi MD Dec 07, 2016 14:37
[2016-12-07] MEDS ORDERED: MORPHINE SULFATE ORAL SOLN 10 MG/0.5 ML SYRINGE SL PRN (14:45)
[2016-12-07 16:01] LABS: BACTERIA, URINE RARE /hpf; BLOOD, URINE TRACE (NEG); GLUCOSE,URINE NEG (NEG); HYALINE CAST, URINE 3 /lpf (RARE); KETONE, URINE NEG (NEG); MUCUS URINE FEW /lpf (OCC); NITRITE,URINE NEG (NEG); PH, URINE 5.5 (5.0-8.5); SQUAMOUS EPITHELIAL CELL URINE <1 /hpf (0-5); TRANSITIONAL EPI CELLS, URINE 1 /hpf; URINE COLOR YELLOW (YELLW/STRAW)
[2016-12-07 16:02] LABS: COMMENT (UR) CATH-CULTURE IND; CULTURE IF INDICATED CATH CULTURE IND
[2016-12-07] MEDS: levETIRAcetam 500 MG TAB PO SCH (20:18)
[2016-12-07] MEDS: ATORVASTATIN 40 MG TAB PO SCH (20:19)
[2016-12-07] MEDS: INSULIN DETEMIR 100 UNITS/ML VIAL SQ SCH (20:32)
[2016-12-08] VITALS (9 sets, daily range): BP systolic 124–147; BP diastolic 60–68; PULSE 73–97; RESP 18–20; TEMP 97.4–98.5; O2SAT 91–100
[2016-12-08] MEDS: ISOSORBIDE MONONITRATE 60 MG TAB PO SCH (05:35)
[2016-12-08] MEDS: INSULIN ASPART SUPPLEMENTAL SCALE SQ SCH ×4 (05:35→20:53)
[2016-12-08 06:48] LABS: HEMATOCRIT 24.9 % (39.0-51.0); MEAN CELL VOLUME 84.7 FL (80.0-100.0); MEAN CORPUSCULAR HEMOGLOBIN 27.5 PG (27.0-34.0); MEAN CORPUSCULAR HGB CONC 32.5 % (32.0-36.0); PLATELET COUNT 54 TH/MM3 (150-450); RED BLOOD COUNT 2.94 MIL/MM3 (4.50-5.90); RED CELL DISTRIBUTION WIDTH 13.4 % (11.6-17.2); WHITE BLOOD COUNT 4.2 TH/MM3 (4.0-11.0)
[2016-12-08 07:14] LABS: REVIEW FLAG FINAL
[2016-12-08 07:15] LABS: BICARBONATE 33.7 MEQ/L (21.0-32.0); POTASSIUM 4.3 MEQ/L (3.5-5.1)
[2016-12-08] MEDS: PREGABALIN 75 MG CAP PO SCH ×3 (08:50→16:49)
[2016-12-08] MEDS: levETIRAcetam 500 MG TAB PO SCH ×2 (08:51→20:38)
[2016-12-08] MEDS: ASPIRIN EC 81 MG TABEC PO SCH (08:51)
[2016-12-08] MEDS: ALLOPURINOL 100 MG TAB PO SCH (08:51)
[2016-12-08] MEDS: DOCUSATE SODIUM 100 MG CAP PO SCH ×2 (08:51→20:38)
[2016-12-08] MEDS: PANTOPRAZOLE SOD 40 MG DELAYED RELEASE TAB PO SCH (08:51)
[2016-12-08] MEDS: CARVEDILOL 12.5 MG TAB PO SCH ×2 (08:51→20:37)
[2016-12-08] MEDS: SODIUM BICARBONATE 650 MG TAB PO SCH ×3 (08:51→16:50)
[2016-12-08] MEDS: COLCHICINE 0.6 MG TAB PO SCH ×2 (08:52→20:38)
[2016-12-08] MEDS: SODIUM CHLORIDE 0.9% FLUSH 5 ML FLUSH IVF SCH ×2 (08:57→20:39)
[2016-12-08] MEDS: FUROSEMIDE 40 MG TAB PO SCH (08:57)
--- NOTE | 2016-12-08 09:15 | HHI.PR ---
Subjective Remarks No further fevers. Pain control. Repeating voiding trial today. Objective Vital Signs Date Time Temp Pulse Resp B/P Pulse Ox O2 Delivery O2 Flow Rate FiO2 12/08/16 08:00 98.5 74 20 124/63 94 12/08/16 04:55 98.1 79 18 136/68 100 12/08/16 03:57 86 12/08/16 00:58 98.2 97 18 147/60 96 12/08/16 00:00 Room Air 12/07/16 21:18 99 Nasal Cannula 2.00 12/07/16 21:00 20 12/07/16 20:00 82 12/07/16 20:00 99.9 82 21 129/59 97 12/07/16 19:13 20 12/07/16 19:00 100 Nasal Cannula 2.00 12/07/16 18:07 81 12/07/16 16:00 76 12/07/16 16:00 100.9 76 26 122/81 99 12/07/16 14:00 84 12/07/16 12:00 99.6 80 20 120/61 94 12/07/16 12:00 80 12/07/16 10:00 88 I/O 12/07/16 12/07/16 12/07/16 12/08/16 12/08/16 12/08/16 07:00 15:00 23:00 07:00 15:00 23:00 Intake Total 240 ml 952 ml 720 ml Output Total 775 ml 600 ml 650 ml 450 ml Balance -535 ml 352 ml 70 ml -450 ml Intake Oral 240 ml 857 ml 720 ml IV Total 95 ml Output Urine Total 775 ml 600 ml 650 ml 450 ml # Bowel Movements 0 Result Diagram: 12/08/16 0505 12/08/16 0505 Procedures None Objective Remarks GENERAL: NAD, A&Ox3 SKIN: Warm and dry. HEAD: Normocephalic. No oral thrush. Cranial drains are present. EYES: No scleral icterus. No injection or drainage. NECK: Supple, trachea midline. No JVD or lymphadenopathy. CARDIOVASCULAR: Regular rate and rhythm without murmurs, gallops, or rubs. RESPIRATORY: Breath sounds equal bilaterally. No accessory muscle use. GASTROINTESTINAL: Abdomen soft, non-tender, nondistended. MUSCULOSKELETAL: No cyanosis. Edema and right arm. BACK: Nontender without obvious deformity. No CVA tenderness. A/P Problem List: (1) NSTEMI (non-ST elevated myocardial infarction) ICD Code: I21.4 (2) Subdural hematoma ICD Code: I62.00 (3) Thrombocytopenia ICD Code: D69.6 (4) JAGDISH (acute kidney injury) ICD Code: N17.9 (5) Intracranial hemorrhage ICD Code: I62.9 Assessment and Plan Assessment and Plan 51-year-old male admitted with NSTEMI and Subdural Hematoma. Recovering well thus far. No further seizure activity. Tolerating diet. Working on ambulation. Void trial again today. NSTEMI Medical management Dual anti-platelet therapy inhibited by brain bleed Follow on telemetry Right basilic thrombus Improving Follow clinically HTN Coreg Subdural Hematoma S/P Craniotomy status post left parietal craniotomy with evacuation Drains removed 12/04/16 PRN pain treatments Neurosurgery Following Thrombocytopenia Follow CBC DM2 Insulin Sliding Scale Diabetic Diet Follow blood sugars DVT prophylaxis SCDs Discharge Planning Transfer out of ICU. We'll need to demonstrate improved ambulation and resolved urinary retention prior to discharge which could possibly occur by . Pelon Gandhi MD Dec 08, 2016 09:15
[2016-12-08] MEDS: ACETAMINOPHEN 325 MG TAB PO PRN ×2 (11:57→23:56)
--- NOTE | 2016-12-08 15:48 | HHI.NSPN ---
Note Status Status: Progress Note Interval History Interval History Mr. London is a 51 year old male who was suffered a fall and presented with a small subdural hematoma. He was fully anticoagulated. He was managed in a non- surgical fashion. A week later he presented with expressive aphasia and follow up CT showed increased in nthe size of the subdural hematoma with mass effect and midline shift. He underwent a left parietal craniotomy, evacuation of acute subdural hematoma on 12/01/16. 12/02: POD 1, neuro stable, f/u CT Head this am completed, c/o headaches 12/03: POD 2, pt seen this am during rounds, reports speech is better, awaiting for U/S of right arm for swelling. 12/04: POD 3, reports last night having episodes of dysphasia, no seizure activities seen, also c/o slight increased MOJICA's, obtained stat CT Head this morning shows stable findings, stable mild left parietal swelling without significant mass effect or midline shift, no new ICH 12/07: POD 6, episode of AMS over the weekend, another repeat Head CT was stable. This morning sitting up in chair, reports feeling better. 12/08: POD 7, in room reports patient is doing much better and his mental status is improve. no new complaints overnight Labs, Micro, & Vital Signs Results Date Time Temp Pulse Resp B/P Pulse Ox O2 Delivery O2 Flow Rate FiO2 12/08/16 11:19 94 12/08/16 09:22 73 12/08/16 08:00 Room Air 12/08/16 08:00 98.5 74 20 124/63 94 12/08/16 04:55 98.1 79 18 136/68 100 12/08/16 03:57 86 12/08/16 00:58 98.2 97 18 147/60 96 12/08/16 00:00 Room Air 12/07/16 21:18 99 Nasal Cannula 2.00 12/07/16 21:00 20 12/07/16 20:00 82 12/07/16 20:00 99.9 82 21 129/59 97 7/17/17 19:13 20 12/07/16 19:00 100 Nasal Cannula 2.00 12/07/16 18:07 81 12/07/16 16:00 76 12/07/16 16:00 100.9 76 26 122/81 99 12/08/16 07:00 Intake Total 1672 ml Output Total 1700 ml Balance -28 ml Constitutional Vital Signs Date Time Temp Pulse Resp B/P Pulse Ox O2 Delivery O2 Flow Rate FiO2 12/08/16 11:19 94 12/08/16 09:22 73 12/08/16 08:00 Room Air 12/08/16 08:00 98.5 74 20 124/63 94 12/08/16 04:55 98.1 79 18 136/68 100 12/08/16 03:57 86 12/08/16 00:58 98.2 97 18 147/60 96 12/08/16 00:00 Room Air 12/07/16 21:18 99 Nasal Cannula 2.00 12/07/16 21:00 20 12/07/16 20:00 82 12/07/16 20:00 99.9 82 21 129/59 97 12/07/16 19:13 20 12/07/16 19:00 100 Nasal Cannula 2.00 12/07/16 18:07 81 12/07/16 16:00 76 12/07/16 16:00 100.9 76 26 122/81 99 12/08/16 07:00 Intake Total 1672 ml Output Total 1700 ml Balance -28 ml Review of Systems/Exam Exam Alert, oriented to year, name, and place. follow commands well. conversing appropriately. Pleasant and smiling. surgical wound healing well, no signs of infection. CN: pupils equal, facial motor symmetric. EOMs intact. Tongue midline. Motor: moves all four extremities symmetrically Neck: soft, supple Medications Current Medications Current Medications Medications (Trade) Dose Ordered Sig/Alona Route PRN Reason Start Time Stop Time Status Last Admin Dose Admin Allopurinol (Zyloprim) 100 mg DAILY PO 11/29/16 09:00 12/08/16 08:51 Aspirin (Ecotrin Ec) 81 mg DAILY PO 11/29/16 09:00 12/08/16 08:51 Atorvastatin Calcium (Lipitor) 40 mg HS PO 11/29/16 21:00 12/07/16 20:19 Colchicine (Colchicine) 0.6 mg BID PO 11/29/16 09:00 12/08/16 08:52 Furosemide (Lasix) 40 mg DAILY PO 11/29/16 09:00 12/08/16 08:57 Pregabalin (Lyrica) 150 mg TID PO 11/29/16 09:00 12/08/16 11:58 Sodium Bicarbonate (Sodium Bicarbonate) 1,300 mg TIDPC PO 11/29/16 09:30 12/08/16 11:57 Insulin Detemir (Levemir Inj) 25 units HS SQ 11/29/16 21:00 12/07/16 20:32 Heparin Sodium (Porcine) (Heparin Inj) 5,000 units UNSCH PRN IV APTT LESS THAN 25 11/29/16 15:00 Heparin Sodium (Porcine) (Heparin Inj) 2,500 units UNSCH PRN IV APTT 25 TO 39 11/29/16 15:00 Isosorbide Mononitrate (Imdur) 60 mg DAILY@07 PO 11/30/16 07:00 12/08/16 05:35 Tramadol HCl (Ultram) 50 mg Q6H PRN PO HEADACHE 11/30/16 08:15 12/06/16 23:40 Carvedilol (Coreg) 25 mg BID PO 11/30/16 21:00 12/08/16 08:51 Nitroglycerin (Nitrostat Sl) 0.4 mg Q5M PRN SL CHEST PAIN 11/30/16 14:00 IV Flush (NS Flush) 2 ml UNSCH PRN IVF FLUSH AFTER USING IV ACCESS 12/01/16 14:00 IV Flush (NS Flush) 2 ml BID IVF 12/01/16 21:00 12/08/16 08:57 Bisacodyl (Dulcolax Supp) 10 mg DAILY PRN RECTAL CONSTIPATION 12/01/16 14:00 Docusate Sodium (Colace) 100 mg BID PO 12/01/16 21:00 12/08/16 08:51 Pantoprazole Sodium (Protonix) 40 mg DAILY PO 12/02/16 09:00 12/08/16 08:51 Ondansetron HCl (Zofran Inj) 4 mg Q6H PRN IV NAUSEA OR VOMITING 12/01/16 14:00 12/02/16 07:43 Calcium Gluconate 1 gm 1 gm UNSCH PRN IV SEE LABEL COMMENTS 12/01/16 14:00 Potassium Chloride 100 ml @ 50 mls/hr UNSCH PRN IV POTASSIUM LESS THAN 4 12/01/16 14:00 Magnesium Sulfate/ Sodium Chloride (Magnesium Sulfate Inj/NS Inj) 108 ml @ 108 mls/hr UNSCH PRN IV MAGNESIUM LESS THAN 2 12/01/16 14:00 12/02/16 10:43 Acetaminophen (Tylenol) 650 mg Q4H PRN PO TEMPERATURE > 101.5 F 12/01/16 14:00 12/08/16 11:57 Hydralazine HCl (Apresoline Inj) 10 mg Q6H PRN IV SEE LABEL COMMENTS 12/01/16 22:15 12/05/16 18:15 Morphine Sulfate (Morphine Inj) 2 mg Q2H PRN IV PUSH BREAKTHROUGH PAIN 12/02/16 12:00 12/07/16 16:51 Magnesium Hydroxide (Milk Of Magnesia Liq) 30 ml DAILY PRN PO Constipation 12/04/16 09:45 12/04/16 13:58 Dextrose (D50w (Vial) Inj) 50 ml UNSCH PRN IV HYPOGLYCEMIA-SEE COMMENTS 12/04/16 17:30 Glucagon (Glucagon Inj) 1 mg UNSCH PRN OTHER HYPOGLYCEMIA-SEE COMMENTS 12/04/16 17:30 Morphine Sulfate (Roxanol Liq) 5 mg Q4H PRN SL Pain 4 to 10 12/07/16 14:45 12/07/16 20:00 Levetriacetam (Keppra) 500 mg Q12HR PO 12/07/16 21:00 12/08/16 08:51 Medical Decision Making MDM Remarks 51 y/o male s/p left craniotomy for evacuation of subdural hematoma 12/01/16, POD 7 f/u CT Head 12/02 with evac of SDH f/u CT Head 12/04/16 is stable, and repeat Head CT 12/05 stable clinically improved Plan Plan Remarks doing well, improving, clear for dc from NRS standpoint, follow up in office 12/15/16 for staple removal dw patient and in room Katie Anderson Dec 08, 2016 15:48
[2016-12-08] MEDS: ATORVASTATIN 40 MG TAB PO SCH (20:38)
[2016-12-08] MEDS: INSULIN DETEMIR 100 UNITS/ML VIAL SQ SCH (20:54)
[2016-12-09] VITALS: BP 145/76; PULSE 74; RESP 20; TEMP 98; O2SAT 100
[2016-12-09 05:00] VITALS: BP 135/81; PULSE 72; RESP 20; TEMP 97.6; O2SAT 99
[2016-12-09] MEDS: ISOSORBIDE MONONITRATE 60 MG TAB PO SCH (05:39)
[2016-12-09] MEDS: INSULIN ASPART SUPPLEMENTAL SCALE SQ SCH (06:10)
[2016-12-09 08:00] VITALS: BP 118/58; PULSE 71; RESP 18; TEMP 98.1; O2SAT 97
[2016-12-09] MEDS: SODIUM CHLORIDE 0.9% FLUSH 5 ML FLUSH IVF SCH (09:00)
[2016-12-09] MEDS ORDERED: CARV12.5 PO (09:14)
[2016-12-09] MEDS ORDERED: LEVE500 PO (09:14)
[2016-12-09] MEDS ORDERED: ULTR50TA5 PO (09:14)
[2016-12-09] MEDS: ALLOPURINOL 100 MG TAB PO SCH (09:17)
[2016-12-09] MEDS: CALCITRIOL 0.25 MCG CAP PO SCH (09:17)
[2016-12-09] MEDS ORDERED: LACTTAB8 PO (09:17)
[2016-12-09] MEDS: ASPIRIN EC 81 MG TABEC PO SCH (09:17)
[2016-12-09] MEDS: PREGABALIN 75 MG CAP PO SCH (09:17)
[2016-12-09] MEDS: FUROSEMIDE 40 MG TAB PO SCH (09:17)
[2016-12-09] MEDS: PANTOPRAZOLE SOD 40 MG DELAYED RELEASE TAB PO SCH (09:17)
[2016-12-09] MEDS ORDERED: SULF1TAB23 PO (09:17)
[2016-12-09] MEDS: DOCUSATE SODIUM 100 MG CAP PO SCH (09:17)
[2016-12-09] MEDS: levETIRAcetam 500 MG TAB PO SCH (09:18)
[2016-12-09] MEDS: CARVEDILOL 12.5 MG TAB PO SCH (09:18)
[2016-12-09] MEDS: SODIUM BICARBONATE 650 MG TAB PO SCH (09:18)
[2016-12-09] MEDS: COLCHICINE 0.6 MG TAB PO SCH (09:19)
--- NOTE | 2016-12-09 09:23 | MB ---
cc: TAWNYA CHOI DATE OF CONSULTATION 12/09/2016 REASON FOR CONSULTATION This is a 51-year-old male who presented on 11/30/2015 with chest pain and was ruled in for a non-ST AR at the time. He also was having neurologic symptoms prior to his admission and an MRI of his brain on 11/30/2016 showed a left subdural hematoma. He underwent decompression by the neurosurgeon and postoperatively has developed urinary retention. Prior to his admission, he denies any lower urinary tract symptoms or history of nocturia or prior retention. He has been on narcotics on-off during this admission and complains of some constipation. He does state that he has a sensation to avoid however, he is unable to. Last night, he did undergo straight cathing for approximately 400 cc of clear yellow urine. PAST MEDICAL HISTORY His medical history includes: 1. Diabetes 2. Hypertension 3. Angina 4. Dyslipidemia 5. Gout 6. Coronary artery disease PAST SURGERIES History is notable for: 1. CABG in the past with prior stent placement . 2. A recent craniotomy for subdural hematoma evacuation 3. Patient underwent placement of a penile prosthesis one year ago by his urologist in [place]. MEDICATIONS For medications, please refer to the chart. REVIEW OF SYSTEMS Presently he denies any fever or chills. Denies shortness of breath. Denies dizziness or chest pain. Denies any abdominal pain, nausea or vomiting. Notes occasional constipation. Presently notes urinary retention. Denies back pain or neck pain. Denies any rashes. Denies any lymphadenopathy or bleeding disorders. Denies urticaria. Denies any gait disturbances. FAMILY HISTORY Denies any family history of prostate cancer, but does note diabetes and heart disease. SOCIAL HISTORY Denies smoking, drinking or using drugs. PHYSICAL EXAM His present vitals today are 97.6, pulse 72, respiratory rate 20, 135/80 is his blood pressure, he is 99% on room air. GENERAL: He is well-developed, well-nourished 51-year-old male. HEENT: Normocephalic with recent craniotomy on the left side. Pupils equal round react to light. NECK: Supple. HEART: Regular rate and rhythm. LUNGS: Clear. ABDOMEN: Soft, nontender, and nondistended. : Penile prosthesis in place which is currently deflated. EXTREMITIES: Show no evidence of cyanosis, clubbing or edema. Recent bladder scan showed 400 cc. ASSESSMENT This is a 51-year-old male status post craniotomy with urinary retention without a history of BPH or lower urinary tract symptoms. RECOMMENDATIONS Would recommend replacement of a 14-Yoruba Garner catheter and leave in for approximately four to five days and have the patient follow up as an outpatient on Wednesday to undergo void trial, wean off narcotics as appropriate. Treat constipation as necessary. Thank you for the consult and allowing me to participate in the care of this patient. Tawnya DREW /9:07 AM /9:17 AM
--- NOTE | 2016-12-09 10:49 | HHI.DS ---
Discharge Summary Admission Date Nov 29, 2016 at 1:15 am Discharge Date: Dec 09, 2016 Admitting Diagnosis (1) Chest pain ICD Code: R07.9 Diagnosis: Principal (2) Elevated troponin ICD Code: R74.8 Diagnosis: Principal (3) JAGDISH (acute kidney injury) ICD Code: N17.9 Diagnosis: Principal (4) HTN (hypertension) ICD Code: I10 Diagnosis: Principal (5) Diabetes mellitus with hyperglycemia ICD Code: E11.65 Diagnosis: Principal Procedures Intracranial drains placed and removed several days later. Brief History - From Admission Written by MAI Rocha acting as scribe for Dr. Ware] on 11/29/16 at 01:30. 51-year-old male with a history of diabetes, hypertension, angina, CAD, gout presents to the ED with chest pain. Patient states the pain is sharp and stabbing in his left chest that comes and goes every few minutes, no associated symptoms, no sob, fever or chills. Patient states nothing is given is really alleviate the pain. He does appear to be in pain upon examination. Patient was just recently admitted on November 20 and discharged on November 27 for a subdural hematoma at this time patient was on Brilinta, and was taken off of it due to the hematoma. At that time he was also found to have cardiac enzymes that elevated to 6.35, patient was unable to undergo a cardiac catheter due to the subdural hematoma. It was recommended that he follow-up outpatient with cardiology for possible restart of Brilinta. Patient did have recent cardiac catheterization in [place] on 09/07 it was reviewed by cardiology last admission and showed The left anterior descending was occluded, circumflex was narrowed 80% in the midportion and 90% in the marginal branch and the right coronary artery was occluded. Both bypasses to the diagonal and RCA were occluded. The NEUMANN to the LAD was patent. The patient had complex coronary intervention with a 2.2526 mm drug-eluting stent to the mid to distal circumflex along with a 2.532 mm drug-eluting stent proximally. CBC/BMP: 12/08/16 0505 12/08/16 0505 Significant Findings Laboratory Tests Test 12/07/16 12/07/16 12/08/16 03:57 15:00 05:05 Red Blood Count 2.87 MIL/MM3 2.94 MIL/MM3 (4.50-5.90) (4.50-5.90) Hemoglobin 7.9 GM/DL 8.1 GM/DL (13.0-17.0) (13.0-17.0) Hematocrit 24.2 % 24.9 % (39.0-51.0) (39.0-51.0) Platelet Count 61 TH/MM3 54 TH/MM3 (150-450) (150-450) Mean Platelet Volume 12.7 FL 13.2 FL (7.0-11.0) (7.0-11.0) Carbon Dioxide Level 32.8 MEQ/L 33.7 MEQ/L (21.0-32.0) (21.0-32.0) Blood Urea Nitrogen 39 MG/DL (7-18) 41 MG/DL (7-18) Estimat Glomerular Filtration 71 ML/MIN (>89) 67 ML/MIN (>89) Rate Random Glucose 177 MG/DL 123 MG/DL (74-106) (74-106) Urine Occult Blood TRACE (NEG) Urine Leukocyte Esterase SMALL (NEG) Urine RBC 5 /hpf (0-3) Urine Bacteria RARE /hpf (NONE) Urine Mucus FEW /lpf (OCC) Hospital Course Mr. Clemons is a 51-year-old male. He was admitted 10 days ago secondary to chest pain. Evidence for an acute ND was present. However patient was not a candidate for blood thinners or heart catheter secondary to history of subdural hematoma recently. While here his brain bleed worsened and he needed to be transferred to the ICU and have intracranial drains placed. Acute ND was dealt with. Medical management alone, without blood thinners other than aspirin. He was monitored there for several days and stabilized. Some speech deficit remains. Some seizures occurred related to intracranial hemorrhage. She is now on Keppra. He also has urinary retention which may be related to intracranial inflammation. However overall he is continuing to improve. Physical mobility has returned to near baseline. He will need outpatient speech therapy. He is cleared by neurosurgery for discharge and he is cleared for follow-up as an outpatient with urology. Medically cleared today for discharge. New treatments provided our tramadol for pain, Keppra for seizure control, and increasing his Coreg. Empiric antibiotic treatment has also been provided. Pt Condition on Discharge: Stable Discharge Disposition: Discharge Home Discharge Time: <= 30 minutes Discharge Instructions DIET: Follow Instructions for: As Tolerated, No Restrictions Activities you can perform: Regular-No Restrictions Follow up Referrals: Cardiology - 2 Weeks Neurosurgery @ [facility]surgical - Dr Palacios with Katie Anderson PCP Follow-up - 2 Weeks Urology - 2 Weeks New Medications: Lactobacillus Acidophilus (Lactobacillus Acidophilus) 1 Tab Tab 1 TAB PO TIDAC Nutritional Supplement #30 Ref 0 TAB Carvedilol (Coreg) 12.5 Mg Tab 25 MG PO BID Blood Pressure Management #60 TAB Levetiracetam (Keppra) 500 Mg Tab 500 MG PO Q12HR Seizure Control #60 TAB Sulfamethoxazole-Trimethoprim (Sulfamethoxazole-Trimethoprim) 800-160 Mg Tab 1 TAB PO Q12HR Infection #14 TAB Tramadol (Ultram) 50 Mg Tab 50 MG PO Q6H PRN HEADACHE #60 TAB Continued Medications: Allopurinol (Allopurinol) 100 Mg Tab 100 MG PO DAILY Gout #[address] Ref [address] (Adult Aspirin EC Low Strength) 81 Mg Tabec 81 MG PO DAILY FOLLOW WITH CARDIOLOGY IN FIVE DAYS TO RE START BRILINTA CAD #30 Ref 0 TAB Atorvastatin (Atorvastatin) 40 Mg Tab 40 MG PO HS Cholesterol Management #30 Ref 0 TAB Calcitriol (Calcitriol) 0.25 Mcg Cap 0.25 MCG PO EVERY OTHER DAY Calcium Supplement #30 Ref 0 CAP Colchicine (Colchicine) 0.6 Mg Cap 0.6 MG PO BID Gout Ref 0 CAP Furosemide (Furosemide) 40 Mg Tab 40 MG PO DAILY #30 Ref 0 TAB Glipizide (Glipizide) 10 Mg Tab 10 MG PO BIDAC Take 30 minutes before a meal Blood Sugar Management #60 Ref 0 TAB Insulin Glargine Inj (Lantus Inj) 100 Unit/Ml Inj 25 HS Isosorbide Mononitrate ER (Isosorbide Mononitrate ER) 60 Mg Tab 60 MG PO DAILY Prevent Chest Pain #30 Ref 0 TAB Multivitamin with Minerals (Pete Multivitamin with Mineral) 1 Each Tablet Pregabalin (Lyrica) 150 Mg Cap 150 MG PO TID #90 Ref 0 CAP Sodium Bicarbonate (Sodium Bicarbonate) 650 Mg Tab 1300 MG PO TIDPC #90 Ref 0 TAB Discontinued Medications: Carvedilol (Carvedilol) 12.5 Mg Tab 12.5 MG PO BID #60 Ref 0 TAB Lisinopril (Lisinopril) 20 Mg Tab 20 MG PO BID #30 Ref 0 TAB Oxycodone-Acetaminophen (Oxycodone-Acetaminophen) 5-325 mg Tab 1 TAB PO Q4H do not use this medicine if you will drive a car or use a machine, only use it when resting at home PRN pain #12 Ref 0 TAB Pelon Gandhi MD Dec 09, 2016 10:49 am
[2016-12-09] MEDS ORDERED: SULFAMETHOXAZOLE-TRIMETHOPRIM DS 800-160 MG TAB PO SCH (21:00)
== END 2016-12-09 13:23 | DRG 982 ==
LOC: NEPC 23:55 → NEDA 11-29 01:15 → HCIS 11-29 02:34 → N03B 12-01 10:50 → N03A 12-07 07:16 → N04B 12-07 22:48
PROVIDERS: ADMIT Hospitalist; ATTEND Hospitalist
PROC: 0T9B70Z Drainage of Bladder with Drainage Device, Via Natural or Artificial Opening (ICD-10-PCS; 2016-12-01)
PROC: 00C40ZZ Extirpation of Matter from Intracranial Subdural Space, Open Approach (ICD-10-PCS; principal; 2016-12-01 11:41)
PROC: 6A550Z2 Pheresis of Platelets, Single (ICD-10-PCS; 2016-12-05)
DX: I21.4 Non-ST elevation (NSTEMI) myocardial infarction (principal); N17.9 Acute kidney failure, unspecified; D69.6 Thrombocytopenia, unspecified; E11.65 Type 2 diabetes mellitus with hyperglycemia; I11.0 Hypertensive heart disease with heart failure; I50.9 Heart failure, unspecified; R56.9 Unspecified convulsions; R47.01 Aphasia; R44.3 Hallucinations, unspecified; S06.5X9D Traumatic subdural hemorrhage with loss of consciousness of unspecified duration, subsequent encounter; I25.709 Atherosclerosis of coronary artery bypass graft(s), unspecified, with unspecified angina pectoris; I25.10 Atherosclerotic heart disease of native coronary artery without angina pectoris; F32.9 Major depressive disorder, single episode, unspecified; Z95.1 Presence of aortocoronary bypass graft; E78.00 Pure hypercholesterolemia, unspecified; K21.9 Gastro-esophageal reflux disease without esophagitis; Z86.73 Personal history of transient ischemic attack (TIA), and cerebral infarction without residual deficits; G47.30 Sleep apnea, unspecified; Z95.5 Presence of coronary angioplasty implant and graft; Z79.4 Long term (current) use of insulin; M10.9 Gout, unspecified; E78.5 Hyperlipidemia, unspecified; E87.5 Hyperkalemia; R33.8 Other retention of urine; K59.03 Drug induced constipation; T40.605A Adverse effect of unspecified narcotics, initial encounter; W19.XXXD Unspecified fall, subsequent encounter; M79.89 Other specified soft tissue disorders
CPT/HCPCS: 36430; 70450; 70553; 71010; 76937; 80048; 80053; 81001; 82550; 82948; 83735; 84100; 84484; 85025; 85027; 85610; 85730; 86850; 86900; 86901; 86920; 86965; 87086; 87641; 88304; 93005; 93971; 94150; 95819; 96374; 96375; A9579; C1713; C9113; J0131; J0171; J0360; J0461; J0690; J1170; J1580; J1815; J1940; J1953; J2150; J2250; J2270; J2370; J2405; J2710; J3010; J3475; J3480; J7030; J7040; J7120; P9035